=== PATIENT | male | born 1930 | race Hispanic/Latino ===

== ENCOUNTER 2017-11-03 07:36 | Inpatient (IN) | payer MEDICARE ==
[2017-11-03 07:57] VITALS: BMI 29.5
--- NOTE | 2017-11-03 08:35 | ED PDOC ---
Arrival/HPI - General Chief Complaint: Lower Extremity Problem/Injury Time Seen by Provider: 11/03/17 07:42 Historian: Patient - History of Present Illness Narrative History of Present Illness (Text): 11/03/17 08:41 An 87 year old male, whose past medical history includes skin CA, presents to the emergency department complaining of bilateral chronic leg lymphedema for months, denies any pain. Patient also reports left inguinal mass, painful. Notes swollen testicle. Patient has been taking water pills for a month. Patient was seen by PMD at home last night and was advised to come to the emergency department if symptoms worsen. Patient denies any fever or any other complaints at this time. PMD: Dr. Martinez Time/Duration: > month Symptom Onset: Sudden Symptom Course: Unchanged Activities at Onset: Rest Context: Home Past Medical History - Provider Review Nursing Documentation Reviewed: Yes - Infectious Disease Hx of Infectious Diseases: None - Tetanus Immunization Tetanus Immunization: Unknown - Cardiac Hx Cardiac Disorders: Yes (CAD,) Hx Congestive Heart Failure: Yes (09-19-13) Hx Hypertension: Yes Hx Internal Defibrillator: No Hx Pacemaker: Yes (MEDTRONIC INSERT 1996/REPLACED 2003 &2011) Hx Peripheral Edema: Yes - Pulmonary Hx Respiratory Disorders: Yes Hx Asthma: Yes Hx Pneumonia: Yes (09-19-13) - Neurological Hx Neurological Disorder: Yes Hx Transient Ischemic Attacks (TIA): Yes (02-18-11) - HEENT Hx HEENT Disorder: Yes Hx Cataracts: Yes (BILATERAL) Hx Glaucoma: Yes - Renal Hx Renal Disorder: No - Endocrine/Metabolic Hx Endocrine Disorders: No - Hematological/Oncological Hx Blood Disorders: No - Integumentary Hx Dermatological Disorder: Yes Hx Melanoma: Yes (WITH CAUTHERIZATION) - Musculoskeletal/Rheumatological Hx Musculoskeletal Disorders: Yes Hx Arthritis: Yes (RHEUMATOID ARTHRITIS) Hx Falls: Yes - Gastrointestinal Hx Gastrointestinal Disorders: No Hx Gastroesophageal Reflux: Yes - Genitourinary/Gynecological Hx Genitourinary Disorders: No - Psychiatric Hx Psychophysiologic Disorder: No Hx Substance Use: No - Surgical History Hx Cardiac Catheterization: Yes (YRS AGO) Other/Comment: CATARACT SURGERY BILATERAL EYE. - Anesthesia Hx Anesthesia Reactions: No Hx Malignant Hyperthermia: No - Suicidal Assessment Feels Threatened In Home Enviroment: No Family/Social History - Physician Review Nursing Documentation Reviewed: Yes Family/Social History: No Known Family HX Smoking Status: Never Smoked Hx Alcohol Use: No Hx Substance Use: No Hx Substance Use Treatment: No Allergies/Home Meds Allergies/Adverse Reactions: Allergies No Known Allergies Allergy (Verified 01/21/15 06:58) Home Medications: Home Meds Medication Instructions Recorded Confirmed Cholestyramine [Questran] 1 pkt PO DAILY 11/03/17 11/03/17 Dorzolamide 2%/Timolol 0.5% 1 drop OU BID 11/03/17 11/03/17 [Cosopt 2%-0.5% Opht] Furosemide [Lasix] 40 mg PO BID 11/03/17 11/03/17 Review of Systems - Physician Review All systems were reviewed & negative as marked: Yes - Review of Systems Constitutional: absent: Fevers Genitourinary Male: Other (swollen testicle) Skin: Other (b/l chronic leg lymphedema; left inguinal mass) Physical Exam Vital Signs Reviewed: Yes Vital Signs Temp Pulse Resp BP Pulse Ox 11/03/17 09:35 89 19 128/71 96 11/03/17 09:27 146/93 H 11/03/17 09:25 84 20 146/93 H 96 11/03/17 07:50 98.1 F 88 18 132/74 97 Temperature: Afebrile Blood Pressure: Normal Pulse: Regular Respiratory Rate: Normal Appearance: Positive for: Comfortable, Other (obese, non ambulatory) Pain Distress: None Mental Status: Positive for: Alert and Oriented X 3 - Systems Exam Head: Present: Atraumatic, Normocephalic Pupils: Present: PERRL Extroacular Muscles: Present: EOMI Conjunctiva: Present: Normal Mouth: Present: Moist Mucous Membranes Neck: Present: Normal Range of Motion Respiratory/Chest: Present: Decreased Breath Sounds (b/l at bases). No: Respiratory Distress, Accessory Muscle Use, Wheezes, Rales, Rhonchi Cardiovascular: Present: Regular Rate and Rhythm, Other (holosystolic murmur) Abdomen: Present: Normal Bowel Sounds. No: Tenderness, Distention, Peritoneal Signs Back: Present: Normal Inspection Upper Extremity: Present: Normal Inspection. No: Cyanosis, Edema Lower Extremity: Present: Edema (b/l chronic lymphedema, chronic skin changed noted, decreased pulses peripherally, decreased ROM), Other (left inguinal region grapefruit sized firm mass, nontender, no open wounds, slightly inflamed ; healing leg ulcer at lateral aspect of left leg) Neurological: Present: GCS=15, CN II-XII Intact, Speech Normal Skin: Present: Warm, Dry, Normal Color. No: Rashes Psychiatric: Present: Alert, Oriented x 3, Normal Insight, Normal Concentration Medical Decision Making ED Course and Treatment: 11/03/17 08:32 Impression: An 87 year old male with b/l lower extremity chronic lymphedema, and left inguinal mass. Plan: -- labs -- Reassess and disposition Prior Visits: Notes and results from previous visits were reviewed. Patient was last seen in the emergency department on 09/09/15 for evaluation of left calf bleeeding. Progress Notes: - Lab Interpretations Lab Results: 11/03/17 08:15 11/03/17 08:15 Lab Results 11/03/17 08:15: PT 12.4, INR 1.08 11/03/17 08:15: Sodium 141, Potassium 4.4, Chloride 98, Carbon Dioxide 34 H, Anion Gap 14, BUN 10, Creatinine 0.7 L, Est GFR ( Amer) > 60, Est GFR ( Non-Af Amer) > 60, Random Glucose 157 H, Calcium 9.6, Total Bilirubin 0.5, AST 47, ALT 35, Alkaline Phosphatase 112, Total Protein 7.0, Albumin 3.7, Globulin 3.3, Albumin/Globulin Ratio 1.1 11/03/17 08:15: WBC 6.0 D, RBC 3.94, Hgb 12.3 L, Hct 40.9 L, MCV 103.8, MCH 31.2, MCHC 30.1 L, RDW 13.7, Plt Count 174, MPV 9.7, Gran % 56.8, Lymph % (Auto ) 26.6, [place] % (Auto) 12.4 H, Eos % (Auto) 4.0, Baso % (Auto) 0.2, Gran # 3.40, Lymph # (Auto) 1.6, [place] # (Auto) 0.7 H, Eos # (Auto) 0.2, Baso # (Auto) 0.01 I have reviewed the lab results: Yes - RAD Interpretation Radiology Orders: 11/03/17 08:38 ABD & PELVIS PO CONTRAST ONLY [CT] Stat - Medication Orders Current Medication Orders: Cholestyramine Resin (Questran) 4 gm PO DAILY [facility] Last Admin: 11/03/17 09:25 Dose: Dorzolamide/Timolol (Cosopt 2%-0.5% Opht) 1 drop OU BID [facility] Last Admin: 11/03/17 09:24 Dose: Furosemide (Lasix) 40 mg IVP BID [facility] Last Admin: 11/03/17 09:27 Dose: 40 mg MAR Blood Pressure Document 11/03/17 09:27 SE (Rec: 11/03/17 09:27 [id number]) Blood Pressure Blood Pressure (100/60-150/90) 146/93 IVP Administration Document 11/03/17 09:27 SE (Rec: 11/03/17 09:27 [id number]) Charges for Administration # of IVP Administrations 1 Ceftriaxone Sodium (Rocephin 1 Gram Ivpb) 1 gm in 100 mls @ 100 mls/hr IVPB DAILY [facility] PRN Reason: Protocol Last Admin: 11/03/17 09:27 Dose: 100 mls/hr eMAR Start Stop Document 11/03/17 09:27 SE (Rec: 11/03/17 09:27 [id number]) Intravenous Solution Start Date 11/03/17 Start Time 09:27 Vancomycin HCl 1.5 gm/ Sodium (Chloride) 250 mls @ 167 mls/hr IVPB ONCE ONE PRN Reason: Protocol Stop: 11/03/17 11:33 - Scribe Statement The provider has reviewed the documentation as recorded by the Bakari Abrams Provider Scribe Attestation: All medical record entries made by the Scribkenn were at my direction and personally dictated by me. I have reviewed the chart and agree that the record accurately reflects my personal performance of the history, physical exam, medical decision making, and the department course for this patient. I have also personally directed, reviewed, and agree with the discharge instructions and disposition. Disposition/Present on Arrival - Present on Arrival Any Indicators Present on Arrival: No History of DVT/PE: No History of Uncontrolled Diabetes: No Urinary Catheter: No History of Decub. Ulcer: No History Surgical Site Infection Following: None - Disposition Have Diagnosis and Disposition been Completed?: Yes Diagnosis: Cellulitis, CHF (congestive heart failure) Disposition: HOSPITALIZED Disposition Time: 10:10 Patient Plan: Admission Condition: STABLE Discharge Instructions (ExitCare): Cellulitis (ED), Heart Failure (ED) Forms: [employer] (E[place]ian)
[2017-11-03] MEDS ORDERED: Iohexol 240 (50 ml) ONE (08:44)
[2017-11-03 08:48] LABS: BASO # 0.01 K/mm3 (0.0-2.0); BASO % 0.2 % (0.0-3.0); EOS # 0.2 (0.0-0.7); GRAN # 3.4 (1.4-6.5); GRAN % 56.8 % (50.0-68.0); HEMOGLOBIN 12.3 g/dL (14.0-18.0); LYMPH # 1.6 (1.2-3.4); LYMPH % 26.6 % (22.0-35.0); MEAN CELL VOLUME 103.8 fl (80.0-105.0); MEAN CORPUSCULAR HEMOGLOBIN 31.2 pg (25.0-35.0); MEAN CORPUSCULAR HGB CONC 30.1 g/dl (31.0-37.0); MEAN PLATELET VOLUME 9.7 fl (7.0-11.0); MONO # 0.7 (0.1-0.6); MONO % 12.4 % (1.0-6.0); RBC 3.94 10^6/uL (3.5-6.1); RED CELL DISTRIBUTION WIDTH 13.7 % (11.5-14.5)
[2017-11-03 08:56] LABS: ALB/GLOB RATIO 1.1 (1.1-1.8); ALBUMIN 3.7 g/dL (3.0-4.8); ALT/SGPT 35 U/L (7-56); AST/SGOT 47 U/L (17-59); BLOOD UREA NITROGEN 10 mg/dL (7-21); CALCIUM 9.6 mg/dL (8.4-10.5); GFR AFRICAN-AMERICAN > 60; GFR NON-AFRICAN AMERICAN > 60
[2017-11-03 08:58] LABS: INR 1.08 (0.93-1.08); PROTHROMBIN TIME 12.4 SECONDS (9.4-12.5)
[2017-11-03] MEDS: Dorzolamide 2%/Timolol 0.5% 100 DROP/10 ML BOTTLE OU SCH ×2 (09:24→17:38)
[2017-11-03] MEDS: Cholestyramine 4 gm/Pkt UD PO SCH (09:25)
[2017-11-03] MEDS: cefTRIAXone 1 gm 1 GM/100 ML BAG IVPB SCH (09:27)
[2017-11-03] MEDS ORDERED: Cholestyramine 4 gm/Pkt UD PO SCH (10:00)
--- NOTE | 2017-11-03 11:39 | CT ---
PROCEDURE: CT Abdomen and Pelvis without intravenous contrast HISTORY: mass COMPARISON: None. TECHNIQUE: Without contrast.. Contrast Dose: 0 Radiation dose: Total exam DLP = 1301.39 mGy-cm. This CT exam was performed using one or more of the following dose reduction techniques: Automated exposure control, adjustment of the mA and/or kV according to patient size, and/or use of iterative reconstruction technique. FINDINGS: LOWER THORAX: No infiltrate/ effusion. Mild cardiomegaly. Permanent pacemaker. LIVER: Unremarkable. No gross lesion or ductal dilatation. GALLBLADDER AND BILE DUCTS: Cholelithiasis. No mural thickening. PANCREAS: Unremarkable. No gross lesion or ductal dilatation. SPLEEN: Unremarkable. ADRENALS: Unremarkable. No mass. KIDNEYS AND URETERS: Unremarkable. No hydronephrosis. No solid mass. VASCULATURE: Unremarkable. No aortic aneurysm. BOWEL: Diverticulosis of descending colon. No evidence of diverticulitis. No bowel obstruction. No other abnormal bowel loops. APPENDIX: Not identified PERITONEUM: Unremarkable. No free fluid. No free air. LYMPH NODES: Left inguinal mass, approximately 10.6 x 9.5 x 9.5 cm, with central low attenuation likely representing necrosis. The mass is inseparable from and possibly invading the left pectineus muscle. There is mild infiltration of the soft tissue surrounding this inguinal mass. Several enlarged left pelvic nodes are identified up to 3.3 cm short axis. BLADDER: Unremarkable. REPRODUCTIVE: Unremarkable prostate BONES: No acute fracture. OTHER FINDINGS: There is stranding of the subcutaneous fat of the left thigh with cutaneous thickening, circumferentially, sparing only the posterior medial aspect. This may reflect a cellulitis or infiltration from hemorrhage. Unlikely neoplastic infiltration. IMPRESSION: Large left inguinal mass with central necrosis, possibly invading the left pectineus muscle. Infiltration of adjacent soft tissues. Infiltration of subcutaneous soft tissues about the left thigh with cutaneous thickening common nonspecific. Several enlarged left pelvic lymph nodes. No retroperitoneal lymphadenopathy. These findings may reflect metastatic disease to inguinal and left pelvic nodes of on certain etiology. Alternatively, the left inguinal mass may represent a primary neoplasm. Biopsy is advised.
[2017-11-03] MEDS ORDERED: Potassium Chloride 20 mEq ER Tab PO ONE (13:06)
[2017-11-03] MEDS ORDERED: metOLazone 5 MG TAB PO STA (13:07)
[2017-11-03] MEDS ORDERED: Pneumococcal 23-Valent Vaccine IM ONE (17:47)
[2017-11-03] MEDS ORDERED: Influenza Vaccine 60 mcg/0.5 mL SYR (4YR UP) IM ONE (17:47)
--- NOTE | 2017-11-03 18:56 | CP.PCM.CON ---
History of Present Illness - History of Present Illness History of Present Illness: General Surgery consult for Dr. Hale Consulted for: inguinal mass Patient is an 87M with PMH of melanoma with multiple skin lesion resections and a right hemicolectomy for a tubular adenoma who was referred to the ED by his primary for severe swelling of his legs BL and a large mass in his left groin. Patient states that he first noted these symptoms 1 month ago. He was prescribed diuretics which did not alleviate the swelling. He also began having testicle swelling a few weeks ago. CT scan was performed which showed a left inguinal mass with central necrosis, possible invasion into the left pectineus muscle, and swelling/induration of the left thigh soft tissue, and lymphadenopathy of the pelvic lymph nodes. Patient admits chronic diarrhea but denies any fevers, chills, nausea, vomiting, dysuria, chest pain, or any other acute symptoms. Review of Systems - Review of Systems All systems: reviewed and no additional remarkable complaints except (as per HPI ) Past Patient History - Infectious Disease Hx of Infectious Diseases: None - Tetanus Immunizations Tetanus Immunization: Unknown - Past Medical History & Family History Past Medical History?: Yes - Past Social History Smoking Status: Never Smoked Alcohol: Other (prior occasional drinking, quit 5 years ago) Drugs: Denies Home Situation {Lives}: With Family - CARDIAC Hx Cardiac Disorders: Yes (CAD,) Hx Congestive Heart Failure: Yes (09-19-13) Hx Hypertension: Yes Hx Internal Defibrillator: No Hx Pacemaker: Yes (MEDTRONIC INSERT 1996/REPLACED 2003 &2011) Hx Peripheral Edema: Yes - PULMONARY Hx Respiratory Disorders: Yes Hx Asthma: Yes Hx Pneumonia: Yes (09-19-13) - NEUROLOGICAL Hx Neurological Disorder: Yes Hx Transient Ischemic Attacks (TIA): Yes (02-18-11) - HEENT Hx HEENT Problems: Yes Hx Cataracts: Yes (BILATERAL SX) Hx Glaucoma: Yes - RENAL Hx Chronic Kidney Disease: No - ENDOCRINE/METABOLIC Hx Endocrine Disorders: No - HEMATOLOGICAL/ONCOLOGICAL Hx Blood Disorders: Yes Hx Cancer: Yes (SKIN CA,SKIN MELANOMA,SQUAMOUS) - INTEGUMENTARY Hx Dermatological Problems: Yes (CELLULITIS TO LEFT GROIN AREA-MASS 11-03-17) Hx Melanoma: Yes (WITH CAUTHERIZATION) Other/Comment: SQUAMOUS CELL CA,MELANOMA WITH CAUTHERIZATION - MUSCULOSKELETAL/RHEUMATOLOGICAL Hx Musculoskeletal Disorders: Yes Hx Arthritis: Yes (RHEUMATOID ARTHRITIS) Hx Falls: Yes - GASTROINTESTINAL Hx Gastrointestinal Disorders: Yes (RECTAL BLEED,GERD) Hx Gastroesophageal Reflux: Yes - GENITOURINARY/GYNECOLOGICAL Hx Genitourinary Disorders: No - PSYCHIATRIC Hx Psychophysiologic Disorder: No Hx Substance Use: No - SURGICAL HISTORY Hx Surgeries: Yes (MULTIPLE MOH'S SX-SKIN CA) Hx Cardiac Catheterization: Yes (YRS AGO) Other/Comment: CATARACT SURGERY BILATERAL EYE. right hemicolectomy - ANESTHESIA Hx Anesthesia Reactions: No Hx Malignant Hyperthermia: No Meds Allergies/Adverse Reactions: Allergies Allergy/AdvReac Type Severity Reaction Status Date / Time No Known Allergies Allergy Verified 11/03/17 11:37 - Medications Medications: Current Medications Cholestyramine Resin (Questran) 4 gm PO DAILY [facility] Last Admin: 11/03/17 09:25 Dose: Not Given Dorzolamide/Timolol (Cosopt 2%-0.5% Opht) 1 drop OU BID [facility] Last Admin: 11/03/17 17:38 Dose: 1 drop Enoxaparin Sodium (Lovenox) 40 mg SC DAILY [facility] PRN Reason: Protocol Furosemide (Lasix) 40 mg IVP BID [facility] Last Admin: 11/03/17 17:39 Dose: 40 mg Ceftriaxone Sodium (Rocephin 1 Gram Ivpb) 1 gm in 100 mls @ 100 mls/hr IVPB DAILY [facility] PRN Reason: Protocol Stop: 11/07/17 10:59 Last Admin: 11/03/17 09:27 Dose: 100 mls/hr Ketorolac Tromethamine (Toradol) 30 mg IVP Q8H PRN PRN Reason: Pain, moderate (4-7) Last Admin: 11/03/17 16:14 Dose: 30 mg Metolazone (Zaroxolyn) 5 mg PO DAILY [facility] Stop: 11/06/17 23:59 Potassium Chloride (K-Dur 20 Meq Er Tab) 20 meq PO BRK [facility] Physical Exam - Constitutional Appears: Non-toxic, No Acute Distress - Head Exam Head Exam: ATRAUMATIC, NORMOCEPHALIC - Eye Exam Eye Exam: Conjunctival injection, Normal appearance. absent: Scleral icterus - ENT Exam ENT Exam: Mucous Membranes Moist, Normal Oropharynx - Respiratory Exam Respiratory Exam: Wheezes, NORMAL BREATHING PATTERN. absent: Respiratory Distress - GI/Abdominal Exam GI & Abdominal Exam: Soft. absent: Distended, Tenderness - Exam Exam: Scrotal Swelling. absent: Testicular Tenderness Additional comments: scrotal erythema - Extremities Exam Extremities exam: Positive for: pedal pulses present Additional comments: BL lower leg swelling and chronic skin thinkening and rubor. Left inguinal region with subcutaneous mass approximately 10cm long by 6cm wide, solid, immobile, non-tender, with no fluctuance or overlying skin breakdown - Neurological Exam Neurological exam: Alert, Oriented x3 - Psychiatric Exam Psychiatric exam: Normal Affect, Normal Mood - Skin Skin Exam: Dry, Normal Color (except as noted above), Warm Results - Vital Signs Recent Vital Signs: Last Vital Signs Temp 98.5 F 11/03/17 16:32 Pulse 73 11/03/17 16:32 Resp 19 11/03/17 16:32 BP 113/85 11/03/17 17:39 Pulse Ox 96 11/03/17 16:00 - Labs Result Diagrams: 11/03/17 08:15 11/03/17 08:15 - Imaging and Cardiology CT scan - abdomen Status: Image reviewed by me, Report reviewed by me CT scan - pelvis Status: Image reviewed by me, Report reviewed by me Assessment & Plan - Assessment and Plan (Free Text) Assessment: 87M with PMH of melanoma and squamous cell carcinoma with let inguinal mass and pelvic lymphadenopathy and BL lymphedema and scrotal swelling. Plan: -Will need biopsy of inguinal mass to identify etiology--further recommendations per Dr. Hale -Will need medical optimization -Will need cardiac clearance -Continue medical management per primary -PRN pain medication -DVT ppx -BL lower extremity elevation -Physical therapy Further recommendations per Dr. Geoffrey Bosch, PGY2 Surgery pager: [phone]
[2017-11-03] MEDS: Vancomycin 1gm in NS 250ml 1 GM/250 ML BAG IVPB SCH (21:50)
--- NOTE | 2017-11-03 23:35 | CON ---
DATE: 11/03/2017 CONSULT SERVICE: Cardiology. CONSULTING PHYSICIAN: Dominick Mcgowan MD REASON FOR THE CONSULTATION: Cellulitis of the lower extremities, congestive heart failure, coronary artery disease status post stent, history of permanent pacemaker. BRIEF CLINICAL HISTORY: An 87-year-old male with a past medical history significant for obesity, history of coronary artery disease, status post PTCA 10 to 13 years ago, last catheterization on 07/28/ , that showed nonobstructive coronary artery disease who is bed bound mostly, history of AFib, history of pacemaker, came in with increased swelling of the leg and swelling of the groin and mild cough and mild shortness of breath. Denies any chest pain, complaint of cough and shortness of breath associated with cough. PAST MEDICAL HISTORY: Significant for coronary artery disease, status post PTCA 13 years ago, history of hypertension, hyperlipidemia, obesity, history of sick sinus syndrome with status post permanent pacemaker. PREVIOUS CARDIAC WORKUP: As follows: History of cardiac catheterization and PTCA 13 years ago, history of last catheterization on 07/28/2013, that showed nonobstructive coronary artery disease, patent stent in LAD, ejection fraction 55%, moderate aortic stenosis by echo was reported, but no gradient across the aortic valve noted by cath. Last echo here in the hospital was in 2012 that showed ejection fraction 40% to 45%, mild anteroseptal hypokinesis, moderate by 2D echo, trace aortic regurgitation, mild mitral regurgitation, mild tricuspid regurgitation. Patient had a stress test in 2012 that showed anteroseptal ischemia prior to the cardiac catheterization. Cardiac catheterization showed nonobstructive coronary artery disease. Then, the patient had a stress test again on 12/27/2014, that showed probably abnormal myocardial perfusion, fixed anterior defect, no reversible ischemia, ejection fraction 53%. History of glaucoma, history of hypertension, and history of obesity. SOCIAL HISTORY: Denies any history of alcohol abuse. CURRENT MEDICATIONS: Patient at home was taking Lasix 40 mg daily, eye drop, and cholestyramine. REVIEW OF SYSTEMS: As per HPI. PHYSICAL EXAMINATION: As follows: VITAL SIGNS: Temperature afebrile, heart rate 73, blood pressure 106/57. HEENT: PERRLA intact. NECK: Supple. No carotid bruit or thyromegaly. CHEST: Clear to auscultation. A few crackles noted at the bases of the lungs. HEART: S1 and S2 regular. ABDOMEN: Soft. EXTREMITIES: Clubbing and cyanosis negative. 2 to 3+ pedal edema noted, left groin tender and swollen noted. LABORATORY DATA: EKG showed V-paced rhythm, baseline artifact that appears normal sinus. Blood workup: WBC , hemoglobin 12.3, hematocrit 40.9, platelet count 174. Chemistry showed sodium 141, potassium 4.0, chloride , anion gap of 14, BUN 10, creatinine 0.7. IMPRESSION: Bilateral cellulitis and lower extremity edema, coronary artery disease, status post percutaneous transluminal coronary angioplasty of left anterior descending artery 13 years ago, last catheterization in 2012 after abnormal stress test, patent stent, last stress test in 2014 - no ischemia. [id number] aortic stenosis by cath, no significant stenosis, morbid obesity, history of sickness syndrome, status post permanent pacemaker, cellulitis of the lower extremities, diabetes, hypertension, and hyperlipidemia. RECOMMENDATIONS: We will get echo to asses LV function, broad-spectrum antibiotic, golden culture, diuretics, Lasix 40 b.i.d. Further recommendation depending on the hospital course. We will follow with you. DVT prophylaxis. We will start also Zaroxolyn to help with the diuresis. We will first dose now and then we will continue for 3 more days and also supplement potassium anticipating that with the diuresis, patient will get hypokalemia. Thank you Dr. Martinez for providing us the opportunity in taking care of Abdifatah Granados. Dominick Mcgowan MD
--- NOTE | 2017-11-04 06:37 | CON ---
DATE: 11/13/2017 The patient is seen earlier this morning. Patient's daughter is at the bedside. CHIEF COMPLAINT: Infection of lower extremities. HISTORY OF PRESENT ILLNESS: This is an 87-year-old male with a history of skin cancer - squamous cell, one episode of melanoma, multiple skin lesions, tubular adenoma, history of glaucoma, rheumatoid arthritis, hypertension, coronary artery disease, congestive heart failure, history of hemicolectomy and pacemaker, who was admitted to the emergency room because of lower extremity erythema. Patient has had ulcers and had a skin crack in the lower extremities in the past and also complained of a left inguinal mass. The patient has not had any fevers or any chills. No nausea. No vomiting. No chest pain. No abdominal pain. PAST MEDICAL HISTORY: Significant for melanoma, congestive heart failure, coronary artery disease, rheumatoid arthritis as outpatient, glaucoma, multiple skin lesions. PAST SURGICAL HISTORY: Significant for hemicolectomy and pacemaker. ALLERGIES: PATIENT HAS NO KNOWN ALLERGIES. MEDICATIONS AT HOME: Include the patient to be on Questran and Lasix. PHYSICAL EXAMINATION: GENERAL: He is sitting in bed, in no acute distress, answering questions appropriately. Patient's daughter is at the bedside. VITAL SIGNS: Temperature is 99, blood pressure is 116/60, respiratory rate of 20, heart rate of 73. HEENT: Unremarkable. NECK: Supple. LUNGS: Have decreased breath sounds. HEART: Normal S1, S2. ABDOMEN: Soft, nontender. Examination of left inguinal area has hard indurated mass measuring 4 cm x 7 cm, significant size mass indurated. EXTREMITIES: Lower extremity have chronic changes and edema and erythematous changes. LABORATORY DATA: Reveals a white count of 6000, platelets of 174. BUN of 10, creatinine of 0.7. CAT scan of the abdomen and pelvis is noted with a large left inguinal mass with central necrosis, possibly invading the left hip muscle. ASSESSMENT AND PLAN: This is an 87-year-old male with skin cancer, melanoma, tubular adenomas, rheumatoid arthritis, hypertension, congestive heart failure, coronary artery disease, glaucoma, here with left groin mass with left leg cellulitis. We will treat the patient with vancomycin and Rocephin. We will need a tissue biopsy and we will follow up closely with you. Tay Rascon MD [facility] # [phone]
[2017-11-04 06:38] LABS: BASO # 0.01 K/mm3 (0.0-2.0); BASO % 0.2 % (0.0-3.0); EOS # 0.1 (0.0-0.7); EOS % 2.2 % (1.5-5.0); GRAN # 3.32 (1.4-6.5); GRAN % 56.4 % (50.0-68.0); HEMOGLOBIN 12.9 g/dL (14.0-18.0); LYMPH # 1.7 (1.2-3.4); LYMPH % 29.3 % (22.0-35.0); MEAN CELL VOLUME 103.4 fl (80.0-105.0); MEAN CORPUSCULAR HEMOGLOBIN 31.6 pg (25.0-35.0); MEAN CORPUSCULAR HGB CONC 30.6 g/dl (31.0-37.0); MEAN PLATELET VOLUME 9.9 fl (7.0-11.0); MONO # 0.7 (0.1-0.6); MONO % 11.9 % (1.0-6.0); RBC 4.08 10^6/uL (3.5-6.1); RED CELL DISTRIBUTION WIDTH 13.9 % (11.5-14.5); WHITE BLOOD COUNT 5.9 10^3/ul (4.5-11.0)
[2017-11-04 07:04] LABS: ALBUMIN 3.7 g/dL (3.0-4.8); ALT/SGPT 37 U/L (7-56); AST/SGOT 54 U/L (17-59); BLOOD UREA NITROGEN 15 mg/dL (7-21); CALCIUM 9.6 mg/dL (8.4-10.5); GFR AFRICAN-AMERICAN > 60; GFR NON-AFRICAN AMERICAN > 60; HDL CHOLESTEROL 32 mg/dL (29-60); LDL CHOLESTEROL 49 mg/dL (0-129); MAGNESIUM 2.1 mg/dL (1.7-2.2)
--- NOTE | 2017-11-04 08:13 | CARD ---
APPROVED REPORT EKG Measurement Heart [id number] VA 128P [id number] <Conclusion> Electronic ventricular pacemaker: 100 % V. Paced Electrical artifact present
--- NOTE | 2017-11-04 08:24 | HP ---
HISTORY OF PRESENT ILLNESS: I saw Abdifatah yesterday and I was very upset of how he was looking. His legs were extremely swollen even though he was on Lasix 40 mg up to twice a day p.o. and the legs got worse; also there is swelling in the left groin, hard as a rock, could be a very hardened lymphedema or a mass. He is in big trouble with that. He has not seen his group controller or his urologist in a long time. We are also going to need a CAT scan of the abdomen and pelvis. His legs are also red and inflamed, with blisters coming on. He is an 87-year-old man with swelling of the legs despite Lasix increased from 40 to twice a day, and it got worse and there is hardening of the left inguinal mass. The testicles are not swollen. He has been taking his medications, he is there with his daughter, and he is uncomfortable. PAST MEDICAL HISTORY: CHF, morbidly obese, CAD, hypertension, internal defibrillator. He has edema, which has got much worse with swelling, redness and ulcers. He has asthma. He had TIAs in the past, bilateral cataracts and glaucoma. He had melanoma with cauterization, rheumatoid arthritis. He had multiple falls. Cardiac stents. FAMILY HISTORY: No known family history. SOCIAL HISTORY: Never smoked. No alcohol. No drugs. ALLERGIES: NO KNOWN DRUG ALLERGIES. MEDICATIONS: He takes Cosopt and Lasix, and this is not working. REVIEW OF SYSTEMS: No acute vision or hearing changes. No sore throat. No chest pain. A little short of breath. No abdominal pain. No nausea or vomiting. No constipation or diarrhea. He has swollen legs, much worse with the increase in the Lasix. He has blisters on both legs and they are reddened and swollen. He has some swollen testicles and also left groin hard mass. PHYSICAL EXAMINATION: VITAL SIGNS: He has a 98.1 temperature, 88 pulse, 18 respiratory rate, 132/74 blood pressure, 97% O2 saturations on room air. GENERAL: He is alert and oriented x3. Not that comfortable in his gurney. His daughter is with him. HEENT: Head is atraumatic, normocephalic. Extraocular muscles are intact. Pupils equal and reactive to light. Throat is moist. NECK: Supple. HEART: Regular rate. LUNGS: Decreased breath sounds bilaterally, but clear. No wheezes, no rhonchi, no rales. ABDOMEN: Morbidly obese. Nontender. Positive bowel sounds. No guarding. No rebound. No CVA tenderness. EXTREMITIES: Have +4/4 pitting edema bilaterally, with lymphedema. A hard inguinal grape fruit sized mass hard as a rock. His legs are red and inflamed, with ulcers, look very cellulitic. NEUROLOGIC: His GCS is 15. Cranial nerves II through XII grossly intact. Normal speech. SKIN: Inflamed, reddened, and ulcers to both lower extremities to cellulitis. LYMPHATICS: Thyroid midline. There is a large lymphadenopathy, I think hard mass, grape fruit sized, in the left groin. LABORATORY DATA: Labs are pending. IMPRESSION: He is going to get a consult with Dr. Floyd, his group controller, I have put him on Lasix 40 IV b.i.d.; Dr. Grider, the urologist for the inguinal mass, he might need surgery; also Dr. Rascon for IV antibiotics, I have put him on Rocephin for the time being for his cellulitis. He will need a CAT scan of the abdomen and pelvis. I have put him back on his medications. We will check his labs tomorrow. Discussed at length with the family. He is in a very bad condition and hopefully he will improve. Phuc Martinez DO [facility]
[2017-11-04] MEDS: Potassium Chloride 20 mEq ER Tab PO SCH (11:21)
[2017-11-04] MEDS: Enoxaparin 40 mg Syringe SC SCH (11:24)
[2017-11-04] MEDS: metOLazone 5 MG TAB PO SCH (11:24)
[2017-11-04] MEDS: Vancomycin 1gm in NS 250ml 1 GM/250 ML BAG IVPB SCH ×2 (11:27→20:20)
[2017-11-04] MEDS: cefTRIAXone 1 gm 1 GM/100 ML BAG IVPB SCH (11:28)
[2017-11-04] MEDS: Dorzolamide 2%/Timolol 0.5% 100 DROP/10 ML BOTTLE OU SCH ×2 (11:30→18:42)
[2017-11-04] MEDS: Cholestyramine 4 gm/Pkt UD PO SCH (11:31)
--- NOTE | 2017-11-04 11:39 | PN ---
DATE: SUBJECTIVE: I saw Abdifatah Granados sitting out of bed to the chair. He cannot lie flat in the bed. He is comfortable. He is urinating a little bit more, but not that much more. He is on Lasix 40 IV twice a day. He is going to get cardio evaluation, surgical evaluation and he needs to have a biopsy of the left groin mass which is hard as a rock. He is comfortable. He is eating a little bit. He also needs physical therapy to assess his ambulation. He has trouble with that. He might need subacute rehab. PHYSICAL EXAMINATION VITAL SIGNS: He has 98 temperature, 56 pulse, 96/55 blood pressure, 20 respiratory rate, 90% to 96% on O2 saturation. HEENT: Head is atraumatic, normocephalic. HEART: Regular rate. LUNGS: Decreased breath sounds, but clear. ABDOMEN: Morbidly obese, soft, nontender. He has got a left groin mass, very hard, very big. EXTREMITIES: +4/4 pitting edema, this is a little bit less. The left leg is reddened, looks like cellulitis. LABORATORY DATA: He has 140 sodium, potassium 3.9, BUN 15, creatinine 0.9, GFR is greater than 60, sugar is 133, calcium is 9.6, phosphorus 4, magnesium is 2.1. Total bilirubin 0.6, AST is 54, ALT 37, alkaline phosphatase 132, total protein 7.4. Triglycerides are 100, cholesterol is 104, TSH is 3.78. INR is 1.08. He has 5.9 white count, 12.9 hemoglobin, 42.2 hematocrit with 180,000 platelets. He has been seen by Infectious Disease, Surgery and Cardiology. He needs physical therapy, needs a biopsy of this mass. He needs to be diuresed and physical therapy and he might need to go to TCU or subacute rehab. We will continue aggressive treatment and care. Discussed with him at length. He has got a left leg cellulitis; CHF and left abdominal mass hard as a rock, ruling out cancer. Phuc Martinez DO
--- NOTE | 2017-11-04 13:57 | CP.PCM.PN ---
Subjective - Date & Time of Evaluation Date of Evaluation: 11/04/17 Time of Evaluation: 13:54 - Subjective Subjective: General surgery progress note for Dr. Hale Patient seen and examined at bedside with PT/OT. Patient is doing well, no complaints at present time, denies pain, nausea, vomiting, diarrhea, fevers, and chills. Objective - Vital Signs/Intake and Output Vital Signs (last 24 hours): Temp Pulse Resp BP Pulse Ox 98.0 F 56 L 20 103/60 90 L 11/04/17 06:00 11/04/17 06:00 11/04/17 06:00 11/04/17 11:26 11/04/17 06:00 Intake and Output: 11/04/17 11/04/17 06:59 18:59 Intake Total 480 250 Output Total 500 Balance -20 250 - Medications Medications: Current Medications Cholestyramine Resin (Questran) 4 gm PO DAILY [facility] Last Admin: 11/04/17 11:31 Dose: 4 gm Dorzolamide/Timolol (Cosopt 2%-0.5% Opht) 1 drop OU BID [facility] Last Admin: 11/04/17 11:30 Dose: 1 drop Enoxaparin Sodium (Lovenox) 40 mg SC DAILY [facility] PRN Reason: Protocol Last Admin: 11/04/17 11:24 Dose: 40 mg Furosemide (Lasix) 40 mg IVP BID [facility] Last Admin: 11/04/17 11:26 Dose: 40 mg Ceftriaxone Sodium (Rocephin 1 Gram Ivpb) 1 gm in 100 mls @ 100 mls/hr IVPB DAILY [facility] PRN Reason: Protocol Stop: 11/07/17 10:59 Last Admin: 11/04/17 11:28 Dose: 100 mls/hr Vancomycin HCl (Vancomycin 1gm) 1 gm in 250 mls @ 167 mls/hr IVPB Q12H [facility] PRN Reason: Protocol Stop: 11/12/17 20:01 Last Admin: 11/04/17 11:27 Dose: 167 mls/hr Ketorolac Tromethamine (Toradol) 30 mg IVP Q8H PRN PRN Reason: Pain, moderate (4-7) Last Admin: 11/04/17 01:52 Dose: 30 mg Metolazone (Zaroxolyn) 5 mg PO DAILY [facility] Stop: 11/06/17 23:59 Last Admin: 11/04/17 11:24 Dose: 5 mg Potassium Chloride (K-Dur 20 Meq Er Tab) 20 meq PO BRK [facility] Last Admin: 11/04/17 11:21 Dose: 20 meq - Labs Labs: 11/04/17 06:00 11/04/17 06:00 PT 12.4 SECONDS (9.4-12.5) 11/03/17 08:15 INR 1.08 (0.93-1.08) 11/03/17 08:15 - Constitutional Appears: Well - Head Exam Head Exam: ATRAUMATIC, NORMAL INSPECTION, NORMOCEPHALIC - Eye Exam Eye Exam: EOMI, Normal appearance, PERRL Pupil Exam: NORMAL ACCOMODATION, PERRL - ENT Exam ENT Exam: Mucous Membranes Moist, Normal Exam - Neck Exam Neck Exam: Full ROM, Normal Inspection. absent: Lymphadenopathy - Respiratory Exam Respiratory Exam: Clear to Ausculation Bilateral, NORMAL BREATHING PATTERN - Cardiovascular Exam Cardiovascular Exam: REGULAR RHYTHM, +S1, +S2. absent: Murmur - GI/Abdominal Exam GI & Abdominal Exam: Soft, Normal Bowel Sounds. absent: Tenderness - Rectal Exam Rectal Exam: NORMAL INSPECTION - Exam Exam: Circumcision, NORMAL INSPECTION External exam: NORMAL EXTERNAL EXAM Speculum exam: NORMAL SPECULUM EXAM Bimanual exam: NORMAL BIMANUAL EXAM Additional comments: Scrotal swelling - Extremities Exam Extremities Exam: Full ROM, Normal Capillary Refill, Normal Inspection. absent : Joint Swelling, Pedal Edema Additional comments: bilateral severe 3+ pitting edema in lower extremities with skin discoloring and appearance of lymphadenopathy Left inguinal region with subcutaneous mass approximately 10cm long by 6cm wide , solid, immobile, non-tender, with no fluctuance or overlying skin breakdown - Back Exam Back Exam: NORMAL INSPECTION - Neurological Exam Neurological Exam: Alert, Awake, CN II-XII Intact, Normal Gait, Oriented x3 - Psychiatric Exam Psychiatric exam: Normal Affect, Normal Mood - Skin Skin Exam: Dry, Intact, Normal Color, Warm Assessment and Plan - Assessment and Plan (Free Text) Assessment: Assessment 87M with PMH of melanoma and squamous cell carcinoma with left inguinal mass and pelvic lymphadenopathy and BL lymphedema and scrotal swelling. Plan: -Will need biopsy of inguinal mass to identify etiology: True cut needle biopsy -Will need medical optimization -Will need cardiac clearance -Continue medical management per primary -PRN pain medication -DVT ppx -BL lower extremity elevation -Physical therapy -Rest of recommendations per Dr. Hale
--- NOTE | 2017-11-04 15:24 | PN ---
DATE: REASON FOR CONSULTATION AND FOLLOWUP: Cellulitis of the lower extremities; congestive heart failure; coronary artery disease, status post stent; history of permanent pacemaker. SUBJECTIVE: Patient denies any chest pain, shortness of breath, feels a little better, sitting on the chair. OBJECTIVE GENERAL: Not in apparent distress, sitting on the chair. VITAL SIGNS: Temperature afebrile, heart rate 73, blood pressure 116/57. HEENT: PERRLA. Extraocular muscles intact. NECK: Supple. No carotid bruit or thyromegaly. CHEST: Clear to auscultation. HEART: S1 and S2, regular. ABDOMEN: Soft. EXTREMITIES: Clubbing and cyanosis negative. LABORATORY DATA: Blood workup as follows: WBC 5.9, hemoglobin 12.9, hematocrit 42.2, platelet count 180,000. Chemistry showed sodium 140, potassium 3.9, chloride 94, carbon dioxide 39, anion gap of 11, BUN 15, creatinine 0.9. TSH 3.78. Triglyceride 100, cholesterol 104, LDL 49, HDL 32. IMPRESSION: Right inguinal lymphadenopathy with several enlarged lymph nodes. No retroperitoneal lymphadenopathy noted on CAT scan, suspicious for metastatic disease to inguinal lymph node and pelvic node or could be primary neoplasm, bilateral leg edema, cellulitis, coronary artery disease status post permanent pacemaker, status post percutaneous transluminal coronary angioplasty. Last catheterization on 07/28/2013 showed patent stent. History of sick sinus syndrome, status post permanent pacemaker. RECOMMENDATIONS: We will get echo to assess LV size and function, broad-spectrum antibiotics, panculture, Lasix IV continued, DVT prophylaxis, possible lymph node biopsy to assess the pathology of the lymph node; in the interim, continue to supplement electrolytes and monitor closely. We will follow with you. Thank you Dr. Martinez for providing us the opportunity in taking care of Abdifatah Granados. Dmoinick Mcgowan MD
--- NOTE | 2017-11-04 17:52 | CARD ---
APPROVED REPORT EXAM: Two-dimensional and M-mode echocardiogram with Doppler and color Doppler. INDICATION Cardiac Disease: CAD Congestive Heart Failure ,MR,LVFX 2D DIMENSIONS Left Atrium (2D)4.4 (1.6-4.0cm)IVSd1.5 (0.7-1.1cm) LVDd4.8 (3.9-5.9cm)PWd1.4 (0.7-1.1cm) LVDs3.9 (2.5-4.0cm)FS (%) 19.2 % LVEF (%)39.3 (>50%) M-Mode DIMENSIONS Aortic Root3.20 (2.2-3.7cm)Aortic Cusp Exc.1.40 (1.5-2.0cm) Aortic Valve AoV Peak Fdhitrza067.0cm/sAoV VTI48.6cmAO Peak GR.25mmHg LVOT Peak Sqemwvlt466.0cm/sLVOT VTI20.10cmAO Mean GR.12mmHg Mitral Valve MV E Zvdpolcx60.8cm/sMV A Mwnfghdb995.0cm/sE/A ratio0.8 TDI Lateral E' Peak V7.80cm/sMedial E' Peak V5.46cm/sE/Lateral E'11.5 E/Medial E'16.4 Pulmonary Valve PV Peak Pzeksaca54.9cm/sPV Peak Grad.3mmHg Tricuspid Valve TR Peak Mrtosntq587ch/sRAP GDYJBKZC29evZzHA Peak Gr.60mmHg [id number] LEFT VENTRICLE The left ventricle is normal size. There is mild to moderate concentric left ventricular hypertrophy. The systolic function is mildly impaired.EF-40-45% There is mild hypokinesis in the apical anterior wall. Transmitral Doppler flow pattern is Grade III-reversible restrictive diastolic dysfunction. No left ventricle thrombus noted on this study. There is no ventricular septal defect visualized. There is no left ventricular aneurysm. There is no mass noted in the left ventricle. RIGHT VENTRICLE The right ventricle is moderately to severely dilated. The right ventricle is mildly hypertrophied. Systolic function is moderately reduced. There is a pacemaker lead in the right ventricle. ATRIA The left atrium is mildly dilated. The right atrium is moderately dilated. There is a catheter/pacemaker lead seen in the right atrium. The interatrial septum is intact with no evidence for an atrial septal defect. AORTIC VALVE The aortic valve is calcified and displays decreased opening. The aortic valve is moderately sclerotic. There is trace to mild aortic regurgitation. There is moderate valvular aortic stenosis. There is no aortic valvular vegetation. MITRAL VALVE The mitral valve is thickened but opens well. Mitral regurgitation is trace to mild. There is no mitral valve stenosis. There is no evidence of mitral valve prolapse. TRICUSPID VALVE The tricuspid valve leaflets are thickened , but open well. There is moderate to severe tricuspid regurgitation.RVSP_70 mm of Hg There is no tricuspid valve stenosis. There is no tricuspid valve prolapse or vegetation. PULMONIC VALVE The pulmonic valve is not well visualized. GREAT VESSELS The aortic root is normal in size. The ascending aorta is normal in size. The pulmonary artery is normal. The IVC is dilated. PERICARDIAL EFFUSION There is no pleural effusion. There is a trace pericardial effusion. <Conclusion> The left ventricle is normal size. There is mild to moderate concentric left ventricular hypertrophy. The systolic function is mildly impaired.EF-40-45% There is trace to mild aortic regurgitation. There is moderate valvular aortic stenosis. Mitral regurgitation is trace to mild. There is moderate to severe tricuspid regurgitation.RVSP_70 mm of Hg The IVC is dilated. There is a trace pericardial effusion.
--- NOTE | 2017-11-04 22:07 | PN ---
DATE: SUBJECTIVE: The patient is seen in bed, in no acute distress, nontoxic. PHYSICAL EXAMINATION: VITAL SIGNS: Temperature is 98, blood pressure is 116/60, respiratory rate of 18. HEENT: Unremarkable. NECK: Supple. LUNGS: Have decreased breath sounds. HEART: Normal S1 and S1. LABORATORY DATA: Reveals a white count of 5.9, hemoglobin of 12, platelets of 180. Coagulation is noted. Chemistries reveals a BUN of 15, creatinine of 0.9. Microbiology reveals the blood cultures have no growth. Review of orders reveals the patient to be on cefatrizine and vancomycin. The patient's legs are much improved and note is reviewed. ASSESSMENT AND PLAN: An 87-year-old male who is seen earlier this morning in [facility], bed 2, with a left leg cellulitis and a left groin mass indurated consistent with a malignancy, on vancomycin and Rocephin. The leg is improved, awaiting for tissue biopsy as per Surgery to rule out underlying malignancy. The leg has greatly improved, may be able to hopefully change to p.o. antibiotics within the next 24 hours. Tay Rascon MD
[2017-11-05 07:06] LABS: ALT/SGPT 31 U/L (7-56); AST/SGOT 71 U/L (17-59); BLOOD UREA NITROGEN 25 mg/dL (7-21); CALCIUM 9.8 mg/dL (8.4-10.5); GFR AFRICAN-AMERICAN > 60; GFR NON-AFRICAN AMERICAN > 60
[2017-11-05 07:10] LABS: HEMOGLOBIN 13.4 g/dL (14.0-18.0); MEAN CELL VOLUME 103.1 fl (80.0-105.0); MEAN CORPUSCULAR HEMOGLOBIN 31.5 pg (25.0-35.0); MEAN CORPUSCULAR HGB CONC 30.5 g/dl (31.0-37.0); MEAN PLATELET VOLUME 10.2 fl (7.0-11.0); RBC 4.26 10^6/uL (3.5-6.1); RED CELL DISTRIBUTION WIDTH 13.8 % (11.5-14.5)
[2017-11-05] MEDS: Dorzolamide 2%/Timolol 0.5% 100 DROP/10 ML BOTTLE OU SCH ×2 (10:00→19:41)
--- NOTE | 2017-11-05 10:14 | CP.PCM.PN ---
Subjective - Date & Time of Evaluation Date of Evaluation: 11/05/17 Time of Evaluation: 06:50 - Subjective Subjective: Patient seen and examined at bedside. No adverse events overngiht. Patient complains of back pain but no other complaints or concerns Objective - Vital Signs/Intake and Output Vital Signs (last 24 hours): Temp Pulse Resp BP Pulse Ox 98.4 F 71 20 113/60 92 L 11/05/17 06:00 11/05/17 06:00 11/05/17 06:00 11/05/17 06:00 11/05/17 06:00 Intake and Output: 11/05/17 11/05/17 06:59 18:59 Intake Total 300 Output Total 1000 Balance -700 - Medications Medications: Current Medications Cholestyramine Resin (Questran) 4 gm PO DAILY [facility] Last Admin: 11/04/17 11:31 Dose: 4 gm Dorzolamide/Timolol (Cosopt 2%-0.5% Opht) 1 drop OU BID [facility] Last Admin: 11/04/17 18:42 Dose: 1 drop Enoxaparin Sodium (Lovenox) 40 mg SC DAILY [facility] PRN Reason: Protocol Last Admin: 11/04/17 11:24 Dose: 40 mg Furosemide (Lasix) 40 mg IVP BID [facility] Last Admin: 11/04/17 18:42 Dose: 40 mg Ceftriaxone Sodium (Rocephin 1 Gram Ivpb) 1 gm in 100 mls @ 100 mls/hr IVPB DAILY [facility] PRN Reason: Protocol Stop: 11/07/17 10:59 Last Admin: 11/04/17 11:28 Dose: 100 mls/hr Vancomycin HCl (Vancomycin 1gm) 1 gm in 250 mls @ 167 mls/hr IVPB Q12H [facility] PRN Reason: Protocol Stop: 11/12/17 20:01 Last Admin: 11/04/17 20:20 Dose: 167 mls/hr Ketorolac Tromethamine (Toradol) 15 mg IVP Q8H PRN PRN Reason: Pain, moderate (4-7) Metolazone (Zaroxolyn) 5 mg PO DAILY [facility] Stop: 11/06/17 23:59 Last Admin: 11/04/17 11:24 Dose: 5 mg Potassium Chloride (K-Dur 20 Meq Er Tab) 20 meq PO BRK [facility] Last Admin: 11/04/17 11:21 Dose: 20 meq - Labs Labs: 11/05/17 05:45 11/05/17 05:45 PT 12.4 SECONDS (9.4-12.5) 11/03/17 08:15 INR 1.08 (0.93-1.08) 11/03/17 08:15 - Constitutional Appears: Non-toxic, No Acute Distress - Head Exam Head Exam: ATRAUMATIC, NORMOCEPHALIC - Eye Exam Eye Exam: Normal appearance. absent: Conjunctival injection, Scleral icterus - ENT Exam ENT Exam: Mucous Membranes Moist, Normal Oropharynx - Respiratory Exam Respiratory Exam: Wheezes. absent: Accessory Muscle Use, Respiratory Distress - Extremities Exam Extremities Exam: Pedal Edema Additional comments: hard subcutaneous mass of the left inguinal region - Neurological Exam Neurological Exam: Alert, Awake, Oriented x3 - Psychiatric Exam Psychiatric exam: Normal Affect, Normal Mood - Skin Skin Exam: Warm Additional comments: chronic skin thickening and erythema of the lwoer extremities BL Assessment and Plan - Assessment and Plan (Free Text) Assessment: 87M with a left inguinal subuctaneous soft tissue mass with possible pelvic infiltration Plan: -true cut biopsy of the left inguinal soft tissue mass at bedside -Follow up pathology results -obtain large reclining chair for patient at bedside Seen, examined, and discussed with DR. Geoffrey Bosch, PGY2
[2017-11-05] MEDS ORDERED: Lidocaine 1% Inj (20ml) IJ STA (10:32)
[2017-11-05] MEDS: metOLazone 5 MG TAB PO SCH (11:09)
[2017-11-05] MEDS: cefTRIAXone 1 gm 1 GM/100 ML BAG IVPB SCH (11:16)
[2017-11-05] MEDS: Enoxaparin 40 mg Syringe SC SCH (11:16)
--- NOTE | 2017-11-05 11:17 | PCM.SURG1 ---
Surgeon's Initial Post Op Note - Surgeon's Notes Surgeon: Geoffrey Air Tool Operator: Romulo PGY3, Hiro PGY2 Type of Anesthesia: Local Pre-Operative Diagnosis: L groin mass Operative Findings: Firm non-pulsatile mass Post-Operative Diagnosis: same Operation Performed: true cut core needle bx L groin mass Specimen/Specimens Removed: L groin mass Estimated Blood Loss: EBL {In ML}: 10 Blood Products Given: N/A Post-Op Condition: Good Date of Surgery/Procedure: 11/05/17 Time of Surgery/Procedure: 11:17
[2017-11-05] MEDS: Cholestyramine 4 gm/Pkt UD PO SCH (11:19)
[2017-11-05] MEDS: Potassium Chloride 20 mEq ER Tab PO SCH (11:39)
[2017-11-05] MEDS: Vancomycin 1gm in NS 250ml 1 GM/250 ML BAG IVPB SCH ×2 (11:42→22:03)
--- NOTE | 2017-11-05 11:47 | CON ---
DATE: 11/04/2017 CONSULTATION CHIEF COMPLAINT: Lower extremity swelling. HISTORY OF PRESENT ILLNESS: This is an 87-year-old male who is seen in [facility]. The patient was seen previously in my office for groin swelling and a mildly elevated PSA. At home, the patient had a home visit from his primary physician who saw that his legs were increasingly swollen despite diuretic treatment. There was a firm lesion in his left groin. The patient was having some shortness of breath. He has a long history of multiple skin cancers, melanoma in the past with current skin cancers, chronic venous stasis with some ulceration of his lower extremities. Urologically, the groin mass was firm and indurated, possibly appeared to be lymphedema versus a possible mass and I had previously recommended the patient to have a CT scan to rule out obstruction as the cause of his lymphedema. The patient reports he has been voiding without difficulty. He has chronic frequency, which is somewhat worsened from the addition of diuretics, but reports a decent force of stream. The patient is unable to lie flat. He sleeps in a chair given his history of congestive heart failure. He denied any fever or chills. Denies any flank pain. consultation was requested regarding the above issues. PAST MEDICAL HISTORY: Significant for obesity, congestive heart failure, coronary artery disease, hypertension, lower extremity edema. He has a pacemaker defibrillator in place, multiple TIAs, skin cancer, melanoma, rheumatoid arthritis, coronary artery disease. MEDICATIONS: Currently include Cosopt, K-Dur, Lasix, Lovenox, Questran, Rocephin, Toradol, vancomycin and Zaroxolyn. ALLERGIES: NO KNOWN DRUG ALLERGIES. FAMILY HISTORY: Noncontributory for this admission. SOCIAL HISTORY: No smoking or EtOH history. REVIEW OF SYSTEMS: Positives as per the history of present illness. Other systems are negative. PHYSICAL EXAMINATION: GENERAL: The patient is awake and alert. He is answering questions. He is in no acute distress. He is sitting in a chair in his room. VITAL SIGNS: He is afebrile. Temp of 98.0, pulse currently 60, BP 96/55, respirations 20. NECK: Supple. There is no adenopathy. SKIN: There are multiple skin lesions noted on his face and ears and neck. PULMONARY: Had a normal inspiratory effort. There are some rhonchi audible. CARDIAC: Positive S1, S2. There is marked peripheral edema noted. ABDOMINAL: The abdomen is obese, soft, nontender. There is no obvious abdominal mass. There is no costovertebral angle tenderness. There is no rebound or guarding. GENITOURINARY: Phallus is normal. Foreskin was retracted and glans has some mild balanitis, but no obvious mass or tumor on the penis. Scrotum, mild edema. Testes are bilaterally descended, nontender, no masses. Epididymis appears normal. EXTREMITIES: There is marked edema of his lower extremities with chronic venous stasis changes and some small ulcerations. On the left side, the edema extends up into his thigh. There is a firm mass in the left groin region inguinal area, difficult to tell if it is matted lymph nodes or from the lymphedema given the overlying skin changes. LABORATORY EXAM: WBC count was normal, Hemoglobin 12.9 with hematocrit of 42.2. GFR greater than 60, alk phos is elevated at 130. Blood cultures, no growth after 24 hours. No urinalysis was done. On radiologic exam, the patient did have a CT scan of the abdomen and pelvis done yesterday, which I reviewed. There is a large inguinal mass with central low attenuation, likely representing necrosis. The mass is inseparable from and possibly invading the left pectineus muscle. There is infiltration of the soft tissue surrounding the mass. There are some enlarged left pelvic lymph nodes up to 3.3 cm. Bladder was unremarkable. Kidneys unremarkable. No hydronephrosis or solid mass. IMPRESSION AND PLAN: This is an 87-year-old male with multiple medical issues. The patient has congestive heart failure with marked lower extremity edema and chronic venous stasis skin changes with some ulcerations. More worrisome, he has a large inguinal mass, which appears to be a malignancy invading the pelvic musculature. Penile cancer is a possibility, although on exam there was no mass noted. He does have some apparent balanitis and it is possible that this is erythroplasia of [place] . Recommendation would be that the patient will need a biopsy of this mass. It is also possibly a sarcoma. I would consult General Surgery as well as Interventional Radiology regarding biopsy of the mass. I also would call an Oncology consultation as this does appear to be from a malignancy based on the CT findings. It does not appear to be resectable and the patient does not appear to be a good surgical candidate given his other severe medical issues. Thank you for allowing me to participate in the care of this patient and I will discuss his care with his medical attending, Dr. Martinez as well as the other consultants. Sharan Grider MD
--- NOTE | 2017-11-05 12:42 | PN ---
DATE: SUBJECTIVE: I saw him sitting out of bed to chair. He is doing just fair. He has a biopsy of a hard mass in the left lower groin today with Dr. Hale. The cellulitis of the lower extremities is starting to improve and the swelling is a little bit better with the IV Lasix. He is being seen by Infectious Disease, Surgery, and Cardiology. PHYSICAL EXAMINATION: VITAL SIGNS: Temperature 99.4, pulse 69, blood pressure 106/55, respiratory rate 20, and 95% O2 sat on nasal cannula. HEENT: Head is atraumatic, normocephalic. HEART: Regular rate. LUNGS: Decreased breath sounds, but clear. ABDOMEN: Soft, morbidly obese. Left groin mass is as hard as a rock. EXTREMITIES: A +4/4 pitting edema, although it is a little bit better than when he came in with blisters and redness is starting to fade. MEDICATIONS: He is currently on Cosopt, potassium, Lasix IV b.i.d., Lovenox, Questran, Rocephin IV, Toradol, vancomycin IV, and Zaroxolyn. LABORATORY DATA: He has a 6 white count, 13.4 hemoglobin, 40.9 hematocrit with 172 platelets. He has a 137 sodium, potassium 4, BUN is 25, creatinine is 1, GFR is greater than 60, sugar is 127. Calcium is 9.8, total bilirubin is 0.6, AST is 71, ALT is 31, alkaline phosphatase 130, and total protein 7.8. We will continue with aggressive treatment and care. He had no growth on the blood cultures. We will do the biopsies today and see what we find. We will continue with aggressive treatment and care, physical therapy. He might need subacute rehab and he is here for cellulitis, groin mass, and congestive heart failure. Phuc Martinez DO
--- NOTE | 2017-11-05 15:07 | PN ---
DATE: 11/05/2017 REASON FOR CONSULTATION AND FOLLOWUP: Cellulitis of lower extremity, congestive heart failure, coronary artery disease, status post stent, history of permanent pacemaker. SUBJECTIVE: The patient denies any chest pain, shortness of breath, or any palpitation. PHYSICAL EXAMINATION: GENERAL: Not in apparent distress. VITAL SIGNS: Temperature afebrile, heart rate 71, blood pressure 113/60. HEENT: PERRLA. Extraocular muscles intact. NECK: Supple. No carotid bruit or thyromegaly. CHEST: Clear to auscultation. HEART: S1 and S2, regular. ABDOMEN: Soft. EXTREMITIES: Clubbing and cyanosis negative. LABORATORY DATA: Blood workup as follows: WBC 6, hemoglobin 13.4, hematocrit 43.9, platelet count 172. Chemistry showed sodium 137, potassium 4, chloride 87, carbon dioxide 40, anion gap of 14, BUN 25, creatinine 1.0. The patient had echocardiography done yesterday that shows ejection fraction 40% to 45%, rkyvm-[id number] aortic regurgitation, moderate aortic stenosis, qaypk-aa-aynd mitral regurgitation, okdxwbob-fk-vyzzid tricuspid regurgitation, RV systolic pressure is 70. RV moderate to severely dilated, moderately decreased RV function. IMPRESSION: Morbid obesity, cellulitis of lower extremity, lymphadenopathy. No retroperitoneal lymphadenopathy. Inguinal lymphadenopathy. Rule out metastatic tumor. Bilateral leg edema, multifactorial, most likely secondary to lymphadenopathy and compression of venous return. History of coronary artery disease, status post percutaneous transluminal coronary angioplasty in the past, last catheterization 07/28/2013 shows patent stent. History of sick sinus syndrome, status post permanent pacemaker, moderate aortic stenosis as above by echo, ejection fraction 40% to 45%, cqdwd-lr-jtib mitral regurgitation, imuvtenh-kl-[id number] tricuspid regurgitation, pulmonary hypertension. RECOMMENDATIONS: Awaiting for lymph node biopsy, possibly today. Continue gentle diuretics, DVT prophylaxis, antibiotic. Monitor electrolytes and supplement as needed. Monitor renal function closely. We will follow with you. Thank you, Dr. Martinez, for providing us the opportunity in taking care of Abdifatah Granados. Dominick Mcgowan MD
--- NOTE | 2017-11-05 20:36 | CON ---
DATE: Abdifatah Granados is seen on the floor. He is sitting in the chair and a recliner. He is short of breath to begin with. 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 In the left leg, there is a large defect from a melanoma. He has bilateral lymphedema with chronic changes, and a 6 cm mass in the groin. CAT scan shows this would be probably a metastatic lymph node, unknown source. The plan would be to do a biopsy today, do this under local without sedation. Tomas Hale MD
--- NOTE | 2017-11-06 02:19 | PN ---
DATE: 11/05/2017 SUBJECTIVE: The patient was seen earlier this morning. PHYSICAL EXAMINATION: VITAL SIGNS: Temperature of 99, blood pressure is 118/60, respiratory rate of 18. HEENT: Unremarkable. NECK: Supple. LUNGS: Decreased breath sounds. HEART: Normal S1, S2. ABDOMEN: Soft. LABORATORY DATA: Reveals a white count of 6000, hemoglobin of 13. Coagulation is noted. Chemistries revealed a BUN of 25, creatinine of 1.0. Microbiology revealed the blood cultures have no growth. ASSESSMENT AND PLAN: This is an 87-year-old male who was seen earlier this morning with a left leg cellulitis and left groin indurated mass consistent with a malignancy. The left leg is greatly improved. Patient for needle groin mass biopsy today, checking the pathology, , switch to p.o. antibiotics next 24 to 48 hours, on vancomycin and ceftriaxone. Review of the medications revealed vancomycin was given at 8 a.m., but we will order 7 a.m. vancomycin trough level tomorrow at 7 a.m. an hour before the morning dose. The leg has greatly improved. We will check on the pathology from the left indurated mass from the groin. Tay Rascon MD
[2017-11-06 05:58] LABS: HEMOGLOBIN 13.5 g/dL (14.0-18.0); MEAN CELL VOLUME 103.1 fl (80.0-105.0); MEAN CORPUSCULAR HEMOGLOBIN 31.9 pg (25.0-35.0); RBC 4.23 10^6/uL (3.5-6.1); RED CELL DISTRIBUTION WIDTH 13.5 % (11.5-14.5); WHITE BLOOD COUNT 6.7 10^3/ul (4.5-11.0)
[2017-11-06 06:18] LABS: ALBUMIN 3.8 g/dL (3.0-4.8); ALT/SGPT 42 U/L (7-56); AST/SGOT 68 U/L (17-59); BLOOD UREA NITROGEN 37 mg/dL (7-21); CALCIUM 9.5 mg/dL (8.4-10.5); GFR AFRICAN-AMERICAN > 60; GFR NON-AFRICAN AMERICAN > 60
[2017-11-06] MEDS ORDERED: Albuterol-Ipratrop 3 mg / 0.5 (3 ml) UD IH PRN (07:21)
[2017-11-06] MEDS: Potassium Chloride 20 mEq ER Tab PO SCH (08:12)
[2017-11-06] MEDS: Vancomycin 1gm in NS 250ml 1 GM/250 ML BAG IVPB SCH (08:12)
--- NOTE | 2017-11-06 08:29 | CP.PCM.PN ---
Subjective - Date & Time of Evaluation Date of Evaluation: 11/06/17 Time of Evaluation: 07:30 - Subjective Subjective: Patient seen and examined at bedside this AM. Patient had SOB overnight and primary was notified. No groin pain, bleeding, or fevers. Objective - Vital Signs/Intake and Output Vital Signs (last 24 hours): Temp Pulse Resp BP Pulse Ox 99.9 F H 71 20 108/56 L 94 L 11/06/17 06:00 11/06/17 06:00 11/06/17 06:00 11/06/17 06:00 11/05/17 23:27 Intake and Output: 11/06/17 11/06/17 06:59 18:59 Intake Total 340 Output Total 900 Balance -560 - Medications Medications: Current Medications Albuterol/Ipratropium (Duoneb 3 Mg/0.5 Mg (3 Ml) Ud) 3 ml IH [id number] KELLY Albuterol/Ipratropium (Duoneb 3 Mg/0.5 Mg (3 Ml) Ud) 3 ml IH Q2H PRN PRN Reason: Shortness of Breath Budesonide (Pulmicort Respules) 0.5 mg IH [id number] [facility] Cholestyramine Resin (Questran) 4 gm PO DAILY [facility] Last Admin: 11/05/17 11:19 Dose: 4 gm Cyproheptadine HCl (Periactin) 4 mg PO DAILY [facility] Dorzolamide/Timolol (Cosopt 2%-0.5% Opht) 1 drop OU BID [facility] Last Admin: 11/05/17 19:41 Dose: 1 drop Enoxaparin Sodium (Lovenox) 40 mg SC DAILY KELLY PRN Reason: Protocol Last Admin: 11/05/17 11:16 Dose: 40 mg Furosemide (Lasix) 40 mg IVP BID [facility] Last Admin: 11/05/17 18:04 Dose: 40 mg Ceftriaxone Sodium (Rocephin 1 Gram Ivpb) 1 gm in 100 mls @ 100 mls/hr IVPB DAILY KELLY PRN Reason: Protocol Stop: 11/07/17 10:59 Last Admin: 11/05/17 11:16 Dose: 100 mls/hr Vancomycin HCl (Vancomycin 1gm) 1 gm in 250 mls @ 167 mls/hr IVPB Q12H KELLY PRN Reason: Protocol Stop: 11/12/17 20:01 Last Admin: 02/16/18 08:12 Dose: 167 mls/hr Ketorolac Tromethamine (Toradol) 15 mg IVP Q8H PRN PRN Reason: Pain, moderate (4-7) Last Admin: 11/05/17 11:38 Dose: 15 mg Metolazone (Zaroxolyn) 5 mg PO DAILY KELLY Stop: 11/06/17 23:59 Last Admin: 11/05/17 11:09 Dose: 5 mg Potassium Chloride (K-Dur 20 Meq Er Tab) 20 meq PO BRK KELLY Last Admin: 11/06/17 08:12 Dose: 20 meq - Labs Labs: 11/06/17 05:20 11/06/17 05:20 PT 12.4 SECONDS (9.4-12.5) 11/03/17 08:15 INR 1.08 (0.93-1.08) 11/03/17 08:15 - Constitutional Appears: Well, Non-toxic, No Acute Distress - Head Exam Head Exam: ATRAUMATIC, NORMOCEPHALIC - Eye Exam Eye Exam: Normal appearance. absent: Conjunctival injection, Scleral icterus - ENT Exam ENT Exam: Mucous Membranes Moist, Normal Oropharynx - Respiratory Exam Respiratory Exam: NORMAL BREATHING PATTERN. absent: Accessory Muscle Use, Respiratory Distress - Extremities Exam Additional comments: Dressing over biopsy site in soft tissue mass left groin intact with minimal sanguinous saturation - Neurological Exam Neurological Exam: Alert, Awake, Oriented x3 - Psychiatric Exam Psychiatric exam: Normal Affect, Normal Mood - Skin Skin Exam: Dry, Intact, Warm Assessment and Plan - Assessment and Plan (Free Text) Assessment: 87M with a left inguinal subuctaneous soft tissue mass with possible pelvic infiltration. POD#1 s/p bedside truecute biopsy Plan: -Physical therapy -Follow up pathology results for further surgical planning--can be followed up as an outpatient if medically optimized for discharge prior to results -obtain large reclining chair for patient at bedside -Medical management per primary--patient may need duonebs breathing treatment for dyspnea Discussed with DR. Geoffrey Bosch, PGY2
--- NOTE | 2017-11-06 09:02 | RAD ---
HISTORY: SOB COMPARISON: 09/20/2013. FINDINGS: LUNGS: The lungs are well inflated and clear. There is mild pulmonary venous congestion. PLEURA: No significant pleural effusion identified, no pneumothorax apparent. CARDIOVASCULAR: There is mild cardiomegaly. Stable position of right-sided pacemaker. OSSEOUS STRUCTURES: No significant abnormalities. VISUALIZED UPPER ABDOMEN: Normal. OTHER FINDINGS: None. IMPRESSION: No active pulmonary disease. Mild cardiomegaly and pulmonary venous congestion.
[2017-11-06] MEDS: Budesonide 0.5 mg/2 ml Inhal Susp UD IH SCH ×2 (09:17→19:26)
[2017-11-06] MEDS: Albuterol-Ipratrop 3 mg / 0.5 (3 ml) UD IH SCH ×3 (09:17→19:26)
[2017-11-06] MEDS: Enoxaparin 40 mg Syringe SC SCH (10:11)
[2017-11-06] MEDS: Cholestyramine 4 gm/Pkt UD PO SCH (10:12)
[2017-11-06] MEDS: cefTRIAXone 1 gm 1 GM/100 ML BAG IVPB SCH (10:13)
[2017-11-06] MEDS: Dorzolamide 2%/Timolol 0.5% 100 DROP/10 ML BOTTLE OU SCH ×2 (10:15→17:05)
[2017-11-06] MEDS: metOLazone 5 MG TAB PO SCH (10:31)
--- NOTE | 2017-11-06 14:14 | PN ---
DATE: 11/06/2017 REASON FOR CONSULTATION: Followup cellulitis of lower extremity, congestive heart failure, coronary artery disease, status post stent, history of permanent pacemaker, lymphadenopathy, rule out metastatic disease. SUBJECTIVE: Patient denies any chest pain, shortness of breath. Denies any palpitation. Complaint of dinner sleep well at night. OBJECTIVE: GENERAL: Not in apparent distress, sitting at the bedside. VITAL SIGNS: Temperature afebrile, heart rate 71, blood pressure 108/56. HEENT: PERRLA. Extraocular muscles intact. NECK: Supple. No carotid bruits or thyromegaly. CHEST: Clear to auscultation. HEART: S1, S2 regular. ABDOMEN: Soft. EXTREMITIES: Clubbing and cyanosis negative. LABORATORY DATA: Blood workup as follows: WBC , hemoglobin , hematocrit 43.6, platelet count 142. Chemistry shows sodium 130, potassium , chloride , carbon dioxide 40, anion gap of 17, BUN 37, creatinine 1.0. IMPRESSION: Obesity, mild cardiomyopathy, ejection fraction of 40% to 45%, jzmgi-cp-crub aortic regurgitation, moderate aortic stenosis, goldr-pq-iycd mitral regurgitation, ccsmnwkr-vr-haapbd tricuspid regurgitation, right ventricular systolic pressure is 70, right ventricular moderately dilated, cellulitis of lower extremity, lymphadenopathy, no retroperitoneal lymphadenopathy, left Inguinal significantly enlarged, rule out metastatic tumor, status post biopsy to the lymph node yesterday, history of coronary artery disease, history of percutaneous transluminal coronary angioplasty in the past, last catheterization on 07/28/2013 shows patent stent, history of sick sinus syndrome, status post permanent pacemaker. RECOMMENDATIONS: Followup lymph node biopsy, continue gentle diuretics, continue DVT prophylaxis, monitor electrolytes, supplement as needed, monitor renal function closely. We will follow with you. We will repeat blood workup in the morning. Thank you, Dr. Martinez, for providing us the opportunity in taking care of the patient, Abdifatah Granados. Dominick Mcgowan MD
--- NOTE | 2017-11-06 15:30 | CON ---
DATE: 11/06/2017 PULMONARY CONSULTATION REASON FOR CONSULTATION: Shortness of breath. REFERRING PHYSICIAN: Phuc Martinez DO. I did discuss the case with the night nurse. I have also reviewed the chart at length, and discussed the case with the patient at length. HISTORY OF PRESENT ILLNESS: The patient is an 87-year-old male, with past medical history significant for squamous cell cancer of the skin, melanoma, multiple skin lesions, tubular adenoma, rheumatoid arthritis, hypertension, coronary artery disease, asthma, who was admitted to [facility] - initially on 11/03/2017 - with a left lower leg cellulitis. Again, I did discuss the case with the nurse at length. Apparently, the patient did complain of shortness of breath this morning. He also states to a minimal nonproductive cough. There is no history of chest pain, coughing up of blood or chest pain - made worse with deep respirations. The patient did present to the hospital with low-grade fevers. No history of chills or infectious exposure. No history of night sweats, weight loss or appetite change prior to the above events. No history of calf pains. No history of syncope or diaphoresis. No history of recent travel or trauma. REVIEW OF SYSTEMS: No history of nausea, vomiting or diarrhea. No acute urinary symptoms. No new neurologic or musculoskeletal complaints. Rest of the review of systems is negative. ALLERGIES: NO KNOWN ALLERGIES. SOCIAL HISTORY: Negative for tobacco. Negative for alcohol. FAMILY HISTORY: No inheritable diseases. HOME MEDICATIONS: Include Questran Lasix. PHYSICAL EXAMINATION: GENERAL: The patient appears comfortable this morning. He is not short of breath at rest. He is not using accessory muscles for breathing. VITAL SIGNS: Temperature 99.9, pulse 71, respirations 18/20, blood pressure 108/56. Oxygen saturation on nasal cannula is 95%. HEENT: Normocephalic, atraumatic. No JVD. CARDIOVASCULAR: Systolic ejection murmur at the lower left sternal border. No S3 gallop. LUNGS: Decreased breath sounds at the bases. Mild rhonchi and wheezing bilaterally. EXTREMITIES: Both extremities reveal edema. There is no cyanosis or clubbing. The calves are nontender to palpation. GI: Abdomen is soft, nontender and nondistended. Bowel sounds are positive. SKIN: ++ multiple lesions. There is also a mild left lower extremity cellulitis. NEUROLOGIC: Limited at the present time. PERTINENT LABORATORY DATA: Abdominal and pelvic CT scan was done on 11/03/2017. There are no significant lung findings. There is a large left inguinal mass with central necrosis, possibly consistent with malignancy. CBC: White count 6.7, hemoglobin 13.5, hematocrit 43.6, platelets of 142,000. Complete metabolic profile: Chloride 85, carbon dioxide 48, BUN 37, glucose 185, AST 68. Rest of the metabolic profile is within normal limits. IMPRESSION: 1. Left leg cellulitis. 2. Left groin mass. 3. Asthma. 4. Mild bronchospasm. 5. Mild anemia. 6. Coronary artery disease. PLAN: Again, I did discuss the case with the night nurse at length. I have also discussed the case with the patient at length, and reviewed the chart at length. The patient presented to [facility] - originally on 11/03/2017 - with a left lower extremity cellulitis. In addition, as above, a left groin mass was also found. The groin mass has since been biopsied(be surgery). Apparently this morning, the patient did complain of some shortness of breath. As above, he is not significantly short of breath at the time of my examination. He is, however, in mild bronchospasm. There is no significant alveolar-arterial gradient. I will start the patient on DuoNeb treatments and inhaled steroids this morning. Stat chest x-ray has also been ordered. I will check that when feasible. I would continue with the surgical evaluation-noted. Inputs by infectious disease and Cardiology are also noted. Additional pulmonary intervention will be based on the above results, as well as the clinical status of the patient. I will discuss the above with Dr. Martinez. Thank you very much for this pulmonary consultation. Sajan Castrejon MD [facility]DL[facility]
--- NOTE | 2017-11-06 22:20 | PN ---
DATE: 11/06/2017 SUBJECTIVE: Patient is in bed, was seen earlier this morning at room 245, bed . Patient is doing well. No fevers, no chills. PHYSICAL EXAMINATION: VITAL SIGNS: Temperature is 100, T-max is 100, blood pressure is 104/70, respiratory rate of 20. HEENT: Examination of HEENT is unremarkable. NECK: Supple. LUNGS: Have decreased breath sounds. HEART: Normal S1 and S2. ABDOMEN: Soft, nontender. EXTREMITIES: Examination of legs reveals the patient's legs are entirely resolved. LABORATORY DATA: Reveals a white count of 6.7, hemoglobin of 13, platelets of 142, coagulation is noted. BUN of 37, creatinine of 1.0. Toxicology is noted. Vanco trough of 17.5. Microbiology reveals the blood cultures are negative. ASSESSMENT AND PLAN: This is an 87-year-old male who was seen earlier this morning in 245, bed 2, with mild cardiomyopathy with ejection fraction of 40% to 45%, mild aortic regurgitation, moderate aortic stenosis; with a left leg cellulitis which has resolved this morning; and a left groin indurated mass consistent with malignancy. Patient had a biopsy and we will discontinue the vancomycin. Vancomycin level of 17. Dr. Castrejon's consultation is reviewed; he states that the patient has mild bronchospasm. Chest x-ray is reviewed, which is reported to be negative. Dr. Dr. Talisha Jensen's progress note is reviewed. Post procedure day number 1; biopsy results are pending in a patient with a history of melanoma and we will continue the ceftriaxone next 24 hours. Discontinue the vancomycin today. Tay Rascon MD
[2017-11-07] MEDS: Albuterol-Ipratrop 3 mg / 0.5 (3 ml) UD IH SCH ×4 (02:19→21:35)
--- NOTE | 2017-11-07 05:05 | DS ---
SUBJECTIVE: He is sitting out of bed to chair. He had some shortness of breath last night. Pulmonary came in to take a look at him. He has a chest x-ray pending. He is having a tough time. He is morbidly obese with leg edema, on Lasix IV. He has now had a Pulmonary consult added to the Cardiology consult and he is on now pulmonary treatments and DuoNebs and inhaled steroids. He is on Rocephin. He is on vancomycin. He is on IV Lasix and I am hoping we can get him to TCU today for the left leg cellulitis, the CHF, the edema. The left groin mass, he had a biopsy yesterday, waiting for the results. He is comfortable. He is not eating that much. I was going to put him on some Periactin to get his appetite stimulated. He is on Cosopt, DuoNebs, potassium, Lasix, Lovenox, Pulmicort, Questran, Rocephin, Toradol, vancomycin and Zaroxolyn. PHYSICAL EXAMINATION: VITAL SIGNS: He has a 99.9 temperature, 71 pulse, 108/56 blood pressure, 20 respiratory rate, 94% sat on nasal cannula 2 L. HEAD: Atraumatic, normocephalic. THROAT: Moist. NECK: Supple. HEART: Regular rate. LUNGS: Decreased breath sounds, occasional wheeze. ABDOMEN: Morbidly, morbidly obese, soft, nontender. Positive bowel sounds. EXTREMITIES: There is still +3 to +4 over 4 pitting edema with mild redness and skin lesions. He has got a groin left side is hard as rock, waiting for the biopsy to come back. LABORATORY DATA: He has 6.7 white count, 30.5 hemoglobin, 40.6 hematocrit with 142 platelets. He has an INR of 1.08. He has a 138 sodium, potassium 4.1, BUN 37, creatinine 1. GFR is greater than 60, sugars were 185, calcium was 9.5. Total bili is 0.4, AST is 68, ALT is 42, alk phos 112. ASSESSMENT AND PLAN: I am hoping that we can get him to transition care unit today to continue the treatment. He is being seen by Infectious Disease, Cardiology, Surgery, Urology and also Pulmonary. He wants to continue his physical therapy before he goes home. This is an 87-year-old man who is morbidly obese. He is weak. He sits out of bed to chair. Continue aggressive treatment and care. Hopefully he will be discharged to transition care unit. Phuc Martinez DO
[2017-11-07 06:41] LABS: BASO # 0.01 K/mm3 (0.0-2.0); BASO % 0.2 % (0.0-3.0); EOS % 0.5 % (1.5-5.0); GRAN # 2.33 (1.4-6.5); GRAN % 36.8 % (50.0-68.0); HEMOGLOBIN 14.6 g/dL (14.0-18.0); LYMPH # 3.1 (1.2-3.4); LYMPH % 48.7 % (22.0-35.0); MEAN CELL VOLUME 105.4 fl (80.0-105.0); MEAN CORPUSCULAR HEMOGLOBIN 31.7 pg (25.0-35.0); MEAN CORPUSCULAR HGB CONC 30.1 g/dl (31.0-37.0); MONO # 0.9 (0.1-0.6); MONO % 13.8 % (1.0-6.0); RBC 4.6 10^6/uL (3.5-6.1); RED CELL DISTRIBUTION WIDTH 13.5 % (11.5-14.5); WHITE BLOOD COUNT 6.3 10^3/ul (4.5-11.0)
[2017-11-07 07:29] LABS: BLOOD UREA NITROGEN 41 mg/dL (7-21); CALCIUM 9.8 mg/dL (8.4-10.5); GFR AFRICAN-AMERICAN > 60; GFR NON-AFRICAN AMERICAN > 60
[2017-11-07] MEDS: Budesonide 0.5 mg/2 ml Inhal Susp UD IH SCH ×2 (07:39→21:35)
[2017-11-07] MEDS: Potassium Chloride 20 mEq ER Tab PO SCH (07:57)
--- NOTE | 2017-11-07 08:53 | PN ---
DATE: 11/07/2017 PULMONARY NOTE SUBJECTIVE: Patient appears comfortable this morning. He is not short of breath at rest. PHYSICAL EXAMINATION: VITAL SIGNS: Temperature is 99.1, pulse 65, respirations 19, blood pressure 119/56. Oxygen saturation on nasal cannula is 95%-98%. HEENT: Normocephalic, atraumatic. No JVD. CARDIOVASCULAR: Systolic ejection murmur at the lower left sternal border. No S3 gallop. LUNGS: Decreased breath sounds at the bases. Less rhonchi. No wheezing this morning. EXTREMITIES: Both extremities reveal edema. There is no cyanosis or clubbing. The calves are nontender to palpation. GASTROINTESTINAL: Abdomen is soft, nontender and nondistended. Bowel sounds are positive. SKIN: Positive multiple skin lesions. There is an improving left lower extremity cellulitis. NEUROLOGIC: Exam limited at the present time. IMPRESSION: 1. Left leg cellulitis. 2. Left groin mass. 3. Asthma. 4. Mild bronchospasm. 5. Mild anemia. 6. Coronary artery disease. PLAN: Patient appears very comfortable this morning. He is not short of breath at rest. He is out of bed, sitting in the chair. He does state to feeling much better overall. On physical exam, his bronchospasm is significantly less. In addition, the oxygen saturation on nasal cannula is 95%-98%. I will continue the current nebulizer treatments and inhaled steroids for now. The patient remains on antibiotic therapy - as per Infectious Disease. Input by Dr. Rascon is noted. Input by Surgery is also noted. Clinical status of the patient is certainly improved. However, the overall status/prognosis for this patient does remain very guarded. I will discuss the above with Dr. Martinez. Sajan Castrejon MD MTDLg
[2017-11-07] MEDS: Cholestyramine 4 gm/Pkt UD PO SCH (11:18)
[2017-11-07] MEDS: Enoxaparin 40 mg Syringe SC SCH (11:18)
[2017-11-07] MEDS: cefTRIAXone 1 gm 1 GM/100 ML BAG IVPB SCH (11:19)
[2017-11-07] MEDS: Dorzolamide 2%/Timolol 0.5% 100 DROP/10 ML BOTTLE OU SCH ×2 (11:25→18:44)
--- NOTE | 2017-11-07 14:17 | PN ---
DATE: SUBJECTIVE: I saw Abdifatah sitting out of bed to chair, he is in a Percy chair, he is eating his lunch. He has a pretty good appetite, not eating everything, but at least 50%. His right leg is less swollen than when he came in, his left leg only a little bit less swollen. He is on Cozaar, DuoNeb, potassium, Lasix 40 IV b.i.d., Lovenox, Periactin, Pulmicort, Questran, Toradol. OBJECTIVE: VITAL SIGNS: He has a 99.1 temperature, 62 pulse, 120/65 blood pressure, 20 respiratory rate, 94% O2 sat on 2 L. He is now off antibiotics at this time. LABORATORY DATA: He has a 6.3 white count, 14.6 hemoglobin, 48.5 hematocrit with 122 platelets. He has 138 sodium, potassium 4.1. BUN is 41, creatinine is 1.1. GFR is greater than 60. Sugars 109. Calcium is 9.8. His micro was negative for blood cultures. He is being seen by Pulmonology, Infectious Disease, Cardiology, Surgery. He is fairly comfortable at this time. He had a biopsy done, awaiting for the results, concerned about the mass. ID stopped the IV antibiotics. He has left leg cellulitis which is now off, antibiotics, left groin mass, asthma, bronchospasm, anemia, CAD. He is morbidly obese with venous stasis of both lower extremities. to the Transitional Care Unit because he did not have any beds. I will check his labs tomorrow. physical therapy and awaiting for the biopsy report to come back. Phuc Martinez DO AMY
--- NOTE | 2017-11-07 15:50 | PN ---
DATE: 11/07/2017 LOCATION: Patient in room 245, bed 2. REASON FOR CONSULTATION AND FOLLOWUP: Cellulitis of lower extremity, congestive heart failure, coronary artery disease, status post stent insertion, history of permanent pacemaker, lymphadenopathy, rule out metastatic disease. SUBJECTIVE: The patient is sitting in chair. Denies any chest pain, shortness of breath, or palpitation. The patient still has swelling of leg, but he states it is less than before. PHYSICAL EXAMINATION: VITAL SIGNS: Blood pressure 128/65, respiratory rate 20, pulse 62, and temperature 99.1. HEENT: Head is normocephalic. Eyes: Pupils normal. Conjunctivae normal. Nose and throat normal. NECK: JVP low. Carotids are equal. THORAX: AP diameter is normal. LUNGS: No significant rales. CARDIOVASCULAR: S1 and S2. ABDOMEN: Protuberant. No organomegaly. EXTREMITIES: Marked redness on the legs and marked edema on the legs. LABORATORY DATA: WBC 6.3, hemoglobin 14.6, hematocrit 48.5, and platelets 122. Sodium 138, potassium 4.1. BUN 41, creatinine 1.1. Glucose 109. Calcium 9.8. 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 Cellulitis of both lower extremities; lymphadenopathy, inguinal area, status post biopsy of lymph node; coronary artery disease; history of coronary angioplasty in the past, last catheterization on 07/28/2013, showed patent stent, status post permanent pacemaker insertion. PLAN: Patient is on DuoNeb hand held nebulizer therapy, potassium 20 mEq p.o. daily, Lasix 40 IV b.i.d., and Lovenox 40 mg subcu daily. We will continue present therapy. We will follow with you. Dominick Floyd MD
--- NOTE | 2017-11-07 21:57 | PN ---
DATE: SUBJECTIVE: Patient is in bed, in no acute distress, was seen earlier today in room 245. PHYSICAL EXAMINATION: VITAL SIGNS: Temperature is 99, T-max is 100, blood pressure is 128/60, respiratory rate of 18. HEENT: Unremarkable. NECK: Supple. LUNGS: Have decreased breath sounds. HEART: Normal S1 and S2. ABDOMEN: Soft, nontender. LABORATORY DATA: Reveals a white count of 6.3, hemoglobin of 14, platelets of 122. Chemistries reveal a BUN of 41, creatinine is 1.1. Vancomycin trough is 17.5. Microbiology reveals the blood cultures are negative. On examination of the patient's legs chronic changes at this point. Dr. Phuc Martinez's note is reviewed and his cellulitis has completely resolved and that are just chronic changes. Dr. Castrejon's note is reviewed. ASSESSMENT AND PLAN: This is an 87-year-old male with mild cardiomyopathy with ejection fraction of 40%, mild aortic regurgitation, moderate aortic stenosis, admitted with a left leg cellulitis which has now resolved, just chronic changes. Patient has also had a left groin indurated mass, which had a biopsy malignancy in a patient with history of melanoma. Currently off of antibiotics, and waiting for pathology. Overall prognosis is poor for this patient. Tay Rascon MD
[2017-11-08] MEDS: Albuterol-Ipratrop 3 mg / 0.5 (3 ml) UD IH SCH ×4 (03:00→20:00)
[2017-11-08 07:09] LABS: HEMOGLOBIN 14.3 g/dL (14.0-18.0); MEAN CELL VOLUME 102.4 fl (80.0-105.0); MEAN CORPUSCULAR HEMOGLOBIN 31.4 pg (25.0-35.0); MEAN CORPUSCULAR HGB CONC 30.7 g/dl (31.0-37.0); MEAN PLATELET VOLUME 10.2 fl (7.0-11.0); RBC 4.55 10^6/uL (3.5-6.1)
[2017-11-08 07:46] LABS: ALB/GLOB RATIO 1.1 (1.1-1.8); ALBUMIN 4.2 g/dL (3.0-4.8); ALT/SGPT 38 U/L (7-56); AST/SGOT 65 U/L (17-59); BLOOD UREA NITROGEN 46 mg/dL (7-21); CALCIUM 10.5 mg/dL (8.4-10.5); GFR AFRICAN-AMERICAN > 60; GFR NON-AFRICAN AMERICAN 57
[2017-11-08] MEDS: Budesonide 0.5 mg/2 ml Inhal Susp UD IH SCH ×2 (08:19→20:00)
--- NOTE | 2017-11-08 09:15 | PN ---
DATE: 11/08/2017 PULMONARY NOTE SUBJECTIVE: The patient appears comfortable this morning. He is not short of breath at rest. He is out of bed, sitting in the chair. PHYSICAL EXAMINATION: VITAL SIGNS: Temperature 99.1, pulse 64, respirations 18, blood pressure 117/53. Oxygen saturation on nasal cannula is 95%. HEENT: Normocephalic, atraumatic. No JVD. CARDIOVASCULAR: Systolic ejection murmur at the lower left sternal border. No S3 gallop. LUNGS: Decreased breath sounds at the bases. Minimal bilateral rhonchi. No wheezing. EXTREMITIES: Positive for edema. No cyanosis or clubbing. Calves are nontender to palpation. GI: Abdomen is soft, nontender and nondistended. Bowel sounds are positive. SKIN: Multiple skin lesions are present. There is a decreasing left lower extremity cellulitis. NEUROLOGIC: Limited at the present time. IMPRESSION: 1. Left leg cellulitis. 2. Left groin mass. 3. Asthma. 4. Mild bronchospasm. 5. Mild anemia. 6. Coronary artery disease. PLAN: The patient appears comfortable this morning. He is not short of breath at rest. He is out of bed, sitting in the chair. He does state to feeling better overall. On physical exam, only minimal bronchospasm remains. In addition, there is no significant alveolar-arterial gradient. I will continue with the current nebulizer treatments and inhaled steroids for now. Inputs by Infectious Disease and Cardiology are noted. We are still awaiting the groin mass biopsy. Clinically, the patient has improved. However, again, the future status/prognosis for this patient remains very guarded. I will discuss the above with Dr. Martinez. Sajan Castrejon MD MTDD
[2017-11-08] MEDS: Enoxaparin 40 mg Syringe SC SCH (10:42)
[2017-11-08] MEDS: Dorzolamide 2%/Timolol 0.5% 100 DROP/10 ML BOTTLE OU SCH (10:43)
[2017-11-08] MEDS: Potassium Chloride 20 mEq ER Tab PO SCH (10:44)
[2017-11-08] MEDS: Cholestyramine 4 gm/Pkt UD PO SCH (10:49)
--- NOTE | 2017-11-08 13:34 | PN ---
DATE: 11/08/2017 LOCATION: Room 245, bed 2. REASON FOR CONSULTATION AND FOLLOWUP: Cellulitis of lower extremities, congestive heart failure, coronary artery disease, status post stent insertion, history of permanent pacemaker, lymphadenopathy, rule out metastatic disease. SUBJECTIVE: The patient is sitting in chair without chest pain, shortness of breath, or palpitation. The swelling of the legs is decreasing. PHYSICAL EXAMINATION: VITAL SIGNS: Blood pressure 125/60, respirations 18, pulse 70, and the patient is afebrile. HEENT: Head is normocephalic. Eyes: Pupils normal. Conjunctivae normal. NECK: JVP low. Carotids are equal. THORAX: AP diameter is normal. LUNGS: Clear. CARDIOVASCULAR: S1 and S2. Systolic murmur. ABDOMEN: Soft. No organomegaly. EXTREMITIES: The patient has redness and still edema of legs, has changes of chronic venous associated with cellulitis and edema. LABORATORY DATA: WBC 8.0, hemoglobin 14.3, hematocrit 46.6, and platelets 128. Sodium 139, potassium 4.5, BUN 46, and creatinine 1.2. AST 65, ALT 38. Total protein and albumin normal. 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 Cellulitis of both lower extremities; lymphadenopathy in the inguinal area, status post biopsy of lymph node; coronary artery disease, history of coronary angioplasty in the past, last catheterization on 07/28/2013, showed patent stent, status post permanent pacemaker insertion, obesity. PLAN: The patient is getting DuoNeb hand held nebulizer therapy, furosemide 40 IV b.i.d., potassium 20 daily, and Lovenox 40 mg subcu daily. The patient is being followed by Infectious Disease, Dr. Rascon. We will wait for biopsy report of the lymph node to rule out metastatic disease. History of melanoma in the past. We will follow with you. Dominick Floyd MD
--- NOTE | 2017-11-08 14:16 | PN ---
DATE: SUBJECTIVE: I saw him sitting out of bed to chair. He was very lethargic. he was sleeping very hard, he only said two words to me, yes and yes and he stopped talking. He is being seen by Cardiology, Urology, Infectious Disease, Surgery, Pulmonology and I ordered Neurology TCU, which was recommended by Physical Therapy to finish out the care. He is on timolol, DuoNebs, potassium, Lasix IV, Lovenox, Periactin, Pulmicort, Questran, and Toradol. OBJECTIVE VITAL SIGNS: He has a 99.1 temperature, 62 pulse, 128/65 blood pressure, 94% O2 saturation on room air. HEENT: His head is atraumatic, normocephalic. He has an increased kyphosis curvature-type pattern. HEART: Regular rate. LUNGS: Decreased breath sounds, but clear. ABDOMEN: Morbidly obese, soft. Positive bowel sounds. He had two bowel movements, one last night and one this morning, normal. EXTREMITIES: The right leg has +3/4 pitting edema, left one has +4/4 pitting edema. Less oozing and no real blisters and he is off the antibiotics for the cellulitis that he had. DATA: He has a 8 white count, 14.3 hemoglobin, 46.6 hematocrit with 128,000 platelets. He has 139 sodium, potassium 4.5, BUN 46, creatinine 1.2, GFR is 57, sugar is 165. Calcium is 10.5, total bilirubin is 1, AST is 65, ALT is 38, alkaline phosphatase 136. He has a hard mass in his groin, has a biopsy done, waiting for results. I was called Neurology for his altered mental status this morning. He had a left leg cellulitis. He has a left groin mass, CHF, debility, CAD, asthma and now, he has got altered mental status. We will see what Neurology has to say. Phuc Martinez DO MTDD
[2017-11-08] MEDS ORDERED: Vancomycin 2 GM in Sodium Chloride 0.9% 500 ML IVPB ONE (17:27)
[2017-11-08] MEDS: Meropenem 1g/NS 100mL IVPB 1 GM/100 ML PIGGYBACK IVPB SCH ×2 (19:41→23:05)
--- NOTE | 2017-11-08 20:29 | CP.PCM.PN ---
Subjective - Date & Time of Evaluation Date of Evaluation: 11/08/17 Time of Evaluation: 22:43 - Subjective Subjective: S:Nurse calls and tells that he was seen by Dr Rascon,has order for antibiotic but not for tylenol.Temp. is 101.3*F. Patient was seen at bedside. Has no complaints. Medical record was reviewed. O: Last Vital Signs 3 Temp 101.3 F H 11/08/17 20:40 Pulse 73 11/08/17 18:00 Resp 19 11/08/17 18:00 BP 116/54 L 11/08/17 19:42 Pulse Ox 94 L 11/07/17 06:00 Awake, alert, not in distress. LUNGS: Normal breathing pattern. A:Fever. P:Tylenol 650 mg PO Q4H prn Temp. > 100.4*F. Objective - Vital Signs/Intake and Output Vital Signs (last 24 hours): Temp Pulse Resp BP Pulse Ox 99.1 F 62 20 116/54 L 94 L 11/07/17 06:00 11/07/17 06:00 11/08/17 12:00 11/08/17 19:42 11/07/17 06:00 Intake and Output: 11/08/17 11/09/17 18:59 06:59 Intake Total 250 Balance 250 - Medications Medications: Current Medications Albuterol/Ipratropium (Duoneb 3 Mg/0.5 Mg (3 Ml) Ud) 3 ml IH [id number] [facility] Last Admin: 11/08/17 20:00 Dose: 3 ml Albuterol/Ipratropium (Duoneb 3 Mg/0.5 Mg (3 Ml) Ud) 3 ml IH Q2H PRN PRN Reason: Shortness of Breath Budesonide (Pulmicort Respules) 0.5 mg IH [id number] [facility] Last Admin: 11/08/17 20:00 Dose: 0.5 mg Cholestyramine Resin (Questran) 4 gm PO DAILY [facility] Last Admin: 11/08/17 10:49 Dose: 4 gm Cyproheptadine HCl (Periactin) 4 mg PO DAILY [facility] Last Admin: 11/08/17 11:09 Dose: 4 mg Dorzolamide/Timolol (Cosopt 2%-0.5% Opht) 1 drop OU BID [facility] Last Admin: 11/08/17 10:43 Dose: 1 drop Enoxaparin Sodium (Lovenox) 40 mg SC DAILY KELLY PRN Reason: Protocol Last Admin: 11/08/17 10:42 Dose: 40 mg Furosemide (Lasix) 40 mg IVP BID [facility] Last Admin: 11/08/17 19:42 Dose: 40 mg Meropenem/Sodium Chloride (Meropenem 1g/Ns 100ml Ivpb) 1 gm in 100 mls @ 100 mls/hr IVPB Q12 KELLY PRN Reason: Protocol Stop: 11/17/17 17:28 Last Admin: 11/08/17 19:41 Dose: 100 mls/hr Ketorolac Tromethamine (Toradol) 15 mg IVP Q8H PRN PRN Reason: Pain, moderate (4-7) Last Admin: 11/07/17 00:41 Dose: 15 mg Potassium Chloride (K-Dur 20 Meq Er Tab) 20 meq PO BRK [facility] Last Admin: 11/08/17 10:44 Dose: 20 meq - Labs Labs: 11/08/17 06:45 11/08/17 06:45 PT 12.4 SECONDS (9.4-12.5) 11/03/17 08:15 INR 1.08 (0.93-1.08) 11/03/17 08:15
--- NOTE | 2017-11-08 20:44 | PN ---
DATE: 11/08/2017 SUBJECTIVE: The patient is seen in room 245, bed 2 today. The patient had an episode of diarrhea and low grade fevers. PHYSICAL EXAMINATION: VITAL SIGNS: Temperature is 99, blood pressure is 120/60, respiratory rate of 18. HEENT: Unremarkable. NECK: Supple. LUNGS: Have decreased breath sounds. HEART: Normal S1, S2. ABDOMEN: Soft, nontender. LABORATORY DATA: Reveals a white count of 8000, hemoglobin of 14. Chemistries are noted. The patient does have a high MCV of 102.4 and chemistries are noted with a creatinine of 1.2. Vancomycin trough level on the 11/06/2017 was 17.5. Blood cultures are negative. Review of orders reveals the patient is currently off of antibiotics. ASSESSMENT AND PLAN: This is an 87-year-old male with mild cardiomyopathy, ejection fraction of 40%, aortic regurgitation, mild aortic stenosis, admitted with left leg cellulitis and left groin indurated mass. The cellulitis is resolved now and the patient had a biopsy of the left inguinal indurated mass, probable malignancy, patient with a history of melanoma. Currently, off of antibiotics, afebrile, had new episode of loose bowel movements, we will send stool for Clostridium difficile and overall prognosis of this patient is quite poor who is 87 years old with multiple comorbidities and prognosis is poor. Tay Rascon MD
[2017-11-09 07:35] LABS: HEMOGLOBIN 12.8 g/dL (14.0-18.0); MEAN CELL VOLUME 102.5 fl (80.0-105.0); MEAN CORPUSCULAR HEMOGLOBIN 32.2 pg (25.0-35.0); MEAN CORPUSCULAR HGB CONC 31.4 g/dl (31.0-37.0); MEAN PLATELET VOLUME 10.6 fl (7.0-11.0); RBC 3.98 10^6/uL (3.5-6.1); RED CELL DISTRIBUTION WIDTH 13.7 % (11.5-14.5); WHITE BLOOD COUNT 9.5 10^3/ul (4.5-11.0)
--- NOTE | 2017-11-09 07:42 | PN ---
DATE: 11/09/2017 PULMONARY NOTE SUBJECTIVE: The patient appears comfortable this morning. He is not short of breath at rest. PHYSICAL EXAMINATION VITAL SIGNS: Temperature is 100.2, pulse is 78, respirations 18, blood pressure 116/54. Oxygen saturation on nasal cannula is 95%. HEENT: Normocephalic, atraumatic. No JVD. CARDIOVASCULAR: Systolic ejection murmur at the lower left sternal border. No S3 gallop. LUNGS: Decreased breath sounds at the bases. Minimal/less rhonchi. No wheezing. EXTREMITIES: Positive for edema. No cyanosis, no clubbing. Calves are nontender to palpation. GI: Abdomen is soft, nontender and nondistended. Bowel sounds are positive. SKIN: Multiple skin lesions are present. Left lower extremity cellulitis is improved. NEUROLOGIC: Limited at the present time. IMPRESSION: 1. Left leg cellulitis. 2. Left groin mass. 3. Asthma. 4. Mild bronchospasm. 5. Mild anemia. 6. Coronary artery disease. PLAN: The patient appears comfortable this morning. He is not short of breath at rest. He is out of bed sitting in the chair. On physical exam, there is minimal bronchospasm noted. In addition, there is no significant alveolar-arterial gradient. I will continue the current nebulizer treatments and inhaled steroids for now. Increasing temperatures are noted over the past 24 hours. Repeat pancultures have been ordered. The patient has been started on additional antibiotic therapy - as per Dr. Rascon (Infectious Disease). Inputs by Surgery and Cardiology are also noted. Clinical status of this patient remains very guarded. His overall prognosis is on the poor side. I will discuss the above with Dr. Martinez. Sajan Castrejon MD MTDD
[2017-11-09] MEDS: Budesonide 0.5 mg/2 ml Inhal Susp UD IH SCH ×2 (07:54→21:30)
[2017-11-09] MEDS: Albuterol-Ipratrop 3 mg / 0.5 (3 ml) UD IH SCH ×2 (07:55→21:30)
[2017-11-09] MEDS: Potassium Chloride 20 mEq ER Tab PO SCH (08:00)
[2017-11-09 08:39] LABS: ALBUMIN 3.5 g/dL (3.0-4.8); ALT/SGPT 40 U/L (7-56); AST/SGOT 71 U/L (17-59); BLOOD UREA NITROGEN 52 mg/dL (7-21); CALCIUM 9.2 mg/dL (8.4-10.5); GFR AFRICAN-AMERICAN > 60; GFR NON-AFRICAN AMERICAN > 60
[2017-11-09] MEDS: Dorzolamide 2%/Timolol 0.5% 100 DROP/10 ML BOTTLE OU SCH ×2 (10:00→17:42)
--- NOTE | 2017-11-09 10:00 | RAD ---
HISTORY: Rule out pneumonia COMPARISON: 11/06/2017 FINDINGS: LUNGS: No active pulmonary disease. PLEURA: No significant pleural effusion identified, no pneumothorax apparent. CARDIOVASCULAR: Mild cardiomegaly. Pacemaker OSSEOUS STRUCTURES: No significant abnormalities. VISUALIZED UPPER ABDOMEN: Normal. OTHER FINDINGS: None. IMPRESSION: No active disease.
[2017-11-09] MEDS: Enoxaparin 40 mg Syringe SC SCH (11:20)
[2017-11-09] MEDS: Meropenem 1g/NS 100mL IVPB 1 GM/100 ML PIGGYBACK IVPB SCH ×2 (11:21→23:12)
[2017-11-09] MEDS: Cholestyramine 4 gm/Pkt UD PO SCH (11:21)
--- NOTE | 2017-11-09 13:47 | PN ---
DATE: 11/09/2017 SUBJECTIVE: I saw Mr. Granados resting comfortably in Nanda chair with legs on another chair. Legs are a little less swollen today. He is more alert today than yesterday. He is now on IV antibiotics. He is on Cosopt, DuoNeb, potassium replacement, Lasix 40 IV twice a day, Lovenox, Merrem IV as per Dr. Rascon of Infectious Disease, Periactin, Pulmicort, Questran, Toradol, Tylenol, and vancomycin. PHYSICAL EXAMINATION: GENERAL: I did ask him to speak to me and he did. He is awake and understands. He is weak and lethargic. VITAL SIGNS: He has a 100.2 temperature, he had a 101.3 temperature yesterday; 116/54 blood pressure. HEENT: His head is atraumatic, normocephalic. HEART: Regular rate. LUNGS: Decreased breath sounds bilaterally. Very poor inspiration, hard to get a good deep breath at him. ABDOMEN: Soft. Positive bowel sounds. EXTREMITIES: Right leg is +3/4, left leg is +4/4 pitting edema. He still has a left groin hard mass. LABORATORY DATA: He has 8 white count, 14.4 hemoglobin, 46.6 hematocrit with 128 platelets. He has a 139 sodium, potassium 4.5, BUN 46, creatinine 1.2, GFR 67, sugar is 148, calcium is 10.5. Total bilirubin is 1, AST is 65, ALT is 38, alkaline phosphatase 136, and his procalcitonin is 0.24. ASSESSMENT AND PLAN: He is being seen by multiple doctors: Infectious Disease, Cardiology, and Pulmonary. He has a chest x-ray pending. He has cardiomegaly, ejection fraction is 40%, aortic regurgitation, mild aortic stenosis. He has left leg cellulitis; left groin indurated mass, hard as a rock. Cellulitis is better. The biopsy pending of the inguinal mass, probably a cancer. He is now back on IV antibiotics by Infectious Disease due to the elevated temperature and questionable aspiration. We will continue with aggressive treatment and care. He is in very rough shape and poor prognosis. Phuc Martinez DO MTDLg
[2017-11-09 14:36] LABS: ARTERIAL BLOOD GAS HEMOGLOBIN 12.8 g/dL (11.7-17.4); ARTERIAL BLOOD GAS O2 CAPACITY 17.6 mL/dl (16-24); ARTERIAL BLOOD GAS O2 CONTENT 17.3 ML/dl (15-23); ARTERIAL BLOOD GAS O2 SAT 98.5 % (95-98); ARTERIAL BLOOD GAS PH 7.46 (7.35-7.45); ARTERIAL BLOOD GAS TCO2 57.2 mmol.L (22-28)
[2017-11-09 14:39] LABS: ARTERIAL BLOOD GAS PCO2 77 mm/Hg (35-45)
[2017-11-09 14:40] LABS: ARTERIAL BLOOD GAS HCO3 54.8 mmol/L (21-28)
[2017-11-09] MEDS: Thiamine 100 mg/ml Inj IM SCH (15:04)
--- NOTE | 2017-11-09 15:11 | CON ---
DATE: 11/09/2017 NEUROLOGY CONSULT CHIEF COMPLAINT: Altered mental status. HISTORY OF PRESENT ILLNESS: This is an 87-year-old man with history of CHF, morbid obesity, coronary artery disease, hypertension, internal defibrillator, history of glaucoma, history of rheumatoid arthritis, history of multiple falls, cardiac stent, history of skin cancers, and history of melanoma who presented with bilateral lower extremities cellulitis and swelling of the legs. He was found to have a left inguinal mass, status post biopsy, and I was consulted for altered mental status. He was found to have positive influenza B and have some mild metabolic derangements. Currently, he is very lethargic but withdraws to localized noxious stimulus and moves all extremities equally. Sensory exam, he withdraws to localized noxious stimulus. There was no CAT scan done which I reordered. PAST MEDICAL HISTORY: History of CHF, mild aortic stenosis, severe regurgitation, history of defibrillator, history of bilateral cellulitis, history of aortic regurgitation, history of CAD, hypertension, glaucoma, and coronary artery stents. FAMILY HISTORY: Noncontributory. SOCIAL HISTORY: No illicit drug use, smoking, or EtOH abuse. ALLERGIES: NO KNOWN DRUG ALLERGIES. MEDICATIONS: Reviewed by nurse's reconciliation sheet. REVIEW OF SYSTEMS: A 14-point review of systems is negative except as per the HPI except lethargy. LABORATORY DATA: Sodium is 137, potassium 3.9, chloride of 82, carbon dioxide of 40, BUN of 52, creatinine 1.1, random glucose of 124. Serology, positive for influenza B. PHYSICAL EXAMINATION: VITAL SIGNS: Temperature 100.2, pulse rate of 75, blood pressure 100/52, respiratory rate 19. GENERAL: The patient is sitting up, lethargic, in no acute distress. HEENT: Atraumatic, normocephalic. PERRLA. Extraocular muscles intact. HEART: S1, S2. Normal rate and rhythm. No murmurs, rubs, or gallops. LUNGS: Decreased breath sounds bilaterally. ABDOMEN: Soft, nontender, and nondistended. Bowel sounds are present. EXTREMITIES: Pedal edema, right leg is +3/4 and left leg is +4/5 pitting edema. He has a left groin hard mass. NEUROLOGIC: The patient is lethargic. Speech is very hypophonic. No aphasia. Cranial nerves II through XII intact. Motor: Spontaneous movements of all four extremities. Sensory: Decreased light touch and pinprick up to the calves bilaterally. Decreased vibration to the toes. DTRs are 2+ throughout, 1 at both knees and ankles. Coordination and gait deferred for now. ASSESSMENT AND PLAN: This is an 87-year-old man with history of coronary artery disease, history of congestive heart failure status post defibrillator, hypertension, transient ischemic attacks, cataracts, glaucoma, rheumatoid arthritis, bilateral lower extremities edema which he came in for, and bilateral lower extremities swelling. He was found to have a left inguinal mass, positive for influenza type B. Comes in with a flu, on Tamiflu. I was consulted for altered mental status and lethargy. He was found to have low systolic and diastolic blood pressures today and mildly elevated temperature. At this time, his altered mental status and lethargy are multifactorial secondary to transient cerebral hypoperfusion due to low systolic and diastolic blood pressures superimposed underlying influenza type B flu with underlying chronic congestive heart failure. At this time, we recommend: 1. Monitor his electrolytes and correct accordingly. 2. Continue with Tamiflu given that he has positive flu. 3. Find the source of infection and sepsis. 4. Get an ABG given that he is very lethargic and he has elevated CO2 in his blood. 5. Get a CAT scan of the head. 6. Continue current present medical management. Thank you for this consult. Jarvis Cortez MD
--- NOTE | 2017-11-09 16:13 | CP.PCM.PN ---
Subjective - Date & Time of Evaluation Date of Evaluation: 11/09/17 Time of Evaluation: 10:25 - Subjective Subjective: Patient still having fevers. Now found to have the flu. Objective - Vital Signs/Intake and Output Vital Signs (last 24 hours): Temp Pulse Resp BP Pulse Ox 100.2 F H 73 19 116/54 L 94 L 11/09/17 06:51 11/08/17 18:00 11/08/17 18:00 11/08/17 19:42 11/07/17 06:00 - Medications Medications: Current Medications Acetaminophen (Tylenol 325mg Tab) 650 mg PO Q4 PRN PRN Reason: Fever >100.4 F Last Admin: 11/09/17 06:51 Dose: 650 mg Acetaminophen (Tylenol 325 Mg Supp) 325 mg RC Q4H PRN PRN Reason: Fever >100.4 F Albuterol/Ipratropium (Duoneb 3 Mg/0.5 Mg (3 Ml) Ud) 3 ml IH [id number] [facility] Last Admin: 11/09/17 07:55 Dose: 3 ml Albuterol/Ipratropium (Duoneb 3 Mg/0.5 Mg (3 Ml) Ud) 3 ml IH Q2H PRN PRN Reason: Shortness of Breath Budesonide (Pulmicort Respules) 0.5 mg IH [id number] [facility] Last Admin: 11/09/17 07:54 Dose: 0.5 mg Cholestyramine Resin (Questran) 4 gm PO DAILY [facility] Last Admin: 11/08/17 10:49 Dose: 4 gm Cyproheptadine HCl (Periactin) 4 mg PO DAILY [facility] Last Admin: 11/08/17 11:09 Dose: 4 mg Dorzolamide/Timolol (Cosopt 2%-0.5% Opht) 1 drop OU BID [facility] Last Admin: 11/08/17 10:43 Dose: 1 drop Enoxaparin Sodium (Lovenox) 40 mg SC DAILY [facility] PRN Reason: Protocol Last Admin: 11/08/17 10:42 Dose: 40 mg Furosemide (Lasix) 40 mg IVP BID [facility] Last Admin: 11/08/17 19:42 Dose: 40 mg Meropenem/Sodium Chloride (Meropenem 1g/Ns 100ml Ivpb) 1 gm in 100 mls @ 100 mls/hr IVPB Q12 [facility] PRN Reason: Protocol Stop: 11/17/17 17:28 Last Admin: 11/08/17 23:05 Dose: 100 mls/hr Ketorolac Tromethamine (Toradol) 15 mg IVP Q8H PRN PRN Reason: Pain, moderate (4-7) Last Admin: 11/07/17 00:41 Dose: 15 mg Potassium Chloride (K-Dur 20 Meq Er Tab) 20 meq PO BRK KELLY Last Admin: 11/08/17 10:44 Dose: 20 meq - Labs Labs: 11/09/17 07:00 11/09/17 07:00 PT 12.4 SECONDS (9.4-12.5) 11/03/17 08:15 INR 1.08 (0.93-1.08) 11/03/17 08:15 - Constitutional Appears: Chronically Ill - Head Exam Head Exam: NORMAL INSPECTION - Respiratory Exam Respiratory Exam: Decreased Breath Sounds - Cardiovascular Exam Cardiovascular Exam: +S1, +S2 - GI/Abdominal Exam GI & Abdominal Exam: Soft. absent: Tenderness Assessment and Plan - Assessment and Plan (Free Text) Plan: Assessment new onset SIRS, sepsis due to Influenza R/O HCAP left inguinal indurated mass with left leg cellulitis S/P biopsy chronic CHF aortic insufficiency and stenosis history of melanoma Plan follow up repeat septic work up; started patient on a dose of Vanco IV and will continue Merrem day 2 pending CXR and final culture results start patient on Tamiflu - rapid flu test is positive will monitor fever curve
[2017-11-09 18:08] LABS: ARTERIAL BLOOD GAS HCO3 50.8 mmol/L (21-28); ARTERIAL BLOOD GAS O2 SAT 99.8 % (95-98); ARTERIAL BLOOD GAS PCO2 90 mm/Hg (35-45); ARTERIAL BLOOD GAS PH 7.36 (7.35-7.45); ARTERIAL BLOOD GAS TCO2 53.6 mmol.L (22-28)
[2017-11-09 18:12] LABS: ARTERIAL BLOOD GAS FIO2 100 %
--- NOTE | 2017-11-09 18:38 | PCM.RRT ---
<Colby Nuno - Last Filed: 11/09/17 19:09> COLD ROLLING MACHINE SETTER Nurse Assessment - Situation Date: 11/09/17 Time COLD ROLLING MACHINE SETTER was called: 17:52 COLD ROLLING MACHINE SETTER Responder Arrival Time: 17:56 COLD ROLLING MACHINE SETTER Location:: [address] [place] [address] Room Number: 370 COLD ROLLING MACHINE SETTER Reason for Call: Looks Sicker COLD ROLLING MACHINE SETTER Called By: RN - IV IV Inserted during COLD ROLLING MACHINE SETTER?: No - Respiratory Oxygen Delivery Method: Non Rebreather @% Oxygen Flow Rate: 100 Received Nebulizer Treatments:: No Was the Patient Ventilated with Bag/Mask 100% O2?: No Secretions Suctioned?: No Was the Patient Intubated?: No Was the Patient Placed on a Ventilator?: No - Diagnostic Test Ordered EKG: Yes Chest X-Ray: Yes - Stat Labs Ordered COLD ROLLING MACHINE SETTER Stat Labs Ordered: CBC, TROPONIN, ABG COLD ROLLING MACHINE SETTER Other Labs Ordered: CMP, MG, Prolactin, PHOS, CPR started during COLD ROLLING MACHINE SETTER?: No - Vital Signs Vital Sign: Rapid Response Vital Sign Blood Pressure 139/62 Pulse Rate 85 Respiratory Rate 20 Temperature 99.1 F Oxygen Saturation 98 - Finger Stick Blood Glucose Finger Stick Blood Glucose: 135 - What [place] Coma Scale Coma Scale Eye Opening: Spontaneous - Time COLD ROLLING MACHINE SETTER Ended Time COLD ROLLING MACHINE SETTER Ended: 18:05 - Vital Signs at end of COLD ROLLING MACHINE SETTER Vital Signs at end of COLD ROLLING MACHINE SETTER: Rapid Response End Vital Sign Blood Pressure 134/58 Pulse Rate 87 Respiratory Rate 20 Temperature 99.1 F O2 Sat by Pulse Oximetry 98 - Recommendations Notifications: Attending Physician I.Reason for COLD ROLLING MACHINE SETTER - A) Acute Change in Patient: Subjective: COLD ROLLING MACHINE SETTER was called at 17:52 by RN after patient had seizure witnessed by RN. Patient had just been moved from bed to stretcher to go to CT for CT head that was ordered for AMS. Patients vitals were as noted. Patient was responsive to sternal rub only. Patient was placed on NRB at 100%. He became more responsive after several minutes of oxygen administration. RT evaluated patient. Stat labs were ordered. PMD was notified. Family was notified. Neurology was notified. ICU /Pulm was notified. - Respiratory Oxygen Delivery Method: Non Rebreather @% Oxygen Flow Rate: 100 - Constitutional Appears: In Acute Distress, Other (Responsive to noxious stimuli). absent: Well - Head Head Exam: ATRAUMATIC, NORMOCEPHALIC - Eyes Eye Exam: PERRL - Respiratory Exam Respiratory Exam: NORMAL BREATHING PATTERN - Cardiovascular Exam Cardiovascular Exam: REGULAR RHYTHM - GI/Abdominal Exam GI & Abdominal Exam: Soft, Normal Bowel Sounds. absent: Tenderness - Neurological Exam Neurological Exam: Altered. absent: Alert, Awake, Oriented x3 Plan - Assessment of Findings&Treatment Plan -Supplemental oxygen via NC -CBC, CMP, Mag/Phos, ABG -ICU evaluation for possible intubation vs. bipap -Continue to monitor <Rogelio Thayer - Last Filed: 11/10/17 15:16> COLD ROLLING MACHINE SETTER Nurse Assessment - Vital Signs Vital Sign: Rapid Response Vital Sign Blood Pressure 140/58 Pulse Rate 84 Respiratory Rate 8 Temperature 98.9 F Oxygen Saturation 98 - Vital Signs at end of COLD ROLLING MACHINE SETTER Vital Signs at end of COLD ROLLING MACHINE SETTER: Rapid Response End Vital Sign Blood Pressure 134/58 Pulse Rate 87 Respiratory Rate 20 Temperature 99.1 F O2 Sat by Pulse Oximetry 98 Attending/Attestation - Attestation I have personally seen and examined this patient.: Yes I have fully participated in the care of the patient.: Yes I have reviewed all pertinent clinical information, including history, physical exam and plan: Yes Notes (Text): 11/10/17 15:13 attending note; Patient seen and examined during rapid response with resident. patient is a 87-year-old male with multiple medical issues as admitted for influenza/sepsis altered mental status. Currently vitals stable. EKG no acute changes. ABG showed CO2 retention with normal pH. Patient is placed on oxygen. Monitor closely. Continue IV anti-biotics. ICU evaluation requested. Case discussed with home child care provider in detail. chart and labs reviewed. Stat chest x-ray without acute changes. Labs ordered. Case discussed with neurologist Dr. Cortez in detail. Hold CT scan until respiratory status is stabilized. patient's medical condition updated to the family. Patient is full code. Possibility of intubation explained to the daughter in detail over the phone. Case discussed with PMD. possible transfer to ICU. 11/10/17 15:16
[2017-11-09 18:44] LABS: BASO # 0.01 K/mm3 (0.0-2.0); BASO % 0.1 % (0.0-3.0); GRAN # 4.94 (1.4-6.5); GRAN % 60.6 % (50.0-68.0); HEMOGLOBIN 13.3 g/dL (14.0-18.0); LYMPH # 2.6 (1.2-3.4); LYMPH % 31.4 % (22.0-35.0); MEAN CORPUSCULAR HEMOGLOBIN 31.9 pg (25.0-35.0); MEAN CORPUSCULAR HGB CONC 30.4 g/dl (31.0-37.0); MEAN PLATELET VOLUME 11.2 fl (7.0-11.0); MONO # 0.6 (0.1-0.6); MONO % 7.9 % (1.0-6.0); RBC 4.17 10^6/uL (3.5-6.1); RED CELL DISTRIBUTION WIDTH 13.7 % (11.5-14.5); WHITE BLOOD COUNT 8.2 10^3/ul (4.5-11.0)
--- NOTE | 2017-11-09 18:55 | RAD ---
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 FINDINGS: LUNGS: No active pulmonary disease. PLEURA: No significant pleural effusion identified, no pneumothorax apparent. CARDIOVASCULAR: Bipolar permanent cardiac pacemaker unchanged in appearance. Cardiomegaly remains. No definite pulmonary vascular derangement. OSSEOUS STRUCTURES: No significant abnormalities. VISUALIZED UPPER ABDOMEN: Normal. OTHER FINDINGS: None. IMPRESSION: Stable cardiomegaly. No definite pulmonary vascular derangement appreciated infiltrate or pleural effusion. Pacemaker again noted in position.
[2017-11-09 19:09] LABS: TROPONIN I 0.07 ng/mL
[2017-11-09 19:14] LABS: ALB/GLOB RATIO 1.1 (1.1-1.8)
[2017-11-09 19:15] LABS: ALBUMIN 3.8 g/dL (3.0-4.8); ALT/SGPT 45 U/L (7-56); AST/SGOT 71 U/L (17-59); BLOOD UREA NITROGEN 47 mg/dL (7-21); CALCIUM 9.4 mg/dL (8.4-10.5); GFR AFRICAN-AMERICAN > 60; GFR NON-AFRICAN AMERICAN 52; MAGNESIUM 2.1 mg/dL (1.7-2.2)
[2017-11-09] MEDS ORDERED: Propofol 10 mg/ml Inj (20 ML) IVP STA (20:30)
--- NOTE | 2017-11-09 20:30 | PN ---
DATE: 11/09/2017 REASON FOR CONSULTATION AND FOLLOWUP: Cellulitis of lower extremity, congestive heart failure, coronary artery disease status post stent, history of permanent pacemaker, lymphadenopathy, rule out metastatic disease. SUBJECTIVE: The patient denies any chest pain. Daughter is at the bedside. Appears lethargic, but waking up. Wetting the bed. PHYSICAL EXAMINATION: VITAL SIGNS: Temperature 100.2, heart rate 75, blood pressure 100/53. HEENT: PERRLA. Extraocular muscles intact. NECK: Supple. No carotid bruits or thyromegaly. CHEST: Clear to auscultation. HEART: S1 and S2, regular. ABDOMEN: Soft. EXTREMITIES: Clubbing and cyanosis negative. LABORATORY DATA: Blood workup as follows: WBC 9. , hemoglobin , hematocrit 40.8, platelet count 99. Chemistry showed sodium 130, potassium 3.9, chloride 82, carbon dioxide 40, anion gap of 9, BUN 52, creatinine 1.1. IMPRESSION: Mild cardiomyopathy, left ventricular systolic function 40-45 suggestive of left ventricular systolic dysfunction, moderate aortic stenosis, [id number] tricuspid regurgitation, right ventricular systolic pressure of 70 consistent with significant pulmonary hypertension, right ventricle is moderately dilated, cellulitis of lower extremity, lymphadenopathy in the inguinal area status post lymph node biopsy, history of a stent in the past, 06/27/2013. Last catheterization on 06/27/2013, patent stent, status post permanent pacemaker, obesity. RECOMMENDATION: Continue treatment, continue Lasix. Awaiting for the biopsy to rule out metastatic disease. In the interim, continue antibiotic, Schuster catheter because the patient is wetting the bed. We will monitor closely. Overall, the patient's condition is critical. Long-term prognosis is guarded. Bilateral lower extremity cellulitis, left groin mass, cellulitis. Dominick Mcgowan MD
[2017-11-09] MEDS ORDERED: Propofol 10 mg/ml 500 MG/50 ML VIAL IV PRN (20:34)
[2017-11-09] MEDS ORDERED: Propofol 10 mg/ml 500 MG/50 ML VIAL IV STA (20:35)
[2017-11-09] MEDS ORDERED: Iohexol 350 MG/100 ML VIAL ONE (20:37)
--- NOTE | 2017-11-09 20:54 | PCM.RRT ---
<Charles Mars - Last Filed: 11/09/17 21:31> SKIN DIVER Nurse Assessment - Situation Date: 11/09/17 Time SKIN DIVER was called: 20:09 SKIN DIVER Responder Arrival Time: 20:11 SKIN DIVER Location:: [address] [place] [address] Room Number: [id number] SKIN DIVER Reason for Call: Not Responding to Urgent Treatment, Change in Mental Status , Looks Sicker SKIN DIVER Called By: RN - IV IV Inserted during SKIN DIVER?: No - Respiratory Oxygen Delivery Method: Non Rebreather @% Oxygen Flow Rate: 10 Received Nebulizer Treatments:: No Was the Patient Ventilated with Bag/Mask 100% O2?: Yes Secretions Suctioned?: No Was the Patient Intubated?: Yes Was the Patient Placed on a Ventilator?: No - Medication Medications Administered During SKIN DIVER: PROPAPHOL 5 ML IVP STAT, Propaphol Drip - Diagnostic Test Ordered EKG: No Chest X-Ray: No CT Scan: Yes - Stat Labs Ordered SKIN DIVER Stat Labs Ordered: ABG CPR started during SKIN DIVER?: No - Vital Signs Vital Sign: Rapid Response Vital Sign Blood Pressure 140/58 Pulse Rate 84 Respiratory Rate 8 Temperature 98.9 F Oxygen Saturation 98 - Finger Stick Blood Glucose Finger Stick Blood Glucose: 135 - [place] Coma Scale Coma Scale Eye Opening: To pain - Time SKIN DIVER Ended Time SKIN DIVER Ended: 21:20 - Vital Signs at end of SKIN DIVER Vital Signs at end of SKIN DIVER: Rapid Response End Vital Sign Blood Pressure 134/58 Pulse Rate 87 Respiratory Rate 20 Temperature 99.1 F O2 Sat by Pulse Oximetry 98 - Recommendations 5) SKIN DIVER Level of Care Recommendations: Transfer to ICU Notifications: Attending Physician, Family or Designated Caregiver I.Reason for SKIN DIVER - A) Acute Change in Patient: (Select all that apply): Acute change in mental status Subjective: SKIN DIVER was called at 20:09 by RN after patient had seizure witnessed by RN. Patients vitals were as noted. Patient was responsive to sternal rub only. Patient was placed on NRB at 100%. He became mildly more responsive after several minutes of oxygen administration. Decision was made to intubate the patient. Propofol 5mg Stat was ordered. Patient was intubated and taken for CT for CT Scan of the head w/o contrast to rule out bleed. Patient had another seizure during CT that resolved spontaneously. He was then transferred to ICU. - Neurological Status (Select all that apply): Lethargic, Weakness. absent: Alert, Oriented, Verbal, Disoriented, Confused, Aggressive - Respiratory Oxygen Delivery Method: Non Rebreather @%, Intubated Oxygen Flow Rate: 10 - Constitutional Appears: Toxic, Chronically Ill - Head Head Exam: ATRAUMATIC, NORMOCEPHALIC - Eyes Eye Exam: Normal appearance. absent: Scleral icterus - Respiratory Exam Respiratory Exam: Accessory Muscle Use - Cardiovascular Exam Cardiovascular Exam: RRR, +S1, +S2 - GI/Abdominal Exam GI & Abdominal Exam: Distended, Firm, Normal Bowel Sounds - Neurological Exam Neurological Exam: Altered Plan - Assessment of Findings&Treatment Plan Propofil Intubate CT Scan of the Head Transfer to ICU. <Jen Worley - Last Filed: 11/14/17 06:31> SKIN DIVER Nurse Assessment - Vital Signs Vital Sign: Rapid Response Vital Sign Blood Pressure 140/58 Pulse Rate 84 Respiratory Rate 8 Temperature 98.9 F Oxygen Saturation 98 - Vital Signs at end of SKIN DIVER Vital Signs at end of SKIN DIVER: Rapid Response End Vital Sign Blood Pressure 134/58 Pulse Rate 87 Respiratory Rate 20 Temperature 99.1 F O2 Sat by Pulse Oximetry 98 Attending/Attestation - Attestation I have personally seen and examined this patient.: Yes I have fully participated in the care of the patient.: Yes I have reviewed all pertinent clinical information, including history, physical exam and plan: Yes Notes (Text): 11/14/17 06:31 Agree with hospital medical biller's note.
--- NOTE | 2017-11-09 21:10 | CARD ---
APPROVED REPORT EKG Measurement Heart [id number] <Conclusion> Electronic ventricular pacemaker
[2017-11-09] MEDS ORDERED: Propofol 10 mg/ml 1,000 MG/100 ML VIAL IV PRN (21:37)
--- NOTE | 2017-11-09 21:52 | CP.PCM.CON ---
History of Present Illness - History of Present Illness History of Present Illness: HPI and Hospital Course: The patient is an 87 year old man with an extensive history of numerous chronic medical illnesses which include: CAD (s/p PCI), sick sinus syndrome (s/p pacemaker), cardiomyopathy (EF=40-45%), severe tricuspid regurgitation and pulmonary HTN (RVSP=70mmHg), asthma, rheumatoid arthritis, history of melanoma ( s/p treatment) and multiple TIAs. Of note, due to the patients current condition, details of the history and his hospital course were obtained from the patients chart. The patient was admitted to [facility] [place] on 11/03/17 with a large, hard, left groin mass ( with associated lymphadenopathy), acute CHF exacerbation and lower extremity cellulitis. Therefore, during most of his admission, he received IV diuresis, empiric IV antibiotics and a biopsy of his groin mass (results still pending). He was about to be discharged 2 days ago for rehab. Unfortunately however, he became increasingly lethargic and altered and started to spike temperatures. He was found to be positive for the Flu earlier today as well. Then earlier this evening he developed new onset seizures as well as increasing altered mental status and therefore an urgent ICU evaluation was requested. Inpatient Medications: Please refer to [facility] Allergies: NKDA Past Medical History: Per HPI Past Surgical History: Per HPI Family History: Non-contributory Social History: Patient has reportedly has never smoked cigarettes or used illicit drugs (per daughter) Review of Systems: Unable to obtain due to patients condition Past Patient History - Infectious Disease Hx of Infectious Diseases: None - Tetanus Immunizations Tetanus Immunization: Unknown - Past Medical History & Family History Past Medical History?: Yes - Past Social History Smoking Status: Never Smoked Alcohol: Other (prior occasional drinking, quit 5 years ago) Drugs: Denies Home Situation {Lives}: With Family - CARDIAC Hx Congestive Heart Failure: Yes - PULMONARY Hx Respiratory Disorders: Yes Hx Asthma: Yes Hx Pneumonia: Yes (09-19-13) - NEUROLOGICAL Hx Neurological Disorder: Yes Hx Transient Ischemic Attacks (TIA): Yes (02-18-11) - HEENT Hx HEENT Problems: Yes Hx Cataracts: Yes (BILATERAL SX) Hx Glaucoma: Yes - RENAL Hx Chronic Kidney Disease: No - ENDOCRINE/METABOLIC Hx Endocrine Disorders: No - HEMATOLOGICAL/ONCOLOGICAL Hx Blood Disorders: Yes Hx Cancer: Yes (SKIN CA,SKIN MELANOMA,SQUAMOUS) - INTEGUMENTARY Hx Dermatological Problems: Yes (CELLULITIS TO LEFT GROIN AREA-MASS 11-03-17) Hx Melanoma: Yes (WITH CAUTHERIZATION) Other/Comment: SQUAMOUS CELL CA,MELANOMA WITH CAUTHERIZATION - MUSCULOSKELETAL/RHEUMATOLOGICAL Hx Arthritis: Yes Hx Rheumatoid Arthritis: Yes - GASTROINTESTINAL Hx Gastrointestinal Disorders: Yes (RECTAL BLEED,GERD) Hx Gastroesophageal Reflux: Yes - GENITOURINARY/GYNECOLOGICAL Hx Genitourinary Disorders: No - PSYCHIATRIC Hx Psychophysiologic Disorder: No Hx Substance Use: No - SURGICAL HISTORY Hx Surgeries: Yes (MULTIPLE MOH'S SX-SKIN CA) Hx Cardiac Catheterization: Yes (YRS AGO) Other/Comment: CATARACT SURGERY BILATERAL EYE. right hemicolectomy - ANESTHESIA Hx Anesthesia Reactions: No Hx Malignant Hyperthermia: No Meds Allergies/Adverse Reactions: Allergies Allergy/AdvReac Type Severity Reaction Status Date / Time No Known Allergies Allergy Verified 11/03/17 11:37 - Medications Medications: Current Medications Acetaminophen (Tylenol 325mg Tab) 650 mg PO Q4 PRN PRN Reason: Fever >100.4 F Last Admin: 11/09/17 06:51 Dose: 650 mg Acetaminophen (Tylenol 325 Mg Supp) 325 mg RC Q4H PRN PRN Reason: Fever >100.4 F Albuterol/Ipratropium (Duoneb 3 Mg/0.5 Mg (3 Ml) Ud) 3 ml IH [id number] [facility] Last Admin: 11/09/17 07:55 Dose: 3 ml Albuterol/Ipratropium (Duoneb 3 Mg/0.5 Mg (3 Ml) Ud) 3 ml IH Q2H PRN PRN Reason: Shortness of Breath Budesonide (Pulmicort Respules) 0.5 mg IH [id number] [facility] Last Admin: 11/09/17 07:54 Dose: 0.5 mg Cholestyramine Resin (Questran) 4 gm PO DAILY [facility] Last Admin: 11/09/17 11:21 Dose: 4 gm Cyproheptadine HCl (Periactin) 4 mg PO DAILY [facility] Last Admin: 11/09/17 11:29 Dose: 4 mg Dorzolamide/Timolol (Cosopt 2%-0.5% Opht) 1 drop OU BID [facility] Last Admin: 11/09/17 17:42 Dose: 1 drop Enoxaparin Sodium (Lovenox) 40 mg SC DAILY [facility] PRN Reason: Protocol Last Admin: 11/09/17 11:20 Dose: 40 mg Furosemide (Lasix) 40 mg IVP BID [facility] Last Admin: 11/09/17 17:40 Dose: 40 mg Meropenem/Sodium Chloride (Meropenem 1g/Ns 100ml Ivpb) 1 gm in 100 mls @ 100 mls/hr IVPB Q12 [facility] PRN Reason: Protocol Stop: 11/17/17 17:28 Last Admin: 11/09/17 11:21 Dose: 100 mls/hr Propofol (Diprivan) 1,000 mg in 100 mls @ 2.722 mls/hr IV .Q24H PRN; Protocol; 5 MCG/KG/MIN PRN Reason: TITRATE PER MD ORDER Ketorolac Tromethamine (Toradol) 15 mg IVP Q8H PRN PRN Reason: Pain, moderate (4-7) Last Admin: 11/07/17 00:41 Dose: 15 mg Lorazepam (Ativan) 2 mg IVP Q2H PRN; Protocol PRN Reason: Seizure activity Oseltamivir Phosphate (Tamiflu Cap) 75 mg PO BID [facility] PRN Reason: Protocol Stop: 11/14/17 10:34 Last Admin: 11/09/17 17:42 Dose: Not Given Potassium Chloride (K-Dur 20 Meq Er Tab) 20 meq PO BRK [facility] Last Admin: 11/09/17 08:00 Dose: 20 meq Thiamine HCl (Vitamin B1 Inj) 100 mg IM DAILY [facility] Last Admin: 11/09/17 15:04 Dose: 100 mg Physical Exam - Constitutional Additional comments: Intubated and sedated - Head Exam Head Exam: ATRAUMATIC - Eye Exam Pupil Exam: PERRL - ENT Exam ENT Exam: Mucous Membranes Dry - Neck Exam Neck exam: Positive for: Normal Inspection - Respiratory Exam Additional comments: Bibasilar ronchi and scattered wheezes noted bilaterally - Cardiovascular Exam Cardiovascular Exam: REGULAR RHYTHM - GI/Abdominal Exam Additional comments: Mid abdominal protuberance - Rectal Exam Rectal Exam: Deferred - Extremities Exam Extremities exam: Positive for: pedal edema, pedal pulses present - Neurological Exam Additional comments: Unable to assess due to patient intubated and sedated Results - Vital Signs Recent Vital Signs: Last Vital Signs Temp 98.8 F 11/09/17 14:00 Pulse 77 11/09/17 14:00 Resp 18 11/09/17 14:00 BP 142/76 11/09/17 17:40 Pulse Ox 96 11/09/17 14:00 - Labs Result Diagrams: 11/10/17 06:00 11/09/17 18:36 Labs: Laboratory Results - last 24 hr 11/08/17 11/09/17 11/09/17 17:45 07:00 07:00 WBC 9.5 RBC 3.98 Hgb 12.8 L Hct 40.8 L MCV 102.5 MCH 32.2 MCHC 31.4 RDW 13.7 Plt Count 99 L MPV 10.6 Gran % Lymph % (Auto) Weston % (Auto) Eos % (Auto) Baso % (Auto) Gran # Lymph # (Auto) [place]on # (Auto) Eos # (Auto) Baso # (Auto) pCO2 pO2 HCO3 ABG pH ABG Total CO2 ABG O2 Saturation ABG O2 Content ABG Base Excess ABG Hemoglobin ABG Carboxyhemoglobin POC ABG HHb (Measured) ABG Methemoglobin ABG O2 Capacity ABG Potassium Hgb O2 Saturation Glucose Lactate FiO2 Sodium 137 Potassium 3.9 Chloride 82 L Carbon Dioxide 40 H Anion Gap 19 BUN 52 H Creatinine 1.1 Est GFR ( Amer) > 60 Est GFR (Non-Af Amer) > 60 POC Glucose (mg/dL) Random Glucose 124 H Calcium 9.2 Phosphorus Magnesium Total Bilirubin 1.0 AST 71 H ALT 40 Alkaline Phosphatase 89 Troponin I Total Protein 7.1 Albumin 3.5 Globulin 3.5 Albumin/Globulin Ratio 1.0 L Procalcitonin 0.24 Arterial Blood Potassium Influenza Typ A,B (EIA) 11/09/17 11/09/17 11/09/17 09:30 11:15 14:30 WBC RBC Hgb Hct MCV MCH MCHC RDW Plt Count MPV Gran % Lymph % (Auto) Weston % (Auto) Eos % (Auto) Baso % (Auto) Gran # Lymph # (Auto) Weston # (Auto) Eos # (Auto) Baso # (Auto) pCO2 77 H* pO2 97.0 HCO3 54.8 H* ABG pH 7.46 H ABG Total CO2 57.2 H ABG O2 Saturation 98.5 H ABG O2 Content 17.3 ABG Base Excess 25.9 H ABG Hemoglobin 12.8 ABG Carboxyhemoglobin 2.2 H POC ABG HHb (Measured) 1.5 ABG Methemoglobin 0.7 ABG O2 Capacity 17.6 ABG Potassium Hgb O2 Saturation 95.6 Glucose Lactate FiO2 36.0 Sodium Potassium Chloride Carbon Dioxide Anion Gap BUN Creatinine Est GFR ( Amer) Est GFR (Non-Af Amer) POC Glucose (mg/dL) Random Glucose Calcium Phosphorus Magnesium Total Bilirubin AST ALT Alkaline Phosphatase Troponin I Total Protein Albumin Globulin Albumin/Globulin Ratio Procalcitonin 0.23 Arterial Blood Potassium Influenza Typ A,B (EIA) Pos for influenza b H 11/09/17 11/09/17 11/09/17 17:58 18:05 18:36 WBC 8.2 RBC 4.17 Hgb 13.3 L Hct 43.8 MCV 105.0 MCH 31.9 MCHC 30.4 L RDW 13.7 Plt Count 124 MPV 11.2 H Gran % 60.6 Lymph % (Auto) 31.4 Weston % (Auto) 7.9 H Eos % (Auto) 0.0 L Baso % (Auto) 0.1 Gran # 4.94 Lymph # (Auto) 2.6 Weston # (Auto) 0.6 Eos # (Auto) 0.0 Baso # (Auto) 0.01 pCO2 90 H* pO2 429.0 H HCO3 50.8 H* ABG pH 7.36 ABG Total CO2 53.6 H ABG O2 Saturation 99.8 H ABG O2 Content ABG Base Excess 20.2 H ABG Hemoglobin ABG Carboxyhemoglobin POC ABG HHb (Measured) ABG Methemoglobin ABG O2 Capacity ABG Potassium 3.2 L Hgb O2 Saturation Glucose 137 H Lactate 5.6 H* FiO2 100 Sodium 135.0 Potassium Chloride 87.0 L Carbon Dioxide Anion Gap BUN Creatinine Est GFR ( Amer) Est GFR (Non-Af Amer) POC Glucose (mg/dL) 145 H Random Glucose Calcium Phosphorus Magnesium Total Bilirubin AST ALT Alkaline Phosphatase Troponin I Total Protein Albumin Globulin Albumin/Globulin Ratio Procalcitonin Arterial Blood Potassium 3.2 L Influenza Typ A,B (EIA) 11/09/17 11/09/17 18:36 20:12 WBC RBC Hgb Hct MCV MCH MCHC RDW Plt Count MPV Gran % Lymph % (Auto) Weston % (Auto) Eos % (Auto) Baso % (Auto) Gran # Lymph # (Auto) [place]on # (Auto) Eos # (Auto) Baso # (Auto) pCO2 pO2 HCO3 ABG pH ABG Total CO2 ABG O2 Saturation ABG O2 Content ABG Base Excess ABG Hemoglobin ABG Carboxyhemoglobin POC ABG HHb (Measured) ABG Methemoglobin ABG O2 Capacity ABG Potassium Hgb O2 Saturation Glucose Lactate FiO2 Sodium 140 Potassium 3.4 L Chloride 79 L Carbon Dioxide 48 H Anion Gap 16 BUN 47 H Creatinine 1.3 Est GFR ( Amer) > 60 Est GFR (Non-Af Amer) 52 POC Glucose (mg/dL) 135 H Random Glucose 141 H Calcium 9.4 Phosphorus 4.1 Magnesium 2.1 Total Bilirubin 1.1 AST 71 H ALT 45 Alkaline Phosphatase 100 Troponin I 0.07 D Total Protein 7.2 Albumin 3.8 Globulin 3.4 Albumin/Globulin Ratio 1.1 Procalcitonin Arterial Blood Potassium Influenza Typ A,B (EIA) Assessment & Plan - Assessment and Plan (Free Text) Plan: Assessment and Plan: The patient is an 87 year old with numerous chronic medical problems including CAD, sick sinus syndrome, severe pulmonary HTN, history of melanoma, TIAs, RA and asthma, who had multiple new onset seizures with associated AMS requiring urgent intubation this evening and therefore is being upgraded to the ICU for further management. The etiology of the seizures is unclear (mass vs metabolic vs bleed vs infection). We will obtain a stat CT-head to rule out acute ICH tonight. Also, he will be sedated with Propofol drip and placed on PRN IV Ativan. Neurology to give further recommendations in AM. Also, the etiology of patients increasingly altered mental status is likely multi-factorial and due to a combination of infection, CO2 narcosis, post-ictal confusion (+/- brain mass and/or CVA). Most of his prior meds (including antibiotics, Tamiflu, Lasix and nebulizers) will be be continued. We will also check serial trops and EKG s as well as monitor serial ABGs throughout the night.
[2017-11-09 22:20] LABS: VENOUS BLOOD GAS BASE EXCESS 25.7 mmol/L (0.0-2.0); VENOUS BLOOD GAS PO2 73 mm/Hg (30-55); VENOUS BLOOD PH 7.51 (7.32-7.43)
[2017-11-09 22:56] LABS: ARTERIAL BLOOD GAS O2 SAT 97.7 % (95-98); ARTERIAL BLOOD GAS PCO2 60 mm/Hg (35-45); ARTERIAL BLOOD GAS TCO2 48.6 mmol.L (22-28)
[2017-11-09 22:59] LABS: ARTERIAL BLOOD GAS HCO3 46.8 mmol/L (21-28)
[2017-11-09] MEDS: Propofol 10 mg/ml 1,000 MG/100 ML VIAL IV PRN (23:46)
[2017-11-10] MEDS: Albuterol-Ipratrop 3 mg / 0.5 (3 ml) UD IH SCH ×5 (00:03→20:00)
--- NOTE | 2017-11-10 06:37 | CP.PCM.PN ---
Subjective - Date & Time of Evaluation Date of Evaluation: 11/10/17 Time of Evaluation: 06:37 - Subjective Subjective: Responded to Rapid response promptly. Spent 30 MINUTES CRITICAL TIME. See also rapid response note by resident co-signed by me. Objective - Vital Signs/Intake and Output Vital Signs (last 24 hours): Temp Pulse Resp BP Pulse Ox 98.7 F 68 14 93/37 L 93 L 11/10/17 04:00 11/10/17 04:40 11/10/17 04:40 11/10/17 04:20 11/10/17 04:40 Intake and Output: 11/09/17 11/10/17 18:59 06:59 Intake Total 460 33 Output Total 600 Balance -140 33 - Medications Medications: Current Medications Acetaminophen (Tylenol 325mg Tab) 650 mg PO Q4 PRN PRN Reason: Fever >100.4 F Last Admin: 11/09/17 06:51 Dose: 650 mg Acetaminophen (Tylenol 325 Mg Supp) 325 mg RC Q4H PRN PRN Reason: Fever >100.4 F Albuterol/Ipratropium (Duoneb 3 Mg/0.5 Mg (3 Ml) Ud) 3 ml IH [id number] [facility] Last Admin: 11/09/17 21:30 Dose: Not Given Albuterol/Ipratropium (Duoneb 3 Mg/0.5 Mg (3 Ml) Ud) 3 ml IH Q2H PRN PRN Reason: Shortness of Breath Budesonide (Pulmicort Respules) 0.5 mg IH [id number] [facility] Last Admin: 11/09/17 21:30 Dose: Not Given Cholestyramine Resin (Questran) 4 gm PO DAILY [facility] Last Admin: 11/09/17 11:21 Dose: 4 gm Cyproheptadine HCl (Periactin) 4 mg PO DAILY [facility] Last Admin: 11/09/17 11:29 Dose: 4 mg Dorzolamide/Timolol (Cosopt 2%-0.5% Opht) 1 drop OU BID [facility] Last Admin: 11/09/17 17:42 Dose: 1 drop Enoxaparin Sodium (Lovenox) 40 mg SC DAILY [facility] PRN Reason: Protocol Last Admin: 11/09/17 11:20 Dose: 40 mg Furosemide (Lasix) 40 mg IVP BID [facility] Last Admin: 11/09/17 17:40 Dose: 40 mg Meropenem/Sodium Chloride (Meropenem 1g/Ns 100ml Ivpb) 1 gm in 100 mls @ 100 mls/hr IVPB Q12 [facility] PRN Reason: Protocol Stop: 11/17/17 17:28 Last Admin: 11/09/17 23:12 Dose: 100 mls/hr Propofol (Diprivan) 1,000 mg in 100 mls @ 2.722 mls/hr IV .Q24H PRN; Protocol; 5 MCG/KG/MIN PRN Reason: TITRATE PER MD ORDER Last Titration: 11/10/17 05:49 Dose: 2.5 mcg/kg/min, 1.361 mls/hr Ketorolac Tromethamine (Toradol) 15 mg IVP Q8H PRN PRN Reason: Pain, moderate (4-7) Last Admin: 11/07/17 00:41 Dose: 15 mg Lorazepam (Ativan) 2 mg IVP Q2H PRN; Protocol PRN Reason: Seizure activity Oseltamivir Phosphate (Tamiflu Cap) 75 mg PO BID [facility] PRN Reason: Protocol Stop: 11/14/17 10:34 Last Admin: 11/09/17 17:42 Dose: Not Given Pantoprazole Sodium (Protonix Inj) 40 mg IVP DAILY [facility] Potassium Chloride (K-Dur 20 Meq Er Tab) 20 meq PO BRK [facility] Last Admin: 11/09/17 08:00 Dose: 20 meq Thiamine HCl (Vitamin B1 Inj) 100 mg IM DAILY [facility] Last Admin: 11/09/17 15:04 Dose: 100 mg - Labs Labs: 11/09/17 18:36 11/09/17 18:36 PT 12.4 SECONDS (9.4-12.5) 11/03/17 08:15 INR 1.08 (0.93-1.08) 11/03/17 08:15
[2017-11-10 06:42] LABS: VENOUS BLOOD GAS BASE EXCESS 26.6 mmol/L (0.0-2.0); VENOUS BLOOD GAS PO2 194 mm/Hg (30-55); VENOUS BLOOD PH 7.54 (7.32-7.43)
[2017-11-10 06:46] LABS: HEMOGLOBIN 12.6 g/dL (14.0-18.0); MEAN CELL VOLUME 103.5 fl (80.0-105.0); MEAN CORPUSCULAR HEMOGLOBIN 31.3 pg (25.0-35.0); MEAN CORPUSCULAR HGB CONC 30.2 g/dl (31.0-37.0); MEAN PLATELET VOLUME 11.2 fl (7.0-11.0); RBC 4.03 10^6/uL (3.5-6.1); RED CELL DISTRIBUTION WIDTH 13.6 % (11.5-14.5)
--- NOTE | 2017-11-10 07:03 | CP.CCUPN ---
<Lynne Hammond - Last Filed: 11/10/17 10:47> CCU Subjective - Physician Review Subjective (Free Text): 11/10/17 09:12 Patient was admitted to [facility] due to worsening in lower extremities edema and groin mass s/p biopsy. Patient developed AMS with multiple seizure like activity overnight. Patient is s/p intubation due to airway protection. Patient received ativan during the seizure episodes, and was started on keppra. As per nurse, patient has been stable overnight, no seizures like activity while in ICU. Patient is minimally sedated on propofol, opens his eyes with tactile stimulus, but not following commands. Critical Care Time Spent (in minutes): 45 CCU Objective - Vital Signs / Intake & Output Vital Signs (Last 4 hours): Vital Signs Temp Pulse Resp BP Pulse Ox 11/10/17 04:40 68 14 93 L 11/10/17 04:30 77 16 94 L 11/10/17 04:20 66 18 93/37 L 90 L 11/10/17 04:13 71 18 92/36 L 90 L 11/10/17 04:10 68 23 91 L 11/10/17 04:00 98.7 F 71 25 H 90 L 11/10/17 03:56 69 16 92/37 L 90 L 11/10/17 03:51 65 23 84/30 L 90 L 11/10/17 03:50 64 22 85/38 L 90 L 11/10/17 03:40 67 20 90 L 11/10/17 03:30 67 16 90 L 11/10/17 03:20 67 32 H 86/40 L 90 L 11/10/17 03:10 69 18 90 L Intake and Output (Last 8hrs): Intake & Output 11/09/17 11/10/17 11/10/17 22:59 06:59 14:59 Intake Total 33 Balance 33 Intake: IV 33 - Physical Exam Head: Positive for: Atraumatic, Normocephalic Pupils: Positive for: PERRL Extroacular Muscles: Positive for: EOMI Conjunctiva: Positive for: Normal Mouth: Positive for: Moist Mucous Membranes, Other (ETT) Neck: Positive for: Normal Range of Motion Respiratory/Chest: Positive for: Decreased Breath Sounds (b/l at bases). Negative for: Respiratory Distress, Accessory Muscle Use, Wheezes, Rales, Rhonchi Cardiovascular: Positive for: Regular Rate and Rhythm, Other (holosystolic murmur) Abdomen: Positive for: Normal Bowel Sounds. Negative for: Tenderness, Distention, Peritoneal Signs Back: Positive for: Normal Inspection Upper Extremity: Positive for: Normal Inspection. Negative for: Cyanosis, Edema Lower Extremity: Positive for: Edema (b/l chronic lymphedema, chronic skin changed noted, decreased pulses peripherally, decreased ROM), Other (left inguinal region grapefruit sized firm mass, nontender, no open wounds, slightly inflamed; healing leg ulcer at lateral aspect of left leg) Neurological: Positive for: Other (minimally awakened with tactile stimulus, sluggish. ) Skin: Positive for: Warm, Dry, Normal Color. Negative for: Rashes Psychiatric: Positive for: Other (sedated. ) - Medications Active Medications: Active Medications Generic Name Dose Route Start Last Admin Trade Name Freq PRN Reason Stop Dose Admin Acetaminophen 650 mg 11/08/17 20:29 11/09/17 06:51 Tylenol 325mg Tab PO 650 mg Q4 PRN Administration Fever >100.4 F Acetaminophen 325 mg 11/09/17 08:12 Tylenol 325 Mg Supp RC Q4H PRN Fever >100.4 F Albuterol/Ipratropium 3 ml 11/06/17 08:00 11/09/17 21:30 Duoneb 3 Mg/0.5 Mg (3 Ml) Ud IH Not Given [id number] KELLY Albuterol/Ipratropium 3 ml 11/06/17 07:21 Duoneb 3 Mg/0.5 Mg (3 Ml) Ud IH Q2H PRN Shortness of Breath Budesonide 0.5 mg 11/06/17 08:00 11/09/17 21:30 Pulmicort Respules IH Not Given [id number] KELLY Cholestyramine Resin 4 gm 11/03/17 10:00 11/09/17 11:21 Questran PO 4 gm DAILY KELLY Administration Cyproheptadine HCl 4 mg 11/06/17 10:00 11/09/17 11:29 Periactin PO 4 mg DAILY KELLY Administration Dorzolamide/Timolol 1 drop 11/03/17 10:00 11/09/17 17:42 Cosopt 2%-0.5% Opht OU 1 drop BID KELLY Administration Enoxaparin Sodium 40 mg 11/04/17 10:00 11/09/17 11:20 Lovenox SC 40 mg DAILY KELLY Administration Protocol Furosemide 40 mg 11/03/17 10:00 11/09/17 17:40 Lasix IVP 40 mg BID KELLY Administration Meropenem/Sodium Chloride 1 gm in 100 mls @ 100 mls/hr 11/08/17 17:27 23:12 Meropenem 1g/Ns 100ml Ivpb IVPB 11/17/17 17:28 100 mls/hr Q12 KELLY Administration Protocol Propofol 1,000 mg in 100 mls @ 2.722 mls/hr 11/09/17 21:39 11/10/17 05:49 Diprivan IV 2.5 mcg/kg/min .Q24H PRN 1.361 mls/hr TITRATE PER MD ORDER Titration Protocol 5 MCG/KG/MIN Ketorolac Tromethamine 15 mg 11/05/17 09:51 11/07/17 00:41 Toradol IVP 15 mg Q8H PRN Administration Pain, moderate (4-7) Lorazepam 2 mg 11/09/17 21:22 Ativan IVP Q2H PRN Seizure activity Protocol Oseltamivir Phosphate 75 mg 11/09/17 10:45 11/09/17 17:42 Tamiflu Cap PO 11/14/17 10:34 Not Given BID [facility] Protocol Pantoprazole Sodium 40 mg 11/10/17 10:00 Protonix Inj IVP DAILY [facility] Potassium Chloride 20 meq 11/04/17 08:00 11/09/17 08:00 K-Dur 20 Meq Er Tab PO 20 meq BRK KELLY Administration Thiamine HCl 100 mg 11/09/17 14:15 11/09/17 15:04 Vitamin B1 Inj IM 100 mg DAILY KELLY Administration - Patient Studies Lab Studies: Microbiology Studies 11/08/17 17:45 Blood Culture - Preliminary Blood NO GROWTH AFTER 24 HOURS 11/08/17 17:30 Blood Culture - Preliminary Blood NO GROWTH AFTER 24 HOURS Lab Studies 11/10/17 11/10/17 11/10/17 Range/Units 06:05 06:00 00:30 WBC 8.0 (4.5-11.0) 10^3/ul RBC 4.03 (3.5-6.1) 10^6/uL Hgb 12.6 L (14.0-18.0) g/dL Hct 41.7 L (42.0-52.0) % MCV 103.5 (80.0-105.0) fl MCH 31.3 (25.0-35.0) pg MCHC 30.2 L (31.0-37.0) g/dl RDW 13.6 (11.5-14.5) % Plt Count 106 L (120.0-450.0) 10^3/uL MPV 11.2 H (7.0-11.0) fl Gran % (50.0-68.0) % Lymph % (Auto) (22.0-35.0) % [place] % (Auto) (1.0-6.0) % Eos % (Auto) (1.5-5.0) % Baso % (Auto) (0.0-3.0) % Gran # (1.4-6.5) Lymph # (Auto) (1.2-3.4) [place] # (Auto) (0.1-0.6) Eos # (Auto) (0.0-0.7) Baso # (Auto) (0.0-2.0) K/mm3 pCO2 (35-45) mm/Hg pO2 194 H (80-100) mm/Hg HCO3 (21-28) mmol/L ABG pH (7.35-7.45) ABG Total CO2 (22-28) mmol.L ABG O2 Saturation (95-98) % ABG O2 Content (15-23) ML/dl ABG Base Excess (-2.0-3.0) mmol/L ABG Hemoglobin (11.7-17.4) g/dL ABG Carboxyhemoglobin (0.5-1.5) % POC ABG HHb (Measured) (0-5) % ABG Methemoglobin (0.0-3.0) % ABG O2 Capacity (16-24) mL/dl ABG Potassium (3.6-5.2) mmol/L VBG pH 7.54 H (7.32-7.43) VBG pCO2 63.0 H (40-60) VBG HCO3 53.9 H (21-28) mmol/l VBG Total CO2 55.8 H (22-28) mmol.L VBG O2 Sat (Calc) 99.2 H (40-65) % VBG Base Excess 26.6 H (0.0-2.0) mmol/L VBG Potassium 3.2 L (3.6-5.2) mmol/L Hgb O2 Saturation (95.0-98.0) % Glucose 128 H (75-110) mg/dl Lactate 2.5 H (0.7-2.1) mmol/L FiO2 21.0 % Sodium 136.0 (132-148) mmol/L Potassium (3.6-5.0) mmol/L Chloride 87.0 L (98-107) mmol/L Carbon Dioxide (21-33) mmol/L Anion Gap (10-20) BUN (7-21) mg/dL Creatinine (0.8-1.5) mg/dl Est GFR ( Amer) Est GFR (Non-Af Amer) POC Glucose (mg/dL) (65-110) mg/dL Random Glucose (70-110) mg/dL Calcium (8.4-10.5) mg/dL Phosphorus (2.5-4.5) mg/dL Magnesium (1.7-2.2) mg/dL Total Bilirubin (0.2-1.3) mg/dL AST (17-59) U/L ALT (7-56) U/L Alkaline Phosphatase (38-126) U/L Troponin I 0.07 ng/mL Total Protein (5.8-8.3) g/dL Albumin (3.0-4.8) g/dL Globulin gm/dL Albumin/Globulin Ratio (1.1-1.8) Procalcitonin (0.19-0.49) NG/ML Arterial Blood Potassium (3.6-5.2) mmol/L Venous Blood Potassium 3.2 L (3.6-5.2) mmol/L Influenza Typ A,B (EIA) (NEGATIVE) 11/09/17 11/09/17 11/09/17 Range/Units 22:45 22:15 20:12 WBC (4.5-11.0) 10^3/ul RBC (3.5-6.1) 10^6/uL Hgb (14.0-18.0) g/dL Hct (42.0-52.0) % MCV (80.0-105.0) fl MCH (25.0-35.0) pg MCHC (31.0-37.0) g/dl RDW (11.5-14.5) % Plt Count (120.0-450.0) 10^3/uL MPV (7.0-11.0) fl Gran % (50.0-68.0) % Lymph % (Auto) (22.0-35.0) % Zav[place] % (Auto) (1.0-6.0) % Eos % (Auto) (1.5-5.0) % Baso % (Auto) (0.0-3.0) % Gran # (1.4-6.5) Lymph # (Auto) (1.2-3.4) Z[place]ala # (Auto) (0.1-0.6) Eos # (Auto) (0.0-0.7) Baso # (Auto) (0.0-2.0) K/mm3 pCO2 60 H (35-45) mm/Hg pO2 74.0 L 73 H (80-100) mm/Hg HCO3 46.8 H* (21-28) mmol/L ABG pH 7.50 H (7.35-7.45) ABG Total CO2 48.6 H (22-28) mmol.L ABG O2 Saturation 97.7 (95-98) % ABG O2 Content (15-23) ML/dl ABG Base Excess 20.0 H (-2.0-3.0) mmol/L ABG Hemoglobin (11.7-17.4) g/dL ABG Carboxyhemoglobin (0.5-1.5) % POC ABG HHb (Measured) (0-5) % ABG Methemoglobin (0.0-3.0) % ABG O2 Capacity (16-24) mL/dl ABG Potassium 2.8 L (3.6-5.2) mmol/L VBG pH 7.51 H (7.32-7.43) VBG pCO2 65.0 H (40-60) VBG HCO3 53.5 H (21-28) mmol/l VBG Total CO2 55.6 H (22-28) mmol.L VBG O2 Sat (Calc) 97.4 H (40-65) % VBG Base Excess 25.7 H (0.0-2.0) mmol/L VBG Potassium 3.4 L (3.6-5.2) mmol/L Hgb O2 Saturation (95.0-98.0) % Glucose 139 H 157 H (75-110) mg/dl Lactate 2.6 H 3.4 H (0.7-2.1) mmol/L FiO2 50.0 21.0 % Sodium 138.0 135.0 (132-148) mmol/L Potassium (3.6-5.0) mmol/L Chloride 92.0 L 85.0 L (98-107) mmol/L Carbon Dioxide (21-33) mmol/L Anion Gap (10-20) BUN (7-21) mg/dL Creatinine (0.8-1.5) mg/dl Est GFR ( Amer) Est GFR (Non-Af Amer) POC Glucose (mg/dL) 135 H (65-110) mg/dL Random Glucose (70-110) mg/dL Calcium (8.4-10.5) mg/dL Phosphorus (2.5-4.5) mg/dL Magnesium (1.7-2.2) mg/dL Total Bilirubin (0.2-1.3) mg/dL AST (17-59) U/L ALT (7-56) U/L Alkaline Phosphatase (38-126) U/L Troponin I ng/mL Total Protein (5.8-8.3) g/dL Albumin (3.0-4.8) g/dL Globulin gm/dL Albumin/Globulin Ratio (1.1-1.8) Procalcitonin (0.19-0.49) NG/ML Arterial Blood Potassium 2.8 L (3.6-5.2) mmol/L Venous Blood Potassium 3.4 L (3.6-5.2) mmol/L Influenza Typ A,B (EIA) (NEGATIVE) 11/09/17 11/09/17 11/09/17 Range/Units 18:36 18:36 18:05 WBC 8.2 (4.5-11.0) 10^3/ul RBC 4.17 (3.5-6.1) 10^6/uL Hgb 13.3 L (14.0-18.0) g/dL Hct 43.8 (42.0-52.0) % MCV 105.0 (80.0-105.0) fl MCH 31.9 (25.0-35.0) pg MCHC 30.4 L (31.0-37.0) g/dl RDW 13.7 (11.5-14.5) % Plt Count 124 (120.0-450.0) 10^3/uL MPV 11.2 H (7.0-11.0) fl Gran % 60.6 (50.0-68.0) % Lymph % (Auto) 31.4 (22.0-35.0) % Z[place]ala % (Auto) 7.9 H (1.0-6.0) % Eos % (Auto) 0.0 L (1.5-5.0) % Baso % (Auto) 0.1 (0.0-3.0) % Gran # 4.94 (1.4-6.5) Lymph # (Auto) 2.6 (1.2-3.4) [place]ala # (Auto) 0.6 (0.1-0.6) Eos # (Auto) 0.0 (0.0-0.7) Baso # (Auto) 0.01 (0.0-2.0) K/mm3 pCO2 90 H* (35-45) mm/Hg pO2 429.0 H (80-100) mm/Hg HCO3 50.8 H* (21-28) mmol/L ABG pH 7.36 (7.35-7.45) ABG Total CO2 53.6 H (22-28) mmol.L ABG O2 Saturation 99.8 H (95-98) % ABG O2 Content (15-23) ML/dl ABG Base Excess 20.2 H (-2.0-3.0) mmol/L ABG Hemoglobin (11.7-17.4) g/dL ABG Carboxyhemoglobin (0.5-1.5) % POC ABG HHb (Measured) (0-5) % ABG Methemoglobin (0.0-3.0) % ABG O2 Capacity (16-24) mL/dl ABG Potassium 3.2 L (3.6-5.2) mmol/L VBG pH (7.32-7.43) VBG pCO2 (40-60) VBG HCO3 (21-28) mmol/l VBG Total CO2 (22-28) mmol.L VBG O2 Sat (Calc) (40-65) % VBG Base Excess (0.0-2.0) mmol/L VBG Potassium (3.6-5.2) mmol/L Hgb O2 Saturation (95.0-98.0) % Glucose 137 H (75-110) mg/dl Lactate 5.6 H* (0.7-2.1) mmol/L FiO2 100 % Sodium 140 135.0 (132-148) mmol/L Potassium 3.4 L (3.6-5.0) mmol/L Chloride 79 L 87.0 L (98-107) mmol/L Carbon Dioxide 48 H (21-33) mmol/L Anion Gap 16 (10-20) BUN 47 H (7-21) mg/dL Creatinine 1.3 (0.8-1.5) mg/dl Est GFR ( Amer) > 60 Est GFR (Non-Af Amer) 52 POC Glucose (mg/dL) (65-110) mg/dL Random Glucose 141 H (70-110) mg/dL Calcium 9.4 (8.4-10.5) mg/dL Phosphorus 4.1 (2.5-4.5) mg/dL Magnesium 2.1 (1.7-2.2) mg/dL Total Bilirubin 1.1 (0.2-1.3) mg/dL AST 71 H (17-59) U/L ALT 45 (7-56) U/L Alkaline Phosphatase 100 (38-126) U/L Troponin I 0.07 D ng/mL Total Protein 7.2 (5.8-8.3) g/dL Albumin 3.8 (3.0-4.8) g/dL Globulin 3.4 gm/dL Albumin/Globulin Ratio 1.1 (1.1-1.8) Procalcitonin (0.19-0.49) NG/ML Arterial Blood Potassium 3.2 L (3.6-5.2) mmol/L Venous Blood Potassium (3.6-5.2) mmol/L Influenza Typ A,B (EIA) (NEGATIVE) 02/19/18 02/19/18 02/19/18 Range/Units 17:58 14:30 11:15 WBC (4.5-11.0) 10^3/ul RBC (3.5-6.1) 10^6/uL Hgb (14.0-18.0) g/dL Hct (42.0-52.0) % MCV (80.0-105.0) fl MCH (25.0-35.0) pg MCHC (31.0-37.0) g/dl RDW (11.5-14.5) % Plt Count (120.0-450.0) 10^3/uL MPV (7.0-11.0) fl Gran % (50.0-68.0) % Lymph % (Auto) (22.0-35.0) % [place] % (Auto) (1.0-6.0) % Eos % (Auto) (1.5-5.0) % Baso % (Auto) (0.0-3.0) % Gran # (1.4-6.5) Lymph # (Auto) (1.2-3.4) [place] # (Auto) (0.1-0.6) Eos # (Auto) (0.0-0.7) Baso # (Auto) (0.0-2.0) K/mm3 pCO2 77 H* (35-45) mm/Hg pO2 97.0 (80-100) mm/Hg HCO3 54.8 H* (21-28) mmol/L ABG pH 7.46 H (7.35-7.45) ABG Total CO2 57.2 H (22-28) mmol.L ABG O2 Saturation 98.5 H (95-98) % ABG O2 Content 17.3 (15-23) ML/dl ABG Base Excess 25.9 H (-2.0-3.0) mmol/L ABG Hemoglobin 12.8 (11.7-17.4) g/dL ABG Carboxyhemoglobin 2.2 H (0.5-1.5) % POC ABG HHb (Measured) 1.5 (0-5) % ABG Methemoglobin 0.7 (0.0-3.0) % ABG O2 Capacity 17.6 (16-24) mL/dl ABG Potassium (3.6-5.2) mmol/L VBG pH (7.32-7.43) VBG pCO2 (40-60) VBG HCO3 (21-28) mmol/l VBG Total CO2 (22-28) mmol.L VBG O2 Sat (Calc) (40-65) % VBG Base Excess (0.0-2.0) mmol/L VBG Potassium (3.6-5.2) mmol/L Hgb O2 Saturation 95.6 (95.0-98.0) % Glucose (75-110) mg/dl Lactate (0.7-2.1) mmol/L FiO2 36.0 % Sodium (132-148) mmol/L Potassium (3.6-5.0) mmol/L Chloride (98-107) mmol/L Carbon Dioxide (21-33) mmol/L Anion Gap (10-20) BUN (7-21) mg/dL Creatinine (0.8-1.5) mg/dl Est GFR ( Amer) Est GFR (Non-Af Amer) POC Glucose (mg/dL) 145 H (65-110) mg/dL Random Glucose (70-110) mg/dL Calcium (8.4-10.5) mg/dL Phosphorus (2.5-4.5) mg/dL Magnesium (1.7-2.2) mg/dL Total Bilirubin (0.2-1.3) mg/dL AST (17-59) U/L ALT (7-56) U/L Alkaline Phosphatase (38-126) U/L Troponin I ng/mL Total Protein (5.8-8.3) g/dL Albumin (3.0-4.8) g/dL Globulin gm/dL Albumin/Globulin Ratio (1.1-1.8) Procalcitonin 0.23 (0.19-0.49) NG/ML Arterial Blood Potassium (3.6-5.2) mmol/L Venous Blood Potassium (3.6-5.2) mmol/L Influenza Typ A,B (EIA) (NEGATIVE) 11/09/17 11/09/17 11/09/17 Range/Units 09:30 07:00 07:00 WBC 9.5 (4.5-11.0) 10^3/ul RBC 3.98 (3.5-6.1) 10^6/uL Hgb 12.8 L (14.0-18.0) g/dL Hct 40.8 L (42.0-52.0) % MCV 102.5 (80.0-105.0) fl MCH 32.2 (25.0-35.0) pg MCHC 31.4 (31.0-37.0) g/dl RDW 13.7 (11.5-14.5) % Plt Count 99 L (120.0-450.0) 10^3/uL MPV 10.6 (7.0-11.0) fl Gran % (50.0-68.0) % Lymph % (Auto) (22.0-35.0) % [place] % (Auto) (1.0-6.0) % Eos % (Auto) (1.5-5.0) % Baso % (Auto) (0.0-3.0) % Gran # (1.4-6.5) Lymph # (Auto) (1.2-3.4) [place] # (Auto) (0.1-0.6) Eos # (Auto) (0.0-0.7) Baso # (Auto) (0.0-2.0) K/mm3 pCO2 (35-45) mm/Hg pO2 (80-100) mm/Hg HCO3 (21-28) mmol/L ABG pH (7.35-7.45) ABG Total CO2 (22-28) mmol.L ABG O2 Saturation (95-98) % ABG O2 Content (15-23) ML/dl ABG Base Excess (-2.0-3.0) mmol/L ABG Hemoglobin (11.7-17.4) g/dL ABG Carboxyhemoglobin (0.5-1.5) % POC ABG HHb (Measured) (0-5) % ABG Methemoglobin (0.0-3.0) % ABG O2 Capacity (16-24) mL/dl ABG Potassium (3.6-5.2) mmol/L VBG pH (7.32-7.43) VBG pCO2 (40-60) VBG HCO3 (21-28) mmol/l VBG Total CO2 (22-28) mmol.L VBG O2 Sat (Calc) (40-65) % VBG Base Excess (0.0-2.0) mmol/L VBG Potassium (3.6-5.2) mmol/L Hgb O2 Saturation (95.0-98.0) % Glucose (75-110) mg/dl Lactate (0.7-2.1) mmol/L FiO2 % Sodium 137 (132-148) mmol/L Potassium 3.9 (3.6-5.0) mmol/L Chloride 82 L (98-107) mmol/L Carbon Dioxide 40 H (21-33) mmol/L Anion Gap 19 (10-20) BUN 52 H (7-21) mg/dL Creatinine 1.1 (0.8-1.5) mg/dl Est GFR ( Amer) > 60 Est GFR (Non-Af Amer) > 60 POC Glucose (mg/dL) (65-110) mg/dL Random Glucose 124 H (70-110) mg/dL Calcium 9.2 (8.4-10.5) mg/dL Phosphorus (2.5-4.5) mg/dL Magnesium (1.7-2.2) mg/dL Total Bilirubin 1.0 (0.2-1.3) mg/dL AST 71 H (17-59) U/L ALT 40 (7-56) U/L Alkaline Phosphatase 89 (38-126) U/L Troponin I ng/mL Total Protein 7.1 (5.8-8.3) g/dL Albumin 3.5 (3.0-4.8) g/dL Globulin 3.5 gm/dL Albumin/Globulin Ratio 1.0 L (1.1-1.8) Procalcitonin (0.19-0.49) NG/ML Arterial Blood Potassium (3.6-5.2) mmol/L Venous Blood Potassium (3.6-5.2) mmol/L Influenza Typ A,B (EIA) Pos for influenza b H (NEGATIVE) Laboratory Results - last 24 hr 11/09/17 11/09/17 11/09/17 07:00 07:00 09:30 WBC 9.5 RBC 3.98 Hgb 12.8 L Hct 40.8 L MCV 102.5 MCH 32.2 MCHC 31.4 RDW 13.7 Plt Count 99 L MPV 10.6 Gran % Lymph % (Auto) [place] % (Auto) Eos % (Auto) Baso % (Auto) Gran # Lymph # (Auto) [place] # (Auto) Eos # (Auto) Baso # (Auto) pCO2 pO2 HCO3 ABG pH ABG Total CO2 ABG O2 Saturation ABG O2 Content ABG Base Excess ABG Hemoglobin ABG Carboxyhemoglobin POC ABG HHb (Measured) ABG Methemoglobin ABG O2 Capacity ABG Potassium VBG pH VBG pCO2 VBG HCO3 VBG Total CO2 VBG O2 Sat (Calc) VBG Base Excess VBG Potassium Hgb O2 Saturation Glucose Lactate FiO2 Sodium 137 Potassium 3.9 Chloride 82 L Carbon Dioxide 40 H Anion Gap 19 BUN 52 H Creatinine 1.1 Est GFR ( Amer) > 60 Est GFR (Non-Af Amer) > 60 POC Glucose (mg/dL) Random Glucose 124 H Calcium 9.2 Phosphorus Magnesium Total Bilirubin 1.0 AST 71 H ALT 40 Alkaline Phosphatase 89 Troponin I Total Protein 7.1 Albumin 3.5 Globulin 3.5 Albumin/Globulin Ratio 1.0 L Procalcitonin Arterial Blood Potassium Venous Blood Potassium Influenza Typ A,B (EIA) Pos for influenza b H 11/09/17 11/09/17 11/09/17 11:15 14:30 17:58 WBC RBC Hgb Hct MCV MCH MCHC RDW Plt Count MPV Gran % Lymph % (Auto) [place] % (Auto) Eos % (Auto) Baso % (Auto) Gran # Lymph # (Auto) [place] # (Auto) Eos # (Auto) Baso # (Auto) pCO2 77 H* pO2 97.0 HCO3 54.8 H* ABG pH 7.46 H ABG Total CO2 57.2 H ABG O2 Saturation 98.5 H ABG O2 Content 17.3 ABG Base Excess 25.9 H ABG Hemoglobin 12.8 ABG Carboxyhemoglobin 2.2 H POC ABG HHb (Measured) 1.5 ABG Methemoglobin 0.7 ABG O2 Capacity 17.6 ABG Potassium VBG pH VBG pCO2 VBG HCO3 VBG Total CO2 VBG O2 Sat (Calc) VBG Base Excess VBG Potassium Hgb O2 Saturation 95.6 Glucose Lactate FiO2 36.0 Sodium Potassium Chloride Carbon Dioxide Anion Gap BUN Creatinine Est GFR ( Amer) Est GFR (Non-Af Amer) POC Glucose (mg/dL) 145 H Random Glucose Calcium Phosphorus Magnesium Total Bilirubin AST ALT Alkaline Phosphatase Troponin I Total Protein Albumin Globulin Albumin/Globulin Ratio Procalcitonin 0.23 Arterial Blood Potassium Venous Blood Potassium Influenza Typ A,B (EIA) 11/09/17 11/09/17 11/09/17 18:05 18:36 18:36 WBC 8.2 RBC 4.17 Hgb 13.3 L Hct 43.8 MCV 105.0 MCH 31.9 MCHC 30.4 L RDW 13.7 Plt Count 124 MPV 11.2 H Gran % 60.6 Lymph % (Auto) 31.4 [place] % (Auto) 7.9 H Eos % (Auto) 0.0 L Baso % (Auto) 0.1 Gran # 4.94 Lymph # (Auto) 2.6 [place] # (Auto) 0.6 Eos # (Auto) 0.0 Baso # (Auto) 0.01 pCO2 90 H* pO2 429.0 H HCO3 50.8 H* ABG pH 7.36 ABG Total CO2 53.6 H ABG O2 Saturation 99.8 H ABG O2 Content ABG Base Excess 20.2 H ABG Hemoglobin ABG Carboxyhemoglobin POC ABG HHb (Measured) ABG Methemoglobin ABG O2 Capacity ABG Potassium 3.2 L VBG pH VBG pCO2 VBG HCO3 VBG Total CO2 VBG O2 Sat (Calc) VBG Base Excess VBG Potassium Hgb O2 Saturation Glucose 137 H Lactate 5.6 H* FiO2 100 Sodium 135.0 140 Potassium 3.4 L Chloride 87.0 L 79 L Carbon Dioxide 48 H Anion Gap 16 BUN 47 H Creatinine 1.3 Est GFR ( Amer) > 60 Est GFR (Non-Af Amer) 52 POC Glucose (mg/dL) Random Glucose 141 H Calcium 9.4 Phosphorus 4.1 Magnesium 2.1 Total Bilirubin 1.1 AST 71 H ALT 45 Alkaline Phosphatase 100 Troponin I 0.07 D Total Protein 7.2 Albumin 3.8 Globulin 3.4 Albumin/Globulin Ratio 1.1 Procalcitonin Arterial Blood Potassium 3.2 L Venous Blood Potassium Influenza Typ A,B (EIA) 11/09/17 11/09/17 11/09/17 20:12 22:15 22:45 WBC RBC Hgb Hct MCV MCH MCHC RDW Plt Count MPV Gran % Lymph % (Auto) Z[place] % (Auto) Eos % (Auto) Baso % (Auto) Gran # Lymph # (Auto) [place] # (Auto) Eos # (Auto) Baso # (Auto) pCO2 60 H pO2 73 H 74.0 L HCO3 46.8 H* ABG pH 7.50 H ABG Total CO2 48.6 H ABG O2 Saturation 97.7 ABG O2 Content ABG Base Excess 20.0 H ABG Hemoglobin ABG Carboxyhemoglobin POC ABG HHb (Measured) ABG Methemoglobin ABG O2 Capacity ABG Potassium 2.8 L VBG pH 7.51 H VBG pCO2 65.0 H VBG HCO3 53.5 H VBG Total CO2 55.6 H VBG O2 Sat (Calc) 97.4 H VBG Base Excess 25.7 H VBG Potassium 3.4 L Hgb O2 Saturation Glucose 157 H 139 H Lactate 3.4 H 2.6 H FiO2 21.0 50.0 Sodium 135.0 138.0 Potassium Chloride 85.0 L 92.0 L Carbon Dioxide Anion Gap BUN Creatinine Est GFR ( Amer) Est GFR (Non-Af Amer) POC Glucose (mg/dL) 135 H Random Glucose Calcium Phosphorus Magnesium Total Bilirubin AST ALT Alkaline Phosphatase Troponin I Total Protein Albumin Globulin Albumin/Globulin Ratio Procalcitonin Arterial Blood Potassium 2.8 L Venous Blood Potassium 3.4 L Influenza Typ A,B (EIA) 11/10/17 11/10/17 11/10/17 00:30 06:00 06:05 WBC 8.0 RBC 4.03 Hgb 12.6 L Hct 41.7 L MCV 103.5 MCH 31.3 MCHC 30.2 L RDW 13.6 Plt Count 106 L MPV 11.2 H Gran % Lymph % (Auto) Z[place] % (Auto) Eos % (Auto) Baso % (Auto) Gran # Lymph # (Auto) [place] # (Auto) Eos # (Auto) Baso # (Auto) pCO2 pO2 194 H HCO3 ABG pH ABG Total CO2 ABG O2 Saturation ABG O2 Content ABG Base Excess ABG Hemoglobin ABG Carboxyhemoglobin POC ABG HHb (Measured) ABG Methemoglobin ABG O2 Capacity ABG Potassium VBG pH 7.54 H VBG pCO2 63.0 H VBG HCO3 53.9 H VBG Total CO2 55.8 H VBG O2 Sat (Calc) 99.2 H VBG Base Excess 26.6 H VBG Potassium 3.2 L Hgb O2 Saturation Glucose 128 H Lactate 2.5 H FiO2 21.0 Sodium 136.0 Potassium Chloride 87.0 L Carbon Dioxide Anion Gap BUN Creatinine Est GFR ( Amer) Est GFR (Non-Af Amer) POC Glucose (mg/dL) Random Glucose Calcium Phosphorus Magnesium Total Bilirubin AST ALT Alkaline Phosphatase Troponin I 0.07 Total Protein Albumin Globulin Albumin/Globulin Ratio Procalcitonin Arterial Blood Potassium Venous Blood Potassium 3.2 L Influenza Typ A,B (EIA) EKG/Cardiology Studies: Cardiology / EKG Studies 11/09/17 18:01 ELECTROCARDIOGRAM Stat Comment: 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 Results: 142 Results Reviewed to Date: Yes Critical Care Progress Note - Nutrition Nutrition: Nutrition Category Date Time Status NPO Diet [DIET] Diets 11/09/17 Breakfast Ordered Assessment/Plan - Assessment and Plan (Free Text) Assessment: Patient is an 87 y/o Male with PMHx of CAD (s/p PCI), sick sinus syndrome (s/p pacemaker), cardiomyopathy (EF=40-45%), severe tricuspid regurgitation and pulmonary HTN (RVSP=70mmHg), asthma, rheumatoid arthritis, history of melanoma ( s/p treatment) and multiple TIAs initially admitted due to worsening in extremities edema with sob, was found to have right groin mass which was biopsied, and was being followed by multiple services on the floor. However patient developed AMS with multiple seizure like activity overnight, thus patient was intubated for airway protection. Patient is also retaining co2, which appears to be chronic. Plan: Neurology- AMS with seizure like activities likely due to CO2 retention versus - Patient is sedated on propofol, will titrate down to assess mental status. - On Ativan prn - CT head with no acute ischemic finding. - On keppra for seizure prophylaxis - EEG ordered - Follow up with neurology recommendations Pulm: Patient has COPD with chronic CO2 retention, s/p intubation due to airway protection due to multiple seizures. - Decrease rate to 10, titrate fio2 based on abg. - Continue with protected lung ventilation strategies, and pulm toileting. - Continue with bronchodilators, head of bed elevation above 35 degrees. - On antibiotics. Cardio- Systolic CHF with LVEF of 40%, h/o sick sinus syndrome s/p AICD. h/o CAD with stents. - Maintain MAP above 65%. - Cardiology following follow up with recommendations. Renal: Metabolic alkalosis with respiratory acidosis- due to chronic co2 retention, management as above. Hypokalemia will replete and monitor. Endo: Will maintain euglycemia. ID: Influenza positive, and Tamiflu. No leukocytosis, afebrile and no growth on cultures. Chris lower extremities with chronic venous insufficiency and erythema r/o cellulites. On aztreonam and vanco as per ID. GI- npo, will consider tube feeding if patient remains intubated. On ppi for gi prophylaxis. Heme: h/h stable will continue to hold. DVT prophylaxes: Lovenox sc. Dispo- pending. Patient is currently DNR per primary team. Patient seen, examined and case discussed with the attending. - Date & Time Date: 11/10/17 Time: 10:25 <Akbar Saucedo - Last Filed: 11/10/17 11:24> CCU Objective - Vital Signs / Intake & Output Intake and Output (Last 8hrs): Intake & Output 11/09/17 11/10/17 11/10/17 22:59 06:59 14:59 Intake Total 170 Output Total 725 Balance -555 Intake: IV 170 Left Forearm 0 Right Forearm 137 Oral 0 Output: Urine 725 Urine, Voided 725 Other: # Bowel Movements 0 - Medications Active Medications: Active Medications Generic Name Dose Route Start Last Admin Trade Name Freq PRN Reason Stop Dose Admin Acetaminophen 325 mg 11/09/17 08:12 Tylenol 325 Mg Supp RC Q4H PRN Fever >100.4 F Albuterol/Ipratropium 3 ml 11/06/17 08:00 11/10/17 08:28 Duoneb 3 Mg/0.5 Mg (3 Ml) Ud IH 3 ml [id number] KELLY Administration Albuterol/Ipratropium 3 ml 11/06/17 07:21 Duoneb 3 Mg/0.5 Mg (3 Ml) Ud IH Q2H PRN Shortness of Breath Budesonide 0.5 mg 11/06/17 08:00 11/10/17 08:28 Pulmicort Respules IH 0.5 mg [id number] KELLY Administration Cholestyramine Resin 4 gm 11/03/17 10:00 11/10/17 09:34 Questran PO 4 gm DAILY KELLY Administration Cyproheptadine HCl 4 mg 11/06/17 10:00 11/10/17 09:34 Periactin PO 4 mg DAILY KELLY Administration Dorzolamide/Timolol 1 drop 11/03/17 10:00 11/10/17 09:48 Cosopt 2%-0.5% Opht OU 1 drop BID KELLY Administration Enoxaparin Sodium 40 mg 11/04/17 10:00 11/10/17 09:33 Lovenox SC 40 mg DAILY KELLY Administration Protocol Furosemide 40 mg 11/03/17 10:00 11/09/17 17:40 Lasix IVP 40 mg BID KELLY Administration Propofol 1,000 mg in 100 mls @ 2.722 mls/hr 11/09/17 21:39 11/10/17 05:49 Diprivan IV 2.5 mcg/kg/min .Q24H PRN 1.361 mls/hr TITRATE PER MD ORDER Titration Protocol 5 MCG/KG/MIN Levetiracetam 1,000 mg/ Sodium 110 mls @ 460 mls/hr 11/10/17 10:00 11/10/17 09:37 Chloride IV 460 mls/hr Q12 KELLY Administration Aztreonam 100 mls @ 100 mls/hr 11/10/17 14:00 Azactam 1 Gm IVPB 11/17/17 14:01 Q8 KELLY Protocol Potassium Chloride 10 meq in 100 mls @ 50 mls/hr 11/10/17 09:46 11/10/17 09: 50 Potassium Chloride 10 Meq/100 Ml IVPB 11/10/17 11:45 50 mls/hr ONCE ONE Administration Lorazepam 2 mg 11/09/17 21:22 Ativan IVP Q2H PRN Seizure activity Protocol Oseltamivir Phosphate 30 mg 11/10/17 10:00 11/10/17 09:35 Tamiflu Susp PO 11/14/17 10:34 30 darnell BID KELLY Administration Protocol Pantoprazole Sodium 40 mg 11/10/17 10:00 11/10/17 09:34 Protonix Inj IVP 40 mg DAILY KELLY Administration Potassium Chloride 20 meq 11/04/17 08:00 11/10/17 08:02 K-Dur 20 Meq Er Tab PO 20 meq BRK KELLY Administration Thiamine HCl 100 mg 11/09/17 14:15 11/10/17 09:34 Vitamin B1 Inj IM 100 mg DAILY KLELY Administration - Patient Studies Lab Studies: Microbiology Studies 11/08/17 17:45 Blood Culture - Preliminary Blood NO GROWTH AFTER 24 HOURS 11/08/17 17:30 Blood Culture - Preliminary Blood NO GROWTH AFTER 24 HOURS Lab Studies 11/10/17 11/10/17 11/10/17 Range/Units 09:30 07:50 06:05 WBC (4.5-11.0) 10^3/ul RBC (3.5-6.1) 10^6/uL Hgb (14.0-18.0) g/dL Hct (42.0-52.0) % MCV (80.0-105.0) fl MCH (25.0-35.0) pg MCHC (31.0-37.0) g/dl RDW (11.5-14.5) % Plt Count (120.0-450.0) 10^3/uL MPV (7.0-11.0) fl Gran % (50.0-68.0) % Lymph % (Auto) (22.0-35.0) % [place] % (Auto) (1.0-6.0) % Eos % (Auto) (1.5-5.0) % Baso % (Auto) (0.0-3.0) % Gran # (1.4-6.5) Lymph # (Auto) (1.2-3.4) [place] # (Auto) (0.1-0.6) Eos # (Auto) (0.0-0.7) Baso # (Auto) (0.0-2.0) K/mm3 pCO2 58 H (35-45) mm/Hg pO2 125 H 123.0 H 194 H (80-100) mm/Hg HCO3 50.7 H* (21-28) mmol/L ABG pH 7.55 H (7.35-7.45) ABG Total CO2 52.5 H (22-28) mmol.L ABG O2 Saturation 98.6 H (95-98) % ABG O2 Content 16.0 (15-23) ML/dl ABG Base Excess 24.7 H (-2.0-3.0) mmol/L ABG Hemoglobin 11.6 L (11.7-17.4) g/dL ABG Carboxyhemoglobin 1.4 (0.5-1.5) % POC ABG HHb (Measured) 1.4 (0-5) % ABG Methemoglobin 0.6 (0.0-3.0) % ABG O2 Capacity 16.2 (16-24) mL/dl ABG Potassium (3.6-5.2) mmol/L VBG pH 7.58 H 7.54 H (7.32-7.43) VBG pCO2 60.0 63.0 H (40-60) VBG HCO3 56.3 H 53.9 H (21-28) mmol/l VBG Total CO2 58.1 H 55.8 H (22-28) mmol.L VBG O2 Sat (Calc) 98.6 H 99.2 H (40-65) % VBG Base Excess 29.5 H 26.6 H (0.0-2.0) mmol/L VBG Potassium 3.2 L 3.2 L (3.6-5.2) mmol/L Hgb O2 Saturation 96.6 (95.0-98.0) % Sodium 137.0 136.0 (132-148) mmol/L Chloride 89.0 L 87.0 L (98-107) mmol/L Glucose 122 H 128 H (75-110) mg/dl Lactate 2.4 H 2.5 H (0.7-2.1) mmol/L FiO2 21.0 60.0 21.0 % Potassium (3.6-5.0) mmol/L Carbon Dioxide (21-33) mmol/L Anion Gap (10-20) BUN (7-21) mg/dL Creatinine (0.8-1.5) mg/dl Est GFR ( Amer) Est GFR (Non-Af Amer) POC Glucose (mg/dL) (65-110) mg/dL Random Glucose (70-110) mg/dL Calcium (8.4-10.5) mg/dL Phosphorus (2.5-4.5) mg/dL Magnesium (1.7-2.2) mg/dL Total Bilirubin (0.2-1.3) mg/dL AST (17-59) U/L ALT (7-56) U/L Alkaline Phosphatase (38-126) U/L Troponin I ng/mL Total Protein (5.8-8.3) g/dL Albumin (3.0-4.8) g/dL Globulin gm/dL Albumin/Globulin Ratio (1.1-1.8) Procalcitonin (0.19-0.49) NG/ML Arterial Blood Potassium (3.6-5.2) mmol/L Venous Blood Potassium 3.2 L 3.2 L (3.6-5.2) mmol/L 11/10/17 11/10/17 11/10/17 Range/Units 06:00 06:00 00:30 WBC 8.0 (4.5-11.0) 10^3/ul RBC 4.03 (3.5-6.1) 10^6/uL Hgb 12.6 L (14.0-18.0) g/dL Hct 41.7 L (42.0-52.0) % MCV 103.5 (80.0-105.0) fl MCH 31.3 (25.0-35.0) pg MCHC 30.2 L (31.0-37.0) g/dl RDW 13.6 (11.5-14.5) % Plt Count 106 L (120.0-450.0) 10^3/uL MPV 11.2 H (7.0-11.0) fl Gran % (50.0-68.0) % Lymph % (Auto) (22.0-35.0) % [place] % (Auto) (1.0-6.0) % Eos % (Auto) (1.5-5.0) % Baso % (Auto) (0.0-3.0) % Gran # (1.4-6.5) Lymph # (Auto) (1.2-3.4) [place] # (Auto) (0.1-0.6) Eos # (Auto) (0.0-0.7) Baso # (Auto) (0.0-2.0) K/mm3 pCO2 (35-45) mm/Hg pO2 (80-100) mm/Hg HCO3 (21-28) mmol/L ABG pH (7.35-7.45) ABG Total CO2 (22-28) mmol.L ABG O2 Saturation (95-98) % ABG O2 Content (15-23) ML/dl ABG Base Excess (-2.0-3.0) mmol/L ABG Hemoglobin (11.7-17.4) g/dL ABG Carboxyhemoglobin (0.5-1.5) % POC ABG HHb (Measured) (0-5) % ABG Methemoglobin (0.0-3.0) % ABG O2 Capacity (16-24) mL/dl ABG Potassium (3.6-5.2) mmol/L VBG pH (7.32-7.43) VBG pCO2 (40-60) VBG HCO3 (21-28) mmol/l VBG Total CO2 (22-28) mmol.L VBG O2 Sat (Calc) (40-65) % VBG Base Excess (0.0-2.0) mmol/L VBG Potassium (3.6-5.2) mmol/L Hgb O2 Saturation (95.0-98.0) % Sodium 140 (132-148) mmol/L Chloride 81 L (98-107) mmol/L Glucose (75-110) mg/dl Lactate (0.7-2.1) mmol/L FiO2 % Potassium 3.3 L (3.6-5.0) mmol/L Carbon Dioxide 49 H (21-33) mmol/L Anion Gap 13 (10-20) BUN 55 H (7-21) mg/dL Creatinine 1.5 (0.8-1.5) mg/dl Est GFR ( Amer) 54 Est GFR (Non-Af Amer) 44 POC Glucose (mg/dL) (65-110) mg/dL Random Glucose 124 H (70-110) mg/dL Calcium 9.1 (8.4-10.5) mg/dL Phosphorus (2.5-4.5) mg/dL Magnesium (1.7-2.2) mg/dL Total Bilirubin 1.1 (0.2-1.3) mg/dL AST 66 H (17-59) U/L ALT 40 (7-56) U/L Alkaline Phosphatase 88 (38-126) U/L Troponin I 0.06 0.07 ng/mL Total Protein 6.8 (5.8-8.3) g/dL Albumin 3.5 (3.0-4.8) g/dL Globulin 3.4 gm/dL Albumin/Globulin Ratio 1.0 L (1.1-1.8) Procalcitonin (0.19-0.49) NG/ML Arterial Blood Potassium (3.6-5.2) mmol/L Venous Blood Potassium (3.6-5.2) mmol/L 11/09/17 11/09/17 11/09/17 Range/Units 22:45 22:15 20:12 WBC (4.5-11.0) 10^3/ul RBC (3.5-6.1) 10^6/uL Hgb (14.0-18.0) g/dL Hct (42.0-52.0) % MCV (80.0-105.0) fl MCH (25.0-35.0) pg MCHC (31.0-37.0) g/dl RDW (11.5-14.5) % Plt Count (120.0-450.0) 10^3/uL MPV (7.0-11.0) fl Gran % (50.0-68.0) % Lymph % (Auto) (22.0-35.0) % [place] % (Auto) (1.0-6.0) % Eos % (Auto) (1.5-5.0) % Baso % (Auto) (0.0-3.0) % Gran # (1.4-6.5) Lymph # (Auto) (1.2-3.4) [place] # (Auto) (0.1-0.6) Eos # (Auto) (0.0-0.7) Baso # (Auto) (0.0-2.0) K/mm3 pCO2 60 H (35-45) mm/Hg pO2 74.0 L 73 H (80-100) mm/Hg HCO3 46.8 H* (21-28) mmol/L ABG pH 7.50 H (7.35-7.45) ABG Total CO2 48.6 H (22-28) mmol.L ABG O2 Saturation 97.7 (95-98) % ABG O2 Content (15-23) ML/dl ABG Base Excess 20.0 H (-2.0-3.0) mmol/L ABG Hemoglobin (11.7-17.4) g/dL ABG Carboxyhemoglobin (0.5-1.5) % POC ABG HHb (Measured) (0-5) % ABG Methemoglobin (0.0-3.0) % ABG O2 Capacity (16-24) mL/dl ABG Potassium 2.8 L (3.6-5.2) mmol/L VBG pH 7.51 H (7.32-7.43) VBG pCO2 65.0 H (40-60) VBG HCO3 53.5 H (21-28) mmol/l VBG Total CO2 55.6 H (22-28) mmol.L VBG O2 Sat (Calc) 97.4 H (40-65) % VBG Base Excess 25.7 H (0.0-2.0) mmol/L VBG Potassium 3.4 L (3.6-5.2) mmol/L Hgb O2 Saturation (95.0-98.0) % Sodium 138.0 135.0 (132-148) mmol/L Chloride 92.0 L 85.0 L (98-107) mmol/L Glucose 139 H 157 H (75-110) mg/dl Lactate 2.6 H 3.4 H (0.7-2.1) mmol/L FiO2 50.0 21.0 % Potassium (3.6-5.0) mmol/L Carbon Dioxide (21-33) mmol/L Anion Gap (10-20) BUN (7-21) mg/dL Creatinine (0.8-1.5) mg/dl Est GFR ( Amer) Est GFR (Non-Af Amer) POC Glucose (mg/dL) 135 H (65-110) mg/dL Random Glucose (70-110) mg/dL Calcium (8.4-10.5) mg/dL Phosphorus (2.5-4.5) mg/dL Magnesium (1.7-2.2) mg/dL Total Bilirubin (0.2-1.3) mg/dL AST (17-59) U/L ALT (7-56) U/L Alkaline Phosphatase (38-126) U/L Troponin I ng/mL Total Protein (5.8-8.3) g/dL Albumin (3.0-4.8) g/dL Globulin gm/dL Albumin/Globulin Ratio (1.1-1.8) Procalcitonin (0.19-0.49) NG/ML Arterial Blood Potassium 2.8 L (3.6-5.2) mmol/L Venous Blood Potassium 3.4 L (3.6-5.2) mmol/L 11/09/17 11/09/17 11/09/17 Range/Units 18:36 18:36 18:05 WBC 8.2 (4.5-11.0) 10^3/ul RBC 4.17 (3.5-6.1) 10^6/uL Hgb 13.3 L (14.0-18.0) g/dL Hct 43.8 (42.0-52.0) % MCV 105.0 (80.0-105.0) fl MCH 31.9 (25.0-35.0) pg MCHC 30.4 L (31.0-37.0) g/dl RDW 13.7 (11.5-14.5) % Plt Count 124 (120.0-450.0) 10^3/uL MPV 11.2 H (7.0-11.0) fl Gran % 60.6 (50.0-68.0) % Lymph % (Auto) 31.4 (22.0-35.0) % [place] % (Auto) 7.9 H (1.0-6.0) % Eos % (Auto) 0.0 L (1.5-5.0) % Baso % (Auto) 0.1 (0.0-3.0) % Gran # 4.94 (1.4-6.5) Lymph # (Auto) 2.6 (1.2-3.4) [place] # (Auto) 0.6 (0.1-0.6) Eos # (Auto) 0.0 (0.0-0.7) Baso # (Auto) 0.01 (0.0-2.0) K/mm3 pCO2 90 H* (35-45) mm/Hg pO2 429.0 H (80-100) mm/Hg HCO3 50.8 H* (21-28) mmol/L ABG pH 7.36 (7.35-7.45) ABG Total CO2 53.6 H (22-28) mmol.L ABG O2 Saturation 99.8 H (95-98) % ABG O2 Content (15-23) ML/dl ABG Base Excess 20.2 H (-2.0-3.0) mmol/L ABG Hemoglobin (11.7-17.4) g/dL ABG Carboxyhemoglobin (0.5-1.5) % POC ABG HHb (Measured) (0-5) % ABG Methemoglobin (0.0-3.0) % ABG O2 Capacity (16-24) mL/dl ABG Potassium 3.2 L (3.6-5.2) mmol/L VBG pH (7.32-7.43) VBG pCO2 (40-60) VBG HCO3 (21-28) mmol/l VBG Total CO2 (22-28) mmol.L VBG O2 Sat (Calc) (40-65) % VBG Base Excess (0.0-2.0) mmol/L VBG Potassium (3.6-5.2) mmol/L Hgb O2 Saturation (95.0-98.0) % Sodium 140 135.0 (132-148) mmol/L Chloride 79 L 87.0 L (98-107) mmol/L Glucose 137 H (75-110) mg/dl Lactate 5.6 H* (0.7-2.1) mmol/L FiO2 100 % Potassium 3.4 L (3.6-5.0) mmol/L Carbon Dioxide 48 H (21-33) mmol/L Anion Gap 16 (10-20) BUN 47 H (7-21) mg/dL Creatinine 1.3 (0.8-1.5) mg/dl Est GFR ( Amer) > 60 Est GFR (Non-Af Amer) 52 POC Glucose (mg/dL) (65-110) mg/dL Random Glucose 141 H (70-110) mg/dL Calcium 9.4 (8.4-10.5) mg/dL Phosphorus 4.1 (2.5-4.5) mg/dL Magnesium 2.1 (1.7-2.2) mg/dL Total Bilirubin 1.1 (0.2-1.3) mg/dL AST 71 H (17-59) U/L ALT 45 (7-56) U/L Alkaline Phosphatase 100 (38-126) U/L Troponin I 0.07 D ng/mL Total Protein 7.2 (5.8-8.3) g/dL Albumin 3.8 (3.0-4.8) g/dL Globulin 3.4 gm/dL Albumin/Globulin Ratio 1.1 (1.1-1.8) Procalcitonin (0.19-0.49) NG/ML Arterial Blood Potassium 3.2 L (3.6-5.2) mmol/L Venous Blood Potassium (3.6-5.2) mmol/L 11/09/17 11/09/17 11/09/17 Range/Units 17:58 14:30 11:15 WBC (4.5-11.0) 10^3/ul RBC (3.5-6.1) 10^6/uL Hgb (14.0-18.0) g/dL Hct (42.0-52.0) % MCV (80.0-105.0) fl MCH (25.0-35.0) pg MCHC (31.0-37.0) g/dl RDW (11.5-14.5) % Plt Count (120.0-450.0) 10^3/uL MPV (7.0-11.0) fl Gran % (50.0-68.0) % Lymph % (Auto) (22.0-35.0) % [place] % (Auto) (1.0-6.0) % Eos % (Auto) (1.5-5.0) % Baso % (Auto) (0.0-3.0) % Gran # (1.4-6.5) Lymph # (Auto) (1.2-3.4) [place] # (Auto) (0.1-0.6) Eos # (Auto) (0.0-0.7) Baso # (Auto) (0.0-2.0) K/mm3 pCO2 77 H* (35-45) mm/Hg pO2 97.0 (80-100) mm/Hg HCO3 54.8 H* (21-28) mmol/L ABG pH 7.46 H (7.35-7.45) ABG Total CO2 57.2 H (22-28) mmol.L ABG O2 Saturation 98.5 H (95-98) % ABG O2 Content 17.3 (15-23) ML/dl ABG Base Excess 25.9 H (-2.0-3.0) mmol/L ABG Hemoglobin 12.8 (11.7-17.4) g/dL ABG Carboxyhemoglobin 2.2 H (0.5-1.5) % POC ABG HHb (Measured) 1.5 (0-5) % ABG Methemoglobin 0.7 (0.0-3.0) % ABG O2 Capacity 17.6 (16-24) mL/dl ABG Potassium (3.6-5.2) mmol/L VBG pH (7.32-7.43) VBG pCO2 (40-60) VBG HCO3 (21-28) mmol/l VBG Total CO2 (22-28) mmol.L VBG O2 Sat (Calc) (40-65) % VBG Base Excess (0.0-2.0) mmol/L VBG Potassium (3.6-5.2) mmol/L Hgb O2 Saturation 95.6 (95.0-98.0) % Sodium (132-148) mmol/L Chloride (98-107) mmol/L Glucose (75-110) mg/dl Lactate (0.7-2.1) mmol/L FiO2 36.0 % Potassium (3.6-5.0) mmol/L Carbon Dioxide (21-33) mmol/L Anion Gap (10-20) BUN (7-21) mg/dL Creatinine (0.8-1.5) mg/dl Est GFR ( Amer) Est GFR (Non-Af Amer) POC Glucose (mg/dL) 145 H (65-110) mg/dL Random Glucose (70-110) mg/dL Calcium (8.4-10.5) mg/dL Phosphorus (2.5-4.5) mg/dL Magnesium (1.7-2.2) mg/dL Total Bilirubin (0.2-1.3) mg/dL AST (17-59) U/L ALT (7-56) U/L Alkaline Phosphatase (38-126) U/L Troponin I ng/mL Total Protein (5.8-8.3) g/dL Albumin (3.0-4.8) g/dL Globulin gm/dL Albumin/Globulin Ratio (1.1-1.8) Procalcitonin 0.23 (0.19-0.49) NG/ML Arterial Blood Potassium (3.6-5.2) mmol/L Venous Blood Potassium (3.6-5.2) mmol/L Laboratory Results - last 24 hr 11/09/17 11/09/17 11/09/17 11:15 14:30 17:58 WBC RBC Hgb Hct MCV MCH MCHC RDW Plt Count MPV Gran % Lymph % (Auto) [place] % (Auto) Eos % (Auto) Baso % (Auto) Gran # Lymph # (Auto) [place] # (Auto) Eos # (Auto) Baso # (Auto) pCO2 77 H* pO2 97.0 HCO3 54.8 H* ABG pH 7.46 H ABG Total CO2 57.2 H ABG O2 Saturation 98.5 H ABG O2 Content 17.3 ABG Base Excess 25.9 H ABG Hemoglobin 12.8 ABG Carboxyhemoglobin 2.2 H POC ABG HHb (Measured) 1.5 ABG Methemoglobin 0.7 ABG O2 Capacity 17.6 ABG Potassium VBG pH VBG pCO2 VBG HCO3 VBG Total CO2 VBG O2 Sat (Calc) VBG Base Excess VBG Potassium Hgb O2 Saturation 95.6 Sodium Chloride Glucose Lactate FiO2 36.0 Potassium Carbon Dioxide Anion Gap BUN Creatinine Est GFR ( Amer) Est GFR (Non-Af Amer) POC Glucose (mg/dL) 145 H Random Glucose Calcium Phosphorus Magnesium Total Bilirubin AST ALT Alkaline Phosphatase Troponin I Total Protein Albumin Globulin Albumin/Globulin Ratio Procalcitonin 0.23 Arterial Blood Potassium Venous Blood Potassium 11/09/17 11/09/17 11/09/17 18:05 18:36 18:36 WBC 8.2 RBC 4.17 Hgb 13.3 L Hct 43.8 MCV 105.0 MCH 31.9 MCHC 30.4 L RDW 13.7 Plt Count 124 MPV 11.2 H Gran % 60.6 Lymph % (Auto) 31.4 [place] % (Auto) 7.9 H Eos % (Auto) 0.0 L Baso % (Auto) 0.1 Gran # 4.94 Lymph # (Auto) 2.6 [place] # (Auto) 0.6 Eos # (Auto) 0.0 Baso # (Auto) 0.01 pCO2 90 H* pO2 429.0 H HCO3 50.8 H* ABG pH 7.36 ABG Total CO2 53.6 H ABG O2 Saturation 99.8 H ABG O2 Content ABG Base Excess 20.2 H ABG Hemoglobin ABG Carboxyhemoglobin POC ABG HHb (Measured) ABG Methemoglobin ABG O2 Capacity ABG Potassium 3.2 L VBG pH VBG pCO2 VBG HCO3 VBG Total CO2 VBG O2 Sat (Calc) VBG Base Excess VBG Potassium Hgb O2 Saturation Sodium 135.0 140 Chloride 87.0 L 79 L Glucose 137 H Lactate 5.6 H* FiO2 100 Potassium 3.4 L Carbon Dioxide 48 H Anion Gap 16 BUN 47 H Creatinine 1.3 Est GFR ( Amer) > 60 Est GFR (Non-Af Amer) 52 POC Glucose (mg/dL) Random Glucose 141 H Calcium 9.4 Phosphorus 4.1 Magnesium 2.1 Total Bilirubin 1.1 AST 71 H ALT 45 Alkaline Phosphatase 100 Troponin I 0.07 D Total Protein 7.2 Albumin 3.8 Globulin 3.4 Albumin/Globulin Ratio 1.1 Procalcitonin Arterial Blood Potassium 3.2 L Venous Blood Potassium 11/09/17 11/09/17 11/09/17 20:12 22:15 22:45 WBC RBC Hgb Hct MCV MCH MCHC RDW Plt Count MPV Gran % Lymph % (Auto) [place] % (Auto) Eos % (Auto) Baso % (Auto) Gran # Lymph # (Auto) [place] # (Auto) Eos # (Auto) Baso # (Auto) pCO2 60 H pO2 73 H 74.0 L HCO3 46.8 H* ABG pH 7.50 H ABG Total CO2 48.6 H ABG O2 Saturation 97.7 ABG O2 Content ABG Base Excess 20.0 H ABG Hemoglobin ABG Carboxyhemoglobin POC ABG HHb (Measured) ABG Methemoglobin ABG O2 Capacity ABG Potassium 2.8 L VBG pH 7.51 H VBG pCO2 65.0 H VBG HCO3 53.5 H VBG Total CO2 55.6 H VBG O2 Sat (Calc) 97.4 H VBG Base Excess 25.7 H VBG Potassium 3.4 L Hgb O2 Saturation Sodium 135.0 138.0 Chloride 85.0 L 92.0 L Glucose 157 H 139 H Lactate 3.4 H 2.6 H FiO2 21.0 50.0 Potassium Carbon Dioxide Anion Gap BUN Creatinine Est GFR ( Amer) Est GFR (Non-Af Amer) POC Glucose (mg/dL) 135 H Random Glucose Calcium Phosphorus Magnesium Total Bilirubin AST ALT Alkaline Phosphatase Troponin I Total Protein Albumin Globulin Albumin/Globulin Ratio Procalcitonin Arterial Blood Potassium 2.8 L Venous Blood Potassium 3.4 L 11/10/17 11/10/17 11/10/17 00:30 06:00 06:00 WBC 8.0 RBC 4.03 Hgb 12.6 L Hct 41.7 L MCV 103.5 MCH 31.3 MCHC 30.2 L RDW 13.6 Plt Count 106 L MPV 11.2 H Gran % Lymph % (Auto) [place] % (Auto) Eos % (Auto) Baso % (Auto) Gran # Lymph # (Auto) [place] # (Auto) Eos # (Auto) Baso # (Auto) pCO2 pO2 HCO3 ABG pH ABG Total CO2 ABG O2 Saturation ABG O2 Content ABG Base Excess ABG Hemoglobin ABG Carboxyhemoglobin POC ABG HHb (Measured) ABG Methemoglobin ABG O2 Capacity ABG Potassium VBG pH VBG pCO2 VBG HCO3 VBG Total CO2 VBG O2 Sat (Calc) VBG Base Excess VBG Potassium Hgb O2 Saturation Sodium 140 Chloride 81 L Glucose Lactate FiO2 Potassium 3.3 L Carbon Dioxide 49 H Anion Gap 13 BUN 55 H Creatinine 1.5 Est GFR ( Amer) 54 Est GFR (Non-Af Amer) 44 POC Glucose (mg/dL) Random Glucose 124 H Calcium 9.1 Phosphorus Magnesium Total Bilirubin 1.1 AST 66 H ALT 40 Alkaline Phosphatase 88 Troponin I 0.07 0.06 Total Protein 6.8 Albumin 3.5 Globulin 3.4 Albumin/Globulin Ratio 1.0 L Procalcitonin Arterial Blood Potassium Venous Blood Potassium 11/10/17 11/10/17 11/10/17 06:05 07:50 09:30 WBC RBC Hgb Hct MCV MCH MCHC RDW Plt Count MPV Gran % Lymph % (Auto) [place] % (Auto) Eos % (Auto) Baso % (Auto) Gran # Lymph # (Auto) [place] # (Auto) Eos # (Auto) Baso # (Auto) pCO2 58 H pO2 194 H 123.0 H 125 H HCO3 50.7 H* ABG pH 7.55 H ABG Total CO2 52.5 H ABG O2 Saturation 98.6 H ABG O2 Content 16.0 ABG Base Excess 24.7 H ABG Hemoglobin 11.6 L ABG Carboxyhemoglobin 1.4 POC ABG HHb (Measured) 1.4 ABG Methemoglobin 0.6 ABG O2 Capacity 16.2 ABG Potassium VBG pH 7.54 H 7.58 H VBG pCO2 63.0 H 60.0 VBG HCO3 53.9 H 56.3 H VBG Total CO2 55.8 H 58.1 H VBG O2 Sat (Calc) 99.2 H 98.6 H VBG Base Excess 26.6 H 29.5 H VBG Potassium 3.2 L 3.2 L Hgb O2 Saturation 96.6 Sodium 136.0 137.0 Chloride 87.0 L 89.0 L Glucose 128 H 122 H Lactate 2.5 H 2.4 H FiO2 21.0 60.0 21.0 Potassium Carbon Dioxide Anion Gap BUN Creatinine Est GFR ( Amer) Est GFR (Non-Af Amer) POC Glucose (mg/dL) Random Glucose Calcium Phosphorus Magnesium Total Bilirubin AST ALT Alkaline Phosphatase Troponin I Total Protein Albumin Globulin Albumin/Globulin Ratio Procalcitonin Arterial Blood Potassium Venous Blood Potassium 3.2 L 3.2 L EKG/Cardiology Studies: Cardiology / EKG Studies 11/09/17 18:01 ELECTROCARDIOGRAM Stat Comment: 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 Pt is currently intubated, sedated, in NAD , comfortable. Afebrile, HD stable, good oxygenation. CT head done yesterday with no acute intracranial findings. Loaded with Keppra IV. AMS Seizure CAD Pulm HTN Asthma RA Hx of TIA Recommend: - cont with vent support, low tidal vol ventilation, decrease RR to 10, daily, sedation vacation, CPAP trials, daily ABGs, CXR - cont with Aztreonam and Vanco, Tamiflu - follow up cultures, Procal - BP control - Hold Lasix, increasing bicarb/metabolic alkalosis, increasing Cr - follow up cardiology - consider a dose of Diamox - EEG - AED as per neurology - monitor electrolytes - FS control - GI ppx - DVT ppx - Pt is now DNR as per primary team - monitor in MICU critical care time 40 minutes
[2017-11-10 07:15] LABS: TROPONIN I 0.06 ng/mL
--- NOTE | 2017-11-10 07:44 | RAD ---
HISTORY: S/p intubation COMPARISON: Portable chest 11/09/2017. FINDINGS: Endotracheal tube is identified placed the tip terminating approximately 3 cm above the rowena. Pacemaker again noted in position. LUNGS: No active pulmonary disease. PLEURA: No significant pleural effusion identified, no pneumothorax apparent. CARDIOVASCULAR: Cardiac silhouette appears stable. No pulmonary vascular derangement identified. OSSEOUS STRUCTURES: No significant abnormalities. VISUALIZED UPPER ABDOMEN: Normal. OTHER FINDINGS: None. IMPRESSION: Status post endotracheal tube placement as described above. No definite interval infiltrate or pleural effusion bilaterally. No interval pulmonary vascular derangement identified.
--- NOTE | 2017-11-10 07:46 | RAD ---
HISTORY: evaluate for new infiltrate or congestion COMPARISON: Portable chest 11/09/2017, 9:34 p.m.. FINDINGS: Pacemaker unchanged in position. Stable endotracheal tube positioning once again. LUNGS: Patient's right apex and right suprahilar region are obscured by of lower face. No definite imprint infiltrate is appreciate bilaterally within the visualize lung elise. Left costophrenic sulcus is been excluded from this exam. PLEURA: No significant pleural effusion identified, no pneumothorax apparent. CARDIOVASCULAR: Cardio measles silhouette appears unremarkable. No definite pulmonary vascular derangement identified. OSSEOUS STRUCTURES: No significant abnormalities. VISUALIZED UPPER ABDOMEN: Normal. OTHER FINDINGS: None. IMPRESSION: Right apex and right suprahilar space are obscured by the patient's lower face with remaining lung leise grossly clear. No definitive suspicious interval findings.
[2017-11-10 07:49] LABS: ALBUMIN 3.5 g/dL (3.0-4.8); CALCIUM 9.1 mg/dL (8.4-10.5)
[2017-11-10] MEDS: Potassium Chloride 20 mEq ER Tab PO SCH (08:02)
--- NOTE | 2017-11-10 08:05 | CT ---
PROCEDURE: CT HEAD WITHOUT CONTRAST. HISTORY: Rule Out Bleed COMPARISON: 04/07/2014 TECHNIQUE: Axial computed tomography images were obtained through the head/brain without intravenous contrast. Radiation dose: Total exam DLP = 2052 mGy-cm. This CT exam was performed using one or more of the following dose reduction techniques: Automated exposure control, adjustment of the mA and/or kV according to patient size, and/or use of iterative reconstruction technique. FINDINGS: HEMORRHAGE: No intracranial hemorrhage. BRAIN: No mass effect or edema. Chronic microvascular changes are seen in the periventricular white matter. No acute intracranial findings VENTRICLES: Unremarkable. No hydrocephalus. CALVARIUM: Unremarkable. PARANASAL SINUSES: Unremarkable as visualized. No significant inflammatory changes. MASTOID AIR CELLS: Unremarkable as visualized. No inflammatory changes. OTHER FINDINGS: The report concurs with the preliminary [facility] report IMPRESSION: No acute intracranial findings
[2017-11-10 08:06] LABS: ARTERIAL BLOOD GAS HEMOGLOBIN 11.6 g/dL (11.7-17.4); ARTERIAL BLOOD GAS O2 CAPACITY 16.2 mL/dl (16-24); ARTERIAL BLOOD GAS O2 SAT 98.6 % (95-98); ARTERIAL BLOOD GAS PCO2 58 mm/Hg (35-45); ARTERIAL BLOOD GAS PH 7.55 (7.35-7.45); ARTERIAL BLOOD GAS TCO2 52.5 mmol.L (22-28)
[2017-11-10 08:18] LABS: ARTERIAL BLOOD GAS HCO3 50.7 mmol/L (21-28)
[2017-11-10] MEDS: Budesonide 0.5 mg/2 ml Inhal Susp UD IH SCH ×2 (08:28→20:00)
--- NOTE | 2017-11-10 08:56 | PN ---
DATE: 11/10/2017 PULMONARY NOTE SUBJECTIVE: The patient is currently on a ventilator. He is sedated. PHYSICAL EXAMINATION VITAL SIGNS: Temperature is 98.7, pulse is 66, respiratory rate 16/16, blood pressure 93/37. HEENT: Normocephalic, atraumatic. No JVD. CARDIOVASCULAR: Systolic ejection murmur at the lower left sternal border. No S3 gallop. LUNGS: Decreased breath sounds at the bases. Minimal rhonchi. No wheezing. EXTREMITIES: Positive for edema. No cyanosis or clubbing. GI: Abdomen is soft, nondistended. Bowel sounds are positive. SKIN: Multiple skin lesions are present. Left lower extremity cellulitis is improved. NEUROLOGIC: Limited at the present time. PERTINENT LABORATORY DATA: Chest x-ray was done this morning and reviewed. There is considerable artifact on this morning's film. However, I do not appreciate any new or significant infiltrates. IMPRESSION: 1. Multiple seizures. 2. Respiratory failure. 3. Left leg cellulitis. 4. Left groin mass. 5. Asthma. 6. Anemia. 7. Coronary artery disease. PLAN: The patient is currently in the ICU. He is on a ventilator and sedated. I did discuss the case with the night nurse at length. I have also reviewed the chart at length. Apparently, last night, the patient had multiple seizures. After the initial seizure, the patient was noted to be poorly responsive. He was then intubated for airway protection. I did review the chest x-ray as above. I do not appreciate any new or significant infiltrates this morning. I will also order an arterial blood gas this morning. Additional repeat a.m. labs are pending. The patient is currently on a propofol drip. I would continue with the Neurology evaluation as per Dr. Cortez. Inputs by Infectious Disease and Cardiology are also noted. The patient appears critically ill at this point in time. His overall status/prognosis is very guarded at best. I will discuss the above with the entire ICU team in the next few moments. I will also discuss the above with Dr. Martinez. Sajan Castrejon MD [facility] # [id number]
[2017-11-10] MEDS ORDERED: Vancomycin 1gm in NS 250ml 1 GM/250 ML BAG IVPB STA (09:22)
[2017-11-10] MEDS: Enoxaparin 40 mg Syringe SC SCH (09:33)
[2017-11-10] MEDS: Cholestyramine 4 gm/Pkt UD PO SCH (09:34)
[2017-11-10] MEDS: Thiamine 100 mg/ml Inj IM SCH (09:34)
[2017-11-10] MEDS: Oseltamivir 6 MG/ML PO SCH ×2 (09:35→17:44)
[2017-11-10] MEDS: Dorzolamide 2%/Timolol 0.5% 100 DROP/10 ML BOTTLE OU SCH ×3 (09:36→17:23)
[2017-11-10 09:48] LABS: VENOUS BLOOD GAS BASE EXCESS 29.5 mmol/L (0.0-2.0); VENOUS BLOOD GAS PO2 125 mm/Hg (30-55); VENOUS BLOOD PH 7.58 (7.32-7.43)
[2017-11-10] MEDS ORDERED: levETIRAcetam 1,000 MG in Sodium Chloride 0.9% 100 ML IV SCH (10:00)
--- NOTE | 2017-11-10 10:00 | PN ---
DATE: 11/10/2017 REASON FOR THE CONSULTATION AND FOLLOWUP: Cellulitis of the lower extremity; congestive heart failure; coronary artery disease, status post stent; history of permanent pacemaker; lymphadenopathy; rule out metastatic disease; status post respiratory failure; intubated; moved to ICU. SUBJECTIVE: Event noted since last saw. The patient has 2 episodes of seizure. Daughter is at the bedside. Moved to ICU. Respiratory failure requiring intubation. Discussed in length with the daughter. Updated the patient's condition. OBJECTIVE: GENERAL: The patient is not in any distress, intubated, sedated, on vent. VITAL SIGNS: Temperature afebrile, heart rate 66, blood pressure 93/37. HEENT: PERRLA. Extraocular muscles intact. NECK: Supple. No carotid bruit. No thyromegaly. CHEST: Clear to auscultation. HEART: S1 and S2 regular. ABDOMEN: Soft. EXTREMITIES: Clubbing and cyanosis negative. LABORATORY DATA: Blood workup as follows; WBC 8.6, hemoglobin 12.6, hematocrit 41.7, platelet count 106. Chemistry shows sodium 140, potassium 3.3, chloride 81, carbon dioxide 40, anion gap of 13, BUN 55, creatinine 1.5. Troponin 0.06. IMPRESSION: Status post seizures, status post respiratory failure. Sent for the CAT scan, cannot be done because the patient cannot extend the neck. History of respiratory failure, intubated; history of coronary artery disease, status post stent; status post pacemaker because of sick sinus syndrome; lymphadenopathy; mass in the left inguinal region, status post biopsy, waiting for the biopsy; rule out metastatic cancer to the lymph node. Recent echo shows ejection fraction of 40-45%. Moderate aortic stenosis. Moderate to severe tricuspid regurgitation, right ventricular systolic pressure of 70 consistent with pulmonary hypertension. Right ventricle dilated. History of coronary artery disease, stent. Last catheterization on 06/27/2013 shows patent stent. History of permanent pacemaker. RECOMMENDATION: Continue vent management. Continue anti-seizure medication. Follow up biopsy. The patient has flu recently, treatment for the flu. Discussed with the daughter in length, who wishes the patient to make the DNR. She is discussing Dr. Martinez to make a DNR/DNI. Overall, the patient is critical. We will follow with you. Awaiting for biopsy from the lymph node until continue supportive care. Continue gentle diuretics. Supplement potassium as needed. Continue DVT prophylaxis. Continue anti-seizure medication. We will give K-rider. Thank you, Dr. Martinez, for providing us the opportunity in taking care of the patient, Abdifatah Granados. Dominick Mcgowan MD
--- NOTE | 2017-11-10 10:09 | CP.PCM.PN ---
Subjective - Date & Time of Evaluation Date of Evaluation: 11/10/17 Time of Evaluation: 09:00 - Subjective Subjective: Noted events overnight - patient sent to ICU and intubated for airway protection after apparent witnessed seizure on the floor. No note of fever overnight, currently sedated on the vent. Objective - Vital Signs/Intake and Output Vital Signs (last 24 hours): Temp Pulse Resp BP Pulse Ox 98.7 F 66 14 93/37 L 93 L 11/10/17 04:00 11/10/17 06:00 11/10/17 04:40 11/10/17 04:20 11/10/17 04:40 Intake and Output: 11/10/17 11/10/17 06:59 18:59 Intake Total 170 Output Total 725 Balance -555 - Medications Medications: Current Medications Acetaminophen (Tylenol 325mg Tab) 650 mg PO Q4 PRN PRN Reason: Fever >100.4 F Last Admin: 11/09/17 06:51 Dose: 650 mg Acetaminophen (Tylenol 325 Mg Supp) 325 mg RC Q4H PRN PRN Reason: Fever >100.4 F Albuterol/Ipratropium (Duoneb 3 Mg/0.5 Mg (3 Ml) Ud) [id number] [facility] Last Admin: 11/10/17 08:28 Dose: 3 ml Albuterol/Ipratropium (Duoneb 3 Mg/0.5 Mg (3 Ml) Ud) 3 ml IH Q2H PRN PRN Reason: Shortness of Breath Budesonide (Pulmicort Respules) 0.[id number] [facility] Last Admin: 11/10/17 08:28 Dose: 0.5 mg Cholestyramine Resin (Questran) [address] [facility] Last Admin: 11/09/17 11:21 Dose: 4 gm Cyproheptadine HCl (Periactin) [address] [facility] Last Admin: 11/09/17 11:29 Dose: 4 mg Dorzolamide/Timolol (Cosopt 2%-0.5% Opht) [address] [facility] Last Admin: 11/09/17 17:42 Dose: 1 drop Enoxaparin Sodium (Lovenox) [address] [facility] PRN Reason: Protocol Last Admin: 11/09/17 11:20 Dose: 40 mg Furosemide (Lasix) [address] [facility] Last Admin: 11/09/17 17:40 Dose: 40 mg Propofol (Diprivan) 1,000 mg in 100 mls @ 2.722 mls/hr IV .Q24H PRN; Protocol; 5 MCG/KG/MIN PRN Reason: TITRATE PER MD ORDER Last Titration: 11/10/17 05:49 Dose: 2.5 mcg/kg/min, 1.361 mls/hr Levetiracetam 1,000 mg/ Sodium (Chloride) 110 mls @ 460 mls/hr IV Q12 [facility] Potassium Chloride (Potassium Chloride 20 Meq/100 Ml) 20 meq in 100 mls @ 50 mls/hr IVPB ONCE ONE Stop: 11/10/17 10:42 Aztreonam (Azactam 1 Gm) 100 mls @ 100 mls/hr IVPB Q8 [facility] PRN Reason: Protocol Stop: 11/17/17 14:01 Vancomycin HCl (Vancomycin 1gm) 1 gm in 250 mls @ 167 mls/hr IVPB STAT STA PRN Reason: Protocol Stop: 11/10/17 10:51 Ketorolac Tromethamine (Toradol) 15 mg IVP Q8H PRN PRN Reason: Pain, moderate (4-7) Last Admin: 11/07/17 00:41 Dose: 15 mg Lorazepam (Ativan) 2 mg IVP Q2H PRN; Protocol PRN Reason: Seizure activity Oseltamivir Phosphate (Tamiflu Susp) 30 mg PO BID [facility] PRN Reason: Protocol Stop: 11/14/17 10:34 Pantoprazole Sodium (Protonix Inj) [address] [facility] Potassium Chloride (K-Dur 20 Meq Er Tab) [address] [facility] Last Admin: 11/10/17 08:02 Dose: 20 meq Thiamine HCl (Vitamin B1 Inj) [address] [facility] Last Admin: 11/09/17 15:04 Dose: 100 mg - Labs Labs: 11/10/17 06:00 11/10/17 06:00 PT 12.4 SECONDS (9.4-12.5) 11/03/17 08:15 INR 1.08 (0.93-1.08) 11/03/17 08:15 - Constitutional Appears: Chronically Ill, Other (intubated, sedated) - Head Exam Head Exam: NORMAL INSPECTION - ENT Exam Additional comments: ET tube in place - Respiratory Exam Respiratory Exam: Decreased Breath Sounds, Rales (scattered) - Cardiovascular Exam Cardiovascular Exam: +S1, +S2 - GI/Abdominal Exam GI & Abdominal Exam: Soft. absent: Tenderness Assessment and Plan - Assessment and Plan (Free Text) Plan: Assessment sepsis due to Influenza R/O HCAP VDRF after apparent witnessed seizure left inguinal indurated mass with left leg cellulitis S/P biopsy chronic CHF aortic insufficiency and stenosis history of melanoma Plan follow up repeat septic work up (so far blood cx negative x 1 day); gave another dose of Vanco IV and will change Merrem to Azactam (because of the seizure, where potentially Merrem can decrease the seizure threshold) day 3 total antibiotics; reviewed CXR which does not show infiltrates if cultures are negative may d/c antibiotics - follow up PCT continue Tamiflu day 2 to complete 5 days of therapy - rapid flu test is positive will continue to monitor clinically
[2017-11-10] MEDS: Propofol 10 mg/ml 1,000 MG/100 ML VIAL IV PRN (12:10)
[2017-11-10 12:30] LABS: PROLACTIN 25.8 ng/mL (3.7-17.9)
[2017-11-10] MEDS: Aztreonam 1 Gm in NS 100mL 100 ML IVPB SCH ×2 (14:10→22:35)
--- NOTE | 2017-11-10 16:11 | PN ---
DATE: 11/10/2017 SUBJECTIVE: He is now in the intensive care unit. He has some seizures. He is on the ventilator. He is in bit of trouble right now. I have discussed with the family to make him a DNR. He is on Ativan, Azactam, Cosopt, Diprivan, DuoNeb, potassium, Lasix, levetiracetam, Lovenox, Periactin, Protonix, Risperdal, Questran, Tamiflu, Toradol, Tylenol, vancomycin, and vitamin B1. PHYSICAL EXAMINATION: VITAL SIGNS: He has a 98.7 temperature, 71 pulse, 93/37 blood pressure, 18 respiratory rate, and 98% O2 sat on ventilator. HEENT: His head is atraumatic, normocephalic. HEART: Regular rate. LUNGS: Decreased breath sounds, but clear. ABDOMEN: Soft, obese. EXTREMITIES: No edema. LABORATORY DATA: He has an 8 white count, 12.6 hemoglobin, 41.7 hematocrit with a 106 platelets. Sodium 147, potassium 3.3 and needs some potassium. BUN 55, creatinine 1.5. GFR is 44. Sugar is 124. Calcium is 9.1. Total bili is 1.1, AST is 66, ALT is 40, alk phos is 88. Troponins are 0.07, 0.06. ASSESSMENT AND PLAN: He is now on the ventilator, respiratory failure, seizures. He is being seen by the Pulmonary, Neurology. He has flu. He is now starting to frail. 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 Waiting for biopsies to come back. He has a left leg cellulitis, congestive heart failure, coronary artery disease. I will make him a do not resuscitate after talking to his daughter. Phuc Martinez DO
--- NOTE | 2017-11-10 16:15 | RAD ---
HISTORY: confirm OGT placement COMPARISON: Earlier same day FINDINGS: LUNGS: The endotracheal and nasogastric tubes are in satisfactory position PLEURA: No significant pleural effusion identified, no pneumothorax apparent. CARDIOVASCULAR: Normal. OSSEOUS STRUCTURES: No significant abnormalities. VISUALIZED UPPER ABDOMEN: Normal. OTHER FINDINGS: None. IMPRESSION: Endotracheal and nasogastric tubes in satisfactory position
[2017-11-10] MEDS: Ammonium Lactate 12% Lotion (225 g) EXT PRN (17:22)
--- NOTE | 2017-11-10 20:56 | PN ---
DATE: 11/10/2017 NEUROLOGY FOLLOWUP SUBJECTIVE: The patient is seen and examined at bedside. The patient is intubated, on sedation. He was on high-dose Keppra, minimally on propofol. The patient had some questionable seizure-like episodes overnight but had low blood pressure, systolically and diastolically, which could have provoked the seizure-like activity. EEG showed diffuse slowing, no evidence of any epileptiform activity. The patient was also having CO2 retention and therefore, had to be intubated and it is currently being managed. He was given high-dose of Keppra, which lowered to 500 now q. 12. ABG today this morning, he still has bicarb of 50.7 and pCO2 of 58. No further seizure-like movements. PAST MEDICAL HISTORY: CAD, status post PCI; sick sinus syndrome, status post pacemaker; cardiomyopathy with EF of 40%-45%, severe tricuspid regurgitation with pulmonary hypertension; rheumatoid arthritis; history of melanoma. REVIEW OF SYSTEMS: A 14-point of review is difficult to obtain at this time in view of the patient's altered mental status. ALLERGIES: NO KNOWN DRUG ALLERGIES. SOCIAL HISTORY: No illicit drug use, smoking, or ETOH abuse. PHYSICAL EXAMINATION: GENERAL: The patient is in no acute distress, intubated. VITAL SIGNS: . HEENT: PERRLA. Extraocular muscles intact. NECK: Supple. No JVD. No adenopathy noted. LUNGS: Decreased breath sounds bilaterally. HEART: S1 and S2. Regular rate and rhythm. Has an ejection systolic murmur at the lower sternal border. ABDOMEN: Soft, nontender, nondistended. Bowel sounds present. EXTREMITIES: No clubbing. No cyanosis. Peripheral pulses are 2+ felt bilaterally. NEUROLOGIC: The patient is lethargic. The patient is intubated. Speech is difficult to assess at this time. Cranial nerves II through XII are intact. Motor: Spontaneous movement of the extremities are noted. Tone is normal. Sensory: Decreased light touch and pinprick up to the calves bilaterally. Withdraws to localized deep noxious stimulus. DTRs are 2+ throughout, 1 at both knees and ankles. Coordination and gait deferred for now. LABORATORY DATA: Sodium is 140, potassium 3.3, chloride of 81, carbon dioxide of 49, BUN of 55, creatinine of 1.5. Random glucose of 124. ASSESSMENT AND PLAN: This is an 87-year-old man with past medical history of coronary artery disease, status post percutaneous coronary intervention; sick sinus syndrome, status post pacemaker; cardiomyopathy with ejection fraction of 40%-45%, severe tricuspid regurgitation with pulmonary hypertension; asthma; rheumatoid arthritis; history of melanoma, status post treatment; history of multiple transient ischemic attacks who was admitted due to worsening of edema in the extremities, shortness of breath, found to have a right groin mass, which was biopsied and was followed by increased lethargy and was found to have CO2 retention on his underlying arterial blood gases, which is apparently becoming chronic, had some seizure-like movements and now transient cerebral hypoperfusion to the brain. His blood pressure is on the lower systolic and diastolic side seizure-like movements in addition to chronic CO2 retention. At this time, he was given a gram of Keppra and is intubated for respiratory prophylaxis. At this time, his altered mental status is multifactorial and secondary to acute on chronic CO2 retention superimposed underlying transient cerebral hypoperfusion to the brain since his blood pressures systolically and diastolically on the lower side with underlying metabolic derangements and underlying influenza positive and on Tamiflu. At this time, recommend: 1. Continue with his underlying Tamiflu and follow with ID in regards to his antibiotics such as aztreonam and vancomycin and he has bilateral lower extremities edema with chronic venous insufficiency and being evaluated for cellulitis. 2. Watch his ABGs and monitor his respiratory status. 3. Given that he has history of cardiomyopathy with ejection fraction of and history of sick sinus syndrome with status post AICD, follow with polymer tester's recommendations to maintain a MAP about 65% and continue to monitor and correct underlying metabolic derangements and reduce Keppra from 1000 to 500 IV q. 12 since his EEG showed no epileptiform activity, just some generalized bilateral slowing. Continue with current present medical management. Thank you for this followup. Jarvis Cortez MD
[2017-11-10] MEDS: levETIRAcetam 500mg IVPB 500 MG/100 ML BAG IV SCH (22:34)
[2017-11-11] MEDS: Albuterol-Ipratrop 3 mg / 0.5 (3 ml) UD IH SCH ×5 (01:58→20:00)
[2017-11-11] MEDS: Aztreonam 1 Gm in NS 100mL 100 ML IVPB SCH ×3 (05:28→22:05)
[2017-11-11 05:34] LABS: ARTERIAL BLOOD GAS O2 SAT 98.5 % (95-98); ARTERIAL BLOOD GAS PH 7.44 (7.35-7.45); ARTERIAL BLOOD GAS TCO2 50.4 mmol.L (22-28)
[2017-11-11 05:47] LABS: ARTERIAL BLOOD GAS HCO3 48.2 mmol/L (21-28); ARTERIAL BLOOD GAS PCO2 71 mm/Hg (35-45)
[2017-11-11 07:03] LABS: HEMOGLOBIN 12.5 g/dL (14.0-18.0); MEAN CELL VOLUME 104.7 fl (80.0-105.0); MEAN CORPUSCULAR HEMOGLOBIN 30.9 pg (25.0-35.0); MEAN CORPUSCULAR HGB CONC 29.5 g/dl (31.0-37.0); MEAN PLATELET VOLUME 11.1 fl (7.0-11.0); RBC 4.05 10^6/uL (3.5-6.1); RED CELL DISTRIBUTION WIDTH 13.6 % (11.5-14.5); WHITE BLOOD COUNT 8.8 10^3/ul (4.5-11.0)
--- NOTE | 2017-11-11 07:09 | CP.CCUPN ---
<Lynne Hammond - Last Filed: 11/11/17 10:21> CCU Subjective - Physician Review Subjective (Free Text): 11/11/17 10:21 No overnight acute events. Remains intubated and minimally sedated with propofol. Patient is able to follow simple commands. Critical Care Time Spent (in minutes): 45 CCU Objective - Vital Signs / Intake & Output Vital Signs (Last 4 hours): Vital Signs Pulse 11/11/17 06:00 70 Intake and Output (Last 8hrs): Intake & Output 11/10/17 11/11/17 11/11/17 22:59 06:59 14:59 Intake Total 360 497 Output Total 275 1600 Balance 85 -1103 Intake: IV 300 497 Left Forearm 497 Right Forearm 300 Other 60 Output: Urine 275 1600 Urine, Voided 275 1600 - Physical Exam Head: Positive for: Atraumatic, Normocephalic Pupils: Positive for: PERRL Extroacular Muscles: Positive for: EOMI Conjunctiva: Positive for: Normal Mouth: Positive for: Moist Mucous Membranes, Other (ETT) Neck: Positive for: Normal Range of Motion Respiratory/Chest: Positive for: Decreased Breath Sounds (b/l at bases). Negative for: Respiratory Distress, Accessory Muscle Use, Wheezes, Rales, Rhonchi Cardiovascular: Positive for: Regular Rate and Rhythm, Other (holosystolic murmur) Abdomen: Positive for: Normal Bowel Sounds. Negative for: Tenderness, Distention, Peritoneal Signs Back: Positive for: Normal Inspection Upper Extremity: Positive for: Normal Inspection. Negative for: Cyanosis, Edema Lower Extremity: Positive for: Edema (b/l chronic lymphedema, chronic skin changed noted, decreased pulses peripherally, decreased ROM), Other (left inguinal region grapefruit sized firm mass, nontender, no open wounds, slightly inflamed; healing leg ulcer at lateral aspect of left leg) Neurological: Positive for: Other (minimally awakened with tactile stimulus, sluggish. ) Skin: Positive for: Warm, Dry, Normal Color. Negative for: Rashes Psychiatric: Positive for: Other (minimally sedated with propofol. ) - Medications Active Medications: Active Medications Generic Name Dose Route Start Last Admin Trade Name Freq PRN Reason Stop Dose Admin Acetaminophen 325 mg 11/09/17 08:12 Tylenol 325 Mg Supp RC Q4H PRN Fever >100.4 F Albuterol/Ipratropium 3 ml 11/06/17 08:00 11/11/17 02:00 Duoneb 3 Mg/0.5 Mg (3 Ml) Ud IH 3 ml [id number] KELLY Administration Albuterol/Ipratropium 3 ml 11/06/17 07:21 Duoneb 3 Mg/0.5 Mg (3 Ml) Ud IH Q2H PRN Shortness of Breath Budesonide 0.5 mg 11/06/17 08:00 11/10/17 20:00 Pulmicort Respules IH 0.5 mg [id number] KELLY Administration Cholestyramine Resin 4 gm 11/03/17 10:00 11/10/17 09:34 Questran PO 4 gm DAILY KELLY Administration Cyproheptadine HCl 4 mg 11/06/17 10:00 11/10/17 09:34 Periactin PO 4 mg DAILY KELLY Administration Dorzolamide/Timolol 1 drop 11/03/17 10:00 11/10/17 17:23 Cosopt 2%-0.5% Opht OU 1 drop BID KELLY Administration Enoxaparin Sodium 40 mg 11/04/17 10:00 11/10/17 09:33 Lovenox SC 40 mg DAILY KELLY Administration Protocol Furosemide 40 mg 11/03/17 10:00 11/09/17 17:40 Lasix IVP 40 mg BID KELLY Administration Propofol 1,000 mg in 100 mls @ 2.722 mls/hr 11/09/17 21:39 11/10/17 12:10 Diprivan IV 2.5 mcg/kg/min .Q24H PRN 1.361 mls/hr TITRATE PER MD ORDER Administration Protocol 5 MCG/KG/MIN Aztreonam 100 mls @ 100 mls/hr 11/10/17 14:00 11/11/17 05:28 Azactam 1 Gm IVPB 11/17/17 14:01 100 mls/hr Q8 KELLY Administration Protocol Levetiracetam 500 mg in 100 mls @ 460 mls/hr 11/10/17 17:42 11/10/17 22:34 Keppra 500mg Ivpb IV 460 mls/hr Q12 KELLY Administration Lactic Acid 0 gm 11/10/17 15:35 11/10/17 17:22 Lac-Hydrin 12% Lotion (225 G) EXT 1 applic DAILY PRN Administration Dry skin Lorazepam 2 mg 11/09/17 21:22 11/10/17 12:17 Ativan IVP 2 mg Q2H PRN Administration Seizure activity Protocol Oseltamivir Phosphate 30 mg 11/10/17 10:00 11/10/17 17:44 Tamiflu Susp PO 11/14/17 10:34 1 darnell BID KELLY Administration Protocol Pantoprazole Sodium 40 mg 11/10/17 10:00 11/10/17 09:34 Protonix Inj IVP 40 mg DAILY KELLY Administration Potassium Chloride 20 meq 11/04/17 08:00 11/10/17 08:02 K-Dur 20 Meq Er Tab PO 20 meq BRK KELLY Administration Thiamine HCl 100 mg 11/09/17 14:15 11/10/17 09:34 Vitamin B1 Inj IM 100 mg DAILY KELLY Administration - Patient Studies Lab Studies: Microbiology Studies 11/08/17 17:45 Blood Culture - Preliminary Blood NO GROWTH AFTER 48 HOURS 11/08/17 17:30 Blood Culture - Preliminary Blood NO GROWTH AFTER 48 HOURS Lab Studies 11/11/17 11/10/17 11/10/17 Range/Units 05:27 09:30 07:50 pCO2 71 H* 58 H (35-45) mm/Hg pO2 105.0 H 125 H 123.0 H (80-100) mm/Hg HCO3 48.2 H* 50.7 H* (21-28) mmol/L ABG pH 7.44 7.55 H (7.35-7.45) ABG Total CO2 50.4 H 52.5 H (22-28) mmol.L ABG O2 Saturation 98.5 H 98.6 H (95-98) % ABG O2 Content 16.0 (15-23) ML/dl ABG Base Excess 19.8 H 24.7 H (-2.0-3.0) mmol/L ABG Hemoglobin 11.6 L (11.7-17.4) g/dL ABG Carboxyhemoglobin 1.4 (0.5-1.5) % POC ABG HHb (Measured) 1.4 (0-5) % ABG Methemoglobin 0.6 (0.0-3.0) % ABG O2 Capacity 16.2 (16-24) mL/dl ABG Potassium 3.2 L (3.6-5.2) mmol/L VBG pH 7.58 H (7.32-7.43) VBG pCO2 60.0 (40-60) VBG HCO3 56.3 H (21-28) mmol/l VBG Total CO2 58.1 H (22-28) mmol.L VBG O2 Sat (Calc) 98.6 H (40-65) % VBG Base Excess 29.5 H (0.0-2.0) mmol/L VBG Potassium 3.2 L (3.6-5.2) mmol/L Hgb O2 Saturation 96.6 (95.0-98.0) % Glucose 128 H 122 H (75-110) mg/dl Lactate 1.9 2.4 H (0.7-2.1) mmol/L FiO2 60.0 21.0 60.0 % Sodium 139.0 137.0 (132-148) mmol/L Potassium (3.6-5.0) mmol/L Chloride 91.0 L 89.0 L (98-107) mmol/L Carbon Dioxide (21-33) mmol/L Anion Gap (10-20) BUN (7-21) mg/dL Creatinine (0.8-1.5) mg/dl Est GFR ( Amer) Est GFR (Non-Af Amer) Random Glucose (70-110) mg/dL Calcium (8.4-10.5) mg/dL Total Bilirubin (0.2-1.3) mg/dL AST (17-59) U/L ALT (7-56) U/L Alkaline Phosphatase (38-126) U/L Troponin I ng/mL Total Protein (5.8-8.3) g/dL Albumin (3.0-4.8) g/dL Globulin gm/dL Albumin/Globulin Ratio (1.1-1.8) Prolactin (3.7-17.9) ng/mL Arterial Blood Potassium 3.2 L (3.6-5.2) mmol/L Venous Blood Potassium 3.2 L (3.6-5.2) mmol/L 11/10/17 11/09/17 Range/Units 06:00 18:36 pCO2 (35-45) mm/Hg pO2 (80-100) mm/Hg HCO3 (21-28) mmol/L ABG pH (7.35-7.45) ABG Total CO2 (22-28) mmol.L ABG O2 Saturation (95-98) % ABG O2 Content (15-23) ML/dl ABG Base Excess (-2.0-3.0) mmol/L ABG Hemoglobin (11.7-17.4) g/dL ABG Carboxyhemoglobin (0.5-1.5) % POC ABG HHb (Measured) (0-5) % ABG Methemoglobin (0.0-3.0) % ABG O2 Capacity (16-24) mL/dl ABG Potassium (3.6-5.2) mmol/L VBG pH (7.32-7.43) VBG pCO2 (40-60) VBG HCO3 (21-28) mmol/l VBG Total CO2 (22-28) mmol.L VBG O2 Sat (Calc) (40-65) % VBG Base Excess (0.0-2.0) mmol/L VBG Potassium (3.6-5.2) mmol/L Hgb O2 Saturation (95.0-98.0) % Glucose (75-110) mg/dl Lactate (0.7-2.1) mmol/L FiO2 % Sodium 140 (132-148) mmol/L Potassium 3.3 L (3.6-5.0) mmol/L Chloride 81 L (98-107) mmol/L Carbon Dioxide 49 H (21-33) mmol/L Anion Gap 13 (10-20) BUN 55 H (7-21) mg/dL Creatinine 1.5 (0.8-1.5) mg/dl Est GFR ( Amer) 54 Est GFR (Non-Af Amer) 44 Random Glucose 124 H (70-110) mg/dL Calcium 9.1 (8.4-10.5) mg/dL Total Bilirubin 1.1 (0.2-1.3) mg/dL AST 66 H (17-59) U/L ALT 40 (7-56) U/L Alkaline Phosphatase 88 (38-126) U/L Troponin I 0.06 ng/mL Total Protein 6.8 (5.8-8.3) g/dL Albumin 3.5 (3.0-4.8) g/dL Globulin 3.4 gm/dL Albumin/Globulin Ratio 1.0 L (1.1-1.8) Prolactin 25.8 H (3.7-17.9) ng/mL Arterial Blood Potassium (3.6-5.2) mmol/L Venous Blood Potassium (3.6-5.2) mmol/L Laboratory Results - last 24 hr 11/09/17 11/10/17 11/10/17 18:36 06:00 07:50 pCO2 58 H pO2 123.0 H HCO3 50.7 H* ABG pH 7.55 H ABG Total CO2 52.5 H ABG O2 Saturation 98.6 H ABG O2 Content 16.0 ABG Base Excess 24.7 H ABG Hemoglobin 11.6 L ABG Carboxyhemoglobin 1.4 POC ABG HHb (Measured) 1.4 ABG Methemoglobin 0.6 ABG O2 Capacity 16.2 ABG Potassium VBG pH VBG pCO2 VBG HCO3 VBG Total CO2 VBG O2 Sat (Calc) VBG Base Excess VBG Potassium Hgb O2 Saturation 96.6 Glucose Lactate FiO2 60.0 Sodium 140 Potassium 3.3 L Chloride 81 L Carbon Dioxide 49 H Anion Gap 13 BUN 55 H Creatinine 1.5 Est GFR ( Amer) 54 Est GFR (Non-Af Amer) 44 Random Glucose 124 H Calcium 9.1 Total Bilirubin 1.1 AST 66 H ALT 40 Alkaline Phosphatase 88 Troponin I 0.06 Total Protein 6.8 Albumin 3.5 Globulin 3.4 Albumin/Globulin Ratio 1.0 L Prolactin 25.8 H Arterial Blood Potassium Venous Blood Potassium 11/10/17 11/11/17 09:30 05:27 pCO2 71 H* pO2 125 H 105.0 H HCO3 48.2 H* ABG pH 7.44 ABG Total CO2 50.4 H ABG O2 Saturation 98.5 H ABG O2 Content ABG Base Excess 19.8 H ABG Hemoglobin ABG Carboxyhemoglobin POC ABG HHb (Measured) ABG Methemoglobin ABG O2 Capacity ABG Potassium 3.2 L VBG pH 7.58 H VBG pCO2 60.0 VBG HCO3 56.3 H VBG Total CO2 58.1 H VBG O2 Sat (Calc) 98.6 H VBG Base Excess 29.5 H VBG Potassium 3.2 L Hgb O2 Saturation Glucose 122 H 128 H Lactate 2.4 H 1.9 FiO2 21.0 60.0 Sodium 137.0 139.0 Potassium Chloride 89.0 L 91.0 L Carbon Dioxide Anion Gap BUN Creatinine Est GFR ( Amer) Est GFR (Non-Af Amer) Random Glucose Calcium Total Bilirubin AST ALT Alkaline Phosphatase Troponin I Total Protein Albumin Globulin Albumin/Globulin Ratio Prolactin Arterial Blood Potassium 3.2 L Venous Blood Potassium 3.2 L Fingerstick Blood Sugar Results: 142 Results Reviewed to Date: Yes Critical Care Progress Note - Ventilator Checklist Head of Bed 30 Degrees: Yes Daily Sedation Vacation: Yes Daily Assessment of Readiness to Wean: Yes Daily Spontaneous Breathing Trial: Yes PUD Prophalyxis: Yes DVT Prophylaxis: Yes Oral Care with Chlorhexidine Gluconate {CHG}: Yes - Vent Settings MODE:: PRVC TIDAL VOLUME:: 400 RESP RATE:: 16 FIO2:: 50 PEEP:: 5 - Extremities/Vascular Does the Patient have a Central Venous Catheter?: No Does the Patient need a Central Venous Catheter?: No Does the Patient have a Schuster Catheter?: Yes Does the Patient need a Schuster Catheter?: Yes Catheter Insertion Criteria: Need for accurate measurement of output in critically ill patient - Restraints Justification for Restraints: High risk for self extubation - Prophylaxis GI Prophylaxis GI: PPI - Prophylaxis DVT Prophylaxis DVT: Lovenox - Nutrition Nutrition: Nutrition Category Date Time Status NPO Diet [DIET] Diets 11/09/17 Breakfast Ordered Assessment/Plan - Assessment and Plan (Free Text) Assessment: Patient is an 87 y/o Male with PMHx of CAD (s/p PCI), sick sinus syndrome (s/p pacemaker), cardiomyopathy (EF=40-45%), severe tricuspid regurgitation and pulmonary HTN (RVSP=70mmHg), asthma, rheumatoid arthritis, history of melanoma ( s/p treatment) and multiple TIAs initially admitted due to worsening in extremities edema with sob, was found to have right groin mass which was biopsied, and was being followed by multiple services on the floor. However patient developed AMS with multiple seizure like activity overnight, thus patient was intubated for airway protection. Plan: Neurology- AMS with seizure like activities likely metabolic derangement due to CO2 retention superimposed with multiple commorbidities. - Patient is minimally sedated on propofol, will turn off propofol and assess mentation. - On Ativan prn - CT head with no acute ischemic finding. - keppra dosage decreased as per neuro. no seizure like activity on eeg. Pulm: Patient has COPD with chronic CO2 retention, s/p intubation due to airway protection due to AMS. - ABG and chest x-ray reviewed, will adjust vent setting accordingly. - Continue with protected lung ventilation strategies, and pulm toileting. - Continue with bronchodilators, head of bed elevation above 35 degrees. - On antibiotics. - Attempt vacation sedation and pressor support today. Cardio- Systolic CHF with LVEF of 40%, h/o sick sinus syndrome s/p AICD. h/o CAD with stents. - Maintain MAP above 65%. Renal: Metabolic alkalosis with respiratory acidosis- due to chronic co2 retention, management as above. Hypokalemia will replete and monitor. Endo: Will maintain euglycemia. ID: Influenza positive, will adjust tamiflu dosage. No leukocytosis, afebrile and no growth on cultures. Chris lower extremities with chronic venous insufficiency and erythema r/o cellulites. On aztreonam and vanco as per ID. GI- will consider tube feeding if patient remains intubated. On ppi for gi prophylaxis. Heme: h/h stable will continue to hold. DVT prophylaxes: Lovenox sc. Rescucitation status- spoke to patient's daughter Jennifer Avery at [phone] , states patient is DNI/DNR, if extubated, do not reintubate, and no trach/peg. Patient seen, examined and case discussed with the attending. - Date & Time Date: 11/11/17 Time: 10:35 <Akbar Saucedo - Last Filed: 11/11/17 12:55> CCU Objective - Vital Signs / Intake & Output Vital Signs (Last 4 hours): Vital Signs Temp Pulse BP 11/11/17 12:00 97.4 F L 11/11/17 10:00 79 11/11/17 09:43 126/80 Intake and Output (Last 8hrs): Intake & Output 11/10/17 11/11/17 11/11/17 22:59 06:59 14:59 Intake Total 360 497 Output Total 275 1600 Balance 85 -1103 Weight 88 lb 0 oz Intake: IV 300 497 Left Forearm 497 Right Forearm 300 Other 60 Output: Urine 275 1600 Urine, Voided 275 1600 - Medications Active Medications: Active Medications Generic Name Dose Route Start Last Admin Trade Name Freq PRN Reason Stop Dose Admin Acetaminophen 325 mg 11/09/17 08:12 Tylenol 325 Mg Supp RC Q4H PRN Fever >100.4 F Albuterol/Ipratropium 3 ml 11/06/17 08:00 11/11/17 07:27 Duoneb 3 Mg/0.5 Mg (3 Ml) Ud IH 3 ml [id number] KELLY Administration Albuterol/Ipratropium 3 ml 11/06/17 07:21 Duoneb 3 Mg/0.5 Mg (3 Ml) Ud IH Q2H PRN Shortness of Breath Budesonide 0.5 mg 11/06/17 08:00 11/11/17 07:27 Pulmicort Respules IH 0.5 mg [id number] KELLY Administration Cholestyramine Resin 4 gm 11/03/17 10:00 11/11/17 09:56 Questran PO 4 gm DAILY KELLY Administration Cyproheptadine HCl 4 mg 11/06/17 10:00 11/10/17 09:34 Periactin PO 4 mg DAILY KELLY Administration Dorzolamide/Timolol 1 drop 11/03/17 10:00 11/11/17 09:57 Cosopt 2%-0.5% Opht OU 1 drop BID KELLY Administration Enoxaparin Sodium 40 mg 11/04/17 10:00 11/11/17 09:44 Lovenox SC 40 mg DAILY KELLY Administration Protocol Furosemide 40 mg 11/03/17 10:00 11/11/17 09:43 Lasix IVP 40 mg BID KELLY Administration Propofol 1,000 mg in 100 mls @ 2.722 mls/hr 11/09/17 21:39 11/10/17 12:10 Diprivan IV 2.5 mcg/kg/min .Q24H PRN 1.361 mls/hr TITRATE PER MD ORDER Administration Protocol 5 MCG/KG/MIN Aztreonam 100 mls @ 100 mls/hr 11/10/17 14:00 11/11/17 05:28 Azactam 1 Gm IVPB 11/17/17 14:01 100 mls/hr Q8 KELLY Administration Protocol Levetiracetam 500 mg in 100 mls @ 460 mls/hr 11/10/17 17:42 11/11/17 09:43 Keppra 500mg Ivpb IV 460 mls/hr Q12 KELLY Administration Lactic Acid 0 gm 11/10/17 15:35 11/10/17 17:22 Lac-Hydrin 12% Lotion (225 G) EXT 1 applic DAILY PRN Administration Dry skin Lorazepam 2 mg 11/09/17 21:22 11/10/17 12:17 Ativan IVP 2 mg Q2H PRN Administration Seizure activity Protocol Oseltamivir Phosphate 75 mg 11/11/17 10:00 11/11/17 09:55 Tamiflu Cap PO Not Given Q12 KELLY Protocol Pantoprazole Sodium 40 mg 11/10/17 10:00 11/11/17 09:44 Protonix Inj IVP 40 mg DAILY KELLY Administration Potassium Chloride 20 meq 11/04/17 08:00 11/11/17 09:42 K-Dur 20 Meq Er Tab PO 20 meq BRK KELLY Administration Thiamine HCl 100 mg 11/09/17 14:15 11/11/17 09:45 Vitamin B1 Inj IM 100 mg DAILY KELLY Administration - Patient Studies Lab Studies: Microbiology Studies 11/08/17 17:45 Blood Culture - Preliminary Blood NO GROWTH AFTER 48 HOURS 11/08/17 17:30 Blood Culture - Preliminary Blood NO GROWTH AFTER 48 HOURS Lab Studies 11/11/17 11/11/17 11/11/17 Range/Units 06:00 06:00 06:00 WBC 8.8 (4.5-11.0) 10^3/ul RBC 4.05 (3.5-6.1) 10^6/uL Hgb 12.5 L (14.0-18.0) g/dL Hct 42.4 (42.0-52.0) % MCV 104.7 (80.0-105.0) fl MCH 30.9 (25.0-35.0) pg MCHC 29.5 L (31.0-37.0) g/dl RDW 13.6 (11.5-14.5) % Plt Count 107 L (120.0-450.0) 10^3/uL MPV 11.1 H (7.0-11.0) fl pCO2 (35-45) mm/Hg pO2 (80-100) mm/Hg HCO3 (21-28) mmol/L ABG pH (7.35-7.45) ABG Total CO2 (22-28) mmol.L ABG O2 Saturation (95-98) % ABG Base Excess (-2.0-3.0) mmol/L ABG Potassium (3.6-5.2) mmol/L Sodium 143 (132-148) mmol/L Chloride 84 L (98-107) mmol/L Glucose (75-110) mg/dl Lactate (0.7-2.1) mmol/L FiO2 % Potassium 3.3 L (3.6-5.0) mmol/L Carbon Dioxide 47 H (21-33) mmol/L Anion Gap 15 (10-20) BUN 57 H (7-21) mg/dL Creatinine 1.2 (0.8-1.5) mg/dl Est GFR ( Amer) > 60 Est GFR (Non-Af Amer) 57 Random Glucose 135 H (70-110) mg/dL Calcium 8.9 (8.4-10.5) mg/dL Magnesium 2.4 H (1.7-2.2) mg/dL Total Bilirubin 1.3 (0.2-1.3) mg/dL AST 70 H (17-59) U/L ALT 33 (7-56) U/L Alkaline Phosphatase 82 (38-126) U/L Total Protein 6.6 (5.8-8.3) g/dL Albumin 3.3 (3.0-4.8) g/dL Globulin 3.3 gm/dL Albumin/Globulin Ratio 1.0 L (1.1-1.8) Arterial Blood Potassium (3.6-5.2) mmol/L 11/11/17 Range/Units 05:27 WBC (4.5-11.0) 10^3/ul RBC (3.5-6.1) 10^6/uL Hgb (14.0-18.0) g/dL Hct (42.0-52.0) % MCV (80.0-105.0) fl MCH (25.0-35.0) pg MCHC (31.0-37.0) g/dl RDW (11.5-14.5) % Plt Count (120.0-450.0) 10^3/uL MPV (7.0-11.0) fl pCO2 71 H* (35-45) mm/Hg pO2 105.0 H (80-100) mm/Hg HCO3 48.2 H* (21-28) mmol/L ABG pH 7.44 (7.35-7.45) ABG Total CO2 50.4 H (22-28) mmol.L ABG O2 Saturation 98.5 H (95-98) % ABG Base Excess 19.8 H (-2.0-3.0) mmol/L ABG Potassium 3.2 L (3.6-5.2) mmol/L Sodium 139.0 (132-148) mmol/L Chloride 91.0 L (98-107) mmol/L Glucose 128 H (75-110) mg/dl Lactate 1.9 (0.7-2.1) mmol/L FiO2 60.0 % Potassium (3.6-5.0) mmol/L Carbon Dioxide (21-33) mmol/L Anion Gap (10-20) BUN (7-21) mg/dL Creatinine (0.8-1.5) mg/dl Est GFR ( Amer) Est GFR (Non-Af Amer) Random Glucose (70-110) mg/dL Calcium (8.4-10.5) mg/dL Magnesium (1.7-2.2) mg/dL Total Bilirubin (0.2-1.3) mg/dL AST (17-59) U/L ALT (7-56) U/L Alkaline Phosphatase (38-126) U/L Total Protein (5.8-8.3) g/dL Albumin (3.0-4.8) g/dL Globulin gm/dL Albumin/Globulin Ratio (1.1-1.8) Arterial Blood Potassium 3.2 L (3.6-5.2) mmol/L Laboratory Results - last 24 hr 11/11/17 11/11/17 11/11/17 05:27 06:00 06:00 WBC 8.8 RBC 4.05 Hgb 12.5 L Hct 42.4 MCV 104.7 MCH 30.9 MCHC 29.5 L RDW 13.6 Plt Count 107 L MPV 11.1 H pCO2 71 H* pO2 105.0 H HCO3 48.2 H* ABG pH 7.44 ABG Total CO2 50.4 H ABG O2 Saturation 98.5 H ABG Base Excess 19.8 H ABG Potassium 3.2 L Sodium 139.0 143 Chloride 91.0 L 84 L Glucose 128 H Lactate 1.9 FiO2 60.0 Potassium 3.3 L Carbon Dioxide 47 H Anion Gap 15 BUN 57 H Creatinine 1.2 Est GFR ( Amer) > 60 Est GFR (Non-Af Amer) 57 Random Glucose 135 H Calcium 8.9 Magnesium Total Bilirubin 1.3 AST 70 H ALT 33 Alkaline Phosphatase 82 Total Protein 6.6 Albumin 3.3 Globulin 3.3 Albumin/Globulin Ratio 1.0 L Arterial Blood Potassium 3.2 L 11/11/17 06:00 WBC RBC Hgb Hct MCV MCH MCHC RDW Plt Count MPV pCO2 pO2 HCO3 ABG pH ABG Total CO2 ABG O2 Saturation ABG Base Excess ABG Potassium Sodium Chloride Glucose Lactate FiO2 Potassium Carbon Dioxide Anion Gap BUN Creatinine Est GFR ( Amer) Est GFR (Non-Af Amer) Random Glucose Calcium Magnesium 2.4 H Total Bilirubin AST ALT Alkaline Phosphatase Total Protein Albumin Globulin Albumin/Globulin Ratio Arterial Blood Potassium Critical Care Progress Note - Nutrition Nutrition: Nutrition Category Date Time Status NPO Diet [DIET] Diets 11/09/17 Breakfast Ordered Assessment/Plan - Assessment and Plan (Free Text) Plan: Patient seen and examined on rounds with resident, agree with note, with following additions/exceptions: Patient is 87yo male with PMhx of CAD with stents, Sick Sinus syndrome, s/p PPM , CHF EF 40%, pulm HTN, TR, Asthma, RA, melanoma, TIA, admitted to MICU for AMS , unable to protect airway, seizures. Pt is currently intubated, off sedation, awake, alert, following commands, placed on CPAP trial. POssible extubation today, if continues to tolerate CPAP trial, currently RSBI 40-50. As per the patients daughter/HCP, patient is to be DNR/DNI, no re-intubation. AMS Seizure CAD Pulm HTN Asthma RA Hx of TIA Recommend: - cont with vent support, low tidal vol ventilation, CPAP trial, if continues to tolerate CPAP trial, will extubate - cont with Aztreonam and Vanco, Tamiflu day 3/5 - follow up cultures - BP control - cont with Lasix IV - follow up cardiology - AED as per neurology - monitor electrolytes - FS control - GI ppx - DVT ppx - Pt is now DNR/DNI as per the daughter - monitor in MICU critical care time 35 minutes
[2017-11-11] MEDS: Budesonide 0.5 mg/2 ml Inhal Susp UD IH SCH ×2 (07:27→19:57)
[2017-11-11 07:39] LABS: ALBUMIN 3.3 g/dL (3.0-4.8); ALT/SGPT 33 U/L (7-56); AST/SGOT 70 U/L (17-59); BLOOD UREA NITROGEN 57 mg/dL (7-21); CALCIUM 8.9 mg/dL (8.4-10.5); GFR AFRICAN-AMERICAN > 60; GFR NON-AFRICAN AMERICAN 57
--- NOTE | 2017-11-11 07:59 | RAD ---
HISTORY: follow up COMPARISON: Comparison is made with previous study dated 11/10/2017 FINDINGS: LUNGS: No significant interval change in the lungs noted since the previous exam. No significant interval change in the position of the ETT since the previous study. PLEURA: Blunting of the left costophrenic angle is again noted likely due to small pleural effusion. CARDIOVASCULAR: The cardiac silhouette is prominent in size. Right-sided pacemaker is again seen in place. OSSEOUS STRUCTURES: No significant abnormalities. VISUALIZED UPPER ABDOMEN: There is NG tube seen extending to the stomach OTHER FINDINGS: None. IMPRESSION: Overall no significant interval change since the previous exam. Stable and appropriate position of the support devices.
--- NOTE | 2017-11-11 08:40 | PN ---
DATE: 11/11/2017 PULMONARY NOTE SUBJECTIVE: The patient remains on the ventilator. He remains sedated. PHYSICAL EXAMINATION VITAL SIGNS: Temperature is 98.3, pulse is 70, respirations 14/10, blood pressure 100/44. HEENT: Normocephalic, atraumatic. No JVD. CARDIOVASCULAR: Systolic ejection murmur at the lower left sternal border. No S3 gallop. LUNGS: Decreased breath sounds at the bases. Minimal rhonchi. No wheezing. EXTREMITIES: Positive for edema. No cyanosis or clubbing. GI: Abdomen is soft, nondistended. Bowel sounds are positive. SKIN: Multiple skin lesions are present. Left lower extremity cellulitis is improving. NEUROLOGIC: Limited at the present time. PERTINENT LABORATORY DATA: Chest x-ray was done this morning and reviewed. Compared to yesterday's film, today's film does show a questionable small evolving right basilar infiltrate. Arterial blood gas was also done on assist control 10, tidal volume 400, FiO2 of 60%. Results are: PH 7.44, pCO2 of 71, pO2 of 105. IMPRESSION: 1. Multiple seizures. 2. Respiratory failure. 3. Left leg cellulitis. 4. Left groin mass. 5. Asthma. 6. Anemia. 7. Coronary artery disease. PLAN: The patient remains in the ICU. He remains on the ventilator and sedated. I did discuss the case with the night nurse at length. The night nurse stated that the patient is not doing well overall. I did review the chest x-ray as above. There may be a small patchy right lower lobe infiltrate developing. Official results are pending. I have also reviewed the arterial blood gas. The arterial blood gas reveals an increase in the pCO2, but with normal pH. I would continue with the neurologic evaluation and treatment. Input by Dr. Cortez is noted. Input by Infectious Disease (Dr. Medeiros) is also noted. The patient remains critically ill. He is now a DNR status. I will discuss the above with the entire ICU team in the next few moments. I will also discuss the above with Dr. Martinez later this morning. Sajan Castrejon MD [facility] # [id number] MTDD
[2017-11-11] MEDS ORDERED: Vancomycin 1gm in NS 250ml 1 GM/250 ML BAG IVPB STA (09:19)
[2017-11-11] MEDS ORDERED: Potassium Chloride 40 mEq/30 ml LIQ UD PO ONE (09:30)
[2017-11-11] MEDS: Potassium Chloride 20 mEq ER Tab PO SCH (09:42)
--- NOTE | 2017-11-11 09:42 | CP.PCM.PN ---
Subjective - Date & Time of Evaluation Date of Evaluation: 11/11/17 Time of Evaluation: 09:20 - Subjective Subjective: Continues to be on the ventilator, sedated, no fevers overnight. Objective - Vital Signs/Intake and Output Vital Signs (last 24 hours): Temp Pulse Resp BP Pulse Ox 98.3 F 70 14 93/37 L 93 L 11/11/17 00:01 11/11/17 06:00 11/10/17 04:40 11/10/17 04:20 11/10/17 04:40 Intake and Output: 11/11/17 11/11/17 06:59 18:59 Intake Total 497 Output Total 1600 Balance -1103 - Medications Medications: Current Medications Acetaminophen (Tylenol 325 Mg Supp) 325 mg RC Q4H PRN PRN Reason: Fever >100.4 F Albuterol/Ipratropium (Duoneb 3 Mg/0.5 Mg (3 Ml) Ud) 3 ml IH [id number] [facility] Last Admin: 11/11/17 07:27 Dose: 3 ml Albuterol/Ipratropium (Duoneb 3 Mg/0.5 Mg (3 Ml) Ud) 3 ml IH Q2H PRN PRN Reason: Shortness of Breath Budesonide (Pulmicort Respules) 0.5 mg IH [id number] [facility] Last Admin: 11/11/17 07:27 Dose: 0.5 mg Cholestyramine Resin (Questran) 4 gm PO DAILY [facility] Last Admin: 11/10/17 09:34 Dose: 4 gm Cyproheptadine HCl (Periactin) 4 mg PO DAILY [facility] Last Admin: 11/10/17 09:34 Dose: 4 mg Dorzolamide/Timolol (Cosopt 2%-0.5% Opht) 1 drop OU BID [facility] Last Admin: 11/10/17 17:23 Dose: 1 drop Enoxaparin Sodium (Lovenox) 40 mg SC DAILY [facility] PRN Reason: Protocol Last Admin: 11/10/17 09:33 Dose: 40 mg Furosemide (Lasix) 40 mg IVP BID [facility] Last Admin: 11/09/17 17:40 Dose: 40 mg Propofol (Diprivan) 1,000 mg in 100 mls @ 2.722 mls/hr IV .Q24H PRN; Protocol; 5 MCG/KG/MIN PRN Reason: TITRATE PER MD ORDER Last Admin: 11/10/17 12:10 Dose: 2.5 mcg/kg/min, 1.361 mls/hr Aztreonam (Azactam 1 Gm) 100 mls @ 100 mls/hr IVPB Q8 [facility] PRN Reason: Protocol Stop: 11/17/17 14:01 Last Admin: 11/11/17 05:28 Dose: 100 mls/hr Levetiracetam (Keppra 500mg Ivpb) 500 mg in 100 mls @ 460 mls/hr IV Q12 [facility] Last Admin: 11/10/17 22:34 Dose: 460 mls/hr Potassium Chloride (Potassium Chloride 10 Meq/100 Ml) 10 meq in 100 mls @ 50 mls/hr IVPB ONCE ONE Stop: 11/11/17 10:07 Vancomycin HCl (Vancomycin 1gm) 1 gm in 250 mls @ 167 mls/hr IVPB STAT [facility] PRN Reason: Protocol Stop: 11/11/17 10:48 Lactic Acid (Lac-Hydrin 12% Lotion (225 G)) 0 gm EXT DAILY PRN PRN Reason: Dry skin Last Admin: 11/10/17 17:22 Dose: 1 applic Lorazepam (Ativan) 2 mg IVP Q2H PRN; Protocol PRN Reason: Seizure activity Last Admin: 11/10/17 12:17 Dose: 2 mg Oseltamivir Phosphate (Tamiflu Susp) 30 mg PO BID [facility] PRN Reason: Protocol Stop: 11/14/17 10:34 Last Admin: 11/10/17 17:44 Dose: 1 darnell Pantoprazole Sodium (Protonix Inj) 40 mg IVP DAILY [facility] Last Admin: 11/10/17 09:34 Dose: 40 mg Potassium Chloride (K-Dur 20 Meq Er Tab) 20 meq PO BRK [facility] Last Admin: 11/10/17 08:02 Dose: 20 meq Thiamine HCl (Vitamin B1 Inj) 100 mg IM DAILY [facility] Last Admin: 11/10/17 09:34 Dose: 100 mg - Labs Labs: 11/11/17 06:00 11/11/17 06:00 PT 12.4 SECONDS (9.4-12.5) 11/03/17 08:15 INR 1.08 (0.93-1.08) 11/03/17 08:15 - Constitutional Appears: Chronically Ill, Other (intubated, sedated) - Head Exam Head Exam: NORMAL INSPECTION - ENT Exam Additional comments: ET tube in place - Respiratory Exam Respiratory Exam: Decreased Breath Sounds - Cardiovascular Exam Cardiovascular Exam: +S1, +S2 - GI/Abdominal Exam GI & Abdominal Exam: Soft. absent: Tenderness Assessment and Plan - Assessment and Plan (Free Text) Plan: Assessment sepsis due to Influenza R/O HCAP on the right lower lobe VDRF after apparent witnessed seizure left inguinal indurated mass with left leg cellulitis S/P biopsy chronic CHF aortic insufficiency and stenosis history of melanoma Plan repeat septic work up so far blood cx negative; will give another dose of Vanco IV and will continue Azactam (because of the seizure, where potentially Merrem can decrease the seizure threshold) day 4 total antibiotics; reviewed CXR which shows possibly haziness on the right base continue Tamiflu day 3 to complete 5 days of therapy - rapid flu test is positive will continue to monitor clinically overall prognosis is poor
[2017-11-11] MEDS: levETIRAcetam 500mg IVPB 500 MG/100 ML BAG IV SCH ×2 (09:43→22:00)
[2017-11-11] MEDS: Enoxaparin 40 mg Syringe SC SCH (09:44)
[2017-11-11] MEDS: Thiamine 100 mg/ml Inj IM SCH (09:45)
[2017-11-11] MEDS: Oseltamivir 6 MG/ML PO SCH (09:54)
[2017-11-11] MEDS: Cholestyramine 4 gm/Pkt UD PO SCH (09:56)
[2017-11-11] MEDS: Dorzolamide 2%/Timolol 0.5% 100 DROP/10 ML BOTTLE OU SCH ×2 (09:57→17:58)
--- NOTE | 2017-11-11 10:57 | PN ---
DATE: SUBJECTIVE: I saw Abdifatah in the Intensive Care Unit. He is still on the ventilator. He is on Ativan, Azactam, Cosopt, Diprivan, DuoNebs, potassium, Keppra, Lac-Hydrin, Lasix 40 mg IV b.i.d., Lovenox, Periactin, Protonix, Pulmicort, Questran, Tamiflu, Tylenol, and vitamin B1. PHYSICAL EXAMINATION VITAL SIGNS: He has 98.3 temperature; 70 pulse; 93/37 blood pressure; and 90% to 92% O2 saturation, on oxygen. HEENT: His head is atraumatic, normocephalic. HEART: Regular rate. LUNGS: Decreased breath sounds bilaterally, but clear to auscultation. ABDOMEN: Soft, obese, and nontender. EXTREMITIES: Very thin today. Maybe +2/4 pitting edema, best I have seen him. He has this left groin mass, which is hard as a rock, waiting for biopsy results. LABORATORY DATA: He has an 8.8 white count, 12.5 hemoglobin, 42.4 hematocrit with 107,000 platelets. Lactate was as high as 2.5. It is now down to 1.9, was 3.4. He has 143 sodium, potassium is 3.3 -- he will be placed on potassium, BUN 67, creatinine 1.2, GFR 67, sugar is 135, calcium is 8.9, total bilirubin is 1.3, AST is 70, ALT is 33, alkaline phosphatase 82, and total protein 6.6. Positive for influenza. ASSESSMENT AND PLAN: He is being seen by multiple doctors, power shovel mechanic, neurologist, die mechanic, and family medicine resident. 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 We are going to continue with aggressive treatment and care in the Intensive Care Unit until we could extubate him. Phuc Martinez DO
--- NOTE | 2017-11-11 13:13 | CP.PCM.PN ---
Subjective - Date & Time of Evaluation Date of Evaluation: 11/11/17 Time of Evaluation: 12:00 - Subjective Subjective: DATE: 11/11/2017 NEUROLOGY FOLLOWUP SUBJECTIVE: The patient is seen and examined at bedside. The patient is intubated, on sedation. No further seizure-like movements. Follows simple commands. PAST MEDICAL HISTORY: CAD, status post PCI; sick sinus syndrome, status post pacemaker; cardiomyopathy with EF of 40%-45%, severe tricuspid regurgitation with pulmonary hypertension; rheumatoid arthritis; history of melanoma. REVIEW OF SYSTEMS: A 14-point of review is difficult to obtain at this time in view of the patient's altered mental status. ALLERGIES: NO KNOWN DRUG ALLERGIES. SOCIAL HISTORY: No illicit drug use, smoking, or ETOH abuse. PHYSICAL EXAMINATION: GENERAL: The patient is in no acute distress, intubated. VITAL SIGNS: Reviewed. HEENT: PERRLA. Extraocular muscles intact. NECK: Supple. No JVD. No adenopathy noted. LUNGS: Decreased breath sounds bilaterally. HEART: S1 and S2. Regular rate and rhythm. Has an ejection systolic murmur at the lower sternal border. ABDOMEN: Soft, nontender, nondistended. Bowel sounds present. EXTREMITIES: No clubbing. No cyanosis. Peripheral pulses are 2+ felt bilaterally. NEUROLOGIC: The patient is lethargic. The patient is intubated. Speech is difficult to assess at this time. Cranial nerves II through XII are intact. Motor: Spontaneous movement of the extremities are noted. Tone is normal. Sensory: Decreased light touch and pinprick up to the calves bilaterally. Withdraws to localized deep noxious stimulus. DTRs are 2+ throughout, 1 at both knees and ankles. Coordination and gait deferred for now. LABORATORY DATA: Reviewed. ASSESSMENT AND PLAN: This is an 87-year-old man with past medical history of coronary artery disease , status post percutaneous coronary intervention; sick sinus syndrome, status post pacemaker; cardiomyopathy with ejection fraction of 40%-45%, severe tricuspid regurgitation with pulmonary hypertension; asthma; rheumatoid arthritis; history of melanoma, status post treatment; history of multiple transient ischemic attacks who was admitted due to worsening of edema in the extremities, shortness of breath,found to have a right groin mass, which was biopsied and was followed by increased lethargy and was found to have CO2 retention on his underlying arterial blood gases, which is apparently becoming chronic, had some seizure-like movements and now transient cerebral hypoperfusion to thebrain. His blood pressure is on the lower systolic and diastolic side causing seizure-like movements in addition to chronic CO2 retention. At this time, his altered mental status is multifactorial and secondary to acute on chronic CO2 retention superimposed underlying transient cerebral hypoperfusion to the brain since his blood pressures systolically and diastolically on the lower side with underlying metabolic derangements and underlying influenza positive and on Tamiflu. At this time, recommend: 1. Continue with his underlying Tamiflu and follow with ID in regards to his antibiotics such as aztreonam and vancomycin and he has bilateral lower extremities edema with chronic venous insufficiency and being evaluated for cellulitis. 2. Watch his ABGs and monitor his respiratory status. 3. Given that he has history of cardiomyopathy with ejection fraction of and history of sick sinus syndrome with status post AICD, follow with senior electronics design engineer's recommendations to maintain a MAP about 65% and continue to monitor and correct underlying metabolic derangements and C/W Keppra 500 IV q. 12 since his EEG showed no epileptiform activity, just some generalized bilateral slowing. Continue with current present medical management. Prognosis guarded. Thank you for this followup. Jarvis Cortez MD Objective - Vital Signs/Intake and Output Vital Signs (last 24 hours): Temp Pulse Resp BP Pulse Ox 97.4 F L 79 14 126/80 93 L 11/11/17 12:00 11/11/17 10:00 11/10/17 04:40 11/11/17 09:43 11/10/17 04:40 Intake and Output: 11/11/17 11/11/17 06:59 18:59 Intake Total 497 Output Total 1600 Balance -1103 - Medications Medications: Current Medications Acetaminophen (Tylenol 325 Mg Supp) 325 mg RC Q4H PRN PRN Reason: Fever >100.4 F Albuterol/Ipratropium (Duoneb 3 Mg/0.5 Mg (3 Ml) Ud) 3 ml IH [id number] [facility] Last Admin: 11/11/17 07:27 Dose: 3 ml Albuterol/Ipratropium (Duoneb 3 Mg/0.5 Mg (3 Ml) Ud) 3 ml IH Q2H PRN PRN Reason: Shortness of Breath Budesonide (Pulmicort Respules) 0.5 mg IH [id number] [facility] Last Admin: 11/11/17 07:27 Dose: 0.5 mg Cholestyramine Resin (Questran) 4 gm PO DAILY [facility] Last Admin: 11/11/17 09:56 Dose: 4 gm Cyproheptadine HCl (Periactin) 4 mg PO DAILY [facility] Last Admin: 11/10/17 09:34 Dose: 4 mg Dorzolamide/Timolol (Cosopt 2%-0.5% Opht) 1 drop OU BID [facility] Last Admin: 11/11/17 09:57 Dose: 1 drop Enoxaparin Sodium (Lovenox) 40 mg SC DAILY [facility] PRN Reason: Protocol Last Admin: 11/11/17 09:44 Dose: 40 mg Furosemide (Lasix) 40 mg IVP BID [facility] Last Admin: 11/11/17 09:43 Dose: 40 mg Propofol (Diprivan) 1,000 mg in 100 mls @ 2.722 mls/hr IV .Q24H PRN; Protocol; 5 MCG/KG/MIN PRN Reason: TITRATE PER MD ORDER Last Admin: 11/10/17 12:10 Dose: 2.5 mcg/kg/min, 1.361 mls/hr Aztreonam (Azactam 1 Gm) 100 mls @ 100 mls/hr IVPB Q8 [facility] PRN Reason: Protocol Stop: 11/17/17 14:01 Last Admin: 11/11/17 13:06 Dose: 100 mls/hr Levetiracetam (Keppra 500mg Ivpb) 500 mg in 100 mls @ 460 mls/hr IV Q12 [facility] Last Admin: 11/11/17 09:43 Dose: 460 mls/hr Lactic Acid (Lac-Hydrin 12% Lotion (225 G)) 0 gm EXT DAILY PRN PRN Reason: Dry skin Last Admin: 11/10/17 17:22 Dose: 1 applic Lorazepam (Ativan) 2 mg IVP Q2H PRN; Protocol PRN Reason: Seizure activity Last Admin: 11/10/17 12:17 Dose: 2 mg Oseltamivir Phosphate (Tamiflu Cap) 75 mg PO Q12 [facility] PRN Reason: Protocol Last Admin: 11/11/17 09:55 Dose: Not Given Pantoprazole Sodium (Protonix Inj) 40 mg IVP DAILY [facility] Last Admin: 11/11/17 09:44 Dose: 40 mg Potassium Chloride (K-Dur 20 Meq Er Tab) 20 meq PO BRK [facility] Last Admin: 11/11/17 09:42 Dose: 20 meq Thiamine HCl (Vitamin B1 Inj) 100 mg IM DAILY [facility] Last Admin: 11/11/17 09:45 Dose: 100 mg - Labs Labs: 11/11/17 06:00 11/11/17 06:00 PT 12.4 SECONDS (9.4-12.5) 11/03/17 08:15 INR 1.08 (0.93-1.08) 11/03/17 08:15
--- NOTE | 2017-11-11 14:25 | PN ---
DATE: 11/11/2017 REASON FOR THE CONSULTATION AND FOLLOWUP: Cellulitis of the lower extremity; congestive heart failure, status post intubated; lymphadenopathy, rule out metastatic disease; status post respiratory failure. SUBJECTIVE: Patient remains intubated on vent. OBJECTIVE: GENERAL: Not in apparent distress. VITAL SIGNS: Temperature afebrile, heart rate 71, blood pressure now 90/37. HEENT: PERRLA, intact. NECK: Supple. No carotid bruits or thyromegaly. CHEST: Clear to auscultation. HEART: S1 and S2, regular. ABDOMEN: Soft. EXTREMITIES: Clubbing and cyanosis negative. LABORATORY DATA: Blood workup as follows: WBC 8.8, hemoglobin 12.5, hematocrit 42.4, and platelet count 107. Chemistry shows sodium 140, potassium 3.3, chloride 84, carbon dioxide 47, anion gap of 15. BUN 57, creatinine 1.2. IMPRESSION: Hypokalemia; respiratory failure, intubated; morbid obesity; cellulitis of lower extremity; history of coronary artery disease, status post stent, last catheterization in 2012, patent stent; history of seizure leading to respiratory failure; left groin mass; lymphadenopathy, status post biopsy, awaiting for biopsy results, possibly metastatic disease of the lymph node cannot be ruled out; history of permanent pacemaker. Could not have the CAT scan of the head because the patient cannot extent the neck after the seizure. Most recent echo showed ejection fraction of 40% to 45%, moderate aortic stenosis, [id number] tricuspid regurgitation, right ventricular systolic pressure 70 consistent with severe pulmonary hypertension. Most recent event of respiratory failure is most likely secondary to seizure disorder and obesity. No evidence of acute myocardial infarction at this time. Discussed with daughter yesterday in length, wanted to make the patient DNR. Patient is currently intubated. Discussed with the train brake operator. Patient is DNR, trying to wean off the vent, but before weaning off the vent, I would discuss about the DNI situation. So if patient cannot be re-intubated. Overall, patient's condition is critical. Prognosis is extremely guarded. Awaiting for biopsy result for definite therapy. Interim, continue vent management, continue broad-spectrum antibiotics, continue antiseizure medications, supplement potassium and broad-spectrum antibiotic to prevent aspiration pneumonia. We will follow with you. Thank you Dr. Martinez for providing us the opportunity in taking care of Roberta. Dominick Mcgowan MD
[2017-11-12] MEDS: Albuterol-Ipratrop 3 mg / 0.5 (3 ml) UD IH SCH ×4 (01:00→19:32)
[2017-11-12 05:40] LABS: ARTERIAL BLOOD GAS HEMOGLOBIN 11.8 g/dL (11.7-17.4); ARTERIAL BLOOD GAS O2 CAPACITY 16.2 mL/dl (16-24); ARTERIAL BLOOD GAS O2 CONTENT 15.7 ML/dl (15-23); ARTERIAL BLOOD GAS PCO2 64 mm/Hg (35-45); ARTERIAL BLOOD GAS PH 7.44 (7.35-7.45); ARTERIAL BLOOD GAS TCO2 45.5 mmol.L (22-28)
[2017-11-12 06:04] LABS: ARTERIAL BLOOD GAS HCO3 43.5 mmol/L (21-28)
[2017-11-12] MEDS: Aztreonam 1 Gm in NS 100mL 100 ML IVPB SCH ×3 (06:21→21:22)
[2017-11-12 06:53] LABS: HEMOGLOBIN 12.6 g/dL (14.0-18.0); MEAN CORPUSCULAR HEMOGLOBIN 31.5 pg (25.0-35.0); MEAN CORPUSCULAR HGB CONC 29.4 g/dl (31.0-37.0); MEAN PLATELET VOLUME 11.6 fl (7.0-11.0); RED CELL DISTRIBUTION WIDTH 13.8 % (11.5-14.5); WHITE BLOOD COUNT 8.8 10^3/ul (4.5-11.0)
--- NOTE | 2017-11-12 07:12 | RAD ---
HISTORY: f/u COMPARISON: Portable chest 11/11/2017 FINDINGS: LUNGS: Nasogastric tube appears to been removed. Patient's lower face obscures the right apex and medial left apex somewhat as well. No definite right-sided infiltrate is appreciable. Diminishing left basilar atelectasis or infiltrate with limited residual at the medial left base. PLEURA: Borderline left pleural effusion noted. None is identified on the right. No definite left pneumothorax. No large right pneumothorax. CARDIOVASCULAR: Cardiac silhouette appears stable. No pulmonary vascular derangement. Pacemaker again noted. OSSEOUS STRUCTURES: No significant abnormalities. VISUALIZED UPPER ABDOMEN: Normal. OTHER FINDINGS: None. IMPRESSION: Patient's lower face obscures the apices as discussed above with nasogastric tube apparently removed in the interval. Diminishing left basilar airspace disease with limited residual the medial base. Trace of pleural effusion in question.
[2017-11-12 07:20] LABS: ALBUMIN 3.3 g/dL (3.0-4.8); ALT/SGPT 32 U/L (7-56); AST/SGOT 60 U/L (17-59); BLOOD UREA NITROGEN 47 mg/dL (7-21); CALCIUM 9.1 mg/dL (8.4-10.5); GFR AFRICAN-AMERICAN > 60; GFR NON-AFRICAN AMERICAN > 60
--- NOTE | 2017-11-12 07:27 | PN ---
DATE: 11/12/2017 PULMONARY NOTE SUBJECTIVE: The patient appears comfortable this morning. He is now extubated. He is mildly short of breath, but in no acute distress. OBJECTIVE VITALS: Temperature is 98.0, pulse is 78, respiratory rate 20/22, blood pressure 115/47. Oxygen saturation on nasal cannula is 98%. HEENT: Normocephalic, atraumatic. NECK: No JVD. CARDIOVASCULAR: Systolic ejection murmur at the lower left sternal border. No S3 gallop. LUNGS: Decreased breath sounds at the bases. Minimal rhonchi. No wheezing. EXTREMITIES: Positive for edema. No cyanosis or clubbing. Calves are nontender to palpation. GASTROINTESTINAL: Abdomen is soft, nontender and nondistended. Bowel sounds are positive. SKIN: Multiple skin lesions are present. Left lower extremity cellulitis is improved. NEUROLOGIC: Exam limited at the present time. PERTINENT LABORATORY DATA: Chest x-ray was done this morning and reviewed. There are no significant changes noted. Arterial blood gas was also done on nasal cannula-- 2 liters. Results are the pH is 7.44, pCO2 64, pO2 of 76. IMPRESSION 1. Multiple seizures. 2. Status post respiratory failure. 3. Left leg cellulitis. 4. Left groin mass. 5. Asthma. 6. Anemia. 7. Coronary artery disease. PLAN: The patient is now extubated. He is awake and alert. He appears comfortable. He is mildly short of breath, but in no acute distress. I did discuss the case with the night nurse at length. The night nurse stated that the patient had a very good night. I did review the chest x-ray as above. The chest x-ray shows no significant infiltrates. I have also reviewed the arterial blood gas. Again, there is an increased pCO2, but with normal pH - indicating a chronic abnormality. On physical exam, there is only minimal bronchospasm noted. I will continue with the current nebulizer treatments and inhaled steroids for now. I would continue with the antibiotic coverage as per Infectious Disease. There are no temperatures noted. There is no leukocytosis. Neurologic evaluation is also ongoing. Input by Dr. Cortez is noted. Clinical status of the patient is significantly improved - compared to a few days ago. I will discuss the above with the entire ICU team the next few moments. I will also discuss the above with Dr. Martinez later this morning. Sajan Castrejon MD [facility]
[2017-11-12] MEDS: Budesonide 0.5 mg/2 ml Inhal Susp UD IH SCH ×2 (07:31→19:32)
--- NOTE | 2017-11-12 09:26 | EEG ---
DATE: 11/10/2017 CONDITION OF THE RECORDING: Drowsy. DIAGNOSIS: Evaluate for seizures. MEDICATIONS: Reviewed by nurse's reconciliation sheet. INTERPRETATION: This is a 16-channel international recording. The background activity of this tracing composed of 6 to 7 cycles per second. There was a small amount of beta activity of 16 20 cycles per second seen in this recording. There was increased amount of theta activity of 5 to 7 cycles per second seen in this tracing. Drowsiness was characterized by mixed beta and theta activities. Sleep was characterized by vertex transient waves, sleep spindles, and bilateral slowing. Photic stimulation showed no changes in the tracing. No paroxysmal activity is noted in this recording. CONCLUSION: This is an abnormal EEG due to the presence of diffuse slowing throughout the recording. No evidence of any epileptiform activity. Please clinically correlate. Jarvis Cortez MD
--- NOTE | 2017-11-12 09:46 | CP.PCM.PN ---
Subjective - Date & Time of Evaluation Date of Evaluation: 11/12/17 Time of Evaluation: 09:20 - Subjective Subjective: Patient is now extubated, eating his breakfast, awake, alert, not in distress, no fevers. Objective - Vital Signs/Intake and Output Vital Signs (last 24 hours): Temp Pulse Resp BP Pulse Ox 97.6 F 79 21 103/43 L 98 11/12/17 04:00 11/12/17 07:20 11/12/17 07:20 11/12/17 06:04 11/12/17 07:20 Intake and Output: 11/12/17 11/12/17 06:59 18:59 Intake Total 200 Output Total 1600 Balance -1400 - Medications Medications: Current Medications Acetaminophen (Tylenol 325 Mg Supp) 325 mg RC Q4H PRN PRN Reason: Fever >100.4 F Albuterol/Ipratropium (Duoneb 3 Mg/0.5 Mg (3 Ml) Ud) 3 ml IH [id number] [facility] Last Admin: 11/12/17 07:31 Dose: 3 ml Albuterol/Ipratropium (Duoneb 3 Mg/0.5 Mg (3 Ml) Ud) 3 ml IH Q2H PRN PRN Reason: Shortness of Breath Budesonide (Pulmicort Respules) 0.5 mg IH [id number] [facility] Last Admin: 11/12/17 07:31 Dose: 0.5 mg Cholestyramine Resin (Questran) 4 gm PO DAILY [facility] Last Admin: 11/11/17 09:56 Dose: 4 gm Cyproheptadine HCl (Periactin) 4 mg PO DAILY [facility] Last Admin: 11/10/17 09:34 Dose: 4 mg Dorzolamide/Timolol (Cosopt 2%-0.5% Opht) 1 drop OU BID [facility] Last Admin: 11/11/17 17:58 Dose: 1 drop Enoxaparin Sodium (Lovenox) 40 mg SC DAILY [facility] PRN Reason: Protocol Last Admin: 11/11/17 09:44 Dose: 40 mg Furosemide (Lasix) 40 mg IVP BID [facility] Last Admin: 11/11/17 18:00 Dose: Not Given Aztreonam (Azactam 1 Gm) 100 mls @ 100 mls/hr IVPB Q8 [facility] PRN Reason: Protocol Stop: 11/17/17 14:01 Last Admin: 11/12/17 06:21 Dose: 100 mls/hr Levetiracetam (Keppra 500mg Ivpb) 500 mg in 100 mls @ 460 mls/hr IV Q12 [facility] Last Admin: 11/11/17 22:00 Dose: 460 mls/hr Lactic Acid (Lac-Hydrin 12% Lotion (225 G)) 0 gm EXT DAILY PRN PRN Reason: Dry skin Last Admin: 11/10/17 17:22 Dose: 1 applic Lorazepam (Ativan) 2 mg IVP Q2H PRN; Protocol PRN Reason: Seizure activity Last Admin: 11/10/17 12:17 Dose: 2 mg Oseltamivir Phosphate (Tamiflu Cap) 75 mg PO Q12 [facility] PRN Reason: Protocol Last Admin: 11/11/17 22:10 Dose: 75 mg Pantoprazole Sodium (Protonix Inj) 40 mg IVP DAILY [facility] Last Admin: 11/11/17 09:44 Dose: 40 mg Potassium Chloride (K-Dur 20 Meq Er Tab) 20 meq PO BRK [facility] Last Admin: 11/11/17 09:42 Dose: 20 meq Thiamine HCl (Vitamin B1 Inj) 100 mg IM DAILY [facility] Last Admin: 11/11/17 09:45 Dose: 100 mg - Labs Labs: 11/12/17 05:50 11/12/17 05:50 PT 12.4 SECONDS (9.4-12.5) 11/03/17 08:15 INR 1.08 (0.93-1.08) 11/03/17 08:15 - Constitutional Appears: Non-toxic, Chronically Ill - Head Exam Head Exam: NORMAL INSPECTION - ENT Exam ENT Exam: Mucous Membranes Moist - Neck Exam Neck Exam: absent: Meningismus - Respiratory Exam Respiratory Exam: Decreased Breath Sounds, Rales (scattered) - Cardiovascular Exam Cardiovascular Exam: +S1, +S2 - GI/Abdominal Exam GI & Abdominal Exam: Soft. absent: Tenderness Assessment and Plan - Assessment and Plan (Free Text) Plan: Assessment sepsis due to Influenza R/O HCAP on the right lower lobe S/P VDRF after apparent witnessed seizure left inguinal indurated mass with left leg cellulitis S/P biopsy chronic CHF aortic insufficiency and stenosis history of melanoma Plan repeat septic work up so far blood cx negative; we have been giving intermittent doses of Vanco IV and will continue Azactam (because of the seizure , where potentially Merrem can decrease the seizure threshold) day 5 total antibiotics; reviewed CXR which shows possibly haziness on the right base continue Tamiflu day 4 to complete 5 days of therapy - rapid flu test is positive will continue to monitor clinically will get Vanco level today overall prognosis is guarded
[2017-11-12] MEDS ORDERED: Potassium Chloride 20 mEq/15 ml LIQ UD PO STA (09:48)
[2017-11-12] MEDS: Potassium Chloride 20 mEq ER Tab PO SCH (09:58)
[2017-11-12] MEDS: levETIRAcetam 500mg IVPB 500 MG/100 ML BAG IV SCH (10:01)
[2017-11-12] MEDS: Enoxaparin 40 mg Syringe SC SCH (10:08)
[2017-11-12] MEDS: Dorzolamide 2%/Timolol 0.5% 100 DROP/10 ML BOTTLE OU SCH ×2 (10:10→18:55)
[2017-11-12] MEDS: Thiamine 100 mg/ml Inj IM SCH (10:12)
[2017-11-12] MEDS: Cholestyramine 4 gm/Pkt UD PO SCH (10:12)
[2017-11-12] MEDS: Ammonium Lactate 12% Lotion (225 g) EXT PRN (12:16)
--- NOTE | 2017-11-12 14:38 | PN ---
DATE: 11/12/2017 REASON FOR THE CONSULTATION AND FOLLOWUP: Cellulitis of the lower extremity; congestive heart failure, status post intubated; lymphadenopathy, rule out metastatic disease; status post successfully extubated. SUBJECTIVE: Patient is awake and alert. Daughter is at the bedside. Patient has flu and wearing respiratory isolation mask. OBJECTIVE: GENERAL: Not in apparent distress. VITAL SIGNS: Temperature afebrile, heart rate 79, blood pressure 130/80. HEENT: PERRLA, intact. NECK: Supple. No carotid bruits or thyromegaly. CHEST: Clear to auscultation. HEART: S1 and S2, regular. ABDOMEN: Soft. EXTREMITIES: Clubbing and cyanosis negative. LABORATORY DATA: Blood workup as follows: WBC 8.8, hemoglobin 12.6, hematocrit 42.8, and platelet count 122. Chemistry shows sodium 145, potassium 3.6, chloride 87, carbon dioxide 43, anion gap of 19. BUN 47, creatinine 1.0. Total protein 6.7. Albumin . Albumin and globulin ratio 1.0. IMPRESSION: Flu; status post respiratory failure; seizure disorder, new onset. CAT scan could not be done because the patient cannot extend the neck; status post intubated; status post successfully extubated; hypokalemia; coronary artery disease, status post stent, last catheterization in 2012, patent stent; left groin mass; lymphadenopathy, rule out metastatic disease; status post biopsy, awaiting for biopsy results; history of pacemaker status post permanent pacemaker. Most recent echo showed ejection fraction of 40% to 45%, moderate aortic stenosis, [id number] tricuspid regurgitation, right ventricular systolic pressure 70 consistent with woyhpdvd-so-hftctp pulmonary hypertension. Now, patient successfully extubated and status post family wanted DNR/DNI. RECOMMENDATIONS: Start feeding him, resume p.o. meds. Continue gentle diuretics. Continue DVT prophylaxis. Continue broad-spectrum antibiotics, supportive care. Follow up the biopsy when the result is available, discussed with the daughter. Overall, patient's condition is critical. Long-term prognosis is guarded. We will follow with you and supplement potassium. Repeat the blood workup in the morning. Thank you Dr. Martinez for providing us the opportunity in taking care of the patient, Abdifatah Titusrnes. Dominick Mcgowan MD
--- NOTE | 2017-11-12 18:18 | CP.PCM.PN ---
Subjective - Date & Time of Evaluation Date of Evaluation: 11/12/17 Time of Evaluation: 16:00 - Subjective Subjective: DATE: 11/12/2017 NEUROLOGY FOLLOWUP SUBJECTIVE: The patient is seen and examined at bedside. The patient is extubated. No further seizure-like movements. Follows simple commands. PAST MEDICAL HISTORY: CAD, status post PCI; sick sinus syndrome, status post pacemaker; cardiomyopathy with EF of 40%-45%, severe tricuspid regurgitation with pulmonary hypertension; rheumatoid arthritis; history of melanoma. REVIEW OF SYSTEMS: A 14-point of review is difficult to obtain at this time in view of the patient's altered mental status. ALLERGIES: NO KNOWN DRUG ALLERGIES. SOCIAL HISTORY: No illicit drug use, smoking, or ETOH abuse. PHYSICAL EXAMINATION: GENERAL: The patient is in no acute distress, VITAL SIGNS: Reviewed. HEENT: PERRLA. Extraocular muscles intact. NECK: Supple. No JVD. No adenopathy noted. LUNGS: Decreased breath sounds bilaterally. HEART: S1 and S2. Regular rate and rhythm. Has an ejection systolic murmur at the lower sternal border. ABDOMEN: Soft, nontender, nondistended. Bowel sounds present. EXTREMITIES: No clubbing. No cyanosis. Peripheral pulses are 2+ felt bilaterally. NEUROLOGIC: The patient is lethargic. The patient is intubated. Speech is difficult to assess at this time. Cranial nerves II through XII are intact. Motor: Spontaneous movement of the extremities are noted. Tone is normal. Sensory: Decreased light touch and pinprick up to the calves bilaterally. Withdraws to localized deep noxious stimulus. DTRs are 2+ throughout, 1 at both knees and ankles. Coordination and gait deferred for now. LABORATORY DATA: Reviewed. ASSESSMENT AND PLAN: This is an 87-year-old man with past medical history of coronary artery disease , status post percutaneous coronary intervention; sick sinus syndrome, status post pacemaker; cardiomyopathy with ejection fraction of 40%-45%, severe tricuspid regurgitation with pulmonary hypertension; asthma; rheumatoid arthritis; history of melanoma, status post treatment; history of multiple transient ischemic attacks who was admitted due to worsening of edema in the extremities, shortness of breath,found to have a right groin mass, which was biopsied and was followed by increased lethargy and was found to have CO2 retention on his underlying arterial blood gases, which is apparently becoming chronic, had some seizure-like movements and now transient cerebral hypoperfusion to thebrain. His blood pressure is on the lower systolic and diastolic side causing seizure-like movements in addition to chronic CO2 retention. At this time, his altered mental status is multifactorial and secondary to chronic CO2 retention superimposed underlying transient cerebral hypoperfusion to the brain since his blood pressures systolically and diastolically on the lower side with underlying metabolic derangements and underlying influenza positive and on Tamiflu. At this time, recommend: 1. Continue with his underlying Tamiflu and follow with ID in regards to his antibiotics such as aztreonam and vancomycin and he has bilateral lower extremities edema with chronic venous insufficiency and being evaluated for cellulitis. 2. 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 12 since his EEG showed no epileptiform activity, just some generalized bilateral slowing. Continue with current present medical management. Prognosis guarded. Thank you for this followup. Jarvis Cortez MD Objective - Vital Signs/Intake and Output Vital Signs (last 24 hours): Temp Pulse Resp BP Pulse Ox 97.6 F 79 21 120/80 98 11/12/17 04:00 11/12/17 07:20 11/12/17 07:20 11/12/17 10:02 11/12/17 07:20 Intake and Output: 11/12/17 11/12/17 06:59 18:59 Intake Total 200 675 Output Total 1600 450 Balance -1400 225 - Medications Medications: Current Medications Acetaminophen (Tylenol 325 Mg Supp) 325 mg RC Q4H PRN PRN Reason: Fever >100.4 F Albuterol/Ipratropium (Duoneb 3 Mg/0.5 Mg (3 Ml) Ud) 3 ml IH [id number] [facility] Last Admin: 11/12/17 13:29 Dose: 3 ml Albuterol/Ipratropium (Duoneb 3 Mg/0.5 Mg (3 Ml) Ud) 3 ml IH Q2H PRN PRN Reason: Shortness of Breath Budesonide (Pulmicort Respules) 0.5 mg IH [id number] [facility] Last Admin: 11/12/17 07:31 Dose: 0.5 mg Cholestyramine Resin (Questran) 4 gm PO DAILY [facility] Last Admin: 11/12/17 10:12 Dose: 4 gm Cyproheptadine HCl (Periactin) 4 mg PO DAILY [facility] Last Admin: 11/10/17 09:34 Dose: 4 mg Dorzolamide/Timolol (Cosopt 2%-0.5% Opht) 1 drop OU BID [facility] Last Admin: 11/12/17 10:10 Dose: 1 drop Enoxaparin Sodium (Lovenox) 40 mg SC DAILY [facility] PRN Reason: Protocol Last Admin: 11/12/17 10:08 Dose: 40 mg Furosemide (Lasix) 40 mg IVP BID [facility] Last Admin: 11/12/17 10:02 Dose: 40 mg Aztreonam (Azactam 1 Gm) 100 mls @ 100 mls/hr IVPB Q8 [facility] PRN Reason: Protocol Stop: 11/17/17 14:01 Last Admin: 11/12/17 14:09 Dose: 100 mls/hr Levetiracetam (Keppra 500mg Ivpb) 500 mg in 100 mls @ 460 mls/hr IV Q12 [facility] Last Admin: 11/12/17 10:01 Dose: 460 mls/hr Lactic Acid (Lac-Hydrin 12% Lotion (225 G)) 0 gm EXT DAILY PRN PRN Reason: Dry skin Last Admin: 11/12/17 12:16 Dose: 1 applic Lorazepam (Ativan) 2 mg IVP Q2H PRN; Protocol PRN Reason: Seizure activity Last Admin: 11/10/17 12:17 Dose: 2 mg Oseltamivir Phosphate (Tamiflu Cap) 75 mg PO Q12 [facility] PRN Reason: Protocol Last Admin: 11/12/17 10:12 Dose: 75 mg Pantoprazole Sodium (Protonix Inj) 40 mg IVP DAILY [facility] Last Admin: 11/12/17 10:09 Dose: 40 mg Potassium Chloride (K-Dur 20 Meq Er Tab) 20 meq PO BRK [facility] Last Admin: 11/12/17 09:58 Dose: 20 meq Thiamine HCl (Vitamin B1 Inj) 100 mg IM DAILY [facility] Last Admin: 11/12/17 10:12 Dose: 100 mg - Labs Labs: 11/12/17 05:50 11/12/17 05:50 PT 12.4 SECONDS (9.4-12.5) 11/03/17 08:15 INR 1.08 (0.93-1.08) 11/03/17 08:15
[2017-11-13] MEDS: Albuterol-Ipratrop 3 mg / 0.5 (3 ml) UD IH SCH ×4 (02:43→20:16)
[2017-11-13] MEDS: Pantoprazole 40 mg EC Tab PO SCH (05:02)
[2017-11-13] MEDS: Aztreonam 1 Gm in NS 100mL 100 ML IVPB SCH ×3 (05:02→21:37)
[2017-11-13 06:54] LABS: BASO # 0.01 K/mm3 (0.0-2.0); BASO % 0.1 % (0.0-3.0); EOS # 0.1 (0.0-0.7); EOS % 1.1 % (1.5-5.0); GRAN # 6.26 (1.4-6.5); GRAN % 65.5 % (50.0-68.0); HEMOGLOBIN 12.2 g/dL (14.0-18.0); LYMPH # 2.1 (1.2-3.4); LYMPH % 21.5 % (22.0-35.0); MEAN CELL VOLUME 104.8 fl (80.0-105.0); MEAN CORPUSCULAR HEMOGLOBIN 31.1 pg (25.0-35.0); MEAN CORPUSCULAR HGB CONC 29.7 g/dl (31.0-37.0); MEAN PLATELET VOLUME 11.4 fl (7.0-11.0); MONO # 1.1 (0.1-0.6); MONO % 11.8 % (1.0-6.0); RBC 3.92 10^6/uL (3.5-6.1); RED CELL DISTRIBUTION WIDTH 13.8 % (11.5-14.5); WHITE BLOOD COUNT 9.6 10^3/ul (4.5-11.0)
[2017-11-13 07:10] LABS: ALB/GLOB RATIO 0.9 (1.1-1.8); ALBUMIN 3.1 g/dL (3.0-4.8); ALT/SGPT 34 U/L (7-56); AST/SGOT 55 U/L (17-59); BLOOD UREA NITROGEN 46 mg/dL (7-21); CALCIUM 9.2 mg/dL (8.4-10.5); GFR AFRICAN-AMERICAN > 60; GFR NON-AFRICAN AMERICAN > 60
[2017-11-13] MEDS: Budesonide 0.5 mg/2 ml Inhal Susp UD IH SCH ×2 (07:36→20:16)
--- NOTE | 2017-11-13 08:10 | PN ---
DATE: 11/13/2017 PULMONARY NOTE SUBJECTIVE: The patient appears comfortable this morning. He is not short of breath at rest. PHYSICAL EXAMINATION VITAL SIGNS: Last temperature recorded is 97.6, pulse is 79, respirations 18, blood pressure 103/51. Oxygen saturation on nasal cannula is 98%. HEENT: Normocephalic, atraumatic. No JVD. CARDIOVASCULAR: Systolic ejection murmur at the lower left sternal border. No S3 gallop. LUNGS: Decreased breath sounds at the bases. Minimal/less rhonchi. No wheezing. EXTREMITIES: Positive for edema. No cyanosis or clubbing. Calves are nontender to palpation. GI: Abdomen is soft, nontender and nondistended. Bowel sounds are positive. SKIN: Multiple skin lesions are present. The left lower extremity cellulitis is improved. NEUROLOGIC: Limited at the present time. IMPRESSION: 1. Multiple seizures. 2. Status post respiratory failure. 3. Left leg cellulitis. 4. Left groin mass. 5. Asthma. 6. Anemia. 7. Coronary artery disease. PLAN: The patient appears comfortable this morning. He is not short of breath at rest. He does state to feeling better overall. On physical exam, there is mild bronchospasm noted. However, there is no significant alveolar-arterial gradient. I will continue with the current nebulizer treatments and inhaled steroids for now. I will also continue with the aspiration precautions. Inputs by Cardiology, Infectious Disease and Neurology are noted. Clinical status of the patient is certainly improved - compared to a few days ago. However, unfortunately, the overall status/prognosis for this patient remains poor. I will discuss the above with Dr. Martinez. Sajan Castrejon MD [facility]
--- NOTE | 2017-11-13 08:53 | PN ---
DATE: SUBJECTIVE: The patient is in intensive care unit. He was intubated and now is extubated. He is now DNR/DNI. I have a long discussion with family this morning about his condition and he is doing much better. He is diuresed very well. He is breathing well, sitting up and he is also going to eat. OBJECTIVE: VITAL SIGNS: 97.6 temperature, 77 pulse, 23 respiratory rate, 120/80 blood pressure, and 97% O2 sat on 3 liters. HEENT: Head is atraumatic, normocephalic. HEART: Regular rate. LUNGS: Decreased breath sounds, but clear. ABDOMEN: Morbidly obese, soft, nontender. EXTREMITIES: +1 to +2/4 pitting edema, much better. CURRENT MEDICATIONS: He is currently on Ativan, Azactam, Cosopt, DuoNebs, potassium, Keppra, Lac-Hydrin, Lasix, Lovenox, Periactin, Protonix, Pulmicort, Questran, Tamiflu, Tylenol, and vitamin B1. LABORATORY DATA: He has 8.8 white count, 12.6 hemoglobin, 42.8 hematocrit with 122 platelets. He has a 145 sodium, potassium 3.6, BUN 47, creatinine 1, GFR is greater than 60, sugar is 138, calcium is 9.1, total bili is 1, AST is 60, ALT is 32, and alk phos is 82. ASSESSMENT AND PLAN: He is presently doing much better since he was extubated. 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 He has multiple issues going on. 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 We will watch him closely. Check his labs tomorrow. Replace his potassium. I had a long discussion with the . Phuc Martinez DO
[2017-11-13] MEDS: Cholestyramine 4 gm/Pkt UD PO SCH (09:10)
[2017-11-13] MEDS: Thiamine 100 mg/ml Inj IM SCH (09:10)
[2017-11-13] MEDS: Dorzolamide 2%/Timolol 0.5% 100 DROP/10 ML BOTTLE OU SCH ×2 (09:10→17:42)
[2017-11-13] MEDS: Enoxaparin 40 mg Syringe SC SCH (09:10)
[2017-11-13] MEDS: Potassium Chloride 20 mEq ER Tab PO SCH (09:10)
--- NOTE | 2017-11-13 14:02 | CP.PCM.PN ---
Subjective - Date & Time of Evaluation Date of Evaluation: 11/13/17 Time of Evaluation: 10:35 - Subjective Subjective: Patient is awake but at times confused, no fevers, not in distress. Objective - Vital Signs/Intake and Output Vital Signs (last 24 hours): Temp Pulse Resp BP Pulse Ox 98.2 F 76 18 105/50 L 95 11/13/17 07:30 11/13/17 07:30 11/13/17 07:30 11/13/17 07:30 11/13/17 07:30 Intake and Output: 11/13/17 11/13/17 06:59 18:59 Intake Total 600 360 Output Total 900 Balance -300 360 - Medications Medications: Current Medications Acetaminophen (Tylenol 325 Mg Supp) 325 mg RC Q4H PRN PRN Reason: Fever >100.4 F Albuterol/Ipratropium (Duoneb 3 Mg/0.5 Mg (3 Ml) Ud) 3 ml IH [id number] [facility] Last Admin: 11/13/17 07:36 Dose: 3 ml Albuterol/Ipratropium (Duoneb 3 Mg/0.5 Mg (3 Ml) Ud) 3 ml IH Q2H PRN PRN Reason: Shortness of Breath Budesonide (Pulmicort Respules) 0.5 mg IH [id number] [facility] Last Admin: 11/13/17 07:36 Dose: 0.5 mg Cholestyramine Resin (Questran) 4 gm PO DAILY [facility] Last Admin: 11/12/17 10:12 Dose: 4 gm Cyproheptadine HCl (Periactin) 4 mg PO DAILY [facility] Last Admin: 11/10/17 09:34 Dose: 4 mg Dorzolamide/Timolol (Cosopt 2%-0.5% Opht) 1 drop OU BID [facility] Last Admin: 11/12/17 18:55 Dose: 1 drop Enoxaparin Sodium (Lovenox) 40 mg SC DAILY [facility] PRN Reason: Protocol Last Admin: 11/12/17 10:08 Dose: 40 mg Furosemide (Lasix) 40 mg IVP BID [facility] Last Admin: 11/12/17 19:00 Dose: Not Given Aztreonam (Azactam 1 Gm) 100 mls @ 100 mls/hr IVPB Q8 [facility] PRN Reason: Protocol Stop: 11/17/17 14:01 Last Admin: 11/13/17 05:02 Dose: Not Given Lactic Acid (Lac-Hydrin 12% Lotion (225 G)) 0 gm EXT DAILY PRN PRN Reason: Dry skin Last Admin: 11/12/17 12:16 Dose: 1 applic Levetiracetam (Keppra) 250 mg PO BID [facility] Lorazepam (Ativan) 2 mg IVP Q2H PRN; Protocol PRN Reason: Seizure activity Last Admin: 11/10/17 12:17 Dose: 2 mg Oseltamivir Phosphate (Tamiflu Cap) 75 mg PO Q12 [facility] PRN Reason: Protocol Last Admin: 11/12/17 21:22 Dose: 75 mg Pantoprazole Sodium (Protonix Ec Tab) 40 mg PO 0600 [facility] Last Admin: 11/13/17 05:02 Dose: Not Given Potassium Chloride (K-Dur 20 Meq Er Tab) 20 meq PO BRK [facility] Last Admin: 11/12/17 09:58 Dose: 20 meq Thiamine HCl (Vitamin B1 Inj) 100 mg IM DAILY [facility] Last Admin: 11/12/17 10:12 Dose: 100 mg - Labs Labs: 11/13/17 06:20 11/13/17 06:20 PT 12.4 SECONDS (9.4-12.5) 11/03/17 08:15 INR 1.08 (0.93-1.08) 11/03/17 08:15 - Constitutional Appears: Chronically Ill - Head Exam Head Exam: NORMAL INSPECTION - ENT Exam ENT Exam: Mucous Membranes Moist - Neck Exam Neck Exam: absent: Meningismus - Respiratory Exam Respiratory Exam: Decreased Breath Sounds - Cardiovascular Exam Cardiovascular Exam: +S1, +S2 - GI/Abdominal Exam GI & Abdominal Exam: Soft. absent: Tenderness Assessment and Plan - Assessment and Plan (Free Text) Plan: Assessment sepsis due to Influenza R/O HCAP on the right lower lobe S/P VDRF after apparent witnessed seizure left inguinal indurated mass with left leg cellulitis S/P biopsy chronic CHF aortic insufficiency and stenosis history of melanoma Plan repeat septic work up so far blood cx negative; we have been giving intermittent doses of Vanco IV and will continue Azactam (because of the seizure , where potentially Merrem can decrease the seizure threshold) day 6 total antibiotics; reviewed CXR which shows possibly haziness on the right base continue Tamiflu day 5 to complete 5 days of therapy - rapid flu test is positive will continue to monitor clinically overall prognosis is guarded
--- NOTE | 2017-11-13 14:08 | PN ---
DATE: SUBJECTIVE: I saw him resting comfortably in bed, he is alert, he is talking, but he is quite confused. No shortness of breath. No chest pain. Did not know where he was. Talking better. Family member running for President of [place] PHYSICAL EXAMINATION VITAL SIGNS: 98.2 temp, 76 pulse, 105/50 blood pressure, 18 respiratory rate, and 95% O2 sat on room air. HEENT: Head is atraumatic, normocephalic. HEART: Regular rate. LUNGS: Decreased breath sounds, but clear. ABDOMEN: Soft, obese. EXTREMITIES: +1/4 pitting edema. MEDICATIONS: He is currently on Ativan, Azactam, Cosopt, DuoNebs, potassium, Keppra, Lac-Hydrin, Lasix, Lovenox, Periactin, Protonix, Pulmicort, Questran, Tamiflu, Tylenol, and vitamin B1. LABORATORY DATA: He is positive for influenza B. He has 9.6 white count, 12.2 hemoglobin, 41.1 hematocrit with a 134 platelets. 143 sodium, potassium 3.4, I will give him BUN 46, better, creatinine 1, GFR is greater than 60, sugar is 134, calcium is 9.2, total bili is 1.2, AST is 55, ALT is 34, alkaline phosphatase is 81, total protein 6.4. ASSESSMENT AND PLAN: He is being seen by numerous doctors Pulmonary, Neurology, Cardiology, Infectious Disease. He has multiple issues, seizures, sepsis, influenza, left leg cellulitis, left groin mass, asthma, coronary artery disease, debility, congestive heart failure, altered mental status. We will continue aggressive treatment and care. He might need before he goes home. We will check his labs tomorrow. Continue aggressive treatment and care. Phuc Martinez DO [facility]
[2017-11-13] MEDS ORDERED: Potassium Chloride 20 mEq ER Tab PO ONE (15:58)
--- NOTE | 2017-11-13 21:39 | PN ---
DATE: 11/13/2017 LOCATION: Patient is in room 560, bed 1. REASON FOR CONSULTATION AND FOLLOWUP: Cellulitis of the lower extremities, congestive heart failure, status post intubation, lymphadenopathy, status post successful extubation. SUBJECTIVE: Patient lying flat in bed without chest pain, shortness of breath, palpitations. Patient in isolation because of flu. PHYSICAL EXAMINATION: VITAL SIGN: Blood pressure is 105/50, respiration 18, pulse 76, temperature 98.2. HEENT: Head is normocephalic. Eyes: Pupils normal. Conjunctivae slightly pale. NECK: JVP low. Carotids equal. THORAX: AP diameter normal. LUNGS: No significant rales. CARDIOVASCULAR: S1 and S2. EXTREMITIES: Legs, no edema on the legs. Still some redness on both lower extremities and chronic venous stasis changes. LABORATORY DATA: WBC 9.6, hemoglobin 12.2, hematocrit 41.1, platelets 134. Sodium 143, potassium 3.4, BUN 46, creatinine 1.0. AST, ALT normal. Total protein and albumin normal. DIAGNOSES: Flu; status post respiratory failure; seizure disorder, new onset; status post intubation; status post successful extubation; hypokalemia; coronary artery disease, status post stent insertion, last catheterization in 2012 showed patent stent; left groin mass, lymphadenopathy, rule out metastatic disease, status post biopsy; status post permanent pacemaker insertion. Most recent echo showed ejection fraction of 40% to 45%, moderate aortic stenosis, [id number] tricuspid regurgitation, right ventricular systolic pressure of 70 consistent with [id number] pulmonary Hypertensin. CAT scan of the head could not be done because patient cannot extent the neck. PLAN: I will give potassium therapy. Repeat labs in the morning. Patient is on aztreonam IV q.8 hour. Patient is on 20 mEq potassium p.o. daily, we will give 40 mEq p.o. extra dose today; Keppra 250 b.i.d.; furosemide 40 mg IV b.i.d.; Lovenox 40 mg subcu daily; Tamiflu 75 mg p.o. q.12 hour; thiamine 100 mg vitamin daily. Repeat lab already requested for tomorrow. We will follow with you. Dominick Floyd MD
[2017-11-14] MEDS: Albuterol-Ipratrop 3 mg / 0.5 (3 ml) UD IH SCH ×4 (02:12→20:20)
[2017-11-14 06:50] LABS: HEMOGLOBIN 12.4 g/dL (14.0-18.0); MEAN CORPUSCULAR HEMOGLOBIN 30.9 pg (25.0-35.0); MEAN CORPUSCULAR HGB CONC 29.2 g/dl (31.0-37.0); MEAN PLATELET VOLUME 11.3 fl (7.0-11.0); RBC 4.01 10^6/uL (3.5-6.1); WHITE BLOOD COUNT 8.3 10^3/ul (4.5-11.0)
[2017-11-14] MEDS: Pantoprazole 40 mg EC Tab PO SCH (06:51)
[2017-11-14] MEDS: Aztreonam 1 Gm in NS 100mL 100 ML IVPB SCH ×3 (06:51→22:42)
[2017-11-14 07:05] LABS: BLOOD UREA NITROGEN 45 mg/dL (7-21); CALCIUM 9.1 mg/dL (8.4-10.5); GFR AFRICAN-AMERICAN > 60; GFR NON-AFRICAN AMERICAN > 60
[2017-11-14 07:06] LABS: ALB/GLOB RATIO 0.9 (1.1-1.8); ALBUMIN 3.1 g/dL (3.0-4.8); ALT/SGPT 31 U/L (7-56); AST/SGOT 53 U/L (17-59)
[2017-11-14] MEDS: Budesonide 0.5 mg/2 ml Inhal Susp UD IH SCH ×2 (07:55→20:20)
[2017-11-14] MEDS: Dorzolamide 2%/Timolol 0.5% 100 DROP/10 ML BOTTLE OU SCH ×2 (11:20→17:29)
[2017-11-14] MEDS: Potassium Chloride 20 mEq ER Tab PO SCH (11:22)
[2017-11-14] MEDS: Ammonium Lactate 12% Lotion (225 g) EXT PRN (11:22)
[2017-11-14] MEDS: Enoxaparin 40 mg Syringe SC SCH (11:23)
[2017-11-14] MEDS: Clotrimazole/Betamethasone Lotion(30 ml) TOP SCH (11:23)
[2017-11-14] MEDS: Cholestyramine 4 gm/Pkt UD PO SCH (11:24)
[2017-11-14] MEDS: Thiamine 100 mg/ml Inj IM SCH (11:24)
--- NOTE | 2017-11-14 13:35 | CP.PCM.PN ---
Subjective - Date & Time of Evaluation Date of Evaluation: 11/14/17 Time of Evaluation: 12:15 - Subjective Subjective: Comfortable, no fevers, not in distress. Objective - Vital Signs/Intake and Output Vital Signs (last 24 hours): Temp Pulse Resp BP Pulse Ox 97.5 F L 69 23 104/61 100 11/14/17 07:00 11/14/17 07:00 11/14/17 07:00 11/14/17 11:22 11/14/17 07:00 Intake and Output: 11/14/17 11/14/17 06:59 18:59 Intake Total 120 Balance 120 - Medications Medications: Current Medications Acetaminophen (Tylenol 325 Mg Supp) 325 mg RC Q4H PRN PRN Reason: Fever >100.4 F Albuterol/Ipratropium (Duoneb 3 Mg/0.5 Mg (3 Ml) Ud) 3 ml IH [id number] [facility] Last Admin: 11/14/17 07:55 Dose: 3 ml Albuterol/Ipratropium (Duoneb 3 Mg/0.5 Mg (3 Ml) Ud) 3 ml IH Q2H PRN PRN Reason: Shortness of Breath Betamethasone/Clotrimazole (Lotrisone) 0 ml TOP DAILY [facility] Last Admin: 11/14/17 11:23 Dose: 1 applic Budesonide (Pulmicort Respules) 0.5 mg IH [id number] [facility] Last Admin: 11/14/17 07:55 Dose: 0.5 mg Cholestyramine Resin (Questran) 4 gm PO DAILY [facility] Last Admin: 11/14/17 11:24 Dose: 4 gm Cyproheptadine HCl (Periactin) 4 mg PO DAILY [facility] Last Admin: 11/10/17 09:34 Dose: 4 mg Dorzolamide/Timolol (Cosopt 2%-0.5% Opht) 1 drop OU BID [facility] Last Admin: 11/14/17 11:20 Dose: 1 drop Enoxaparin Sodium (Lovenox) 40 mg SC DAILY [facility] PRN Reason: Protocol Last Admin: 11/14/17 11:23 Dose: 40 mg Furosemide (Lasix) 40 mg IVP BID [facility] Last Admin: 11/14/17 11:22 Dose: 40 mg Aztreonam (Azactam 1 Gm) 100 mls @ 100 mls/hr IVPB Q8 [facility] PRN Reason: Protocol Stop: 11/17/17 14:01 Last Admin: 11/14/17 06:51 Dose: 100 mls/hr Lactic Acid (Lac-Hydrin 12% Lotion (225 G)) 0 gm EXT DAILY PRN PRN Reason: Dry skin Last Admin: 11/14/17 11:22 Dose: 1 applic Levetiracetam (Keppra) 250 mg PO BID [facility] Last Admin: 11/14/17 11:22 Dose: 250 mg Lorazepam (Ativan) 2 mg IVP Q2H PRN; Protocol PRN Reason: Seizure activity Last Admin: 11/10/17 12:17 Dose: 2 mg Oseltamivir Phosphate (Tamiflu Cap) 75 mg PO Q12 [facility] PRN Reason: Protocol Last Admin: 11/14/17 11:24 Dose: 75 mg Pantoprazole Sodium (Protonix Ec Tab) 40 mg PO 0600 [facility] Last Admin: 11/14/17 06:51 Dose: 40 mg Potassium Chloride (K-Dur 20 Meq Er Tab) 20 meq PO BRK [facility] Last Admin: 11/14/17 11:22 Dose: 20 meq Thiamine HCl (Vitamin B1 Inj) 100 mg IM DAILY [facility] Last Admin: 11/14/17 11:24 Dose: 100 mg - Labs Labs: 11/14/17 06:00 11/14/17 06:00 PT 12.4 SECONDS (9.4-12.5) 11/03/17 08:15 INR 1.08 (0.93-1.08) 11/03/17 08:15 - Constitutional Appears: Chronically Ill - Head Exam Head Exam: NORMAL INSPECTION - ENT Exam ENT Exam: Mucous Membranes Moist - Neck Exam Neck Exam: absent: Meningismus - Respiratory Exam Respiratory Exam: Decreased Breath Sounds - Cardiovascular Exam Cardiovascular Exam: +S1, +S2 - GI/Abdominal Exam GI & Abdominal Exam: Soft. absent: Tenderness Assessment and Plan - Assessment and Plan (Free Text) Assessment: Assessment sepsis due to Influenza R/O HCAP on the right lower lobe S/P VDRF after apparent witnessed seizure left inguinal indurated mass with left leg cellulitis S/P biopsy chronic CHF aortic insufficiency and stenosis history of melanoma Plan repeat septic work up so far blood cx negative; we have been giving intermittent doses of Vanco IV and will continue Azactam (because of the seizure , where potentially Merrem can decrease the seizure threshold) day 7 total antibiotics and will d/c after today; reviewed CXR which shows possibly haziness on the right base completed 5 days of Tamiflu - rapid flu test is positive will continue to monitor clinically overall prognosis is guarded
--- NOTE | 2017-11-14 15:45 | PN ---
DATE: SUBJECTIVE: I saw Abdifatah sitting up in bed. His legs are still good, they are wrinkly and small, still +1/4 pitting edema. He is alert, he is not eating his lunch. He wants Ensure, I will order Ensure for him. He is being seen by Cardiology, Urology, Infectious Disease, Wound Care, Surgery, Pulmonary, Neurology, Podiatry. PHYSICAL EXAMINATION: VITAL SIGNS: 97.5 temp, 69 pulse, 104/61 blood pressure, 23 respiratory rate, and 100% O2 sat on room air right now. HEENT: Head is atraumatic, normocephalic. He is alert and talking. HEART: Regular rate. LUNGS: Decreased breath sounds, but clear. ABDOMEN: Soft, morbidly obese, nontender. EXTREMITIES: +1/4 pitting edema, they are nice and wrinkly, they are very small, he came in 4/4 pitting edema. He has a left groin hard as a rock mass which was biopsied, waiting for the results. MEDICATIONS: He is on Ativan, Azactam, Cosopt, DuoNebs, potassium, Keppra, Lac-Hydrin, Lasix, Lotrisone, Lovenox, Periactin, Protonix, Pulmicort, Questran, Tamiflu, Tylenol, and vitamin B1. LABORATORY DATA: He has an 8.3 white count, 12.4 hemoglobin, 42.5 hematocrit with 165 platelets. He has 143 sodium, potassium 3.7, BUN 45, creatinine 1, GFR is greater than 60, sugar is 137, calcium is 9.1, total bili is 0.8, AST is 53, ALT is 31, alkaline phosphatase 72, total protein 6.7. ASSESSMENT AND PLAN: Overall, he has multiple problems from seizures, the left groin mass which is probably a cancer. He has a flu. , acute respiratory failure, was intubated and extubated, altered mental status, left leg cellulitis, congestive heart failure, coronary artery disease, sepsis. Right lower lobe pneumonia. I will continue with aggressive treatment and care on Mr. Abdifatah Granados who might need subacute rehab when we get him stable enough. We will check his labs tomorrow. Phuc Martinez DO
--- NOTE | 2017-11-14 19:35 | PN ---
DATE: PULMONARY PROGRESS NOTE LOCATION: Room 560. SUBJECTIVE: The patient remains in bed on BiPAP. He is poorly responsive. This is unchanged according to the registered nurse. There is no subjective changes noted at this time. PHYSICAL EXAMINATION: VITAL SIGNS: Stable. He remains with a low-grade temperature, pulse is 80, respirations 16 to 18, blood pressure 110/60, O2 sat 98% on BiPAP. HEENT: Normocephalic, atraumatic. No jugular venous distention. No lymphadenopathy. CARDIOVASCULAR: Regular rhythm. S1, S2. Soft systolic ejection murmur at the lower left sternal border. No gallop is heard. CHEST: Global decrease in breath sounds, scattered rales and rhonchi minimally. No wheezing is heard. ABDOMEN: Soft. Bowel sounds normoactive without mass, guarding, rebound or organomegaly. EXTREMITIES: Reveal no clubbing, cyanosis or edema. There is no Homans' sign. SKIN: Lesions as described as cellulitis, improved according to staff. NEUROLOGIC: Unable to fully evaluate, although he is reported to be unchanged. No lymphadenopathy - no lymph nodes are palpated. CLINICAL IMPRESSION: 1. Status post respiratory failure. 2. Going down, continued respiratory insufficiency. 3. Cellulitis. 4. Asthma. 5. Coronary artery disease. 6. Seizure disorder. PLAN: Continue vigorous bronchodilators and corticosteroids. Continue BiPAP at this time. Once the patient is better, his BiPAP will be able to be discontinued. We will continue vigorous supportive care at this time. Monitoring mental status. Follow up blood gas. Thank you for the opportunity to see this patient. Mahesh Dumont MD
--- NOTE | 2017-11-14 21:46 | CON ---
DATE: HISTORY OF PRESENT ILLNESS: An 87-year-old intubated man, seen at bedside for consultation, evaluation and management of stasis dermatitis of both lower legs as well as painful dystrophic, elongated fungal nail plates. PAST MEDICAL HISTORY: The patient's medical history is significant for CAD, essential hypertension, CHF, aortic stenosis, peripheral arterial disease, glaucoma and bouts of bilateral lower leg cellulitis. ALLERGIES: The patient has no known drug allergies. MEDICATIONS: All medications noted in MAR. FAMILY HISTORY: Unremarkable and noncontributory. SOCIAL HISTORY: There is no history of tobacco use, illicit drug use or alcohol abuse. PHYSICAL EXAMINATION: VITAL SIGNS: The patient's vital signs reveal a temperature of 97.5, pulse rate of 69, blood pressure of 104/61, respiratory rate of 23. EXTREMITIES: +2 pitting lower extremity edema was noted. Stasis dermatitis on both lower legs. There are no open lesions noted. There is no drainage; however, the area presents with dry scaly plaques. There are noted to be nonpalpable pedal pulses and nonpalpable popliteal pulse noted bilaterally. Capillary filling time is delayed x10. SKIN: All nail plates are noted to be elongated, thickened, dystrophic, discolored with severe subungual fungal debris and noted to be dry scaly plantar skin. No evidence of acute bacterial infection noted in lower extremities. LABORATORY FINDINGS: Reveal white count of 8.3, hemoglobin of 12.4, hematocrit of 34.5, platelet count of 165. All cultures taken, reveal no bacterial growth and no MRSA detected. ASSESSMENT: Peripheral arterial disease, stasis dermatitis of bilateral lower legs, painful onychomycosis. PLAN: Both legs were cleansed with normal sterile saline. We will apply Lotrisone cream twice daily to both lower legs. Excisional debridement was performed on all nail plates. We will keep heel boots in place to prevent skin breakdown on both heels. Podiatry will be consulted as needed. Frankie Lagunas DPM
[2017-11-15] MEDS: Albuterol-Ipratrop 3 mg / 0.5 (3 ml) UD IH SCH ×5 (01:15→20:14)
[2017-11-15] MEDS: Pantoprazole 40 mg EC Tab PO SCH (05:49)
[2017-11-15] MEDS: Aztreonam 1 Gm in NS 100mL 100 ML IVPB SCH (05:49)
[2017-11-15 07:07] LABS: MEAN CELL VOLUME 104.4 fl (80.0-105.0); MEAN CORPUSCULAR HGB CONC 29.7 g/dl (31.0-37.0); RBC 3.87 10^6/uL (3.5-6.1); RED CELL DISTRIBUTION WIDTH 13.9 % (11.5-14.5); WHITE BLOOD COUNT 8.7 10^3/ul (4.5-11.0)
[2017-11-15 07:29] LABS: ALB/GLOB RATIO 0.9 (1.1-1.8); ALBUMIN 2.8 g/dL (3.0-4.8); ALT/SGPT 34 U/L (7-56); AST/SGOT 44 U/L (17-59); BLOOD UREA NITROGEN 38 mg/dL (7-21); CALCIUM 8.7 mg/dL (8.4-10.5); GFR AFRICAN-AMERICAN > 60; GFR NON-AFRICAN AMERICAN > 60
[2017-11-15] MEDS: Budesonide 0.5 mg/2 ml Inhal Susp UD IH SCH ×3 (08:35→20:15)
[2017-11-15] MEDS: Potassium Chloride 20 mEq ER Tab PO SCH (08:43)
[2017-11-15] MEDS: Dorzolamide 2%/Timolol 0.5% 100 DROP/10 ML BOTTLE OU SCH ×2 (09:47→17:15)
[2017-11-15] MEDS: Clotrimazole/Betamethasone Lotion(30 ml) TOP SCH (09:47)
[2017-11-15] MEDS: Thiamine 100 mg/ml Inj IM SCH (09:48)
[2017-11-15] MEDS: Enoxaparin 40 mg Syringe SC SCH (09:48)
[2017-11-15] MEDS: Cholestyramine 4 gm/Pkt UD PO SCH (09:53)
--- NOTE | 2017-11-15 12:11 | PN ---
DATE: 11/15/2017 PULMONARY PROGRESS NOTE SUBJECTIVE: The patient is markedly better, feeling well, BiPAP is off. The patient is awake and alert, responsive. No complaints of shortness of breath, but he does complain of gurgling in the back of his throat. PHYSICAL EXAMINATION VITAL SIGNS: Stable. His heart rate is 80; respiratory rate is 16; O2 saturation 98%, on supplemental oxygen. HEENT: Normocephalic, atraumatic. NECK: He has no JVD. No lymphadenopathy. No bruit. CARDIOVASCULAR: Regular rhythm. S1, S2 without gallop or rub. There is a soft systolic ejection murmur noted. CHEST: Global decrease in breath sounds, scattered rales. Minimal rhonchi. No wheezing is auscultated. ABDOMEN: Soft. Bowel sounds normoactive without mass, guarding, rebound, or organomegaly. EXTREMITIES: Reveal no clubbing, cyanosis or edema. There is no Frandy sign. SKIN: Shows cellulitis somewhat improved. NEUROLOGIC STATUS: Awake, alert, oriented and appears to be moving all four extremities. Unable to further evaluate at this time. LYMPHADENOPATHY: Not present in the cervical, inguinal, axillary area as well as supraclavicular notch. CLINICAL IMPRESSION 1. Mild pulmonary vascular congestion. 2. Status post respiratory failure. 3. Respiratory insufficiency. 4. Cellulitis. 5. Asthma. 6. Coronary artery disease. 7. Seizure disorder. PLAN: The patient would benefit from further diuretics. Continues on bronchodilator and corticosteroids. He still continues to use BiPAP at night and he will be evaluated by Dr. Castrejon in the morning to see if any further intervention is required. His current steroids are only inhaled, they will not be tapered or discontinued. We will discuss with Dr. Castrejon regarding further evaluation in the morning. Mahesh Dumont MD
[2017-11-15] MEDS: Morphine 2 mg/ml ISec IVP PRN (13:10)
--- NOTE | 2017-11-15 13:37 | CP.PCM.PN ---
Subjective - Date & Time of Evaluation Date of Evaluation: 11/15/17 Time of Evaluation: 12:40 - Subjective Subjective: Comfortable in bed, no fevers, not in distress. More awake today. Objective - Vital Signs/Intake and Output Vital Signs (last 24 hours): Temp Pulse Resp BP Pulse Ox 99 F 71 19 123/62 97 11/15/17 07:56 11/15/17 07:56 11/15/17 07:56 11/15/17 09:50 11/15/17 07:56 Intake and Output: 11/15/17 11/15/17 06:59 18:59 Intake Total 80 Output Total 1000 Balance -920 - Medications Medications: Current Medications Acetaminophen (Tylenol 325 Mg Supp) 325 mg RC Q4H PRN PRN Reason: Fever >100.4 F Albuterol/Ipratropium (Duoneb 3 Mg/0.5 Mg (3 Ml) Ud) 3 ml IH [id number] [facility] Last Admin: 11/15/17 08:35 Dose: 3 ml Albuterol/Ipratropium (Duoneb 3 Mg/0.5 Mg (3 Ml) Ud) 3 ml IH Q2H PRN PRN Reason: Shortness of Breath Betamethasone/Clotrimazole (Lotrisone) 0 ml TOP DAILY [facility] Last Admin: 11/15/17 09:47 Dose: 1 applic Budesonide (Pulmicort Respules) 0.5 mg IH [id number] [facility] Last Admin: 11/15/17 08:35 Dose: 0.5 mg Cholestyramine Resin (Questran) 4 gm PO DAILY [facility] Last Admin: 11/15/17 09:53 Dose: 4 gm Cyproheptadine HCl (Periactin) 4 mg PO DAILY [facility] Last Admin: 11/10/17 09:34 Dose: 4 mg Dorzolamide/Timolol (Cosopt 2%-0.5% Opht) 1 drop OU BID [facility] Last Admin: 11/15/17 09:47 Dose: 1 drop Enoxaparin Sodium (Lovenox) 40 mg SC DAILY [facility] PRN Reason: Protocol Last Admin: 11/15/17 09:48 Dose: 40 mg Furosemide (Lasix) 40 mg IVP BID [facility] Last Admin: 11/15/17 09:50 Dose: 40 mg Lactic Acid (Lac-Hydrin 12% Lotion (225 G)) 0 gm EXT DAILY PRN PRN Reason: Dry skin Last Admin: 11/14/17 11:22 Dose: 1 applic Levetiracetam (Keppra) 250 mg PO BID [facility] Last Admin: 11/15/17 09:47 Dose: 250 mg Lorazepam (Ativan) 2 mg IVP Q2H PRN; Protocol PRN Reason: Seizure activity Last Admin: 11/10/17 12:17 Dose: 2 mg Oseltamivir Phosphate (Tamiflu Cap) 75 mg PO Q12 [facility] PRN Reason: Protocol Last Admin: 11/15/17 09:48 Dose: 75 mg Pantoprazole Sodium (Protonix Ec Tab) 40 mg PO 0600 [facility] Last Admin: 11/15/17 05:49 Dose: 40 mg Potassium Chloride (K-Dur 20 Meq Er Tab) 20 meq PO BRK [facility] Last Admin: 11/15/17 08:43 Dose: 20 meq Thiamine HCl (Vitamin B1 Inj) 100 mg IM DAILY [facility] Last Admin: 11/15/17 09:48 Dose: 100 mg - Labs Labs: 11/15/17 06:30 11/15/17 06:30 PT 12.4 SECONDS (9.4-12.5) 11/03/17 08:15 INR 1.08 (0.93-1.08) 11/03/17 08:15 - Constitutional Appears: Chronically Ill - Head Exam Head Exam: NORMAL INSPECTION - ENT Exam ENT Exam: Mucous Membranes Moist - Neck Exam Neck Exam: absent: Meningismus - Respiratory Exam Respiratory Exam: Decreased Breath Sounds - Cardiovascular Exam Cardiovascular Exam: +S1, +S2 - GI/Abdominal Exam GI & Abdominal Exam: Soft. absent: Tenderness Assessment and Plan - Assessment and Plan (Free Text) Plan: Assessment S/P sepsis due to Influenza R/O HCAP on the right lower lobe S/P VDRF after apparent witnessed seizure left inguinal indurated mass with left leg cellulitis S/P biopsy chronic CHF aortic insufficiency and stenosis history of melanoma Plan completed 5 days of Tamiflu and 7 days of Azactam - will continue to monitor the patient off antibiotics since he is at risk for nosocomial infections
--- NOTE | 2017-11-15 13:45 | PN ---
DATE: SUBJECTIVE: I saw him in bed. He is alert. He is talking better. Still some congestion in the lungs, but he looked better than yesterday. 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 I am hoping to eventually get him to . I am not sure do anything about this left groin mass. I re-consulted Surgery to get their opinion or do we need to get Hematology/Oncology to get their opinion if this is squamous cell mass in his left groin. I will get them in and also get their opinions. He is on Ativan, Cozaar, DuoNebs, potassium, Keppra, Lac-Hydrin, Lasix, Lotrisone, Lovenox, Periactin, Protonix, Pulmicort, Questran, Tamiflu, Tylenol, vitamin B1. OBJECTIVE: VITAL SIGNS: He has a 99 temperature, 71 pulse, 120/80 blood pressure, 19 respiratory rate, 97% O2 sat on room air. HEENT: His head is atraumatic, normocephalic. He is alert. He is talking stronger today. HEART: Regular rate. LUNGS: Decreased breath sounds bilaterally, but clear. ABDOMEN: Soft, morbidly obese. Positive bowel sounds. Left groin hard mass. EXTREMITIES: A +1/4 pitting edema, much better, very wrinkly, so keeping off the edema. LABORATORY DATA: He has an 8.7 white count, 12 hemoglobin, 40.4 hematocrit with 170 platelets. Sodium 139, potassium 3.6. BUN 38, creatinine 0.9, better. GFR is greater than 60. Sugar is 120. Calcium is 8.7. Total bili is 0.8, AST is 44, ALT is 34, alk phos 74, total protein 6.1. We consult Surgery to get their opinion if there have been any thoughts about doing surgery on this young man, also get the opinion of Oncology. They do think this is a cancer. I believe it might be squamous and will get the opinion of Dr. Lopez if anything he can do or just leave him alone. PLAN: The plan will be for subacute rehab. Multiple issues, left groin mass 2.22 probably squamous cell, CHF with edema improved, altered mental status, left leg cellulitis, right upper lobe pneumonia. He was intubated and extubated, acute respiratory failure, and questionable seizure, although the EEG says none. Continue with aggressive treatment and care. Phuc Martinez DO [facility]
--- NOTE | 2017-11-15 14:49 | CP.PCM.PN ---
Subjective - Date & Time of Evaluation Date of Evaluation: 11/15/17 Time of Evaluation: 14:45 - Subjective Subjective: Surgery: Dr. Hale Patient with no acute complaints at this time. Prior biopsy site stable. Objective - Vital Signs/Intake and Output Vital Signs (last 24 hours): Temp Pulse Resp BP Pulse Ox 99 F 71 19 123/62 97 11/15/17 07:56 11/15/17 07:56 11/15/17 07:56 11/15/17 09:50 11/15/17 07:56 Intake and Output: 11/15/17 11/15/17 06:59 18:59 Intake Total 80 200 Output Total 1000 Balance -920 200 - Medications Medications: Current Medications Acetaminophen (Tylenol 325 Mg Supp) 325 mg RC Q4H PRN PRN Reason: Fever >100.4 F Albuterol/Ipratropium (Duoneb 3 Mg/0.5 Mg (3 Ml) Ud) 3 ml IH [id number] [facility] Last Admin: 11/15/17 14:02 Dose: 3 ml Albuterol/Ipratropium (Duoneb 3 Mg/0.5 Mg (3 Ml) Ud) 3 ml IH Q2H PRN PRN Reason: Shortness of Breath Betamethasone/Clotrimazole (Lotrisone) 0 ml TOP DAILY [facility] Last Admin: 11/15/17 09:47 Dose: 1 applic Budesonide (Pulmicort Respules) 0.5 mg IH [id number] [facility] Last Admin: 11/15/17 08:35 Dose: 0.5 mg Cholestyramine Resin (Questran) 4 gm PO DAILY [facility] Last Admin: 11/15/17 09:53 Dose: 4 gm Cyproheptadine HCl (Periactin) 4 mg PO DAILY [facility] Last Admin: 11/10/17 09:34 Dose: 4 mg Dorzolamide/Timolol (Cosopt 2%-0.5% Opht) 1 drop OU BID [facility] Last Admin: 11/15/17 09:47 Dose: 1 drop Enoxaparin Sodium (Lovenox) 40 mg SC DAILY [facility] PRN Reason: Protocol Last Admin: 11/15/17 09:48 Dose: 40 mg Furosemide (Lasix) 40 mg IVP BID [facility] Last Admin: 11/15/17 09:50 Dose: 40 mg Lactic Acid (Lac-Hydrin 12% Lotion (225 G)) 0 gm EXT DAILY PRN PRN Reason: Dry skin Last Admin: 11/14/17 11:22 Dose: 1 applic Levetiracetam (Keppra) 250 mg PO BID [facility] Last Admin: 11/15/17 09:47 Dose: 250 mg Lorazepam (Ativan) 2 mg IVP Q2H PRN; Protocol PRN Reason: Seizure activity Last Admin: 11/10/17 12:17 Dose: 2 mg Morphine Sulfate (Morphine) 1 mg IVP Q4H PRN PRN Reason: Pain, moderate (4-7) Last Admin: 11/15/17 13:10 Dose: 1 mg Oseltamivir Phosphate (Tamiflu Cap) 75 mg PO Q12 [facility] PRN Reason: Protocol Last Admin: 11/15/17 09:48 Dose: 75 mg Pantoprazole Sodium (Protonix Ec Tab) 40 mg PO 0600 [facility] Last Admin: 11/15/17 05:49 Dose: 40 mg Potassium Chloride (K-Dur 20 Meq Er Tab) 20 meq PO BRK [facility] Last Admin: 11/15/17 08:43 Dose: 20 meq Thiamine HCl (Vitamin B1 Inj) 100 mg IM DAILY [facility] Last Admin: 11/15/17 09:48 Dose: 100 mg - Labs Labs: 11/15/17 06:30 11/15/17 06:30 PT 12.4 SECONDS (9.4-12.5) 11/03/17 08:15 INR 1.08 (0.93-1.08) 11/03/17 08:15 - Constitutional Appears: Chronically Ill - Head Exam Head Exam: ATRAUMATIC, NORMOCEPHALIC - ENT Exam ENT Exam: Mucous Membranes Moist - Respiratory Exam Respiratory Exam: NORMAL BREATHING PATTERN. absent: Respiratory Distress - Cardiovascular Exam Cardiovascular Exam: REGULAR RHYTHM. absent: Tachycardia - Extremities Exam Additional comments: left groin mass Assessment and Plan - Assessment and Plan (Free Text) Assessment: 87 y/o male w/ history of SCC, BCC, and melanoma with groin mass s/p biopsy favoring SCC Plan: -patient overall poor surgical candidate due to multiple comorbidities -may benefit from radiation chemotherapy to shrink mass as most likely metastatic disease -no surgical intervention at this time -discussed case with Dr. Geoffrey Romero PGY3
[2017-11-16] MEDS: Albuterol-Ipratrop 3 mg / 0.5 (3 ml) UD IH SCH ×3 (01:06→13:08)
[2017-11-16] MEDS: Morphine 2 mg/ml ISec IVP PRN (02:37)
[2017-11-16] MEDS: Pantoprazole 40 mg EC Tab PO SCH (05:49)
[2017-11-16] MEDS: Budesonide 0.5 mg/2 ml Inhal Susp UD IH SCH (07:08)
[2017-11-16 07:19] LABS: HEMOGLOBIN 12.7 g/dL (14.0-18.0); MEAN CELL VOLUME 103.2 fl (80.0-105.0); MEAN CORPUSCULAR HEMOGLOBIN 31.4 pg (25.0-35.0); MEAN CORPUSCULAR HGB CONC 30.4 g/dl (31.0-37.0); MEAN PLATELET VOLUME 11.1 fl (7.0-11.0); RBC 4.05 10^6/uL (3.5-6.1); RED CELL DISTRIBUTION WIDTH 13.7 % (11.5-14.5); WHITE BLOOD COUNT 9.3 10^3/ul (4.5-11.0)
[2017-11-16 07:33] LABS: ALB/GLOB RATIO 0.9 (1.1-1.8); ALT/SGPT 33 U/L (7-56); AST/SGOT 52 U/L (17-59); BLOOD UREA NITROGEN 34 mg/dL (7-21); CALCIUM 8.8 mg/dL (8.4-10.5); GFR AFRICAN-AMERICAN > 60; GFR NON-AFRICAN AMERICAN > 60
[2017-11-16 07:49] VITALS: PULSE 80
[2017-11-16] MEDS: Potassium Chloride 20 mEq ER Tab PO SCH (08:21)
--- NOTE | 2017-11-16 08:57 | PN ---
DATE: 11/16/2017 PULMONARY NOTE SUBJECTIVE: The patient appears comfortable this morning. He is not short of breath at rest. PHYSICAL EXAMINATION VITAL SIGNS: Temperature is 99.1, pulse 80, respirations 18/20, blood pressure 95/42. Oxygen saturation on nasal cannula is 95%. HEENT: Normocephalic, atraumatic. No JVD. CARDIOVASCULAR: Systolic ejection murmur at the lower left sternal border. No S3 gallop. LUNGS: Decreased breath sounds at the bases. Minimal rhonchi. No wheezing. EXTREMITIES: Positive for edema. No cyanosis or clubbing. Calves are nontender to palpation. GI: Abdomen is soft, nontender and nondistended. Bowel sounds are positive. SKIN: Multiple skin lesions are present. Improving left lower extremity cellulitis. NEUROLOGIC: Limited at the present time. IMPRESSION: 1. Multiple seizures. 2. Status post respiratory failure. 3. Left leg cellulitis. 4. 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 5. Asthma. 6. Anemia. 7. Coronary artery disease. PLAN: The patient appears comfortable this morning. He is not short of breath at rest. He does state to feeling much better overall. On physical exam, there is no significant bronchospasm noted. In addition, there is no significant alveolar-arterial gradient. I will continue with the current nebulizer treatments and inhaled steroids for now. Inputs by Infectious Disease and Surgery are noted. Pathology is also noted. Clinical status of the patient is significantly improved - compared to last week. However, unfortunately, the overall status/prognosis for this patient remains poor. All are aware. I will discuss the above with Dr. Martinez. Sajan Castrejon MD [facility]
[2017-11-16] MEDS: Enoxaparin 40 mg Syringe SC SCH (09:17)
[2017-11-16] MEDS: Ammonium Lactate 12% Lotion (225 g) EXT PRN (09:17)
[2017-11-16] MEDS: Dorzolamide 2%/Timolol 0.5% 100 DROP/10 ML BOTTLE OU SCH ×2 (09:18→17:10)
[2017-11-16] MEDS: Thiamine 100 mg/ml Inj IM SCH (09:18)
[2017-11-16] MEDS: Cholestyramine 4 gm/Pkt UD PO SCH (09:19)
[2017-11-16] MEDS: Clotrimazole/Betamethasone Lotion(30 ml) TOP SCH (09:20)
--- NOTE | 2017-11-16 12:37 | CP.PCM.PN ---
Subjective - Date & Time of Evaluation Date of Evaluation: 11/16/17 Time of Evaluation: 10:55 - Subjective Subjective: Comfortable in bed, no fevers, no diarrhea, no vomiting, left leg feels better. Objective - Vital Signs/Intake and Output Vital Signs (last 24 hours): Temp Pulse Resp BP Pulse Ox 99 F 80 20 92/46 L 92 L 11/16/17 07:51 11/16/17 07:51 11/16/17 07:51 11/16/17 09:20 11/16/17 07:51 Intake and Output: 11/16/17 11/16/17 06:59 18:59 Intake Total 360 Output Total 500 Balance -140 - Medications Medications: Current Medications Acetaminophen (Tylenol 325 Mg Supp) 325 mg RC Q4H PRN PRN Reason: Fever >100.4 F Albuterol/Ipratropium (Duoneb 3 Mg/0.5 Mg (3 Ml) Ud) 3 ml IH [id number] [facility] Last Admin: 11/16/17 07:08 Dose: 3 ml Albuterol/Ipratropium (Duoneb 3 Mg/0.5 Mg (3 Ml) Ud) 3 ml IH Q2H PRN PRN Reason: Shortness of Breath Betamethasone/Clotrimazole (Lotrisone) 0 ml TOP DAILY [facility] Last Admin: 11/16/17 09:20 Dose: 1 applic Budesonide (Pulmicort Respules) 0.5 mg IH [id number] [facility] Last Admin: 11/16/17 07:08 Dose: 0.5 mg Cholestyramine Resin (Questran) 4 gm PO DAILY [facility] Last Admin: 11/16/17 09:19 Dose: 4 gm Cyproheptadine HCl (Periactin) 4 mg PO DAILY [facility] Last Admin: 11/10/17 09:34 Dose: 4 mg Dorzolamide/Timolol (Cosopt 2%-0.5% Opht) 1 drop OU BID [facility] Last Admin: 11/16/17 09:18 Dose: 1 drop Enoxaparin Sodium (Lovenox) 40 mg SC DAILY [facility] PRN Reason: Protocol Last Admin: 11/16/17 09:17 Dose: 40 mg Furosemide (Lasix) 40 mg IVP BID [facility] Last Admin: 11/16/17 09:20 Dose: Not Given Lactic Acid (Lac-Hydrin 12% Lotion (225 G)) 0 gm EXT DAILY PRN PRN Reason: Dry skin Last Admin: 11/16/17 09:17 Dose: 1 applic Levetiracetam (Keppra) 250 mg PO BID [facility] Last Admin: 11/16/17 09:19 Dose: 250 mg Lorazepam (Ativan) 2 mg IVP Q2H PRN; Protocol PRN Reason: Seizure activity Last Admin: 11/10/17 12:17 Dose: 2 mg Morphine Sulfate (Morphine) 1 mg IVP Q4H PRN PRN Reason: Pain, moderate (4-7) Last Admin: 11/16/17 02:37 Dose: 1 mg Pantoprazole Sodium (Protonix Ec Tab) 40 mg PO 0600 [facility] Last Admin: 11/16/17 05:49 Dose: 40 mg Potassium Chloride (K-Dur 20 Meq Er Tab) 20 meq PO BRK [facility] Last Admin: 11/16/17 08:21 Dose: 20 meq Thiamine HCl (Vitamin B1 Inj) 100 mg IM DAILY [facility] Last Admin: 11/16/17 09:18 Dose: 100 mg - Labs Labs: 11/16/17 07:00 11/16/17 07:00 PT 12.4 SECONDS (9.4-12.5) 11/03/17 08:15 INR 1.08 (0.93-1.08) 11/03/17 08:15 - Constitutional Appears: Chronically Ill - Head Exam Head Exam: NORMAL INSPECTION - ENT Exam ENT Exam: Mucous Membranes Moist - Neck Exam Neck Exam: absent: Meningismus - Respiratory Exam Respiratory Exam: Decreased Breath Sounds - Cardiovascular Exam Cardiovascular Exam: +S1, +S2 - GI/Abdominal Exam GI & Abdominal Exam: Soft. absent: Tenderness Assessment and Plan - Assessment and Plan (Free Text) Plan: Assessment S/P sepsis due to Influenza R/O HCAP on the right lower lobe S/P VDRF after apparent witnessed seizure left inguinal indurated mass with left leg cellulitis S/P biopsy chronic CHF aortic insufficiency and stenosis history of melanoma Plan completed 5 days of Tamiflu and 7 days of Azactam - will continue to monitor the patient off antibiotics since he is at risk for hospital-acquired infections follow up results of the biopsy of the lesion on the left leg
--- NOTE | 2017-11-16 15:41 | PN ---
DATE: 11/16/2017 REASON FOR CONSULTATION AND FOLLOWUP: Cellulitis of lower extremity, congestive heart failure, status post intubation, lymphadenopathy, status post successful extubated. SUBJECTIVE: The patient denies any chest pain, shortness of breath, or any palpitation. He feels weak, otherwise okay. No chest pain. No shortness of breath or any palpitation. OBJECTIVE: GENERAL: Not in apparent distress. VITAL SIGNS: As follows: Temperature afebrile, heart rate 80, blood pressure 95/42. HEENT: PERRLA. Extraocular muscles intact. NECK: Supple. No carotid bruit or thyromegaly. CHEST: Clear to auscultation. HEART: S1 and S2, regular. ABDOMEN: Soft. EXTREMITIES: Clubbing and cyanosis negative. LABORATORY DATA: Blood workup as follows: WBC 9.3, hemoglobin 12.7, hematocrit 41.8, platelet count 204. Chemistry shows sodium 137, potassium 3.8, chloride 92, carbon dioxide 40, anion gap of 10, BUN , creatinine 0.4. IMPRESSION: Status post respiratory failure, seizure disorder, new onset, status post intubation,successful extubated,coronary artery disease, status post stent, last catheterization 2012 that shows patent stent, left groin mass lymphadenopathy rule out metastatic disease. Biopsy showed squamous cell carcinoma, history of coronary artery disease, history of stent, history of last echo shows ejection fraction 40% to 45%, moderate aortic stenosis, [id number] tricuspid regurgitation, right ventricular systolic pressure of 70. CAT scan of the neck could not be done. scan of the head because of inability to stand. RECOMMENDATIONS: Continue treatment for COPD. Continue gentle diuretics. Continue deep venous thrombosis prophylaxis. Continue morphine. Followup Heme-Onc if the left groin mass turns out to be squamous cell carcinoma. Also patient had probably it is metastatic disease of unknown primary. Probably the seizure could be secondary to metastasis to the brain, though CAT scan could not be done because the patient unable to stand and lie on the CT scan table. Medical treatment. Overall, patient's condition is critical. Long-term prognosis is guarded. Code status is DNR. Dominick Mcgowan MD
[2017-11-16 17:58] VITALS: BP 102/57; RESP 16; TEMP 98.5; O2SAT 90
--- NOTE | 2017-11-16 19:51 | CON ---
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 The patient was seen at the bedside with his daughter with whom he lives. PHYSICAL EXAMINATION: SKIN: Multiple skin lesions and he has had previous operation on the left thigh about 2 years ago for melanoma and squamous cell cancers. NODES: Nonpalpable in the axillary, cervical, or supraclavicular regions. LUNGS: Present some scattered wheezing. He does use oxygen at the bedside. HEART: S1 and S2. ABDOMEN: Shows no liver, no spleen, no tenderness. EXTREMITIES: No edema. Homans sign negative, but a right inguinal mass. The CAT scan shows that masses are about 10 cm with positive deeper lymph nodes. I explained to the patient and to the daughter and I do a diagram showing where these lymph nodes are. I said there is no surgery here. He is not medically able to do this and they will not be able to get all these lymph nodes. No radiation therapy at this time to evolve all these diseases; however, I did suggest Xeloda pills that he would take one tab p.o. q.12 hours Thursday to Fridays. He is also on Taxotere; however, I said no treatment will be given until he is out of rehab and he is more stable and he can get to the office. He lives on [address] [place] [address]. I gave him my phone number and address. She knows where it is, the daughter and also see if he is able to get to the office, we will further discuss the possibility of treatment. Marck Lopez MD
--- NOTE | 2017-11-17 07:56 | DS ---
HISTORY OF PRESENT ILLNESS: He is a DNR/DNI, and now he is alert, feedings himself in bed. I saw him with the hematology/oncologist about possible treatment for a squamous. He is less short of breath, less swollen. MEDICATIONS: He is on Ativan, Cosopt, DuoNeb, potassium, Keppra, Lac-Hydrin, Lasix, Lotrisone, Lovenox, morphine, Periactin, Protonix, Pulmicort, Questran, Tamiflu, Tylenol, and vitamin B1. PHYSICAL EXAMINATION: GENERAL: He is alert and talking. He is comfortable. No pain. VITAL SIGNS: He has 99 temperature, 80 pulse, 95/42 blood pressure, 20 respiratory rate, 92% O2 sat on 3 L. HEENT: His head is atraumatic, normocephalic. HEART: Regular rate. LUNGS: Decreased breath sounds but clear. ABDOMEN: Soft, morbidly obese, nontender. He has a solid mass in the left groin. EXTREMITIES: +1 over 4 pitting edema. ASSESSMENT AND PLAN: very, very well with the IV Lasix. I am hoping to get him to subacute rehab today, [facility], to continue the treatment and then after that Hematology/Oncology for treatment of the mass. He had seizures. He had left groin mass. He had the flu, acute respiratory failure, right upper lobe pneumonia, left cellulitis, and altered mental status. Hopefully, he will be discharged to subacute rehab today. Phuc Martinez DO MTDLg
--- NOTE | 2017-11-17 09:31 | PN ---
DATE: I was asked to see this patient because of the biopsy of the squamous cell in the left groin, which is probably metastatic. It is unclear about its primary, it could be renal transitional. He has had a large squamous cell of the left leg and also the source is unclear. The question is what to do for this mass in the groin. I reviewed the CAT scan done 2 weeks ago. The tumor seems to extend into the pectineus and splays apart the left superficial femoral and the deep femoral and there seems to be tumor between them. I don't think this is resectable for cure on the basis of that. In addition, the patient has lymphedema of the legs. He spends most of this time in a chair and he is 87 years of age. Groin dissection versus with multiple issues including declining function, which is marginal and thus consult is to Dr. Churchill, but I will be reluctant to go forward with an operation especially since I do not think it is going to be fully resectable. Tomas Hale MD
--- NOTE | 2017-11-26 00:56 | OP ---
PROCEDURE DATE: 11/05/2017 PREOPERATIVE DIAGNOSIS: Mass to the groin. POSTOPERATIVE DIAGNOSIS: Mass to the groin. OPERATION PERFORMED: Incisional biopsy. On the floor, Mr. Granados signed a consent. Timeout was done with the presence of the nurse where the patient was confirmed by diagnosis, consent, preparation, sedation if necessary. The patient was numbed with about 10 mL of 1% Xylocaine. SURGEON: Tomas Hale MD ASSISTANTS: and Dr. Bosch. DESCRIPTION OF PROCEDURE: In the room, supine, the area was infiltrated and after successful anesthesia, an 11 blade was used to incise the skin and Carlos Eduardo-Cut needle was run in for a total of about 4 to 5 passes. Good tissue was obtained and sent to the lab in formalin. There was regular bleeding, but a stitch was placed. Pressure dressing was applied and the patient was then put in the regular position. Pathology is pending. Tomas Hale MD MTDD
== END 2017-11-16 18:41 | DRG 823 ==
LOC: ED 07:36 → ERH 10:01 → 2A 11:34 → 3RSO 11-09 14:08 → ICU 11-09 21:25 → 5RNO 11-12 12:26
PROVIDERS: ADMIT Family Medicine; ATTEND Family Medicine
PROC: 0JBC0ZX Excision of Pelvic Region Subcutaneous Tissue and Fascia, Open Approach, Diagnostic (ICD-10-PCS; 2017-11-05)
PROC: 07BJ0ZX Excision of Left Inguinal Lymphatic, Open Approach, Diagnostic (ICD-10-PCS; 2017-11-05)
PROC: 5A1945Z Respiratory Ventilation, 24-96 Consecutive Hours (ICD-10-PCS; principal; 2017-11-09)
PROC: 0BH17EZ Insertion of Endotracheal Airway into Trachea, Via Natural or Artificial Opening (ICD-10-PCS; 2017-11-09)
PROC: 0HBRXZZ Excision of Toe Nail, External Approach (ICD-10-PCS; 2017-11-14)
PROC: 0HBRXZZ Excision of Toe Nail, External Approach (ICD-10-PCS; 2017-11-14)
PROC: 0HBRXZZ Excision of Toe Nail, External Approach (ICD-10-PCS; 2017-11-14)
PROC: 0HBRXZZ Excision of Toe Nail, External Approach (ICD-10-PCS; 2017-11-14)
PROC: 0HBRXZZ Excision of Toe Nail, External Approach (ICD-10-PCS; 2017-11-14)
PROC: 0HBRXZZ Excision of Toe Nail, External Approach (ICD-10-PCS; 2017-11-14)
PROC: 0HBRXZZ Excision of Toe Nail, External Approach (ICD-10-PCS; 2017-11-14)
PROC: 0HBRXZZ Excision of Toe Nail, External Approach (ICD-10-PCS; 2017-11-14)
PROC: 0HBRXZZ Excision of Toe Nail, External Approach (ICD-10-PCS; 2017-11-14)
PROC: 0HBRXZZ Excision of Toe Nail, External Approach (ICD-10-PCS; 2017-11-14)
DX: C77.5 Secondary and unspecified malignant neoplasm of intrapelvic lymph nodes (principal); J10.00 Influenza due to other identified influenza virus with unspecified type of pneumonia; J96.00 Acute respiratory failure, unspecified whether with hypoxia or hypercapnia; A41.9 Sepsis, unspecified organism; E87.4 Mixed disorder of acid-base balance; C79.2 Secondary malignant neoplasm of skin; I11.0 Hypertensive heart disease with heart failure; E66.01 Morbid (severe) obesity due to excess calories; I42.9 Cardiomyopathy, unspecified; I50.42 Chronic combined systolic (congestive) and diastolic (congestive) heart failure; L03.115 Cellulitis of right lower limb; L03.116 Cellulitis of left lower limb; I08.3 Combined rheumatic disorders of mitral, aortic and tricuspid valves; I27.20 Pulmonary hypertension, unspecified; C80.1 Malignant (primary) neoplasm, unspecified; I48.91 Unspecified atrial fibrillation; B35.1 Tinea unguium; I49.5 Sick sinus syndrome; D64.9 Anemia, unspecified; E78.5 Hyperlipidemia, unspecified; E87.6 Hypokalemia; G40.909 Epilepsy, unspecified, not intractable, without status epilepticus; H40.9 Unspecified glaucoma; I25.10 Atherosclerotic heart disease of native coronary artery without angina pectoris; I73.9 Peripheral vascular disease, unspecified; I87.2 Venous insufficiency (chronic) (peripheral); I87.8 Other specified disorders of veins; J45.909 Unspecified asthma, uncomplicated; K21.9 Gastro-esophageal reflux disease without esophagitis; K52.9 Noninfective gastroenteritis and colitis, unspecified; M06.9 Rheumatoid arthritis, unspecified; N48.1 Balanitis; Z66 Do not resuscitate; Z78.9 Other specified health status; Z85.820 Personal history of malignant melanoma of skin; Z86.73 Personal history of transient ischemic attack (TIA), and cerebral infarction without residual deficits; Z87.01 Personal history of pneumonia (recurrent); Z90.49 Acquired absence of other specified parts of digestive tract; Z91.81 History of falling; Z95.0 Presence of cardiac pacemaker; Z95.5 Presence of coronary angioplasty implant and graft; Z95.810 Presence of automatic (implantable) cardiac defibrillator; R40.2412 Glasgow coma scale score 13-15, at arrival to emergency department; R59.0 Localized enlarged lymph nodes; Z98.42 Cataract extraction status, left eye; Z98.41 Cataract extraction status, right eye

== ENCOUNTER 2018-02-01 11:30 | Inpatient (IN) | payer MEDICARE ==
[2018-02-01 12:05] VITALS: BMI 32.5
[2018-02-01] MEDS ORDERED: Vancomycin 1gm in NS 250ml 1 GM/250 ML BAG IVPB STA (12:05)
[2018-02-01] MEDS ORDERED: cefTRIAXone 1 gm 1 GM/100 ML BAG IVPB STA (12:05)
[2018-02-01 12:17] LABS: BASO # 0.01 K/mm3 (0.0-2.0); BASO % 0.1 % (0.0-3.0); EOS % 0.1 % (1.5-5.0); GRAN # 5.93 (1.4-6.5); GRAN % 70.8 % (50.0-68.0); HEMOGLOBIN 10.8 g/dL (14.0-18.0); LYMPH # 1.7 (1.2-3.4); LYMPH % 20.5 % (22.0-35.0); MEAN CELL VOLUME 101.4 fl (80.0-105.0); MEAN CORPUSCULAR HEMOGLOBIN 30.2 pg (25.0-35.0); MEAN CORPUSCULAR HGB CONC 29.8 g/dl (31.0-37.0); MEAN PLATELET VOLUME 8.8 fl (7.0-11.0); MONO # 0.7 (0.1-0.6); MONO % 8.5 % (1.0-6.0); RBC 3.58 10^6/uL (3.5-6.1); RED CELL DISTRIBUTION WIDTH 16.9 % (11.5-14.5); WHITE BLOOD COUNT 8.4 10^3/ul (4.5-11.0)
[2018-02-01 12:19] LABS: VENOUS BLOOD GAS BASE EXCESS 4.8 mmol/L (0.0-2.0); VENOUS BLOOD GAS PO2 248 mm/Hg (30-55); VENOUS BLOOD PH 7.31 (7.32-7.43)
--- NOTE | 2018-02-01 12:22 | ED PDOC ---
Arrival/HPI - General Chief Complaint: Weakness/Neurological Deficit Time Seen by Provider: 02/01/18 11:57 Historian: Family (Daughter) EM Caveat: Acuity of Condition - Critical Care Critical Care Minutes: 30 minutes - History of Present Illness Narrative History of Present Illness (Text): 02/01/18 12:14 A 87 year old male brought into the emergency department from home by EMS accompanied by daughter for evaluation. Daughter complains of generalized weakness, fatigue, failure to thrive, foul smell, fever, chills and shortness of breath. Patient was seen by visiting nurse this morning who called 911. Patient has a large mass to left groin, which daughter reports was biopsied and showed squamous cell carcinoma. Patient has not started treatment yet. Patient has a chronic virgen in place, that daughter has been changing. She reports it has become foul smelling. Daughter notes patient is more confused than normal. HPI and ROS limited. Patient has a standing will and is DNR. PMD: Dr. Martinez Grain Weigher: Dr. Floyd Context: Home Associated Symptoms (Text): 02/01/18 12:29 Brought to the emergency department from home via ambulance accompanied by his daughter who gives the history. Increasing confusion with weakness and failure to thrive over the last several days. There is a large ecchymotic erythematous left groin mass which the daughter reports is squamous cell carcinoma, which has not yet been treated. He does have a living will and is a DNR. The daughter has been changing the patient's Virgen catheter and it has now become foul smelling with discharge. He is ill-appearing and hypotensive. Past Medical History - Provider Review Nursing Documentation Reviewed: Yes - Infectious Disease Hx of Infectious Diseases: None - Tetanus Immunization Tetanus Immunization: Unknown - Cardiac Hx Congestive Heart Failure: Yes - Pulmonary Hx Respiratory Disorders: Yes Hx Asthma: Yes Hx Pneumonia: Yes (09-19-13) - Neurological Hx Neurological Disorder: Yes Hx Transient Ischemic Attacks (TIA): Yes (02-18-11) - HEENT Hx Cataracts: Yes (BILATERAL SX) - Renal Hx Renal Disorder: No - Endocrine/Metabolic Hx Endocrine Disorders: No - Hematological/Oncological Hx Blood Disorders: Yes Hx Cancer: Yes (SKIN CA,SKIN MELANOMA,SQUAMOUS) - Integumentary Hx Dermatological Disorder: Yes (CELLULITIS TO LEFT GROIN AREA-MASS 11-03-17) Other/Comment: SQUAMOUS CELL CA,MELANOMA WITH CAUTHERIZATION - Musculoskeletal/Rheumatological Hx Arthritis: Yes - Gastrointestinal Hx Gastrointestinal Disorders: Yes (RECTAL BLEED,GERD) - Genitourinary/Gynecological Hx Genitourinary Disorders: No - Psychiatric Hx Psychophysiologic Disorder: No Hx Substance Use: No - Surgical History Other/Comment: CATARACT SURGERY BILATERAL EYE. right hemicolectomy - Anesthesia Hx Anesthesia Reactions: No Hx Malignant Hyperthermia: No - Suicidal Assessment Feels Threatened In Home Enviroment: No Family/Social History - Physician Review Nursing Documentation Reviewed: Yes Family/Social History: No Known Family HX Smoking Status: Never Smoked Hx Alcohol Use: No Hx Substance Use: No Hx Substance Use Treatment: No Allergies/Home Meds Allergies/Adverse Reactions: Allergies No Known Allergies Allergy (Verified 11/03/17 11:37) Home Medications: Home Meds Medication Instructions Recorded Confirmed Cholestyramine [Questran] 1 pkt PO DAILY 11/03/17 11/03/17 Dorzolamide 2%/Timolol 0.5% 1 drop OU BID 11/03/17 11/03/17 [Cosopt 2%-0.5% Opht] Furosemide [Lasix] 40 mg PO BID 11/03/17 11/03/17 Review of Systems - Review of Systems Systems not reviewed;Unavailable: Acuity of Condition Physical Exam Vital Signs Reviewed: Yes Vital Signs Temp Pulse Resp BP Pulse Ox 02/01/18 13:05 83 18 95/49 L 97 02/01/18 12:33 89 19 83/57 L 100 02/01/18 12:16 99.9 F H 02/01/18 12:03 96 H 20 78/55 L 100 Temperature: Afebrile Blood Pressure: Hypotensive Pulse: Tachycardic Respiratory Rate: Normal Appearance: Positive for: Ill-Appearing (Chronically ill appearing) Pain Distress: None Mental Status: Positive for: other (oriented x 2) Finger Stick Blood Glucose: 132 - Systems Exam Head: Present: Atraumatic, Normocephalic Pupils: Present: PERRL Extroacular Muscles: Present: EOMI Conjunctiva: Present: Normal Mouth: Present: Moist Mucous Membranes Pharnyx: No: ERYTHEMA, EXUDATE, TONSILS ENLARGED Respiratory/Chest: Present: Decreased Breath Sounds. No: Respiratory Distress, Accessory Muscle Use Cardiovascular: Present: Normal S1, S2, Tachycardic. No: Murmurs Abdomen: Present: Normal Bowel Sounds, Mass/Organomegaly (Large mass to left groin). No: Tenderness, Distention, Peritoneal Signs, Rebound, Guarding Upper Extremity: Present: Normal Inspection, NORMAL PULSES. No: Cyanosis, Edema Lower Extremity: Present: Edema (+1 pitting edema bilaterally), NORMAL PULSES, Other (chronic venous stasis changes). No: CALF TENDERNESS Neurological: Present: GCS=15, CN II-XII Intact, Speech Normal, Motor Func Grossly Intact Skin: Present: Warm, Dry, Normal Color. No: Rashes Psychiatric: Present: Alert. No: Oriented x 3 (Oriented x 2) Medical Decision Making ED Course and Treatment: 02/01/18 12:13 Impression: A 87 year old male brought in for evaluation. Daughter complains of generalized weakness, fatigue, failure to thrive, foul smell, fever, chills and shortness of breath. Plan: -- Chest xray -- EKG -- Labs -- Blood nad Urine culture -- Urinalysis -- Lactated ringers, Rocephin and Vancomycin -- Reassess and disposition Progress Notes: Report Date : 02/01/2018 12:43:11 Procedure: Chest xray Dictator : Puneet Herring MD Impression: Small bibasilar infiltrates and effusions 02/01/18 12:[address] Martinez, agrees with admission to telemetry. Requests skidder operator Dr. Bo, netbackup admin Dr. Castrejon, and infectious disease specialist Dr. Rascon for consult. 02/01/18 12:58 Dr Martinez [facility]. 02/01/18 14:32 EKG is pacing rate approximately 90 - Lab Interpretations Lab Results: 02/01/18 12:12 02/01/18 12:12 Lab Results 02/01/18 12:12: Sodium 140, Chloride 99, Potassium 5.0, Carbon Dioxide 34 H, Anion Gap 12, BUN 22 H, Creatinine 1.0, Est GFR ( Amer) > 60, Est GFR ( Non-Af Amer) > 60, Random Glucose 142 H, Calcium 8.4, Phosphorus 5.8 H, Magnesium 2.1, Total Bilirubin 0.6, AST 43, ALT 23, Alkaline Phosphatase 97, Troponin I 0.02 D, NT-Pro-B Natriuret Pep 4350 H, Total Protein 5.9, Albumin 2.8 L, Globulin 3.1, Albumin/Globulin Ratio 0.9 L 02/01/18 12:12: pO2 248 H, VBG pH 7.31 L, VBG pCO2 66.0 H*, VBG HCO3 33.2 H, VBG Total CO2 35.2 H, VBG O2 Sat (Calc) 99.5 H, VBG Base Excess 4.8 H, VBG Potassium 4.8, Sodium 135.0, Chloride 100.0, Glucose 146 H, Lactate 2.4 H, FiO2 21.0, Venous Blood Potassium 4.8 02/01/18 12:12: PT 13.4 H, INR 1.16 H, APTT 33.7 02/01/18 12:12: WBC 8.4, RBC 3.58, Hgb 10.8 L, Hct 36.3 L, MCV 101.4, MCH 30.2, MCHC 29.8 L, RDW 16.9 H, Plt Count 284, MPV 8.8, Gran % 70.8 H, Lymph % (Auto) 20.5 L, [place] % (Auto) 8.5 H, Eos % (Auto) 0.1 L, Baso % (Auto) 0.1, Gran # 5.93 , Lymph # (Auto) 1.7, [place] # (Auto) 0.7 H, Eos # (Auto) 0.0, Baso # (Auto) 0.01 02/01/18 12:02: POC Glucose (mg/dL) 132 H I have reviewed the lab results: Yes - RAD Interpretation Radiology Orders: 02/01/18 12:05 CHEST PORTABLE [RAD] Stat Chest 1 view shows small bilateral pleural effusions and bilateral infiltrates. Belt Press Operator: Radiologist - Medication Orders Current Medication Orders: Meropenem (Merrem Iv 1 Gm Premix) 50 mls @ 100 mls/hr IVPB Q8 KELLY PRN Reason: Protocol Vancomycin HCl (Vancomycin 1gm) 1 gm in 250 mls @ 167 mls/hr IVPB Q12H KELLY PRN Reason: Protocol Doxycycline Hyclate 100 mg/ (Sodium Chloride) 100 mls @ 100 mls/hr IVPB Q12 KELLY PRN Reason: Protocol Discontinued Medications Lactated Ringer's 3,000 ml/ IV (SUPPLIES) 3,000 mls @ 5,987.4 mls/hr IV ONCE ONE PRN Reason: 60 ML/KG/HR Stop: 02/01/18 12:06 Last Admin: 02/01/18 14:09 Dose: 5,987.4 mls/hr eMAR Start Stop Document 02/01/18 14:09 NATHALY (Rec: 02/01/18 14:09 NATHALY [id number]) Intravenous Solution Start Date 02/01/18 Start Time 14:09 Ceftriaxone Sodium (Rocephin 1 Gram Ivpb) 1 gm in 100 mls @ 200 mls/hr IVPB STAT STA PRN Reason: Protocol Stop: 02/01/18 12:34 Last Admin: 02/01/18 14:13 Dose: 200 mls/hr eMAR Start Stop Document 02/01/18 14:13 NATHALY (Rec: 02/01/18 14:13 NATHALY [id number]) Intravenous Solution Start Date 02/01/18 Start Time 14:13 Vancomycin HCl (Vancomycin 1gm) 1 gm in 250 mls @ 167 mls/hr IVPB STAT STA PRN Reason: Protocol Stop: 02/01/18 13:34 - Scribe Statement The provider has reviewed the documentation as recorded by the Bakari Colon Provider Scribe Attestation: All medical record entries made by the Scribe were at my direction and personally dictated by me. I have reviewed the chart and agree that the record accurately reflects my personal performance of the history, physical exam, medical decision making, and the department course for this patient. I have also personally directed, reviewed, and agree with the discharge instructions and disposition. Disposition/Present on Arrival - Present on Arrival Any Indicators Present on Arrival: No History of DVT/PE: No History of Uncontrolled Diabetes: No Urinary Catheter: No History of Decub. Ulcer: No History Surgical Site Infection Following: None - Disposition Have Diagnosis and Disposition been Completed?: Yes Diagnosis: CHF (congestive heart failure), Hypotension, Pleural effusion, Pneumonia, Sepsis, Weakness, Altered mental status, Fever, Urinary tract infection Disposition: HOSPITALIZED Disposition Time: 13:00 Patient Plan: Admission, Telemetry Patient Problems: Current Active Problems Problem Status Onset Altered mental status Acute CHF (congestive heart failure) Acute Fever Acute Hypotension Acute Pleural effusion Acute Pneumonia Acute Sepsis Acute Urinary tract infection Acute Weakness Acute Condition: CRITICAL
[2018-02-01 12:26] LABS: ALB/GLOB RATIO 0.9 (1.1-1.8); ALBUMIN 2.8 g/dL (3.0-4.8); ALT/SGPT 23 U/L (7-56); AST/SGOT 43 U/L (17-59); BLOOD UREA NITROGEN 22 mg/dL (7-21); CALCIUM 8.4 mg/dL (8.4-10.5); GFR AFRICAN-AMERICAN > 60; GFR NON-AFRICAN AMERICAN > 60
[2018-02-01 12:31] LABS: INR 1.16 (0.93-1.08); PARTIAL THROMBOPLASTIN TIME 33.7 Seconds (25.1-36.5); PROTHROMBIN TIME 13.4 SECONDS (9.4-12.5)
[2018-02-01 12:39] LABS: B-TYPE NATRIURETIC PEPTIDE 4350 pg/mL (0-450); TROPONIN I 0.02 ng/mL
--- NOTE | 2018-02-01 12:44 | RAD ---
HISTORY: Sepsis Patient COMPARISON: 11/12/2017 FINDINGS: LUNGS: Small bilateral pleural effusions and bibasilar infiltrates PLEURA: No significant pleural effusion identified, no pneumothorax apparent. CARDIOVASCULAR: Moderate cardiomegaly OSSEOUS STRUCTURES: No significant abnormalities. VISUALIZED UPPER ABDOMEN: Normal. OTHER FINDINGS: Right-sided pacemaker IMPRESSION: Small bibasilar infiltrates and effusions
[2018-02-01] MEDS ORDERED: Meropenem IV 1 gm in NS 50 ML IVPB SCH (14:30)
--- NOTE | 2018-02-01 14:37 | CP.PCM.CON ---
History of Present Illness - History of Present Illness History of Present Illness: 87 year old male with PMH of chronic CHF, aortic insufficiency and stenosis, history of melanoma was brought in by the daughter to [facility] [place] because of lethargy and cough for the past 2-3 days, associated with some breathing problems. As per daughter, he came home from rehab this month and has had a Virgen catheter ( changed monthly) since he was admitted in [facility] [place] in 2017. At that time he was treated for Influenza. He also has a squamous cell carcinoma skin mass on the left leg. Patient had been eating until about 3 days ago, and has only had a banana in the past 48 hours and some water. Patient also has loose stools as per daughter. His virgen has also been leaking and it is now changed in the ED. As per daughter, the patient seems to be hallucinating as well. There is no vomiting, no convulsions, and although there is cough the patient is apparently not able to bring up phlegm. In the ED, the patient is noted to have low blood pressure, looked ill, lethargic and with a temperature of 99.9 F. Infectious diseases consult is requested to further evaluate and manage. Review of Systems - Review of Systems Systems not reviewed;Unavailable: Altered Mental Status Past Patient History - Infectious Disease Hx of Infectious Diseases: None - Tetanus Immunizations Tetanus Immunization: Unknown - Past Medical History & Family History Past Medical History?: Yes - Past Social History Smoking Status: Never Smoked - CARDIAC Hx Congestive Heart Failure: Yes - PULMONARY Hx Respiratory Disorders: Yes Hx Asthma: Yes Hx Pneumonia: Yes (09-19-13) - NEUROLOGICAL Hx Neurological Disorder: Yes Hx Transient Ischemic Attacks (TIA): Yes (02-18-11) - HEENT Hx Cataracts: Yes (BILATERAL SX) - RENAL Hx Chronic Kidney Disease: No - ENDOCRINE/METABOLIC Hx Endocrine Disorders: No - HEMATOLOGICAL/ONCOLOGICAL Hx Blood Disorders: Yes Hx Cancer: Yes (SKIN CA,SKIN MELANOMA,SQUAMOUS) - INTEGUMENTARY Hx Dermatological Problems: Yes (CELLULITIS TO LEFT GROIN AREA-MASS 11-03-17) Other/Comment: SQUAMOUS CELL CA,MELANOMA WITH CAUTHERIZATION - MUSCULOSKELETAL/RHEUMATOLOGICAL Hx Arthritis: Yes - GASTROINTESTINAL Hx Gastrointestinal Disorders: Yes (RECTAL BLEED,GERD) - GENITOURINARY/GYNECOLOGICAL Hx Genitourinary Disorders: No - PSYCHIATRIC Hx Psychophysiologic Disorder: No Hx Substance Use: No - SURGICAL HISTORY Other/Comment: CATARACT SURGERY BILATERAL EYE. right hemicolectomy - ANESTHESIA Hx Anesthesia Reactions: No Hx Malignant Hyperthermia: No Meds Allergies/Adverse Reactions: Allergies Allergy/AdvReac Type Severity Reaction Status Date / Time No Known Allergies Allergy Verified 11/03/17 11:37 - Medications Medications: Current Medications Vancomycin HCl (Vancomycin 1gm) 1 gm in 250 mls @ 167 mls/hr IVPB STAT STA PRN Reason: Protocol Stop: 02/01/18 13:34 Physical Exam - Constitutional Appears: Chronically Ill, Other (lethargic, arousable by tactile and verbal stimuli but does not follow commands) - Head Exam Head Exam: NORMAL INSPECTION - Neck Exam Neck exam: Negative for: Meningismus - Respiratory Exam Respiratory Exam: Decreased Breath Sounds, Rales (scattered) - Cardiovascular Exam Cardiovascular Exam: +S1, +S2 - GI/Abdominal Exam GI & Abdominal Exam: Soft. absent: Tenderness Results - Vital Signs Recent Vital Signs: Last Vital Signs Temp 99.9 F H 02/01/18 12:16 Pulse 83 02/01/18 13:05 Resp 18 02/01/18 13:05 BP 95/49 L 02/01/18 13:05 Pulse Ox 97 02/01/18 13:05 - Labs Result Diagrams: 02/01/18 12:12 02/01/18 12:12 Assessment & Plan - Assessment and Plan (Free Text) Plan: Assessment systemic inflammatory response syndrome (tachypnea and tachycardia), with acute encephalopathy and lactic acidosis, R/O severe sepsis from bilateral HCAP, R/O UTI squamous cell carcinoma on left leg history of sepsis due to Influenza R/O HCAP on the right lower lobe history of VDRF after apparent witnessed seizure left inguinal indurated mass with left leg cellulitis S/P biopsy chronic CHF aortic insufficiency and stenosis history of melanoma Plan since patient had previous history of witnessed seizure, will avoid merrem for now, start IV Vancomycin, Cefepime, Doxycycline and a dose of IV amikacin pending blood, urine, sputum cx; will also follow up PCT; reviewed CXR needs local wound care for decubitus ulcers will monitor clinically overall prognosis is poor - patient is DNR
[2018-02-01] MEDS ORDERED: Amikacin 500 MG in Dextrose 5% In Water 100 ML IVPB ONE ×2 (14:45→18:30)
[2018-02-01 14:52] LABS: URINE BILIRUBIN SMALL (NEGATIVE); URINE BLOOD LARGE (NEGATIVE); URINE GLUCOSE (UA) NEGATIVE (NEGATIVE); URINE LEUKOCYTE ESTERASE SMALL Leu/uL (NEGATIVE); URINE PROTEIN 100 mg/dL (<30 mg/dL); URINE UROBILINOGEN 0.2 E.U./dL (<1 E.U./dL)
[2018-02-01 15:06] LABS: URINE APPEARANCE SL CLOUDY (CLEAR); URINE COLOR YELLOW (YELLOW)
[2018-02-01 15:07] LABS: URINE BACTERIA LARGE (NEG); URINE RBC TNTC /hpf (0-2); URINE WBC 15 - 20 /hpf (0-6)
[2018-02-01 15:08] LABS: URINE AMORPHOUS SEDIMENT SMALL
[2018-02-01] MEDS ORDERED: Enoxaparin 40 mg Syringe SC STA (16:23)
--- NOTE | 2018-02-01 16:28 | CARD ---
APPROVED REPORT EKG Measurement Heart [id number] [place] [id number] [id number] <Conclusion> DDD pacemaker
[2018-02-01] MEDS ORDERED: Sodium Chloride 0.9% 1,000 ML IV SCH (16:30)
[2018-02-01 17:19] LABS: VENOUS BLOOD GAS BASE EXCESS 4.6 mmol/L (0.0-2.0); VENOUS BLOOD GAS PO2 78 mm/Hg (30-55); VENOUS BLOOD PH 7.21 (7.32-7.43)
[2018-02-01] MEDS: Cefepime IV 2 gm in NS 2 GM/100 ML BAG IVPB SCH ×2 (17:35→22:02)
--- NOTE | 2018-02-01 21:03 | CP.PCM.CON ---
History of Present Illness - History of Present Illness History of Present Illness: Surgery Consult note. Dr. Bacon Consulted for sacral wound. 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 As per daughter, patient has been c/o worsening shortness of breath, fatigue, AMS, lethargy for the past 3-4 days. Today, home health nurse evaluated the patient and referred the patient to the ED. Patient was recently discharged from a rehab facility and has had an indwelling virgen catheter. As per daughter, urine has been foul smelling over the past few days. Left leg mass has been present and bx done in Oct with probable squamous cell CA. As per chart review, patient has documented DNR status. Unknown when patient developed sacral wounds. In the ED, patient was found to be febrile, 99.9F and hypotensive responsive to fluids. No reports of convulsions, no N/V/D. No apparent abdominal pain. PMHx: Asthma, CHF, TIA, Arthritis, GERD, left groin Squamous Cell CA PSHx: Cataracts bilateral, Right hemicolectomy Family Hx: non-contributory Social Hx: lives at home with daughter, visiting home health. No Tobacco use NKDA Review of Systems - Review of Systems All systems: reviewed and no additional remarkable complaints except Past Patient History - Infectious Disease Hx of Infectious Diseases: None - Tetanus Immunizations Tetanus Immunization: Unknown - Past Medical History & Family History Past Medical History?: Yes Past Family History: Reviewed and not pertinent - Past Social History Smoking Status: Never Smoked - CARDIAC Hx Congestive Heart Failure: Yes - PULMONARY Hx Respiratory Disorders: Yes Hx Asthma: Yes Hx Pneumonia: Yes (09-19-13) - NEUROLOGICAL Hx Neurological Disorder: Yes Hx Transient Ischemic Attacks (TIA): Yes (02-18-11) - HEENT Hx Cataracts: Yes (BILATERAL SX) - RENAL Hx Chronic Kidney Disease: No - ENDOCRINE/METABOLIC Hx Endocrine Disorders: No - HEMATOLOGICAL/ONCOLOGICAL Hx Blood Disorders: Yes Hx Cancer: Yes (SKIN CA,SKIN MELANOMA,SQUAMOUS) - INTEGUMENTARY Hx Dermatological Problems: Yes (CELLULITIS TO LEFT GROIN AREA-MASS 11-03-17) Other/Comment: SQUAMOUS CELL CA,MELANOMA WITH CAUTHERIZATION - MUSCULOSKELETAL/RHEUMATOLOGICAL Hx Arthritis: Yes - GASTROINTESTINAL Hx Gastrointestinal Disorders: Yes (RECTAL BLEED,GERD) - GENITOURINARY/GYNECOLOGICAL Hx Genitourinary Disorders: No - PSYCHIATRIC Hx Psychophysiologic Disorder: No Hx Substance Use: No - SURGICAL HISTORY Other/Comment: CATARACT SURGERY BILATERAL EYE. right hemicolectomy - ANESTHESIA Hx Anesthesia Reactions: No Hx Malignant Hyperthermia: No Meds Allergies/Adverse Reactions: Allergies Allergy/AdvReac Type Severity Reaction Status Date / Time No Known Allergies Allergy Verified 02/01/18 22:25 - Medications Medications: Current Medications Enoxaparin Sodium (Lovenox) 40 mg SC DAILY KELLY PRN Reason: Protocol Furosemide (Lasix) 20 mg IVP 0800,1400 KELLY Vancomycin HCl (Vancomycin 1gm) 1 gm in 250 mls @ 167 mls/hr IVPB Q12H KELLY PRN Reason: Protocol Doxycycline Hyclate 100 mg/ (Sodium Chloride) 100 mls @ 100 mls/hr IVPB Q12 KELLY PRN Reason: Protocol Last Admin: 02/01/18 17:36 Dose: Not Given Cefepime HCl (Maxipime 2gm) 2 gm in 100 mls @ 100 mls/hr IVPB Q8 KELLY PRN Reason: Protocol Stop: 02/06/18 14:46 Last Admin: 02/01/18 17:35 Dose: Not Given Sodium Chloride (Sodium Chloride 0.9%) 1,000 mls @ 50 mls/hr IV .Q20H [facility] Stop: 02/02/18 23:59 Last Admin: 02/01/18 17:26 Dose: 50 mls/hr Insulin Human Regular (Humulin R Med) 0 units SC ACHS KELLY PRN Reason: Protocol Physical Exam - Constitutional Appears: Chronically Ill - Head Exam Head Exam: ATRAUMATIC, NORMAL INSPECTION, NORMOCEPHALIC - ENT Exam ENT Exam: Mucous Membranes Moist - GI/Abdominal Exam GI & Abdominal Exam: Soft. absent: Distended, Firm, Guarding, Rebound, Tenderness - Exam Additional comments: Virgen catheter in place with yellow, some purulence/sediment urine. - Extremities Exam Additional comments: left groin: large, firm mass. Discolored center. Non-mobile. - Back Exam Additional comments: sacral wound: two deep approximately 3cm x 2cm wounds. Stage IV. Surrounding erythema. No induration, no fluctuance - Neurological Exam Additional comments: lethargic, responsive to verbal stimuli. Does not respond to questioning. Results - Vital Signs Recent Vital Signs: Last Vital Signs Temp 98 F 02/01/18 18:00 Pulse 76 02/01/18 18:00 Resp 18 02/01/18 18:00 BP 114/56 L 02/01/18 18:00 Pulse Ox 99 02/01/18 18:00 - Labs Result Diagrams: 02/01/18 12:12 02/01/18 12:12 Labs: Laboratory Results - last 24 hr 02/01/18 02/01/18 14:00 17:05 pO2 78 H VBG pH 7.21 L VBG pCO2 89.0 H* VBG HCO3 35.6 H VBG Total CO2 38.3 H VBG O2 Sat (Calc) 96.2 H VBG Base Excess 4.6 H VBG Potassium 4.6 Sodium 137.0 Chloride 102.0 Glucose 125 H Lactate 1.7 FiO2 21.0 Venous Blood Potassium 4.6 Urine Color Yellow Urine Appearance Sl cloudy Urine pH 6.0 Ur Specific Jud >= 1.030 Urine Protein 100 H Urine Glucose (UA) Negative Urine Ketones Negative Urine Blood Large H Urine Nitrate Positive H Urine Bilirubin Small H Urine Urobilinogen 0.2 Ur Leukocyte Esterase Small H Urine RBC Tntc Urine WBC 15 - 20 Ur Epithelial Cells None Amorphous Sediment Small Urine Bacteria Large Urine Other Uyeast Assessment & Plan - Assessment and Plan (Free Text) Assessment: 87yo M with sacral decub - SIRS. r/o sepsis. r/o UTI, HCAP - Leukocytosis. Tmax 99.9F - DNR status noted Plan: - alginate and optifoam to sacral wound. Keep area clean and dry - IV Abx as per ID - f/u cultures Further recs as per Dr. Jordi Garcia PGY1 surgery pager: [phone]
[2018-02-01] MEDS: Insulin Reg-MEDIUM-Coverage SC SCH (22:01)
[2018-02-02] MEDS: Vancomycin 1gm in NS 250ml 1 GM/250 ML BAG IVPB SCH ×3 (00:31→22:46)
[2018-02-02] MEDS ORDERED: Pneumococcal 23-Valent Vaccine IM ONE (02:07)
--- NOTE | 2018-02-02 02:09 | CON ---
DATE: 02/01/2018 REASON FOR CONSULTATION: Followup cardiac evaluation, history of coronary artery disease, history of pacemaker, came in with complaint of shortness of breath, cough, fever, chills, possible early pneumonia. BRIEF CLINICAL HISTORY: This is an 87-year-old male who recently discharged from the hospital after found to be a large mass in the left groin which turned out to be squamous cell carcinoma with metastasis, went to the [facility] and then he went home, then the patient's daughter noticed that he became more lethargic, more short of breath, cough, fever, chills so brought to the emergency room and failure to thrive. Patient denies any chest pain. Very weak, lethargic. Code status is DNR. PAST MEDICAL HISTORY: Significant for cellulitis in the lower extremities, congestive heart failure, he is status post recently intubated, general lymphadenopathy found to be metastatic disease from a squamous cell carcinoma from the left groin from the lymph node possibly, history of cardiac catheterization in 2013, history of pacemaker in the past, recent cardiac work up as followed. Most recently the patient had echocardiogram with ejection fraction of 40-45%, moderate aortic stenosis, djddqokx-gn-nsrohz tricuspid regurgitation, right ventricular systolic pressure of 70 consistent with moderate pulmonary hypertension. He is status post recently intubated. Last catheterization in 2012 does shows the patent stent which was placed in the past. History of general lymphadenopathy of the left groin mass. Lymphadenopathy found to be squamous cell carcinoma with metastatic disease. A biopsy showed squamous cell carcinoma, history of coronary artery disease, history of stent last catheterization was in 2012 shows patent stent. PAST SURGICAL HISTORY: Significant recently of large mass in the left groin, which was biopsied and then turned out to be a squamous cell carcinoma with metastasis to multiple generalized lymphadenopathy. Patient's echocardiogram in 11/04/2017 does show ejection fraction of 40% to 45%, trace mild aortic regurgitation, moderate valvular aortic stenosis, trace to mild mitral regurgitation and nuebfydn-gj-xixatl tricuspid regurgitation right ventricular systolic pressure 70. REVIEW OF SYSTEMS: As per HPI. CURRENT MEDICATIONS: The patient is at home taking Lasix 40 mg daily, timolol maleate eye drops, cholestyramine (Questran). ALLERGIES: NO KNOWN DRUG ALLERGIES. PHYSICAL EXAMINATION VITAL SIGNS: Temperature 100, heart rate 78, blood pressure 110/ . HEENT: PERRLA. Extraocular muscle intact. NECK: Supple. No carotid bruit or thyromegaly. CHEST: Clear to auscultation. HEART: S1 and S2 regular. ABDOMEN: Soft. EXTREMITIES: Clubbing and cyanosis negative. A large mass in the groin, which is cyanosed, dusky color and protruding from the groin. Patient has a indwelling Schuster catheter. Pacemaker in the left sided chest noted. LABORATORY DATA: Blood workup as follows, WBC 8.5, hemoglobin 10.8, hematocrit 36.3, platelet count 284. Chemistry shows sodium 144, potassium 5, chloride 99, carbon dioxide 34, anion gap of 12, BUN 22, creatinine 1. BNP 4350. Total protein 5.9, albumin 2.8, albumin-globulin ratio 0.9. EKG shows V paced rhythm, no acute ST-T changes noted, though it is V paced rhythm. Chest x-ray done possible right lower lobe pneumonia cannot rule out, mild congestive changes noted as well. 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 Code status is DNR. RECOMMENDATIONS: Cooley culture. Start broad-spectrum antibiotics. Gentle diuretics as the blood pressure is tolerated. Increase nutritional support. Overall, the patient's condition is critical. Long-term prognosis extremely is guarded, discussed with the daughter. Code status is DNR. Dominick Mcgowan MD
--- NOTE | 2018-02-02 03:57 | HP ---
HISTORY OF PRESENT ILLNESS: I know Abdifatah from doing house calls on him. He comes in with worsening of his left thigh swelling and redness. He is also fatigued, failure to thrive, foul smell, fevers, chills, shortness of breath. He called 911. The left mass in the left groin, which is cancer, was biopsied in the past. It showed squamous cell carcinoma. We will get Oncology to see him while he is in the hospital. He has a chronic Schuster in place that has been changed with a foul smelling odor, probably an UTI. He has also been confused, and he is a DNR, came in by ambulance, failure to thrive. His living will is a DNR. PAST MEDICAL HISTORY: CHF; obesity; asthma; pneumonia; left thigh mass, which is biopsied as cancer; bilateral cataracts surgeries; he has got skin cancer; skin melanoma; squamous cell cancer; cellulitis of the groin area with a mass and also squamous cell by biopsy; also melanoma with cauterization history. He has had rectal bleeds, GERD, and arthritis. He is an 87-year-old with a massive past medical history who was at home I do house calls on, he is now failing, not talking too much, quite weak. FAMILY HISTORY: He has unknown family history. SOCIAL HISTORY: Never smoked. No alcohol. No drugs. ALLERGIES: NO KNOWN DRUG ALLERGIES. MEDICATIONS: He is on Questran, Timolol for the eyedrops and Lasix 40 b.i.d. for the swelling and CHF. REVIEW OF SYSTEMS: It is very hard to get a good history for him. The daughter gives us most of the answers. He is chronically ill. He is not really verbal at this time. He is weak, lethargic. No real pain. He is alert x2 for the most part. He has got poor vision from his bad eyes. He has got no acute hearing changes. No sore throat. No chest pain or shortness of breath. Not taking deep breath, no abdominal pain. He has a large swelling in the left side, red, inflamed and tender. Swelling on both lower extremities. PHYSICAL EXAMINATION: VITAL SIGNS: Temp 99.9, it was 101.1 at home; 96 to 83 pulse; 18 to 20 respiratory rate; 78/55 blood pressure; 100% on oxygen 2 liters. GENERAL: He is very ill appearing, chronically ill at this time, sleeping, very difficult to arouse, not really alert at this time, blood sugar is 132. HEENT: Head is atraumatic, normocephalic. Extraocular muscles are intact. Throat is dry. NECK: Supple. LUNGS: Decreased breath sounds bilaterally. Mild congestion bilaterally, changes with breath. HEART: Regular rate. Normal S1 and S2. ABDOMEN: Soft, morbidly obese, nontender. Large left mass that is tripled in size from the last time I saw it in the past month, red and inflamed. It is hard to touch. No rebound or guarding. EXTREMITIES: There is a +1/4 pitting edema bilaterally with scaling of the skin with venous stasis on both lower extremities. NEUROLOGIC: GCS is 15. Cranial nerves II through XII are grossly intact. SKIN: Poor turgor. Rashes everywhere. Lower extremities have scaling and venous stasis, and a large red mass on the left groin. He is alert, but that is it, we have to really push him to arouse him. LABORATORY DATA: He has, on chest x-ray, small bibasilar infiltrates and effusions. White count 8.4, 10.8 hemoglobin, 36.3 hematocrit, with a 284 platelets. Sodium 140, chloride is 99, potassium is 5, carbon dioxide 34, anion gap is 12, BUN 22, creatinine 1, GFR is 60, sugar is 142, calcium is 8.4, phosphorus 5.8, magnesium 2.1, total bili is 0.6, AST is 43, ALT is 23, alk phos 97. Troponin I is 0.02. BNP is 4350. Total protein is 5.9, albumin is 2.8, globulin 3.1. PO2 is 248 on oxygen. INR is 1.16. ASSESSMENT AND PLAN: He will have multiple consults for this situation. He is going to have Surgery to take a look at his sacral ulcer, it is a grade 2, also his left mass, may be they could do a surgery abscess. Infectious Disease for IV antibiotics, Pulmonary for the bilateral pleural effusions and pneumonia, Cardiology for congestive heart failure for the cancer in the left groin what we can do for. We are heading towards hospice, I had that discussion with her, probably might be going to hospice if we can make him more comfortable or do anything to treat his cancer on his left groin. He was given amikacin, Vibramycin, insulin coverage, lactated Ringer's, Lasix, IV Lovenox, Maxipime, Rocephin, vancomycin. We will see how he does, check his labs tomorrow. He is here for multiple reasons. He has got a large left groin tripled in size mass, which could be either worsening of his cancer or an abscess. He has a sacral ulcer. He has sepsis clinically at this time, bilateral pleural effusions and pneumonia as well as congestive heart failure with a 4000 BNP. We will continue with aggressive treatment and care at this time, and Abdifatah Granados is a do not resuscitate. Phuc Martinez DO MTDLg
[2018-02-02] MEDS: Cefepime IV 2 gm in NS 2 GM/100 ML BAG IVPB SCH ×3 (05:57→22:47)
[2018-02-02 06:03] LABS: EOS % 0.1 % (1.5-5.0); GRAN # 6.99 (1.4-6.5); GRAN % 61.9 % (50.0-68.0); HEMOGLOBIN 10.1 g/dL (14.0-18.0); LYMPH # 2.8 (1.2-3.4); LYMPH % 24.3 % (22.0-35.0); MEAN CORPUSCULAR HEMOGLOBIN 30.1 pg (25.0-35.0); MEAN CORPUSCULAR HGB CONC 28.5 g/dl (31.0-37.0); MEAN PLATELET VOLUME 8.9 fl (7.0-11.0); MONO # 1.6 (0.1-0.6); MONO % 13.7 % (1.0-6.0); RBC 3.35 10^6/uL (3.5-6.1); WHITE BLOOD COUNT 11.3 10^3/ul (4.5-11.0)
[2018-02-02 06:14] LABS: ALB/GLOB RATIO 0.8 (1.1-1.8); ALBUMIN 2.6 g/dL (3.0-4.8); ALT/SGPT 22 U/L (7-56); AST/SGOT 43 U/L (17-59); BLOOD UREA NITROGEN 24 mg/dL (7-21); CALCIUM 8.2 mg/dL (8.4-10.5); GFR AFRICAN-AMERICAN > 60; GFR NON-AFRICAN AMERICAN > 60; HDL CHOLESTEROL 26 mg/dL (29-60)
[2018-02-02 06:25] LABS: LDL CHOLESTEROL 44 mg/dL (0-129)
[2018-02-02] MEDS ORDERED: Albuterol-Ipratrop 3 mg / 0.5 (3 ml) UD IH PRN (06:53)
[2018-02-02] MEDS: Albuterol-Ipratrop 3 mg / 0.5 (3 ml) UD IH SCH ×3 (07:12→19:38)
[2018-02-02] MEDS: Insulin Reg-MEDIUM-Coverage SC SCH ×4 (08:08→22:56)
--- NOTE | 2018-02-02 08:32 | CP.PCM.PN ---
Subjective - Date & Time of Evaluation Date of Evaluation: 02/02/18 Time of Evaluation: 07:00 - Subjective Subjective: PGY-1 surgery progress note for Dr. Bacon Patient seen and examined. Patient is lethargic. Cannot obtain ROS. Does not seem to be in any distress. No acute events noted. Objective - Vital Signs/Intake and Output Vital Signs (last 24 hours): Temp Pulse Resp BP Pulse Ox 99.9 F H 66 18 102/44 L 97 02/02/18 06:00 02/02/18 06:00 02/02/18 06:00 02/02/18 06:00 02/02/18 06:00 Intake and Output: 02/02/18 02/02/18 06:59 18:59 Intake Total 1000 Output Total 350 Balance 650 - Medications Medications: Current Medications Albuterol/Ipratropium (Duoneb 3 Mg/0.5 Mg (3 Ml) Ud) 3 ml IH [id number] KELLY Last Admin: 02/02/18 07:12 Dose: 3 ml Albuterol/Ipratropium (Duoneb 3 Mg/0.5 Mg (3 Ml) Ud) 3 ml IH Q2H PRN PRN Reason: Shortness of Breath Enoxaparin Sodium (Lovenox) 40 mg SC DAILY KELLY PRN Reason: Protocol Furosemide (Lasix) 20 mg IVP 0800,1400 KELLY Vancomycin HCl (Vancomycin 1gm) 1 gm in 250 mls @ 167 mls/hr IVPB Q12H KELLY PRN Reason: Protocol Last Admin: 02/02/18 00:31 Dose: 167 mls/hr Doxycycline Hyclate 100 mg/ (Sodium Chloride) 100 mls @ 100 mls/hr IVPB Q12 KELLY PRN Reason: Protocol Last Admin: 02/01/18 23:16 Dose: 100 mls/hr Cefepime HCl (Maxipime 2gm) 2 gm in 100 mls @ 100 mls/hr IVPB Q8 KELLY PRN Reason: Protocol Stop: 02/06/18 14:46 Last Admin: 02/02/18 05:57 Dose: 100 mls/hr Insulin Human Regular (Humulin R Med) 0 units SC ACHS KELLY PRN Reason: Protocol Last Admin: 02/02/18 08:08 Dose: Not Given - Labs Labs: 02/02/18 05:26 02/02/18 05:26 PT 13.4 SECONDS (9.4-12.5) H 02/01/18 12:12 INR 1.16 (0.93-1.08) H 02/01/18 12:12 APTT 33.7 Seconds (25.1-36.5) 02/01/18 12:12 - Constitutional Appears: No Acute Distress, Chronically Ill - Head Exam Head Exam: ATRAUMATIC, NORMOCEPHALIC - Eye Exam Eye Exam: Normal appearance - ENT Exam ENT Exam: Mucous Membranes Moist - Respiratory Exam Respiratory Exam: NORMAL BREATHING PATTERN. absent: Accessory Muscle Use, Respiratory Distress - Cardiovascular Exam Cardiovascular Exam: +S1, +S2 - GI/Abdominal Exam GI & Abdominal Exam: Soft. absent: Tenderness - Exam Additional comments: virgen in place draining light yellow urine - Extremities Exam Additional comments: Left groin rubbery lesion, non-mobile - Back Exam Additional comments: There are two circular stage 4 sacral wounds approximately 3 cm x 2 cm. - Neurological Exam Neurological Exam: absent: Alert (lethargic) - Skin Skin Exam: Dry, Warm Assessment and Plan - Assessment and Plan (Free Text) Assessment: This is an 87 year old male with stage 4 sacral decubitus ulcer. Plan: Nursing communication: Apply Santyl and optifoam dressing over sacral wounds BID IV antibiotics per ID Air mattress Reposition Q2H Discussed with wound care about possible wound vac Further recs per Dr. Jordi Caal PGY-1
--- NOTE | 2018-02-02 08:46 | CON ---
DATE: 02/02/2018 PULMONARY CONSULTATION REASON FOR CONSULTATION: Shortness of breath. REFERRING PHYSICIAN: Dr. Phuc Martinez. History is obtained via extensive discussion with the night nurse. I have also reviewed the chart at length. The patient is not an adequate historian at this point in time. 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 The patient was also noted to be short of breath. In the emergency room, the patient was noted to be febrile and hypotensive. He was thus admitted for additional evaluation. Again, I did discuss the case with the night nurse at length. The patient is mildly short of breath, but certainly in no acute distress. He does have an occasional cough with no significant sputum production. There is no history of chest pain, coughing up of blood, or chest pain - made worse with deep respirations. The patient did present to the hospital with low grade fevers (99.9). The patient also had chills at home. No history of infectious exposure. No history of night sweats, weight loss or appetite change prior to the above events. No history of calf pains. No history of syncope or diaphoresis. No history of recent travel or trauma. REVIEW OF SYSTEMS No history of nausea, vomiting or diarrhea. No acute urinary symptoms. Rest of the review of systems negative. ALLERGIES: NO KNOWN ALLERGIES. SOCIAL HISTORY: Negative for tobacco and negative for alcohol. FAMILY HISTORY No inheritable diseases. HOME MEDICATIONS: Include Lasix and Questran. PHYSICAL EXAMINATION: GENERAL: The patient is mildly short of breath, but certainly in no acute distress. He is lethargic. VITALS: Temperature is 99.9, pulse 66, respirations 20/22, blood pressure 102/44. Oxygen saturation on nasal cannula is 97%. HEENT: Normocephalic, atraumatic. No JVD. CARDIOVASCULAR: Systolic ejection murmur at the lower left sternal border. Questionable S3 gallop. LUNGS: Decreased breath sounds at the bases. Minimal bilateral rhonchi. No wheezing. EXTREMITIES: Positive for edema. No cyanosis or clubbing. Calves are nontender to palpation. GASTROINTESTINAL : Abdomen is soft, nontender and nondistended. Bowel sounds are positive. SKIN: Multiple skin lesions are present. There is also a left groin mass. NEUROLOGIC: Exam limited at the present time. PERTINENT LABORATORY DATA: Chest x-ray was done yesterday and reviewed. Compared to the film of 11/12/2017, there is a definite increase in pulmonary vascular congestion. There are also small bilateral pleural effusions. CBC: White count 11.3, hemoglobin 10.1, hematocrit 35.5, platelets of 291,000. Complete metabolic profile: Carbon dioxide 36, BUN 24, calcium 8.2, phosphorus 5.8, albumin 2.6. Rest of the metabolic profiles within normal limits. Initial B-type natriuretic peptide 4350. Procalcitonin - negative - 0.42. Urinalysis was done in the emergency room. Urine nitrite positive. Urine bacteria large. IMPRESSION 1. Sepsis syndrome, rule out urinary tract infection. 2. Congestive heart failure. 3. Poorly differentiated carcinoma - left groin. 4. Asthma. 5. Anemia. PLAN Again, I did discuss the case with the night nurse at length. I have also reviewed the chart at length. The patient presents to [facility] with a 2-day history of worsening lethargy and decreased oral intake. Apparently, the visiting nurse was at the home, and referred the patient to the emergency room. In addition to the above, the patient did present with mild shortness of breath. I did review the chest x-ray as above. The chest x-ray is consistent with mild congestive heart failure with small bilateral pleural effusions. As above, the procalcitonin is negative. I have also reviewed the laboratory data. A significant rise in the B-type natriuretic peptide is noted. The patient was seen by Dr. Mcgowan (cardiology). Dr. Mcgowan did place the patient on low-dose Lasix therapy. The patient has also been pancultured, and started on antibiotic therapy - as per Infectious Disease. Input by Dr. Medeiros is noted. On physical exam, there is mild bronchospasm heard. However, there is no significant alveolar-arterial gradient. Oxygen saturation on nasal cannula is 97%. I will start the patient on DuoNeb treatments this morning. I will also order aspiration precautions - due to his above mental status. Surgical consult is also noted. The patient does have a history of sacral decubiti. The patient appears critically ill at this point in time. His overall status/prognosis appears poor. He is currently a DNR status. I will discuss the above with Dr. Martinez this morning. Thank you very much for this pulmonary consultation. Sajan Castrejon MD MTDLg
--- NOTE | 2018-02-02 09:02 | PN ---
DATE: 02/02/2018 SUBJECTIVE: I saw him in bed this morning with his daughter present at bedside. He is more alert today than yesterday, but he is more swollen. He has IV fluids running. I will discontinue the IV fluids this morning, give him a stat dose of Lasix 40 IV. It looks like he is developing a little CHF. He is not really talking. He is on oxygen, which I think is helping him. PHYSICAL EXAMINATION: VITAL SIGNS: He has a 99.9 temp, 66 pulse, 102/44 blood pressure, 18 respiratory rate, 97% O2 sat on 2 L nasal cannula. HEENT: His head is atraumatic, normocephalic. Throat is moist. NECK: Supple. HEART: Regular rate. LUNGS: Decreased breath sounds bilaterally, crackles too I hear both sides. Not taking a really good deep breath. ABDOMEN: Soft, morbidly obese, not tender. He has got a large triple in size from a month ago left groin cancer. EXTREMITIES: With +1/4 to +2/4 pitting edema. LABORATORY DATA: He has 11.3 white count, he is on the antibiotics; 10.1 hemoglobin; 35.5 hematocrit with 291 platelets. His lactate was 2.4 when he came in, we started antibiotics, it is down to 1.7. He has a 144 sodium, potassium 4.8, BUN 24, creatinine is 1, got a little bit worse. GFR is greater than 60, sugar is 98, calcium is 8.2, phosphorus 5.8, magnesium 2, AST is 43, ALT 22, alk phos 89, total protein is 5.8, TSH is 1.11, his procalcitonin is 0.42. MEDICATIONS: He is on doxycycline, DuoNebs, insulin coverage, Lasix, Lovenox, Maxipime and vancomycin IV. ASSESSMENT AND PLAN: He is being seen by Infectious Disease, Cardiology, Oncology, Surgery, sacral wound. Pulmonary for bilateral pneumonia. He is on IV antibiotics. I will stop the IV fluids at this time. I am going to give him Lasix 40 mg stat dose to see if we could diurese some of the fluid he has for his breathing. He is in poor condition. I also called in Cindy Garcia, the palliative nurse for heading towards home comfort care hospice. The daughter is in agreement and we will see how we could arrange that. We will first try and clear the pneumonia while he is here and make him more comfortable. Phuc Martinez DO
[2018-02-02] MEDS: Enoxaparin 40 mg Syringe SC SCH (10:03)
--- NOTE | 2018-02-02 11:04 | CP.PCM.PN ---
Subjective - Date & Time of Evaluation Date of Evaluation: 02/02/18 Time of Evaluation: 09:05 - Subjective Subjective: Patient is a little more awake today, still with some confusion, still with low grade hyperthermia but not outright fevers. No diarrhea. Schuster catheter changed in ED yesterday. Objective - Vital Signs/Intake and Output Vital Signs (last 24 hours): Temp Pulse Resp BP Pulse Ox 99.9 F H 66 18 102/44 L 97 02/02/18 06:00 02/02/18 06:00 02/02/18 06:00 02/02/18 06:00 02/02/18 06:00 Intake and Output: 02/01/18 02/02/18 18:59 06:59 Intake Total 1000 Output Total 350 Balance 650 - Medications Medications: Current Medications Enoxaparin Sodium (Lovenox) 40 mg SC DAILY [facility] PRN Reason: Protocol Furosemide (Lasix) 20 mg IVP 0800,1400 [facility] Vancomycin HCl (Vancomycin 1gm) 1 gm in 250 mls @ 167 mls/hr IVPB Q12H [facility] PRN Reason: Protocol Last Admin: 02/02/18 00:31 Dose: 167 mls/hr Doxycycline Hyclate 100 mg/ (Sodium Chloride) 100 mls @ 100 mls/hr IVPB Q12 [facility] PRN Reason: Protocol Last Admin: 02/01/18 23:16 Dose: 100 mls/hr Cefepime HCl (Maxipime 2gm) 2 gm in 100 mls @ 100 mls/hr IVPB Q8 [facility] PRN Reason: Protocol Stop: 02/06/18 14:46 Last Admin: 02/02/18 05:57 Dose: 100 mls/hr Sodium Chloride (Sodium Chloride 0.9%) 1,000 mls @ 50 mls/hr IV .Q20H [facility] Stop: 02/02/18 23:59 Last Admin: 02/01/18 17:26 Dose: 50 mls/hr Insulin Human Regular (Humulin R Med) 0 units SC ACHS [facility] PRN Reason: Protocol Last Admin: 02/01/18 22:01 Dose: Not Given - Labs Labs: 02/02/18 05:26 02/02/18 05:26 PT 13.4 SECONDS (9.4-12.5) H 02/01/18 12:12 INR 1.16 (0.93-1.08) H 02/01/18 12:12 APTT 33.7 Seconds (25.1-36.5) 02/01/18 12:12 - Constitutional Appears: Chronically Ill - Head Exam Head Exam: NORMAL INSPECTION - ENT Exam ENT Exam: Mucous Membranes Moist - Neck Exam Neck Exam: absent: Meningismus - Respiratory Exam Respiratory Exam: Decreased Breath Sounds - Cardiovascular Exam Cardiovascular Exam: +S1, +S2 - GI/Abdominal Exam GI & Abdominal Exam: Soft. 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 history of sepsis due to Influenza R/O HCAP on the right lower lobe history of VDRF after apparent witnessed seizure left inguinal indurated mass with left leg cellulitis S/P biopsy chronic CHF aortic insufficiency and stenosis history of melanoma Plan since patient had previous history of witnessed seizure, will avoid merrem for now, continue Vancomycin, Cefepime, Doxycycline day 2 pending identification and sensitivities of the gram negative bacilli in the urine; follow up blood and sputum cx; PCT isd 0.42; reviewed CXR needs local wound care for decubitus ulcers will continue to monitor clinically overall prognosis is poor - patient is DNR
--- NOTE | 2018-02-02 15:03 | CON ---
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 I saw the patient several months ago when he was here at the time of the diagnosis. PHYSICAL EXAMINATION: SKIN: No petechiae. No bruises. HEENT: Anicteric. NODES: Nonpalpable in the axillary, cervical regions. LUNGS: The patient is able to lie flat in bed. No wheezing. No rales. No rhonchi. HEART: S1 and S2. ABDOMEN: Shows no liver, no spleen, no tenderness. EXTREMITIES: The patient has a huge mass in his left groin. This is purplish at the top of it that could breakthrough the skin, but has not happened yet and it is much bigger than it was a few months ago. ASSESSMENT: I spoke with the daughter at length and we agree that he is debilitated, would not be able to take any kind of chemotherapy. He has many medical problems and we also talked radiation therapy and would require him to be lifted back and forth on the stretcher for radiation therapy for either palliative doses of about 3 weeks or up to 6 weeks. I said I could ask for Dr. Romero to see the patient for radiation therapy, but I did not feel that it was warranted. I do not think that his symptoms will be really resolved. He is basically sleeping almost all day and she agreed to do not resuscitate situation and even if it bursts through the skin, therapy at a later date, but I told her there is no surgery and no chemotherapy. At this point, only symptom control. Marck Lopez MD
--- NOTE | 2018-02-02 16:24 | PN ---
DATE: 02/02/2018 REASON FOR CONSULTATION AND FOLLOWUP: Cardiac evaluation, history of coronary artery disease, history of pacemaker, came in with complaint of shortness of breath, cough, fever, chills, possible early pneumonia, and CHF secondary to systolic dysfunction [id number]. SUBJECTIVE: The patient is very weak and lethargic, breathing very heavy, abdominothoracic respiration, and swelling all over the body. Daughter is at the bedside. PHYSICAL EXAMINATION: VITAL SIGNS: Temperature 99.9, heart rate 66, respiratory rate 20, blood pressure 110/50. HEENT: PERRLA, intact. NECK: Supple. No carotid bruit or thyromegaly. CHEST: Clear to auscultation. HEART: S1 and S2, regular. ABDOMEN: Soft. EXTREMITIES: Clubbing and cyanosis negative. LABORATORY DATA: Blood workup; WBC 11.3, hemoglobin 10.3, hematocrit 35.5, platelet count 291. Chemistry shows sodium 144, potassium 4.6, chloride 102, carbon dioxide 37, anion gap of 10. BUN 24, creatinine 1. Total protein 5.6, albumin 2.6, albumin-globulin ratio 0.8. TSH is 1.1. Triglycerides 100, cholesterol 95, LDL 44, HDL 26. IMPRESSION: Protein-calorie malnutrition, moderate, which was present on admission [id number], now it is moderate; generalized anasarca secondary to protein-calorie malnutrition; hypertension; coronary artery disease, status post stent in the past 2010, status post repeat catheterization in 2012, patent stent. Squamous cell carcinoma with metastasis, generalized lymphadenopathy, left inguinal mass, with the biopsy turns out to be squamous cell carcinoma. Last echo, ejection fraction of 40% to 45% on 11/08/2017, moderate aortic stenosis, [id number] aortic regurgitation, moderate valvular aortic stenosis, [id number] mitral regurgitation, [id number] tricuspid regurgitation, right ventricular systolic pressure of 70 consistent with [id number] pulmonary hypertension. RECOMMENDATIONS: Discussed with the daughter and discussed with Dr. Martinez. Continue supportive care. Overall, the patient's condition is critical. Long-term prognosis is extremely guarded, possible for hospice care. Increase nutrition support, started on Glucerna if the patient can swallow. Discontinue Lasix for generalized anasarca. Continue DVT prophylaxis. Consult with Cindy Garcia for hospice care evaluation. Dominick Mcgowan MD
[2018-02-02] MEDS: Collagenase 250 Units/gm Ointment(30 gm) TOP SCH (17:09)
[2018-02-03] MEDS: Albuterol-Ipratrop 3 mg / 0.5 (3 ml) UD IH SCH ×4 (01:06→19:55)
[2018-02-03 06:32] LABS: HEMOGLOBIN 9.3 g/dL (14.0-18.0); MEAN CELL VOLUME 104.1 fl (80.0-105.0); MEAN CORPUSCULAR HEMOGLOBIN 29.5 pg (25.0-35.0); MEAN CORPUSCULAR HGB CONC 28.4 g/dl (31.0-37.0); RBC 3.15 10^6/uL (3.5-6.1); RED CELL DISTRIBUTION WIDTH 17.2 % (11.5-14.5)
[2018-02-03] MEDS: Cefepime IV 2 gm in NS 2 GM/100 ML BAG IVPB SCH (06:40)
[2018-02-03 06:48] LABS: ALB/GLOB RATIO 0.9 (1.1-1.8); ALBUMIN 2.6 g/dL (3.0-4.8); ALT/SGPT 24 U/L (7-56); AST/SGOT 42 U/L (17-59); BLOOD UREA NITROGEN 33 mg/dL (7-21); CALCIUM 8.5 mg/dL (8.4-10.5); GFR AFRICAN-AMERICAN > 60; GFR NON-AFRICAN AMERICAN 52
--- NOTE | 2018-02-03 08:27 | CP.PCM.CON ---
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 Family reports urine as foul smelling over the past few days.Labs; WBC8.4, Hgb 10.8, BUN33, Creat 1.3, Albumin 2.6. UA positive for protein, blood, nitrate and leukocytes. Chest x ray showed small bibasilar infiltrates PMHx: metastatic squamous cell cancer of LLE, melanoma, CHF,TIA, asthma, indwelling virgen, pneumonia,rectal bleed. Social History:Never smoker, no alcohol or drug use. Lives with his daughter Carla. Family History: Non contributory. Advance Care Planning: The patient has an Advanced Directive: He is DNR/DNI . Review of Systems: As per HPI, patient altered/non verbal unable to obtain complete review. Past Patient History - Infectious Disease Hx of Infectious Diseases: None - Tetanus Immunizations Tetanus Immunization: Unknown - Past Medical History & Family History Past Medical History?: Yes Past Family History: Reviewed and not pertinent - Past Social History Smoking Status: Never Smoked - CARDIAC Hx Congestive Heart Failure: Yes - PULMONARY Hx Pneumonia: Yes - NEUROLOGICAL Hx Neurological Disorder: Yes Hx Transient Ischemic Attacks (TIA): Yes (02-18-11) - HEENT Hx Cataracts: Yes (BILATERAL SX) - RENAL Hx Chronic Kidney Disease: No - ENDOCRINE/METABOLIC Hx Endocrine Disorders: No - HEMATOLOGICAL/ONCOLOGICAL Hx Cancer: Yes (skin, groin mass) - INTEGUMENTARY Hx Dermatological Problems: Yes (CELLULITIS TO LEFT GROIN AREA-MASS 11-03-17) Other/Comment: SQUAMOUS CELL CA,MELANOMA WITH CAUTHERIZATION - MUSCULOSKELETAL/RHEUMATOLOGICAL Hx Arthritis: Yes - GASTROINTESTINAL Hx Gastroesophageal Reflux: Yes - GENITOURINARY/GYNECOLOGICAL Hx Genitourinary Disorders: No - PSYCHIATRIC Hx Psychophysiologic Disorder: No Hx Substance Use: No - SURGICAL HISTORY Other/Comment: CATARACT SURGERY BILATERAL EYE. right hemicolectomy - ANESTHESIA Hx Anesthesia Reactions: No Hx Malignant Hyperthermia: No Meds Allergies/Adverse Reactions: Allergies Allergy/AdvReac Type Severity Reaction Status Date / Time No Known Allergies Allergy Verified 02/01/18 22:25 - Medications Medications: Current Medications Albuterol/Ipratropium (Duoneb 3 Mg/0.5 Mg (3 Ml) Ud) 3 ml IH [id number] [facility] Last Admin: 02/03/18 07:46 Dose: 3 ml Albuterol/Ipratropium (Duoneb 3 Mg/0.5 Mg (3 Ml) Ud) 3 ml IH Q2H PRN PRN Reason: Shortness of Breath Collagenase (Santyl) 0 gm TOP BID [facility] Last Admin: 02/02/18 17:09 Dose: 1 applic Enoxaparin Sodium (Lovenox) 40 mg SC DAILY [facility] PRN Reason: Protocol Last Admin: 02/02/18 10:03 Dose: 40 mg Furosemide (Lasix) 20 mg IVP 0800,1400 [facility] Last Admin: 02/02/18 13:23 Dose: 20 mg Vancomycin HCl (Vancomycin 1gm) 1 gm in 250 mls @ 167 mls/hr IVPB Q12H [facility] PRN Reason: Protocol Last Admin: 02/02/18 22:46 Dose: 167 mls/hr Doxycycline Hyclate 100 mg/ (Sodium Chloride) 100 mls @ 100 mls/hr IVPB Q12 [facility] PRN Reason: Protocol Last Admin: 02/02/18 22:45 Dose: 100 mls/hr Cefepime HCl (Maxipime 2gm) 2 gm in 100 mls @ 100 mls/hr IVPB Q8 [facility] PRN Reason: Protocol Stop: 02/06/18 14:46 Last Admin: 02/03/18 06:40 Dose: 100 mls/hr Insulin Human Regular (Humulin R Med) 0 units SC ACHS [facility] PRN Reason: Protocol Last Admin: 02/02/18 22:56 Dose: Not Given Physical Exam - Constitutional Appears: Chronically Ill - Head Exam Head Exam: NORMAL INSPECTION - Eye Exam Eye Exam: Normal appearance - ENT Exam ENT Exam: Mucous Membranes Moist, Normal Oropharynx - Respiratory Exam Respiratory Exam: Accessory Muscle Use, Decreased Breath Sounds - Cardiovascular Exam Cardiovascular Exam: Tachycardia, +S1, +S2 - GI/Abdominal Exam GI & Abdominal Exam: Soft - Exam Additional comments: large mass, adenopathy left groin - Extremities Exam Additional comments: 2+ bilateral lower extremity edema - Back Exam Additional comments: sacral decubiti - Skin Skin Exam: Pallor, Warm - Additional Findings Additional findings: palliative performance scale rating 30% Results - Vital Signs Recent Vital Signs: Last Vital Signs Temp 97.3 F L 02/02/18 18:00 Pulse 84 02/02/18 18:00 Resp 18 02/02/18 18:00 BP 105/60 02/02/18 13:23 Pulse Ox 97 02/02/18 18:00 - Labs Result Diagrams: 02/03/18 05:35 02/03/18 05:35 Labs: Laboratory Results - last 24 hr 02/02/18 02/02/18 02/02/18 05:26 11:22 16:43 WBC RBC Hgb Hct MCV MCH MCHC RDW Plt Count MPV Sodium Potassium Chloride Carbon Dioxide Anion Gap BUN Creatinine Est GFR ( Amer) Est GFR (Non-Af Amer) POC Glucose (mg/dL) 98 98 Random Glucose Hemoglobin A1c 5.9 Calcium Total Bilirubin AST ALT Alkaline Phosphatase Total Protein Albumin Globulin Albumin/Globulin Ratio 02/02/18 02/03/18 02/03/18 21:52 05:35 05:35 WBC 9.0 D RBC 3.15 L Hgb 9.3 L Hct 32.8 L MCV 104.1 MCH 29.5 MCHC 28.4 L RDW 17.2 H Plt Count 260 MPV 9.0 Sodium 147 Potassium 4.4 Chloride 104 Carbon Dioxide 32 Anion Gap 15 BUN 33 H Creatinine 1.3 Est GFR ( Amer) > 60 Est GFR (Non-Af Amer) 52 POC Glucose (mg/dL) 98 Random Glucose 112 H Hemoglobin A1c Calcium 8.5 Total Bilirubin 0.5 AST 42 ALT 24 Alkaline Phosphatase 84 Total Protein 5.5 L Albumin 2.6 L Globulin 2.9 Albumin/Globulin Ratio 0.9 L 02/03/18 07:41 WBC RBC Hgb Hct MCV MCH MCHC RDW Plt Count MPV Sodium Potassium Chloride Carbon Dioxide Anion Gap BUN Creatinine Est GFR ( Amer) Est GFR (Non-Af Amer) POC Glucose (mg/dL) 123 H Random Glucose Hemoglobin A1c Calcium Total Bilirubin AST ALT Alkaline Phosphatase Total Protein Albumin Globulin Albumin/Globulin Ratio Assessment & Plan - Assessment and Plan (Free Text) Assessment: 87 sussy old male with history of metastatic squamous cell carcinoma, melanoma, CHF, TIA, indwelling virgen who was admitted with AMS, sepsis, UTI, sacral decubiti. I spoke with patients daughterCarla via phone. Extensive discussion regarding goals of care ensued. Carla aware of father's medical condition and poor prognosis. Carla intends on taking her Dad home with hospice care. Hospice services explained, questions answered. Carla has agreed to meet with relations liaison on . Psychosocial support provided Time spent in goals of care and end of life discussion, 30 minutes Plan: Surgery, ID, Oncology, Pulmonary and oncology notes reviewed DNR/DNI Hospice evaluation. Sepsis/UTI: Continue antibiotics ID recommendations Sacral Wound: Alginate and Optifoam. Oncology recommendation: No other treatment, symptom care
--- NOTE | 2018-02-03 08:48 | PN ---
DATE: 02/03/2018 PULMONARY NOTE SUBJECTIVE: The patient appears more comfortable this morning. He is not short of breath at rest. He remains very weak appearing. PHYSICAL EXAMINATION: VITAL SIGNS: (Last noted in the computer): Temperature is 97.3, pulse on the monitor is 86, respiratory rate 16/18, last blood pressure recorded in the chart 105/60. Oxygen saturation on nasal cannula is 97%. HEENT: Normocephalic, atraumatic. No JVD. CARDIOVASCULAR: Systolic ejection murmur at the lower left sternal border. Questionable S3 gallop. LUNGS: Decreased breath sounds at the bases. Less rhonchi. No wheezing. EXTREMITIES: Positive for edema. No cyanosis or clubbing. Calves are nontender to palpation. GI: Abdomen is soft, nontender and nondistended. Bowel sounds are positive. SKIN: Multiple skin lesions are present. There is also a left groin mass. NEUROLOGIC: Exam limited at the present time. IMPRESSION: 1. Sepsis syndrome, rule out urinary tract infection. 2. Congestive heart failure. 3. Poorly differentiated carcinoma - left groin. 4. Asthma. 5. Anemia. PLAN: The patient appears somewhat more comfortable this morning. He is not short of breath at rest. He remains very weak appearing. I did discuss the case with the night nurse at length. The night nurse stated that the patient had a pretty good night. On physical exam, there is less bronchospasm noted. In addition, there is less alveolar-arterial gradient. I will continue with the current nebulizer treatments for now. The patient remains on antibiotic therapy - as per Infectious Disease. Input by Dr. Medeiros is noted. There are no temperatures noted. The leukocytosis has resolved. Inputs by Cardiology and Oncology are also noted. The clinical status of the patient is improved - compared to yesterday. However, unfortunately, the future status/prognosis for this patient does remain poor. I will discuss the above with Dr. Martinez. Sajan Castrejon MD [facility]
--- NOTE | 2018-02-03 09:07 | PN ---
DATE: 02/03/2018 SUBJECTIVE: I saw Abdifatah resting comfortably this morning. He is a little bit more awake today. His eyes are open to try and talk, but he is also less swollen. I think that made a big difference with the Lasix IV. He is on IV antibiotics and IV medications. PHYSICAL EXAMINATION: VITAL SIGNS: 97.3 temp, 84 pulse, 18 respiratory rate, 97% O2 sat on 2 L, he has a 105/60 blood pressure. HEENT: His head is atraumatic, normocephalic. Throat is moist. NECK: Supple. HEART: Regular rate. LUNGS: Decreased breath sounds bilaterally. Poor inspiration. ABDOMEN: Soft, obese, nontender. Positive bowel sounds. EXTREMITIES: Have trace edema at +1 bilaterally. He cannot really move his legs. He has got a very large left groin cancer that tripled in size in about a month the last time I saw him. MEDICATIONS: He is currently on doxycycline IV, DuoNebs, insulin, Lasix IV twice a day, Lovenox, Maxipime 2 g every 8, Santyl and vancomycin. LABORATORY DATA: He has a 147 sodium, potassium 4.4, BUN 33, creatinine 1.3, GFR is 52. He has a 112 sugar and 8.5 calcium. AST is 42, ALT is 24, alk phos 84, total bili is 0.5. Total protein is 5.5. White count is down to 9, hemoglobin is 9.3, hematocrit 32.8, platelets of 260. His urine with large bacteria. ASSESSMENT AND PLAN: He has a urinary tract infection; left groin mass, which is cancer; he had low blood pressure when he came in; bilateral pneumonia; congestive heart failure picture. Multiple consults are on the case. He is being seen by Pulmonary, Infectious Disease, Cardiology, also Oncology and Palliative Care. It is very possible he might be heading towards home hospice depending on how he does. We will continue for the meantime aggressive treatment and care on Abdifatah Granados. Phuc Martinez DO
--- NOTE | 2018-02-03 11:22 | CP.PCM.PN ---
Subjective - Date & Time of Evaluation Date of Evaluation: 02/03/18 Time of Evaluation: 07:10 - Subjective Subjective: PGY-1 surgery progress note for Dr. Bacon Patient seen and examined. Patient is minimally conversive and less lethargic. Cannot obtain full ROS. Does not seem to be in any distress. No acute events noted. Objective - Vital Signs/Intake and Output Vital Signs (last 24 hours): Temp Pulse Resp BP Pulse Ox 97.3 F L 84 18 105/60 97 02/02/18 18:00 02/02/18 18:00 02/02/18 18:00 02/02/18 13:23 02/02/18 18:00 Intake and Output: 02/03/18 02/03/18 06:59 18:59 Intake Total 0 Output Total 750 Balance -750 - Medications Medications: Current Medications Albuterol/Ipratropium (Duoneb 3 Mg/0.5 Mg (3 Ml) Ud) 3 ml IH [id number] [facility] Last Admin: 02/03/18 07:46 Dose: 3 ml Albuterol/Ipratropium (Duoneb 3 Mg/0.5 Mg (3 Ml) Ud) 3 ml IH Q2H PRN PRN Reason: Shortness of Breath Collagenase (Santyl) 0 gm TOP BID [facility] Last Admin: 02/02/18 17:09 Dose: 1 applic Enoxaparin Sodium (Lovenox) 40 mg SC DAILY [facility] PRN Reason: Protocol Last Admin: 02/02/18 10:03 Dose: 40 mg Furosemide (Lasix) 20 mg IVP 0800,1400 [facility] Last Admin: 02/02/18 13:23 Dose: 20 mg Vancomycin HCl (Vancomycin 1gm) 1 gm in 250 mls @ 167 mls/hr IVPB Q12H [facility] PRN Reason: Protocol Last Admin: 02/02/18 22:46 Dose: 167 mls/hr Doxycycline Hyclate 100 mg/ (Sodium Chloride) 100 mls @ 100 mls/hr IVPB Q12 [facility] PRN Reason: Protocol Last Admin: 02/02/18 22:45 Dose: 100 mls/hr Cefepime HCl (Maxipime 2gm) 2 gm in 100 mls @ 100 mls/hr IVPB Q8 [facility] PRN Reason: Protocol Stop: 02/06/18 14:46 Last Admin: 02/03/18 06:40 Dose: 100 mls/hr Insulin Human Regular (Humulin R Med) 0 units SC ACHS [facility] PRN Reason: Protocol Last Admin: 02/02/18 22:56 Dose: Not Given - Labs Labs: 02/03/18 05:35 02/03/18 05:35 PT 13.4 SECONDS (9.4-12.5) H 02/01/18 12:12 INR 1.16 (0.93-1.08) H 02/01/18 12:12 APTT 33.7 Seconds (25.1-36.5) 02/01/18 12:12 - Constitutional Appears: No Acute Distress, Chronically Ill - Head Exam Head Exam: ATRAUMATIC, NORMOCEPHALIC - Eye Exam Eye Exam: Normal appearance - ENT Exam ENT Exam: Mucous Membranes Moist - Respiratory Exam Respiratory Exam: NORMAL BREATHING PATTERN. absent: Respiratory Distress - Cardiovascular Exam Cardiovascular Exam: +S1, +S2 - GI/Abdominal Exam GI & Abdominal Exam: Soft. absent: Tenderness - Exam Additional comments: virgen in place - Extremities Exam Additional comments: Left groin rubbery lesion, non-mobile - Back Exam Additional comments: Two circular stage 4 sacral wounds approximately 3 cm x 2 cm - Skin Skin Exam: Dry, Warm Assessment and Plan - Assessment and Plan (Free Text) Assessment: This is an 87 year old male with stage 4 sacral decubitus ulcer. Plan: Nursing communication: Apply Santyl and optifoam dressing over sacral wounds BID IV antibiotics per ID Air mattress Reposition Q2H Wound vac to be started and changed every 3 days with wound care team No further planned surgical intervention Further recs per Dr. Jordi Caal PGY-1
[2018-02-03] MEDS: Collagenase 250 Units/gm Ointment(30 gm) TOP SCH ×2 (11:23→19:17)
[2018-02-03] MEDS: Enoxaparin 40 mg Syringe SC SCH (11:24)
[2018-02-03] MEDS: Insulin Reg-MEDIUM-Coverage SC SCH ×3 (11:25→21:37)
--- NOTE | 2018-02-03 11:50 | PN ---
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 SUBJECTIVE: The patient is screaming in pain in the right groin. Big mass protruding into the groin with lymphadenopathy with squamous cell carcinoma. OBJECTIVE: GENERAL: Mild distress. VITAL SIGNS: Temperature afebrile, heart rate 84, blood pressure 105/60. HEENT: PERRLA, intact. NECK: Supple. No carotid bruit. No thyromegaly. CHEST: Clear to auscultation. HEART: S1 and S2 regular. ABDOMEN: Soft. EXTREMITIES: Clubbing and cyanosis negative. LABORATORY DATA: Blood workup as follows: WBC 9, hemoglobin 9.7, hematocrit 32.8, platelet count 260. Chemistry shows sodium 147, potassium 4.4, chloride 104, carbon dioxide 32, anion gap of 15, BUN 13, creatinine 1.3, total protein 5.5, albumin 2.6, albumin and globulin ratio 0.9. IMPRESSION: Protein-calorie malnutrition, moderate, which was present on admission; anemia; congestive heart failure and systolic dysfunction, acute dysfunction; squamous cell carcinoma; generalized lymphadenopathy; nothing per mouth, gross fluid overload; anasarca; terminally ill. Code status, DNR. History of pacemaker, history of coronary artery disease in the past. Last catheterization in 2012, patent stent. Ejection fraction 40-45%. Congestive heart failure secondary to systolic dysfunction. RECOMMENDATION: Started on Ensure. The patient is n.p.o. Consider hospice care. We will discontinue Telemetry. Get supportive care. Overall, the patient's condition is critical. correction prognosis is extremely poor. We will follow with you. We will continue antibiotic and gentle diuretics. Thank you, Dr. Martinez, for providing us the opportunity in taking care of the patient, Mr. Granados Dominick Mcgowan MD
--- NOTE | 2018-02-03 12:07 | PN ---
DATE: 02/03/2018 SUBJECTIVE: The patient is seen in bed earlier this morning in room 260, bed 2. No fevers and no chills. Uneventful night as per nurse taking care of the patient. PHYSICAL EXAMINATION: VITAL SIGNS: Temperature is 97, blood pressure is 105/60, respiratory rate of 18, heart rate of 88. HEENT: Unremarkable. NECK: Supple. LUNGS: Have decreased breath sounds. HEART: Normal S1, S2. ABDOMEN: Soft, nontender. LABORATORY DATA: Reveals a white count of 9, hemoglobin of 9, platelets of 260. Chemistry reveals a BUN of 33, creatinine of 1.3 and procalcitonin is 0.42. Urinalysis is noted. Microbiology reveals E. coli in the urine. The blood cultures have no growth at 24 hours. E. coli in the urine is pansensitive and review of orders reveals the patient to be on cefepime and vancomycin. Cindy Garcia's note is reviewed and Dr. Martinez's note is also reviewed. He says the patient need possible hospice. Dr. Castrejon's note is reviewed from this morning. ASSESSMENT AND PLAN: This is an 87-year-old male who is seen earlier in room 260, bed 2 with sepsis with Escherichia coli in urine as the source with acute encephalopathy and lactic acidosis with severe sepsis, bilateral health-care associated pneumonia, squamous cell of the lung. We will discontinue the vancomycin since the procalcitonin is noted to be normal and change the cefepime to ceftriaxone for now pending decision regarding hospice. Case discussed with Dr. Phuc Martinez. Overall prognosis is quite poor. We will discontinue vancomycin and cefepime. Completed short course of ceftriaxone, may be able to switch to p.o. or just discontinue antibiotics if the patient is to be hospice. Tay Rascon MD
[2018-02-04] MEDS: Albuterol-Ipratrop 3 mg / 0.5 (3 ml) UD IH SCH ×4 (01:09→20:37)
[2018-02-04 06:44] LABS: HEMOGLOBIN 9.1 g/dL (14.0-18.0); MEAN CELL VOLUME 103.2 fl (80.0-105.0); MEAN CORPUSCULAR HEMOGLOBIN 29.5 pg (25.0-35.0); MEAN CORPUSCULAR HGB CONC 28.6 g/dl (31.0-37.0); MEAN PLATELET VOLUME 8.6 fl (7.0-11.0); RBC 3.08 10^6/uL (3.5-6.1); RED CELL DISTRIBUTION WIDTH 17.3 % (11.5-14.5); WHITE BLOOD COUNT 7.2 10^3/ul (4.5-11.0)
[2018-02-04 07:19] LABS: ALB/GLOB RATIO 0.8 (1.1-1.8); ALBUMIN 2.4 g/dL (3.0-4.8); ALT/SGPT 19 U/L (7-56); AST/SGOT 43 U/L (17-59); BLOOD UREA NITROGEN 39 mg/dL (7-21); CALCIUM 8.8 mg/dL (8.4-10.5); GFR AFRICAN-AMERICAN > 60; GFR NON-AFRICAN AMERICAN > 60
--- NOTE | 2018-02-04 07:42 | PN ---
DATE: 02/04/2018 PULMONARY NOTE SUBJECTIVE: The patient is mildly sedated this morning (he received Ativan recently- discussed with nurse). He is not short of breath at rest. OBJECTIVE: VITAL SIGNS (last noted in the computer): Temperature is 98.4, pulse 86, respirations 18/20, blood pressure 146/92. Oxygen saturation on nasal cannula is 92-97%. HEENT: Normocephalic, atraumatic. No JVD. CARDIOVASCULAR: Systolic ejection murmur at the lower left sternal border. Questionable S3 gallop. LUNGS: Decreased breath sounds at the bases. Less rhonchi. No wheezing. EXTREMITIES: Positive for edema. No cyanosis, no clubbing. Calves are nontender to palpation. GASTROINTESTINAL: Abdomen is soft, nontender and nondistended. Bowel sounds are positive. SKIN: Multiple skin lesions are present. There is a left groin mass. NEUROLOGIC: Exam limited at the present time. IMPRESSION: 1. Sepsis syndrome. 2. Urinary tract infection. 3. Congestive heart failure. 4. Poor differentiated carcinoma - left groin. 5. Asthma. 6. Anemia. PLAN: The patient appears mildly sedated this morning. He did receive Ativan - discussed with nurse. He is not short of breath at rest. He remains very weak appearing. On physical exam, there is less bronchospasm noted. In addition, there is no significant alveolar-arterial gradient. I will continue the current nebulizer treatments for now. I will also continue with the aspiration precautions. The patient remains on antibiotic therapy - as per Infectious Disease.. Urine cultures did grow out Escherichia coli. The leukocytosis has resolved. The clinical status of this patient is certainly improved - compared to a few days ago. However, again, the future status/prognosis for this patient remains poor. All are aware. I will discuss the above with Dr. Martinez. Sajan Castrejon MD MTDLg
--- NOTE | 2018-02-04 08:22 | CP.PCM.PN ---
Subjective - Date & Time of Evaluation Date of Evaluation: 02/04/18 Time of Evaluation: 06:35 - Subjective Subjective: Lying in bed, lethargic, moans, confuse, no distress Reason for consultation and follow up: Cardiac evaluation, chronic CHF, aortic insufficiency and stenosis Seen and examined by me and Dr. Mcgowan Objective - Vital Signs/Intake and Output Vital Signs (last 24 hours): Temp Pulse Resp BP Pulse Ox 98.4 F 86 20 111/45 L 92 L 02/03/18 18:31 02/03/18 18:31 02/03/18 18:31 02/04/18 07:57 02/03/18 18:31 Intake and Output: 02/04/18 02/04/18 06:59 18:59 Intake Total 0 Output Total 950 Balance -950 - Medications Medications: Current Medications Albuterol/Ipratropium (Duoneb 3 Mg/0.5 Mg (3 Ml) Ud) 3 ml IH [id number] [facility] Last Admin: 02/04/18 07:34 Dose: 3 ml Albuterol/Ipratropium (Duoneb 3 Mg/0.5 Mg (3 Ml) Ud) 3 ml IH Q2H PRN PRN Reason: Shortness of Breath Collagenase (Santyl) 0 gm TOP BID [facility] Last Admin: 02/03/18 19:17 Dose: Not Given Enoxaparin Sodium (Lovenox) 40 mg SC DAILY [facility] PRN Reason: Protocol Last Admin: 02/03/18 11:24 Dose: 40 mg Furosemide (Lasix) 20 mg IVP 0800,1400 [facility] Last Admin: 02/04/18 07:57 Dose: Not Given Doxycycline Hyclate 100 mg/ (Sodium Chloride) 100 mls @ 100 mls/hr IVPB Q12 [facility] PRN Reason: Protocol Last Admin: 02/03/18 21:58 Dose: 100 mls/hr Ceftriaxone Sodium (Rocephin 1 Gram Ivpb) 1 gm in 100 mls @ 100 mls/hr IVPB DAILY [facility] PRN Reason: Protocol Stop: 02/11/18 10:01 Insulin Human Regular (Humulin R Med) 0 units SC ACHS [facility] PRN Reason: Protocol Last Admin: 02/03/18 21:37 Dose: Not Given Lorazepam (Ativan) 0.5 mg IVP Q6H PRN; Protocol PRN Reason: Agitation Last Admin: 02/04/18 05:40 Dose: 0.5 mg - Labs Labs: 02/04/18 05:30 02/04/18 05:45 PT 13.4 SECONDS (9.4-12.5) H 02/01/18 12:12 INR 1.16 (0.93-1.08) H 02/01/18 12:12 APTT 33.7 Seconds (25.1-36.5) 02/01/18 12:12 - Constitutional Appears: No Acute Distress - Head Exam Head Exam: NORMOCEPHALIC - Eye Exam Eye Exam: Normal appearance - ENT Exam ENT Exam: Mucous Membranes Dry - Respiratory Exam Respiratory Exam: Decreased Breath Sounds, NORMAL BREATHING PATTERN Additional comments: NC 2/min - Cardiovascular Exam Cardiovascular Exam: +S1, +S2 - GI/Abdominal Exam GI & Abdominal Exam: Soft, Normal Bowel Sounds - Exam Additional comments: virgen catheter - Extremities Exam Additional comments: right groin big mass with lymphadenopathy 2-3+ leg edema - Neurological Exam Additional comments: confuse/lethargic - Skin Skin Exam: Intact, Warm Assessment and Plan - Assessment and Plan (Free Text) Assessment: An 87 year old male who was brought to the ER due to lethargy and cough for the past 2-3 days. History of chronic CHF (systolic dysfunction) aortic insufficiency and stenosis,PPM, CAD, melanoma,squamous cell carcinoma on the left leg. poor appetite, recently been discharged from rehab. In the ER hypotensive and low grade fever. Plan: DNR Will hold off any further invasive cardiac work up. Critically ill, poor prognosis Supportive care, consider hospice Nutritional support, consider PEG insertion or peripheral TPN Continue current medications Continue current treatment Will follow up Plan and treatment discussed with Dr. Mcgowan
[2018-02-04] MEDS: Insulin Reg-MEDIUM-Coverage SC SCH ×4 (08:36→22:21)
[2018-02-04] MEDS ORDERED: cefTRIAXone 1 gm 1 GM/100 ML BAG IVPB SCH (10:00)
[2018-02-04] MEDS: Enoxaparin 40 mg Syringe SC SCH (10:04)
[2018-02-04] MEDS: Collagenase 250 Units/gm Ointment(30 gm) TOP SCH ×2 (10:07→17:00)
--- NOTE | 2018-02-04 13:21 | CP.PCM.PN ---
Subjective - Date & Time of Evaluation Date of Evaluation: 02/04/18 Time of Evaluation: 13:00 - Subjective Subjective: Somnolent, breathing comfortably Objective - Vital Signs/Intake and Output Vital Signs (last 24 hours): Temp Pulse Resp BP Pulse Ox 97.5 F L 83 20 111/45 L 98 02/04/18 08:40 02/04/18 08:40 02/04/18 08:40 02/04/18 08:40 02/04/18 08:40 Intake and Output: 02/04/18 02/04/18 06:59 18:59 Intake Total 0 Output Total 950 Balance -950 - Medications Medications: Current Medications Albuterol/Ipratropium (Duoneb 3 Mg/0.5 Mg (3 Ml) Ud) 3 ml IH [id number] [facility] Last Admin: 02/04/18 07:34 Dose: 3 ml Albuterol/Ipratropium (Duoneb 3 Mg/0.5 Mg (3 Ml) Ud) 3 ml IH Q2H PRN PRN Reason: Shortness of Breath Collagenase (Santyl) 0 gm TOP BID [facility] Last Admin: 02/04/18 10:07 Dose: Not Given Enoxaparin Sodium (Lovenox) 40 mg SC DAILY [facility] PRN Reason: Protocol Last Admin: 02/04/18 10:04 Dose: 40 mg Furosemide (Lasix) 20 mg IVP 0800,1400 [facility] Last Admin: 02/04/18 07:57 Dose: Not Given Doxycycline Hyclate 100 mg/ (Sodium Chloride) 100 mls @ 100 mls/hr IVPB Q12 [facility] PRN Reason: Protocol Last Admin: 02/04/18 10:05 Dose: 100 mls/hr Ceftriaxone Sodium (Rocephin 1 Gram Ivpb) 1 gm in 100 mls @ 100 mls/hr IVPB DAILY [facility] PRN Reason: Protocol Stop: 02/11/18 10:01 Last Admin: 02/04/18 10:04 Dose: 100 mls/hr Insulin Human Regular (Humulin R Med) 0 units SC ACHS [facility] PRN Reason: Protocol Last Admin: 02/04/18 11:58 Dose: Not Given Lorazepam (Ativan) 0.5 mg IVP Q6H PRN; Protocol PRN Reason: Agitation Last Admin: 02/04/18 12:22 Dose: 0.5 mg - Labs Labs: 02/04/18 05:30 02/04/18 05:45 PT 13.4 SECONDS (9.4-12.5) H 02/01/18 12:12 INR 1.16 (0.93-1.08) H 02/01/18 12:12 APTT 33.7 Seconds (25.1-36.5) 02/01/18 12:12 - Constitutional Appears: Chronically Ill - Eye Exam Eye Exam: Normal appearance, PERRL - ENT Exam ENT Exam: Mucous Membranes Dry - Respiratory Exam Respiratory Exam: Decreased Breath Sounds, Rales - Cardiovascular Exam Cardiovascular Exam: REGULAR RHYTHM, +S1, +S2 - GI/Abdominal Exam GI & Abdominal Exam: Soft, Hypoactive Bowel Sounds - Extremities Exam Additional comments: edematous - Neurological Exam Neurological Exam: Altered - Skin Skin Exam: Dry, Pallor Assessment and Plan - Assessment and Plan (Free Text) Assessment: 87 year old male with history of metastatic squamous cell carcinoma, melanoma, CAD admitted with sepsis, pneumonia,UTI and CHF . The patient is more somnolent today, non verbal. He is breathing comfortably. He grimaces when repositioned. He remains NPO. I spoke with his daughter Carla. She is prepared to take her dad home tomorrows under [facility]. End of life counseling given. Plan: Discharge home tomorrow to [facility]
--- NOTE | 2018-02-04 14:39 | PN ---
DATE: 02/04/2018 SUBJECTIVE: I saw him resting comfortably in bed. He is sleeping at this time with his daughter present. He is not talking over the past 24 hours. He is on Ativan, doxycycline IV, DuoNeb, insulin, Lasix IV, Lovenox, Rocephin IV and Santyl. He is lethargic. He is nonverbal at this time. He is failing. PHYSICAL EXAMINATION: VITAL SIGNS: He has a 97.5 temperature, 83 pulse, 111/45 blood pressure, 20 respiratory rate, 98% O2 sat on 2 liters nasal canula. HEENT: His head is atraumatic, normocephalic. Throat is dry. HEART: Regular rate. LUNGS: Decreased breath sounds, but clear. ABDOMEN: Soft, obese, nontender. EXTREMITIES: A +2/4 pitting edema. LABORATORY DATA: He has a 7.2 white count, 9.1 hemoglobin, 31.8 hematocrit with 215 platelets. He has a sodium of 149, potassium 4, BUN 39, creatinine 1, GFR is greater than 60, sugar is 122, calcium is 8.8, total bilirubin is 0.5, AST is 43, ALT is 19, alkaline phosphatase is 76, total protein is 5.4. Urine was with large bacteria. He had urinary tract infection, left groin mass which is a cancer. He had hypotension, pneumonia, congestive heart failure. After talking with the daughter the failing of the patient, we are going to send him home tomorrow with [facility] at his home. He will have hospice at home, I will do house calls hospital bed already. We will stop the medications tomorrow. The plan is for hospice tomorrow at home. I discussed at length with the , hospice. Phuc Martinez DO AMY
--- NOTE | 2018-02-04 15:21 | PN ---
DATE: 02/04/2018 SUBJECTIVE: The patient is in bed, in no acute distress, nontoxic. PHYSICAL EXAMINATION: VITAL SIGNS: Temperature is 97, blood pressure is 112/50, respiratory rate of 20. Examination of HEENT is unremarkable. NECK: Supple. LUNGS: Have decreased breath sounds. HEART: Normal S1 and S2. ABDOMEN: Soft, nontender. LABORATORY DATA: Laboratory examination reveals the patient's white count to be 7.2, hemoglobin of 9, platelets of 215. BUN of 39, creatinine of 1, procalcitonin 0.42. Urinalysis is noted. Microbiology reveals E. coli in the urine and blood cultures are negative. The E. coli in the urine is pansensitive. The patient is on p.o. doxycycline and IV ceftriaxone. Cindy Garcia's note from today says the patient's daughter is prepared to take the patient home under [facility] and hospice services and end of life. ASSESSMENT AND PLAN: An 87-year-old male was seen earlier today in 374, bed 1 white Escherichia coli in the urine, acute encephalopathy, lactic acidosis, severe sepsis, bilateral healthcare-associated pneumonia, squamous cell cancer of the lung, normal procalcitonin, has had adequate antibiotic therapy. We will discontinue the doxycycline and discontinue the ceftriaxone. The patient to be transferred to his house under hospice. Supportive care. Tay Rascon MD
[2018-02-04] MEDS ORDERED: Sodium Chloride 0.9% 250 ML IV SCH (16:30)
[2018-02-05] MEDS: Albuterol-Ipratrop 3 mg / 0.5 (3 ml) UD IH SCH ×3 (02:49→14:00)
--- NOTE | 2018-02-05 05:46 | CP.PCM.PN ---
Subjective - Date & Time of Evaluation Date of Evaluation: 02/05/18 Time of Evaluation: 06:45 - Subjective Subjective: Lying in bed, lethargic, does not respond to verbal commands, staff claimed to be agitated last night,no distress Reason for consultation and follow up: Cardiac evaluation, chronic CHF, aortic insufficiency and stenosis Seen and examined by me and Dr. Mcgowan Objective - Vital Signs/Intake and Output Vital Signs (last 24 hours): Temp Pulse Resp BP Pulse Ox 98.3 F 86 19 120/65 98 02/04/18 19:45 02/04/18 19:45 02/04/18 19:45 02/04/18 20:00 02/04/18 19:45 Intake and Output: 02/04/18 02/05/18 18:59 06:59 Intake Total 0 250 Output Total 300 400 Balance -300 -150 - Medications Medications: Current Medications Albuterol/Ipratropium (Duoneb 3 Mg/0.5 Mg (3 Ml) Ud) 3 ml IH [id number] [facility] Last Admin: 02/05/18 02:49 Dose: Not Given Albuterol/Ipratropium (Duoneb 3 Mg/0.5 Mg (3 Ml) Ud) 3 ml IH Q2H PRN PRN Reason: Shortness of Breath Collagenase (Santyl) 0 gm TOP BID [facility] Last Admin: 02/04/18 17:00 Dose: Not Given Enoxaparin Sodium (Lovenox) 40 mg SC DAILY [facility] PRN Reason: Protocol Last Admin: 02/04/18 10:04 Dose: 40 mg Furosemide (Lasix) 20 mg IVP 0800,1400 [facility] Last Admin: 02/04/18 13:29 Dose: Not Given Insulin Human Regular (Humulin R Med) 0 units SC ACHS [facility] PRN Reason: Protocol Last Admin: 02/04/18 22:21 Dose: Not Given Lorazepam (Ativan) 0.5 mg IVP Q6H PRN; Protocol PRN Reason: Agitation Last Admin: 02/05/18 04:24 Dose: 0.5 mg - Labs Labs: 02/04/18 05:30 02/04/18 05:45 PT 13.4 SECONDS (9.4-12.5) H 02/01/18 12:12 INR 1.16 (0.93-1.08) H 02/01/18 12:12 APTT 33.7 Seconds (25.1-36.5) 02/01/18 12:12 - Constitutional Appears: No Acute Distress - ENT Exam ENT Exam: Mucous Membranes Dry - Respiratory Exam Respiratory Exam: Decreased Breath Sounds, NORMAL BREATHING PATTERN Additional comments: NC 2 l/min - Cardiovascular Exam Cardiovascular Exam: +S1, +S2 - GI/Abdominal Exam GI & Abdominal Exam: Soft, Normal Bowel Sounds - Exam Additional comments: virgen catheter - Extremities Exam Additional comments: right groin mass 2-3+edema - Neurological Exam Additional comments: lethargic, does not follow verbal commands - Skin Skin Exam: Intact, Normal Color, Warm Assessment and Plan - Assessment and Plan (Free Text) Assessment: An 87 year old male who was brought to the ER due to lethargy and cough for the past 2-3 days. History of chronic CHF (systolic dysfunction) aortic insufficiency and stenosis,PPM, CAD, melanoma,squamous cell carcinoma on the left leg. poor appetite, recently been discharged from rehab. In the ER hypotensive and low grade fever. Plan: Referred to Hospice, possible discharge today DNR Will hold off any further invasive cardiac work up. Critically ill, poor prognosis Supportive care Kept NPO for severe dysphagia Nutritional support Continue current treatment Will follow up Plan and treatment discussed with Dr. Mcgowan
--- NOTE | 2018-02-05 08:11 | PN ---
DATE: PULMONARY NOTE SUBJECTIVE: The patient is lethargic this morning. He did receive some sedation (discussed with nurse). He is not short of breath at rest. OBJECTIVE: VITAL SIGNS (last noted in the computer): Temperature is 98.3, pulse 86, respirations 19, blood pressure 120/65. Oxygen saturation on nasal cannula is 98%. HEENT: Normocephalic, atraumatic. No JVD. CARDIOVASCULAR: Systolic ejection murmur at the lower left sternal border. Questionable S3 gallop. LUNGS: Decreased breath sounds at the bases. Minimal rhonchi. No wheezing. EXTREMITIES: Positive for edema. No cyanosis or clubbing. GASTROINTESTINAL: Abdomen is soft, nondistended. Bowel sounds are positive. SKIN: Multiple skin lesions are present. There is a left groin mass. NEUROLOGIC: Exam limited at the present time. IMPRESSION: 1. Sepsis syndrome. 2. Urinary tract infection. 3. Congestive heart failure. 4. Poorly differentiated carcinoma - left groin. 5. Asthma. 6. Anemia. PLAN: The patient appears more lethargic this morning. He did get some sedation during the night - discussed with nurse. He is not short of breath at rest. I did have a long discussion with the nurse regarding this patient. The nurse confirms that the patient is going home today on home hospice. On physical exam, there is less bronchospasm noted. In addition, the oxygen saturation on nasal cannula is now 98%. I will continue with the current nebulizer treatments and aspiration precautions for now. Inputs by Cardiology and Infectious Disease are also noted. The overall status/prognosis for this patient remains very poor. All are aware. Again, the plan is for the patient be discharged on home hospice. I will discuss the above with Dr. Martinez this morning. Sajan Castrejon MD MTDD
[2018-02-05] MEDS: Insulin Reg-MEDIUM-Coverage SC SCH (09:09)
[2018-02-05] MEDS: Enoxaparin 40 mg Syringe SC SCH (09:42)
[2018-02-05 09:43] VITALS: BP 90/50
--- NOTE | 2018-02-05 11:15 | CP.PCM.PN ---
Subjective - Date & Time of Evaluation Date of Evaluation: 02/05/18 Time of Evaluation: 11:00 - Subjective Subjective: Somnolent, no acute over nights Objective - Vital Signs/Intake and Output Vital Signs (last 24 hours): Temp Pulse Resp BP Pulse Ox 98.3 F 86 19 90/50 L 98 02/04/18 19:45 02/04/18 19:45 02/04/18 19:45 02/05/18 09:40 02/04/18 19:45 Intake and Output: 02/05/18 02/05/18 06:59 18:59 Intake Total 250 Output Total 400 400 Balance -150 -400 - Medications Medications: Current Medications Acetaminophen (Tylenol 650 Mg Supp) 650 mg RC Q4H PRN PRN Reason: Fever >100.4 F Albuterol/Ipratropium (Duoneb 3 Mg/0.5 Mg (3 Ml) Ud) 3 ml IH [id number] [facility] Last Admin: 02/05/18 07:28 Dose: 3 ml Albuterol/Ipratropium (Duoneb 3 Mg/0.5 Mg (3 Ml) Ud) 3 ml IH Q2H PRN PRN Reason: Shortness of Breath Collagenase (Santyl) 0 gm TOP BID [facility] Last Admin: 02/04/18 17:00 Dose: Not Given Enoxaparin Sodium (Lovenox) 40 mg SC DAILY [facility] PRN Reason: Protocol Last Admin: 02/05/18 09:42 Dose: Not Given Furosemide (Lasix) 20 mg IVP 0800,1400 [facility] Last Admin: 02/05/18 09:40 Dose: 20 mg Insulin Human Regular (Humulin R Med) 0 units SC ACHS [facility] PRN Reason: Protocol Last Admin: 02/05/18 09:09 Dose: Not Given Lorazepam (Ativan) 0.5 mg IVP Q6H PRN; Protocol PRN Reason: Agitation Last Admin: 02/05/18 04:24 Dose: 0.5 mg - Labs Labs: 02/04/18 05:30 02/04/18 05:45 PT 13.4 SECONDS (9.4-12.5) H 02/01/18 12:12 INR 1.16 (0.93-1.08) H 02/01/18 12:12 APTT 33.7 Seconds (25.1-36.5) 02/01/18 12:12 - Constitutional Appears: Chronically Ill - Eye Exam Eye Exam: Normal appearance, PERRL - ENT Exam ENT Exam: Mucous Membranes Dry - Respiratory Exam Respiratory Exam: Decreased Breath Sounds, Rales - Cardiovascular Exam Cardiovascular Exam: Tachycardia, +S1, +S2 - GI/Abdominal Exam GI & Abdominal Exam: Soft, Diminished Bowel Sounds - Extremities Exam Additional comments: edematous - Skin Skin Exam: Dry, Pallor, Warm Assessment and Plan - Assessment and Plan (Free Text) Assessment: 87 year old male with history of metastatic squamous cell carcinoma, HTN, CAD who is admitted with AMS,sepsis, UTI, sacral decubiti. Patient is resting comfortably. Non verbal, feels warm. Plan: Tylenol 650mg RC now Discharge hmoe with hospice today
--- NOTE | 2018-02-05 11:45 | DS ---
HISTORY OF PRESENT ILLNESS: He is going to be going home today on hospice with [facility]. I will be seeing him when house calls. He is very lethargic, gurgly. He has a left groin cancer. He has CHF with hypotension. He had urinary tract infection. He had pneumonia. He did not respond to treatment. I discussed with the daughter at length and she agrees for home hospice and we will follow on the outpatient. PHYSICAL EXAMINATION: VITAL SIGNS: 98.2 temp, 86 pulse, 120/65 blood pressure, 19 respiratory rate, 98% O2 sat on 2 L. HEENT: Head is atraumatic, normocephalic. HEART: Regular rate. LUNGS: Decreased breath sounds, but clear. ABDOMEN: Morbidly obese, soft, nontender. Positive bowel sounds. EXTREMITIES: Left groin has a very huge, larger than a softball size mass and the extremities have +3/4 pitting edema. LABORATORY DATA: He has a 7.2 white count, 9.1 hemoglobin, 31.8 hematocrit with platelets. He has a 119 blood sugar, 149 sodium, potassium 4, BUN 39, creatinine 1, GFR is greater than 60, sugar is 118, calcium is 8.8, total bili is 0.5, AST is 43, ALT is 19, alk phos 76, total protein is 5.4. ASSESSMENT AND PLAN: He has positive urinary tract infection also and he is going to be going home today on hospice with [facility] and I will be seeing him when the house call next week. Phuc Martinez DO MTDD
--- NOTE | 2018-02-05 13:53 | CP.PCM.PN ---
Subjective - Date & Time of Evaluation Date of Evaluation: 02/05/18 Time of Evaluation: 11:05 - Subjective Subjective: Comfortable in bed, no fevers. Objective - Vital Signs/Intake and Output Vital Signs (last 24 hours): Temp Pulse Resp BP Pulse Ox 98.3 F 86 19 90/50 L 98 02/04/18 19:45 02/04/18 19:45 02/04/18 19:45 02/05/18 09:40 02/04/18 19:45 Intake and Output: 02/05/18 02/05/18 06:59 18:59 Intake Total 250 Output Total 400 400 Balance -150 -400 - Medications Medications: Current Medications Albuterol/Ipratropium (Duoneb 3 Mg/0.5 Mg (3 Ml) Ud) 3 ml IH [id number] [facility] Last Admin: 02/05/18 07:28 Dose: 3 ml Albuterol/Ipratropium (Duoneb 3 Mg/0.5 Mg (3 Ml) Ud) 3 ml IH Q2H PRN PRN Reason: Shortness of Breath Collagenase (Santyl) 0 gm TOP BID [facility] Last Admin: 02/04/18 17:00 Dose: Not Given Enoxaparin Sodium (Lovenox) 40 mg SC DAILY [facility] PRN Reason: Protocol Last Admin: 02/05/18 09:42 Dose: Not Given Furosemide (Lasix) 20 mg IVP 0800,1400 [facility] Last Admin: 02/05/18 09:40 Dose: 20 mg Insulin Human Regular (Humulin R Med) 0 units SC ACHS KELLY PRN Reason: Protocol Last Admin: 02/05/18 09:09 Dose: Not Given Lorazepam (Ativan) 0.5 mg IVP Q6H PRN; Protocol PRN Reason: Agitation Last Admin: 02/05/18 04:24 Dose: 0.5 mg - Labs Labs: 02/04/18 05:30 02/04/18 05:45 PT 13.4 SECONDS (9.4-12.5) H 02/01/18 12:12 INR 1.16 (0.93-1.08) H 02/01/18 12:12 APTT 33.7 Seconds (25.1-36.5) 02/01/18 12:12 - Constitutional Appears: Chronically Ill - Head Exam Head Exam: NORMAL INSPECTION - Neck Exam Neck Exam: absent: Meningismus - Respiratory Exam Respiratory Exam: Decreased Breath Sounds - Cardiovascular Exam Cardiovascular Exam: +S1, +S2 - GI/Abdominal Exam GI & Abdominal Exam: Soft. 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
[2018-02-05 14:12] VITALS: PULSE 81; RESP 18; TEMP 97.5; O2SAT 97
== END 2018-02-05 16:17 | disposition hospice, home (50) | DRG 871 ==
LOC: ED 11:30 → ERH 12:57 → 2RNO 15:46 → 3RSO 02-03 16:06
PROVIDERS: ADMIT Family Medicine; ATTEND Family Medicine
DX: A41.9 Sepsis, unspecified organism (principal); J18.9 Pneumonia, unspecified organism; L89.154 Pressure ulcer of sacral region, stage 4; I50.23 Acute on chronic systolic (congestive) heart failure; G93.40 Encephalopathy, unspecified; E44.0 Moderate protein-calorie malnutrition; N39.0 Urinary tract infection, site not specified; I42.9 Cardiomyopathy, unspecified; E87.2 Acidosis; L03.116 Cellulitis of left lower limb; C77.4 Secondary and unspecified malignant neoplasm of inguinal and lower limb lymph nodes; C44.729 Squamous cell carcinoma of skin of left lower limb, including hip; R65.20 Severe sepsis without septic shock; I11.0 Hypertensive heart disease with heart failure; I27.20 Pulmonary hypertension, unspecified; I08.3 Combined rheumatic disorders of mitral, aortic and tricuspid valves; D64.9 Anemia, unspecified; R62.7 Adult failure to thrive; B96.20 Unspecified Escherichia coli [E. coli] as the cause of diseases classified elsewhere; K21.9 Gastro-esophageal reflux disease without esophagitis; I25.10 Atherosclerotic heart disease of native coronary artery without angina pectoris; M19.90 Unspecified osteoarthritis, unspecified site; Z66 Do not resuscitate; Z51.5 Encounter for palliative care; Y95 Nosocomial condition; J45.909 Unspecified asthma, uncomplicated; Z95.5 Presence of coronary angioplasty implant and graft; Z95.0 Presence of cardiac pacemaker; Z86.73 Personal history of transient ischemic attack (TIA), and cerebral infarction without residual deficits; Z85.820 Personal history of malignant melanoma of skin; Z68.32 Body mass index [BMI] 32.0-32.9, adult